=== PATIENT | female | born 1985 | race Caucasian/White ===

== ENCOUNTER 2019-10-01 15:28 | Outpatient (CLI) | payer OTHER, SELFPAY ==
--- NOTE | ~2019-10-01 | MM_ITS ---
EXAMINATION: MM scrn walker implant BI w darlene HISTORY: Screening mammogram TECHNIQUE: Craniocaudal and mediolateral oblique 3-D tomosynthesis images with implant displacement a nd synthetic 2-D images were generated. Craniocaudal and mediolateral oblique views of the breasts wi thout implant displacement were obtained using full field digital mammography. CAD analysis was submi tted and interpreted. COMPARISON: No prior mammogram is available for comparison at this institution. BREAST PARENCHYMAL COMPOSITION: The breasts are heterogeneously dense, which may obscure small masses . FINDINGS: There are bilateral subpectoral saline implants. There is no evidence of suspicious mass, c alcification, or architectural distortion to suggest malignancy in either breast. There has been no s uspicious interval change. IMPRESSION: 1. No mammographic evidence of malignancy. 2. Recommend routine screening mammography in one year. BI-RADS Category 1: Negative Reviewed, dictated and finalized at location A.
--- NOTE | ~2019-10-01 | XR_ITS ---
XR abdomen w oblique DATE: 10/01/2019 16:02 INDICATION: Right upper quadrant and epigastric abdominal pain since gallbladder surgery TECHNIQUE: AP and bilateral oblique views of the abdomen COMPARISON: 04/08/2019 right upper quadrant abdominal ultrasound 04/12/2018 CT abdomen pelvis noncontrast examination 12/28/2017 KUB FINDINGS: Surgical clips, right upper quadrant, consistent with history of cholecystectomy. There is an IUD overlying the pelvis. Bilateral calcified pelvic phleboliths. The psoas shadows are intact. No visceromegaly is evident. There is no evidence of bowel obstruction. IMPRESSION: Status post cholecystectomy IUD Reviewed, dictated and finalized at Location [facility]. Reviewed, dictated and finalized at location B.
[2019-10-01 17:20] LABS: Thyroid Stimulating Hormone < 0.015 uIU/mL (0.465-4.680); Total Triiodothyronine (T3) 0.82 NG/ML (0.97-1.69)
[2019-10-01 17:23] LABS: Free T4 Free Thyroxine 1.19 ng/mL (0.78-2.19)
== END 2019-10-01 15:29 | disposition home or self-care (01) ==
PROVIDERS: PCP Internal Medicine; Visit Provider Surgery Plastic and Reconstructive Surgery
DX: Z12.31 Encounter for screening mammogram for malignant neoplasm of breast (principal); R10.13 Epigastric pain; R10.11 Right upper quadrant pain; E03.8 Other specified hypothyroidism; Z90.49 Acquired absence of other specified parts of digestive tract; Z97.5 Presence of (intrauterine) contraceptive device
CPT/HCPCS: 36415; 74021; 77063; 77067; 84439; 84443; 84480

== ENCOUNTER 2019-10-03 14:15 | Outpatient (CLI) | payer OTHER, SELFPAY | END 2019-10-03 14:16 | disposition home or self-care (01) | PROVIDERS: PCP Internal Medicine; Visit Provider Internal Medicine | DX: R10.13 Epigastric pain (principal) | CPT/HCPCS: 36415; 86003 ==

== ENCOUNTER 2019-10-05 08:35 | Outpatient (CLI) | payer OTHER, SELFPAY ==
--- NOTE | ~2019-10-05 | US_ITS ---
US right upper quadrant INDICATION: Epigastric pain. Status post cholecystectomy in 2019. PROCEDURE: Realtime right upper abdominal ultrasound. COMPARISON: Ultrasound dated 04/08/2019 FINDINGS: The pancreas is normal without focal mass or pancreatic ductal dilation. Liver echotexture is normal without focal mass or intrahepatic biliary dilatation. There is normal directional flow i n the portal vein. Gallbladder is surgically absent. IVC is unremarkable. IMPRESSION: 1: Normal limited abdominal ultrasound. Reviewed, dictated and finalized at location A.
== END 2019-10-05 08:36 | disposition home or self-care (01) ==
PROVIDERS: PCP Internal Medicine; Visit Provider Internal Medicine
DX: R10.13 Epigastric pain (principal)
CPT/HCPCS: 76705

== ENCOUNTER 2019-11-27 05:58 | Outpatient (CLI) | payer OTHER, SELFPAY ==
[2019-11-27 16:38] LABS: SARS-CoV-2 RNA PCR Negative
== END 2019-11-27 05:59 | disposition home or self-care (01) ==
LOC: ANHCOVIDDT 05:59
PROVIDERS: PCP Internal Medicine; Visit Provider Surgery Plastic and Reconstructive Surgery
DX: Z01.818 Encounter for other preprocedural examination (principal); Z11.59 Encounter for screening for other viral diseases
CPT/HCPCS: 87635; U0003

== ENCOUNTER 2019-11-29 00:54 | Day surgery (SDC) | payer OTHER, SELFPAY ==
[2019-11-25 19:11] VITALS: BMI 53.1
[2019-11-29] VITALS (9 sets, daily range): BP systolic 103–118; BP diastolic 52–75; PULSE 64–90; RESP 10–20; TEMP 36–36.6; O2SAT 95–100
--- NOTE | 2019-11-29 06:49 | WPDANESEPPF ---
Anes - Initial Pre Proc Eval Procedure: Operation Date: 11/29/19 07:30 Proposed Procedures p Bilateral Breast Implant Exchange, - Neil Webb MD s Bilateral Mastopexy with Galaflex - Neil Webb MD Date/Time: 11/29/19 06:49 Surgeon: Neil Webb MD Pre Op Diagnosis: HX BREAST AUGMENTATION Patient Data Age: 34 Gender: F Height: 5 ft 2 in Weight: 56.69 kg Allergies Allergy/AdvReac Type Severity Reaction Status Date / Time No Known Allergies Allergy Verified 11/25/19 18:38 Home Medications Medication Instructions Recorded Confirmed Type topiramate 25 mg tablet 25 mg PO BID 05/17/19 11/25/19 History erenumab-aooe 70 mg/mL 70 mg SUB-Q MONTHLY 05/21/19 11/25/19 History subcutaneous auto-injector gabapentin 300 mg capsule 300 mg PO BID 05/21/19 11/25/19 History magnesium 250 mg tablet 500 mg PO DAILY tablet 10/03/19 11/25/19 History levothyroxine 112 mcg tablet 112 mcg PO DAILY #90 tablet 11/19/19 11/25/19 Rx cholecalciferol (vitamin D3) 50 mcg PO DAILY 11/25/19 11/25/19 History [Vitamin D3] linaclotide [Linzess] 290 mcg PO DAILY 11/25/19 11/25/19 History loynsuurwoiw-irr-iglc-FA-vit K tablet PO 11/25/19 History [Adults Multivitamin] polyethylene glycol 3350 [Miralax] 17 g PO DAILY 11/25/19 11/25/19 History Patient hx anesthesia problems: none Family hx anesthesia problems: none PMFSH Past Medical History Medical History (Updated 11/29/19 @ 06:50 by Luis Jiang MD) BMI 23.0-23.9, adult Central hypothyroidism Constipation Fatigue Fibromyalgia Follow up RLQ abdominal pain SVT (supraventricular tachycardia) Surgical History Surgical History H/O cardiac radiofrequency ablation History of cardiac radiofrequency ablation S/P cholecystectomy Status post cholecystectomy Family History Family History Father Family history of hypercholesterolemia Family history of malignant neoplasm of esophagus Mother Family history of hypercholesterolemia Hypertension Cerebrovascular accident Other Family history of malignant neoplasm Social History Social History Smoking status: Never smoker Alcohol intake: current Anes - Eval Final PreProcedure Day of Procedure 11/29/19 06:49 Patient weight: normal Heart: regular rate and rhythm Lungs: clear to auscultation Airway: Mallampati scale class 1 Neurological: alert and oriented Last oral intake: >/= 8 hours ASA classification: III Emergent: no Anesthetic plan: proceed Anesthesia type and monitoring: general LMA and standard monitoring Other findings: TIVA temporary oral bridge upper Informed Consent: The patient's anesthetic plan and its attendant risks and benefits were discussed with the patient/family/POA. Questions were solicited and answers provided to the satisfaction of the patient/family/POA.
[2019-11-29] MEDS: LACTATED RINGERS 1,000 ML 30 ML IV CONT ×3 (06:55→11:42)
--- NOTE | 2019-11-29 07:07 | WPDHPUPDATE1 ---
History and Physical Update Update Date/Time: 11/29/19 07:07 History and Physical has been reviewed, including an updated exam of the patient. There are NO changes in the patient's condition. Risks, benefits, and alternatives have been discussed and questions answered. Patient agrees to proceed with procedure.
[2019-11-29] MEDS: LIDO 1%/EPINEPHRINE 1:100,000 20 ML VIAL 30 ML INFILTRATE (07:26)
[2019-11-29] MEDS: ceFAZolin 2 GM/D5W 50 ML 2 GM/50 ML BAG IVPB (07:26)
[2019-11-29 07:31] LABS: Urine Cotinine NEGATIVE
--- NOTE | 2019-11-29 10:12 | SUR.OPER ---
EBL:30cc
--- NOTE | 2019-11-29 10:47 | PM.PROC ---
Procedure Note - Detailed Date of procedure: 11/29/19 Pre-op diagnosis: HX BREAST AUGMENTATION Post-op diagnosis: same Procedure performed: Bilateral breast implant exchange, revision mastopexy, galaflex Description of procedure: Patient was marked in the preoperative holding area with her verification. She did have a degree of asymmetry that was identified. She also has some volume asymmetry which was discussed in great detail. I did we over the risks, benefits, alternatives. Discussed realistic expectations of outcome. Explained to her gravity will always settle this. She will likely have some residual areola which was identified. All outlined in great detail prior to proceeding. Patient was taken to the operating room placed supine on the operating table. Anesthesia was provided by anesthesiology and prepped and draped in a standard sterile fashion. Tegaderm nipple Cherry were placed. I made a vertical incision. Dissection was continued down to the implant pocket was identified and I opened this. The implant was removed. This was a 290 cc saline implant with 1 of the sides I was slightly under filled. She had had lateral migration of the implants and as such I completed popcorn capsulorrhaphy bilateral on the lateral aspect and release the superior. I irrigated with a total volume of 3 L of saline solution on TUR tubing. That was 1500 cc per side. I verified strict hemostasis. I then irrigated with triple antibiotic and Betadine containing solution. Wash my gloves. Used a funnel in a no-touch technique and the implant was introduced into the pocket. I closed using 2-0 Vicryl in many layers. I then tailor tacked the breast into place and put her in a sitting position. Marked out the nipple-areolar complex at 38 mm. This was based on my preoperative planning and intraoperative measurements. She was placed supine. I removed the central portion of soft tissue based on a preoperative planning. I elevated bilateral flaps for the mastopexy. Gout flex was trimmed and sutured into place using 2-0 Vicryl. I then reapproximated the flaps using 2-0 Vicryl this is followed by 3-0 strata fix along the IMF and 3-0 Monocryl vertically. I also used 3-0 Monocryl around the areola. The areola was left in a superior pedicle which had been de-epithelialized. I then used running subcuticular 4-0 Monocryl and tissue glue for final closure. Prior to final closure again I did place her in a sitting position to verify symmetry and that I was happy with the appearance. Fluffs and a surgical bra were placed. Patient was woken taken to the PACU without difficulty. All instrument sponge counts were correct at the end of the case. Implants: Previous implants 290cc saline. Bilateral silicone implants placed. [employer] SoftTouch. Right: REF# [id number] Left: REF# [id number] Galaflex REF# [id number]# [id number] Exp 04/15/2020 Anesthesia: GLMA Surgeon: Neil Webb MD Estimated blood loss (mL): 30 Drains: No Packing: No Pathology: none sent Complications: No immediate complications Condition: stable Disposition: PACU
[2019-11-29] MEDS: ONDANSETRON INJ 4 MG/2 ML VIAL IV PUSH (12:58)
== END 2019-11-29 13:04 | disposition home or self-care (01) ==
PROVIDERS: PCP Internal Medicine; Visit Provider Surgery Plastic and Reconstructive Surgery
PROC: (CPT 19342; principal; 2019-11-29 07:30)
PROC: (CPT 19316; 2019-11-29 07:30)
DX: Z45.812 Encounter for adjustment or removal of left breast implant (principal); Z45.811 Encounter for adjustment or removal of right breast implant; I47.1 Supraventricular tachycardia; E03.9 Hypothyroidism, unspecified; M79.7 Fibromyalgia; K59.00 Constipation, unspecified; Z79.899 Other long term (current) drug therapy
CPT/HCPCS: 19340; 19328; 15777 ×2; 36415; 80307; A9270; J0690; J1100; J1580; J2250; J2405; J2704; J3010; J7120

== ENCOUNTER 2020-02-21 10:34 | Outpatient (CLI) | payer OTHER, SELFPAY ==
[2020-02-21 11:18] LABS: Anion Gap 12.5 mmol/L (7-16); Blood Urea Nitrogen 9 mg/dL (7-17); Calcium 9.9 mg/dL (8.4-10.2); Carbon Dioxide 26 mmol/L (22-30); Chloride 105 mmol/L (98-107); Cholesterol 209 mg/dL (0-200); Estimated Glomerular Filt Rate > 60; Glucose 80 mg/dL (65-105); HDL Direct 78 mg/dL; Potassium 4.5 mmol/L (3.4-5.0); Sodium 139 mmol/L (137-145); Triglycerides 72 mg/dL (<150)
[2020-02-21 11:29] LABS: LDL Cholesterol Direct 120 mg/dL
[2020-02-21 11:48] LABS: Thyroid Stimulating Hormone 0.193 uIU/mL (0.465-4.680)
[2020-02-21 12:02] LABS: Free T4 Free Thyroxine 1.01 ng/mL (0.78-2.19)
[2020-02-25 06:06] LABS: Triiodothyronine T3 Free 2.6 pg/mL (2.3-4.2)
== END 2020-02-21 10:35 | disposition home or self-care (01) ==
PROVIDERS: PCP Internal Medicine; Visit Provider Internal Medicine
DX: E03.9 Hypothyroidism, unspecified (principal); I47.1 Supraventricular tachycardia; Z79.899 Other long term (current) drug therapy
CPT/HCPCS: 36415; 80048; 80061; 84439; 84443; 84481

== ENCOUNTER 2020-04-24 09:28 | Outpatient (CLI) | payer OTHER, SELFPAY ==
--- NOTE | ~2020-04-24 | XR_ITS ---
XR UGIAC w barium swallow DATE: 04/24/2020 10:10 INDICATION: Food sticking in neck area. TECHNIQUE: 1.4 minutes fluoroscopy time DAP: 20.358 Air-contrast upper gastrointestinal series and barium swallow COMPARISON: None FINDINGS: Normal deglutition and esophageal peristalsis. No stricture, mucosal fold thickening, erosi on, ulceration or intraluminal mass lesion of the esophagus, stomach or duodenum. Surgical clips, right upper quadrant, consistent with cholecystectomy. IMPRESSION: Normal Reviewed, dictated and finalized at Location [facility]. Reviewed, dictated and finalized at location A. IMPRESSION: Normal
== END 2020-04-24 09:29 | disposition home or self-care (01) ==
LOC: ANHIMG 09:36
PROVIDERS: PCP Internal Medicine; Visit Provider Internal Medicine
DX: R13.10 Dysphagia, unspecified (principal); R19.8 Other specified symptoms and signs involving the digestive system and abdomen; R11.0 Nausea
CPT/HCPCS: 74246

== ENCOUNTER 2020-06-02 17:11 | Outpatient (CLI) | payer OTHER, SELFPAY ==
[2020-06-02 17:46] LABS: Rheumatoid Factor < 8.6 IU/ML (<12)
[2020-06-02 17:47] LABS: CRP < 0.5 mg/dL (<1.0)
[2020-06-02 17:50] LABS: Erythrocyte Sedimentation Rate 7 mm/hr (0-20)
[2020-06-05 21:59] LABS: Anti Cyclic Citrullinated Pept <16 Units (<20)
== END 2020-06-02 17:12 | disposition home or self-care (01) ==
LOC: ANHLAB 17:13
PROVIDERS: PCP Internal Medicine; Visit Provider Internal Medicine
DX: M25.50 Pain in unspecified joint (principal)
CPT/HCPCS: 36415; 85652; 86140; 86200; 86430

== ENCOUNTER 2020-08-25 11:52 | Outpatient (CLI) | payer OTHER, SELFPAY ==
[2020-08-25 12:31] LABS: Cholesterol 210 mg/dL (0-200); HDL Direct 92 mg/dL; Triglycerides 52 mg/dL (<150)
[2020-08-25 12:42] LABS: LDL Cholesterol Direct 123 mg/dL
[2020-08-25 13:02] LABS: Thyroid Stimulating Hormone 0.121 uIU/mL (0.465-4.680)
[2020-08-25 13:21] LABS: Free T4 Free Thyroxine 0.93 ng/mL (0.78-2.19)
[2020-08-29 07:08] LABS: Triiodothyronine T3 Free 2.3 pg/mL (2.3-4.2)
== END 2020-08-25 11:53 | disposition home or self-care (01) ==
LOC: ANHLAB 11:54
PROVIDERS: PCP Internal Medicine; Visit Provider Internal Medicine
DX: E03.9 Hypothyroidism, unspecified (principal); E78.41 Elevated Lipoprotein(a); Z51.81 Encounter for therapeutic drug level monitoring; Z79.899 Other long term (current) drug therapy; Z00.00 Encounter for general adult medical examination without abnormal findings
CPT/HCPCS: 36415; 80061; 84439; 84443; 84481

== ENCOUNTER 2020-08-31 01:09 | Day surgery (SDC) | payer OTHER, SELFPAY ==
[2020-08-19 13:09] VITALS: BMI 22.9
[2020-08-31 09:11] VITALS: BP 131/89; PULSE 100; RESP 18; TEMP 36.6; O2SAT 99
[2020-08-31] MEDS: LACTATED RINGERS 1,000 ML 150 ML IV CONT (09:21)
--- NOTE | 2020-08-31 09:41 | WPDANESEPPF ---
Anes - Initial Pre Proc Eval Procedure: Operation Date: 08/31/20 10:15 Proposed Procedures p Esophagogastroduodenoscopy & Colonoscopy - Riky Porter MD Date/Time: 08/31/20 09:41 Surgeon: Riky Porter MD Pre Op Diagnosis: diarrhea, rectal bleeding, nausea, abd pain Patient Data Age: 35 Gender: F Height: 5 ft 2 in Weight: 57.7 kg Last Vital Signs Temp 36.6 C 08/31/20 09:11 Pulse 100 08/31/20 09:11 Resp 18 08/31/20 09:11 BP 131/89 08/31/20 09:11 Pulse Ox 99 08/31/20 09:11 Allergies Allergy/AdvReac Type Severity Reaction Status Date / Time No Known Allergies Allergy Verified 08/31/20 09:09 Home Medications Medication Instructions Recorded Confirmed Type magnesium 250 mg tablet 500 mg PO DAILY tablet 10/03/19 08/28/20 History levothyroxine 112 mcg tablet 112 mcg PO DAILY #90 tablet 11/19/19 08/31/20 Rx Adults Multivitamin 1 tablet PO DAILY 11/25/19 08/28/20 History cholecalciferol (vitamin D3) 50 mcg PO DAILY 11/25/19 08/28/20 History [Vitamin D3] duloxetine 60 mg capsule,delayed 60 mg PO DAILY #90 cap 06/10/20 08/28/20 Rx release gabapentin 300 mg capsule See Rx Instructions .ROUTE 07/24/20 08/28/20 Rx .COMPLEX #60 capsule calcium polycarbophil [FiberCon] 1,250 mg PO DAILY 08/19/20 08/28/20 History duloxetine 30 mg capsule,delayed 30 mg PO DAILY #90 cap 08/28/20 08/28/20 Rx release Patient hx anesthesia problems: none Family hx anesthesia problems: none PMFSH Past Medical History Medical History Abdominal pain Anxiety with depression Blood in stool BMI 23.0-23.9, adult Central hypothyroidism Constipation CTS (carpal tunnel syndrome) Dysphagia Encounter for routine adult health examination without abnormal findings Fatigue Fibromyalgia Follow up History of gastric ulcer History of gastroesophageal reflux (GERD) Irritable bowel syndrome with constipation Irritable bowel syndrome with diarrhea Joint pain Nausea On [facility] [employer] drug therapy Personal history of COVID-19 RLQ abdominal pain SVT (supraventricular tachycardia) Surgical History Surgical History H/O cardiac radiofrequency ablation History of cardiac radiofrequency ablation Hx of breast augmentation S/P cholecystectomy Status post cholecystectomy Family History Family History Father Family history of hypercholesterolemia Family history of malignant neoplasm of esophagus Mother Family history of hypercholesterolemia Hypertension Cerebrovascular accident Other Family history of malignant neoplasm Social History Social History Smoking status: Never smoker Alcohol intake: current Drinks per week: 10 Substance use: never Substance use type: does not use Living arrangements: with family 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 Questions were solicited and answers provided to the satisfaction of the patient/family/POA.
--- NOTE | 2020-08-31 10:13 | PM.HPGS ---
History of Present Illness History of Present Illness Consent: Risks, benefits, and alternatives have been discussed and questions answered. Patient agrees to proceed with procedure. Chief complaint: diarrhea, rectal bleeding, nausea, abd pain Narrative: Nicho Deleon is a 35 year old female with intermittent abdominal pain in rlq and luq, cholecystectomy did not help actually pain worsened, normal bowel movements but more often than usual and feels like does not evacuate. Using fiber and miralax prn. Also on omeprazole, took carafate but did not help Review of Systems Constitutional: Constitutional: Denies headache(s) and Denies weakness Eyes: Eyes: Denies blurry vision ENT: Reports Normal hearing present, Denies headache(s) and Denies neck pain Cardiovascular: Cardiovascular: Denies chest pain and Denies dyspnea Respiratory: Respiratory: Denies dyspnea Gastrointestinal: Gastrointestinal: Reports no additional gastrointestinal complaints Genitourinary: Genitourinary: Denies dysuria Musculoskeletal: Musculoskeletal: Denies neck pain Integumentary/Breasts: Skin/Breast: Denies dry skin Neurologic: Reports Normal hearing present, Denies headache(s) and Denies weakness Psychiatric: Psychiatric: Denies anxiety Endocrine: Endocrine: Denies change in body appearance Hematologic/Lymphatic: Hematologic/Lymphatic: Denies easy bleeding Allergic/Immunologic: Allergic/Immunologic: Denies urticaria PMFSH Past Medical History Medical History Abdominal pain Anxiety with depression Blood in stool BMI 23.0-23.9, adult Central hypothyroidism Constipation CTS (carpal tunnel syndrome) Dysphagia Encounter for routine adult health examination without abnormal findings Fatigue Fibromyalgia Follow up History of gastric ulcer History of gastroesophageal reflux (GERD) Irritable bowel syndrome with constipation Irritable bowel syndrome with diarrhea Joint pain Nausea On [facility] drug therapy Personal history of COVID-19 RLQ abdominal pain SVT (supraventricular tachycardia) Surgical History Surgical History H/O cardiac radiofrequency ablation History of cardiac radiofrequency ablation Hx of breast augmentation S/P cholecystectomy Status post cholecystectomy Family History Family History Father Family history of hypercholesterolemia Family history of malignant neoplasm of esophagus Mother Family history of hypercholesterolemia Hypertension Cerebrovascular accident Other Family history of malignant neoplasm Social History Social History Smoking status: Never smoker Alcohol intake: current Drinks per week: 10 Substance use: never Substance use type: does not use Living arrangements: with family 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 Spiritual care concerns: No Meds Home Medications and Allergies Home Medications Medication Instructions Recorded Confirmed Type magnesium 250 mg tablet 500 mg PO DAILY tablet 10/03/19 08/28/20 History levothyroxine 112 mcg tablet 112 mcg PO DAILY #90 tablet 11/19/19 08/31/20 Rx Adults Multivitamin 1 tablet PO DAILY 11/25/19 08/28/20 History cholecalciferol (vitamin D3) 50 mcg PO DAILY 11/25/19 08/28/20 History [Vitamin D3] duloxetine 60 mg capsule,delayed 60 mg PO DAILY #90 cap 06/10/20 08/28/20 Rx release gabapentin 300 mg capsule See Rx Instructions .ROUTE 07/24/20 08/28/20 Rx .COMPLEX #60 capsule calcium polycarbophil [FiberCon] 1,250 mg PO DAILY 08/19/20 08/28/20 History duloxetine 30 mg capsule,delayed 30 mg PO DAILY #90 cap 08/28/20 08/28/20 Rx release Allergies Allergy/AdvReac Type Severity Reaction Status Date / Time No Known Allergies Allergy Verified 08/31/20 09:09 Vital Signs Vital Si
[2020-08-31] MEDS: BENZOCAINE (*SP) 60 ML SPRAY CAN (HURRICAINE) 1 SPRAY MUCOUS MEM (10:19)
--- NOTE | 2020-08-31 10:31 | SUR.OPER ---
EGD ENDED 1024,COLONOSCOPY STARTED 1029
[2020-08-31 10:49] VITALS: BP 96/62; PULSE 79; RESP 16; O2SAT 100
[2020-08-31 10:59] VITALS: BP 99/58; PULSE 74; RESP 16; O2SAT 100
[2020-08-31 11:09] VITALS: BP 107/72; PULSE 76; RESP 20; O2SAT 94
== END 2020-08-31 11:43 | disposition home or self-care (01) ==
PROVIDERS: PCP Internal Medicine; Visit Provider Internal Medicine Gastroenterology
PROC: 0DJ08ZZ Inspection of Upper Intestinal Tract, Via Natural or Artificial Opening Endoscopic (ICD-10-PCS; CPT 43235; principal; 2020-08-31 10:15)
DX: K58.9 Irritable bowel syndrome, unspecified (principal); R19.4 Change in bowel habit; K62.5 Hemorrhage of anus and rectum; K21.9 Gastro-esophageal reflux disease without esophagitis; R10.31 Right lower quadrant pain; R10.12 Left upper quadrant pain; K58.2 Mixed irritable bowel syndrome; K64.8 Other hemorrhoids; I47.1 Supraventricular tachycardia; M79.7 Fibromyalgia; E03.8 Other specified hypothyroidism; G56.00 Carpal tunnel syndrome, unspecified upper limb; F41.9 Anxiety disorder, unspecified; F32.9 Major depressive disorder, single episode, unspecified; Z79.899 Other long term (current) drug therapy; Z86.16 Personal history of COVID-19; Z90.49 Acquired absence of other specified parts of digestive tract; Z80.0 Family history of malignant neoplasm of digestive organs
CPT/HCPCS: 45380; 43239; 88305; J2704; J7120

== ENCOUNTER 2020-10-23 08:18 | Outpatient (CLI) | payer OTHER, SELFPAY ==
--- NOTE | ~2020-10-23 | CT_ITS ---
EXAMINATION: CT abdomen pelvis w con DATE: 10/23/2020 08:45 INDICATION: Diffuse abdominal pain. TECHNIQUE: Computed tomography (CT) of the abdomen and pelvis was performed with 100 mL Omnipaque-350 intravenous contrast. Automated exposure control and iterative reconstruction technique were employe d. The dose-length product was 293.68 mGy-cm. COMPARISON: 04/12/2018 FINDINGS: Lung bases are clear. Heart size is normal. No pericardial or pleural effusion. Bilateral breast impl ants. Cholecystectomy clips the gallbladder fossa. Liver, spleen, pancreas, bilateral adrenal glands and kidneys are normal. Moderate to large amount of stool scattered throughout the colon. Bowels are otherwise normal with no abnormal wall thickening or obstruction. Partially decompressed bladder is n ormal. T-shaped IUD in expected position within the anteverted uterus. Coarse calcification at the an terior uterine fundus likely related to a degenerated uterine fibroid. A few small follicles at the b ilateral ovaries. No free intraperitoneal gas or fluid. No pathologically enlarged abdominal or pelvi c lymphadenopathy. IMPRESSION: 1. Moderate to large amount of stool throughout the colon. Correlate for constipation. Otherwise no a cute intra-abdominal/pelvic process. 2. IUD in expected position in the anteverted uterus. Reviewed, dictated and finalized at location B. IMPRESSION: 1. Moderate to large amount of stool throughout the colon. Correlate for consti pation. Otherwise no acute intra-abdominal/pelvic process. 2. IUD in expected position in the anteverted uterus.
== END 2020-10-23 08:19 | disposition home or self-care (01) ==
PROVIDERS: PCP Internal Medicine; Visit Provider Internal Medicine
DX: R10.84 Generalized abdominal pain (principal); Z97.5 Presence of (intrauterine) contraceptive device
CPT/HCPCS: 74177; Q9967

== ENCOUNTER 2020-11-12 12:25 | Outpatient (CLI) | payer OTHER, SELFPAY ==
--- NOTE | ~2020-11-12 | XR_ITS ---
EXAMINATION: XR lumbar spine 2-3V EXAM DATE: 11/12/2020 13:13 INDICATION: No known recent injury provided at this time. Pain of the low back. TECHNIQUE: Lumber spine frontal, lateral, lateral L5-S1 projections for interpretation. There is no prior study for comparison. FINDINGS: Mild lumbar levoscoliosis. The vertebral bodies are aligned in the AP dimension. Vertebra l body and disc heights are well-maintained. Mild lower lumbar facet arthropathy. There are no acute fractures identified. Sacrum, sacroiliac joints, sacral arcuate lines are intact. There are cholecyst ectomy clips. There is IUD projecting over the central aspect of the pelvis. IMPRESSION: 1. Mild lumbar levoscoliosis. 2. Mild facet arthropathy. Reviewed, dictated and finalized at location A.
[2020-11-12 13:12] LABS: CRP < 0.5 mg/dL (<1.0); Creatine Kinase 257 U/L (30-135); Magnesium 2.1 mg/dL (1.6-2.3)
[2020-11-12 13:45] LABS: Erythrocyte Sedimentation Rate 8 mm/hr (0-20)
[2020-11-17 13:11] LABS: Vitamin D 1,25 (OH)2 Total 35 pg/mL (18-72); Vitamin D2 1,25 (OH)2 <8 pg/mL; Vitamin D3 1,25 (OH)2 35 pg/mL
[2020-11-17 20:50] LABS: Aldolase 6.9 U/L (<=8.1)
[2020-11-19 00:33] LABS: Testosterone Total 9 ng/dL (2-45)
== END 2020-11-12 12:26 | disposition home or self-care (01) ==
PROVIDERS: PCP Internal Medicine; Visit Provider Internal Medicine
DX: M79.609 Pain in unspecified limb (principal); M54.5 Low back pain; R20.2 Paresthesia of skin; R53.1 Weakness; Z79.899 Other long term (current) drug therapy; E55.9 Vitamin D deficiency, unspecified; M41.86 Other forms of scoliosis, lumbar region; M47.896 Other spondylosis, lumbar region
CPT/HCPCS: 36415; 72100; 82085; 82550; 82652; 83036; 83735; 84403; 85652; 86038; 86140

== ENCOUNTER 2020-11-27 08:27 | Outpatient (CLI) | payer OTHER, SELFPAY ==
--- NOTE | ~2020-11-27 | MR_ITS ---
EXAMINATION: MR brain/brain stem wo/w con DATE: 11/27/2020 09:44 INDICATION: Paresthesias of skin. Multiple sclerosis. TECHNIQUE: Magnetic resonance imaging (MRI) of the brain and brainstem was performed without and with 10 mL MultiHance intravenous contrast. Sequences included sagittal and axial T1-weighted FLAIR, axia l T1-weighted FSE, axial diffusion-weighted FS EPI, sagittal T2-weighted FLAIR, axial T2*-weighted GR E, axial T2-weighted FLAIR Propeller, and axial T2-weighted Propeller. Postcontrast sequences include d axial, coronal, and sagittal T1-weighted FSE. Apparent diffusion coefficient (ADC) maps were create d. COMPARISON: Brain MRI 03/01/2019 FINDINGS: There is no intracranial hemorrhage, acute infarction, or abnormal intracranial mass lesion . The ventricles are normal in size. The orbits are normal. There are trace bilateral mastoid effusio ns. The paranasal sinuses are clear. IMPRESSION: 1. Normal brain. Reviewed, dictated and finalized at location B. IMPRESSION: 1. Normal brain.
[2020-11-27 09:16] LABS: Estimated Glomerular Filt Rate > 60
== END 2020-11-27 08:28 | disposition home or self-care (01) ==
PROVIDERS: PCP Internal Medicine; Visit Provider Internal Medicine
DX: R20.2 Paresthesia of skin (principal); R20.0 Anesthesia of skin; M79.609 Pain in unspecified limb
CPT/HCPCS: 70553; A9577

== ENCOUNTER 2020-12-04 14:12 | Outpatient (CLI) | payer OTHER, SELFPAY ==
--- NOTE | ~2020-12-04 | XR_ITS ---
XR scoliosis survey DATE: 12/04/2020 14:37 INDICATION: Low back pain. Bilateral leg numbness. TECHNIQUE: Standing AP and lateral views of the spine; breast ellison. COMPARISON: 11/12/2020 lumbar spine FINDINGS: There is straightening of the cervical spine. No fracture or dislocation or bone destructio n of the cervical, thoracic or lumbar spine. The pedicles are intact. There is 5 degrees levoscoliosis measured from T3 to T10. There is 10 degrees dextroscoliosis measured from T10 to L1. There is 13 degrees levoscoliosis measured from L1 to L4. The right femoral head is 5.6 mm higher than the left femoral head. Status post cholecystectomy IUD IMPRESSION: 5 degrees levoscoliosis measured from T3 to T10. 10 degrees dextroscoliosis measured from T10 to L1. 13 degrees levoscoliosis measured from L1 to L4. Right femoral head is 5.6 mm higher than the left femoral head. Reviewed, dictated and finalized at Location [facility]. Reviewed, dictated and finalized at location B.
== END 2020-12-04 14:13 | disposition home or self-care (01) ==
LOC: ANHIMG 14:19
PROVIDERS: PCP Internal Medicine; Visit Provider Internal Medicine
DX: M54.5 Low back pain (principal); M95.5 Acquired deformity of pelvis; M41.80 Other forms of scoliosis, site unspecified; M41.84 Other forms of scoliosis, thoracic region; M41.86 Other forms of scoliosis, lumbar region; M21.751 Unequal limb length (acquired), right femur
CPT/HCPCS: 72082

== ENCOUNTER → 2020-12-26 01:02 | Outpatient (CLI) | payer OTHER, SELFPAY ==
[2020-12-26 17:56] LABS: SARS-CoV-2 RNA PCR Negative
== END ==
PROVIDERS: PCP Internal Medicine; Visit Provider Obstetrics & Gynecology
DX: Z01.812 Encounter for preprocedural laboratory examination (principal); Z20.822 Contact with and (suspected) exposure to COVID-19
CPT/HCPCS: C9803; U0003; U0005

== ENCOUNTER 2020-12-30 01:27 | Day surgery (SDC) | payer OTHER, SELFPAY ==
[2020-12-21 11:06] VITALS: BMI 22.8
--- NOTE | 2020-12-29 13:09 | WPDANESEPPF ---
Anes - Initial Pre Proc Eval Procedure: Operation Date: 12/30/20 11:00 Proposed Procedures p Hysteroscopy with Breana Endometrial Ablation - Leonila Rutledge MD Date/Time: 12/29/20 13:09 Surgeon: Leonila Rutledge MD Pre Op Diagnosis: menorrhaghia Patient Data Age: 35 Gender: F Height: 1.57 m Weight: 56.7 kg Allergies Allergy/AdvReac Type Severity Reaction Status Date / Time No Known Allergies Allergy Verified 12/21/20 11:04 Home Medications Medication Instructions Recorded Confirmed Type magnesium 250 mg tablet 500 mg PO DAILY tablet 10/03/19 12/21/20 History Adults Multivitamin 1 tablet PO DAILY 11/25/19 12/21/20 History cholecalciferol (vitamin D3) 50 mcg PO DAILY 11/25/19 12/21/20 History [Vitamin D3] calcium polycarbophil [FiberCon] 1,250 mg PO DAILY 08/19/20 12/21/20 History apple cider vinegar 300 mg tablet 300 mg PO DAILY 10/16/20 12/21/20 History testosterone 0.5mg cream See Rx Instructions .ROUTE 11/27/20 12/21/20 Rx .COMPLEX #15 ml gabapentin 300 mg PO BID 12/21/20 12/21/20 History levothyroxine 112 mcg PO DAILY 12/21/20 12/21/20 History duloxetine 60 mg capsule,delayed 60 mg PO DAILY #30 cap 12/25/20 Rx release methylphenidate HCl 10 mg tablet 10 mg PO BID #60 tablet 12/25/20 Rx triamcinolone acetonide 0.1 % 1 applic TOPICAL BID #15 g 12/25/20 Rx topical cream Patient hx anesthesia problems: none Family hx anesthesia problems: none PMFSH Past Medical History Medical History (System 12/10/20 @ 12:25 by Sugey Iniguez) Abdominal pain ADD (attention deficit disorder) Anxiety with depression Blood in stool BMI 23.0-23.9, adult Central hypothyroidism Constipation CTS (carpal tunnel syndrome) Dysphagia Encounter for routine adult health examination without abnormal findings Fatigue Fibromyalgia Follow up History of gastric ulcer History of gastroesophageal reflux (GERD) Insomnia Irritable bowel syndrome Irritable bowel syndrome with constipation Irritable bowel syndrome with diarrhea Joint pain Lack of concentration Low back pain radiating down leg Low testosterone level in female Nausea On penitentiary drug therapy Paresthesia of both lower extremities Personal history of COVID-19 RLQ abdominal pain SVT (supraventricular tachycardia) Surgical History Surgical History (System 12/10/20 @ 12:25 by Sugey Iniguez) H/O cardiac radiofrequency ablation History of cardiac radiofrequency ablation Hx of breast augmentation S/P cholecystectomy Status post cholecystectomy Family History Family History (System 12/10/20 @ 12:25 by Sugey Iniguez) Father Family history of hypercholesterolemia Family history of malignant neoplasm of esophagus Mother Family history of hypercholesterolemia Hypertension Cerebrovascular accident Other Family history of malignant neoplasm Social History Social History (System 12/10/20 @ 12:25 by Sugey Iniguez) Smoking status: Never smoker Alcohol intake: current Drinks per week: 14 Substance use: current Substance use type: marijuana Other substance usage details: CBD GUMMIES AT NIGHT Last use: 12/18/20 Living arrangements: with family Additional occupation/education comments: Returned [employer] Spiritual care concerns: No Anes - Eval Final PreProcedure Day of Procedure 12/29/20 13:09 Patient weight: normal Heart: regular rate and rhythm Lungs: clear to auscultation and normal air movement Airway: Mallampati scale class II Neurological: alert and oriented Last oral intake: >/= 8 hours ASA classification: II Emergent: no Anesthetic plan: proceed Anesthesia type and monitoring: general GIVS and LMA Informed Consent: The patient's anesthetic plan and its attendant risks and benefits were discussed with the patient/family/POA. Questions were solicited and answers provided to the satisfaction of the patient/family/POA.
[2020-12-30 09:16] VITALS: BP 121/89; PULSE 86; RESP 18; TEMP 36.5; O2SAT 100
[2020-12-30] MEDS: LACTATED RINGERS 1,000 ML 30 ML IV CONT (09:30)
[2020-12-30] MEDS: ACETAMINOPHEN 500 MG TABLET 1000 MG PO (09:33)
--- NOTE | 2020-12-30 10:15 | WPDHPUPDATE1 ---
History and Physical Update Update Date/Time: 12/30/20 10:15 History and Physical has been reviewed, including an updated exam of the patient. There are NO changes in the patient's condition. Risks, benefits, and alternatives have been discussed and questions answered. Patient agrees to proceed with procedure.
[2020-12-30 11:07] VITALS: BP 108/63; PULSE 62; RESP 14; O2SAT 95
--- NOTE | 2020-12-30 11:11 | W.PM.PROC2 ---
Procedure Note - Detailed Date of Procedure 12/30/20 Pre-op Diagnosis menorrhaghia Post-op Diagnosis same Procedure Performed Hysteroscopy Surgeon Leonila Rutledge MD Anesthesia MAC Indications Heavy vaginal bleeding Findings Scar across the fundal endometrium, narrow intrauterine cavity Description of Procedure The patient was taken the operating room. She was prepped and draped in the dorsal lithotomy position after induction of mac anesthesia. A speculum placed in vagina. The cervix was grasped with a tenaculum. The IUD was removed. This was done using a ring forceps and slowly withdrawing the IUD using the IUD string. The hysteroscope was placed in the intrauterine cavity and the above findings were noted. Hysteroscope was used to bluntly dissect scar tissue across the fundal endometrium. During this dissection of perforation was made through the uterus and the right cornu. The procedure was terminated immediately. The endometrial ablation was not performed. Estimated Blood Loss 5 Drains No Packing No Pathology none sent Complications Other complications (Uterine perforation) Condition stable Disposition PACU
[2020-12-30 11:37] VITALS: BP 110/65; PULSE 67; RESP 14; O2SAT 98
[2020-12-30] MEDS: oxyCODONE HCL (*CRX) 5 MG TAB IR PO (12:01)
[2020-12-30 12:07] VITALS: BP 108/63; PULSE 61; RESP 14
== END 2020-12-30 12:30 | disposition home or self-care (01) ==
PROVIDERS: PCP Internal Medicine; Visit Provider Obstetrics & Gynecology
PROC: 0U5B8ZZ Destruction of Endometrium, Via Natural or Artificial Opening Endoscopic (ICD-10-PCS; CPT 58563; principal; 2020-12-30 11:00)
DX: N92.0 Excessive and frequent menstruation with regular cycle (principal); N99.71 Accidental puncture and laceration of a genitourinary system organ or structure during a genitourinary system procedure; Y65.8 Other specified misadventures during surgical and medical care; Z30.432 Encounter for removal of intrauterine contraceptive device; F41.8 Other specified anxiety disorders; F98.8 Other specified behavioral and emotional disorders with onset usually occurring in childhood and adolescence; E03.9 Hypothyroidism, unspecified; M79.7 Fibromyalgia; K58.2 Mixed irritable bowel syndrome; Z86.16 Personal history of COVID-19; F12.90 Cannabis use, unspecified, uncomplicated
CPT/HCPCS: 58563; 58301; A9270; J2250; J2704; J3010; J7030; J7120

== ENCOUNTER 2021-01-12 08:00 | Outpatient (RCR) | payer OTHER, SELFPAY ==
--- NOTE | 2020-12-22 18:02 | PTOPEVAL ---
INITIAL PHYSICAL THERAPY EVALUATION and PLAN OF CARE Thank you for referring Nicho Deleon to [facility].? Nicho is scheduled to be seen for physical therapy? 2x/week for 4 weeks. Please review, sign, date and return this plan of care KATHLEEN. I agree with and certify that the following plan of care is medically necessary. Referring Physician Date Admitting Provider: Attending Provider: Angel Arora MD Referring Provider: *PT Outpatient Evaluation Start: 12/22/20 08:11 Freq: Status: Active Protocol: Document 12/22/20 08:09 NENITA (Rec: 12/22/20 09:04 NENITA [id number]) Therapy Assessment Status Assessment Status Assessment Status Evaluation Outpatient Past Medical History Past Medical History Source of Past Medical History Recalled from Previous Visit, Confirmed with Patient/Family Neurological History Hx Migraine Yes Cardiovascular History Hx Other Cardiac Disorders Yes: tachy with ablation 2019- has been released Respiratory History Hx Respiratory Disorders No Significant History Gastrointestinal History Hx Cholecystectomy Yes: 2019 Hx Gastroesophageal Reflux Disease Yes Hx Irritable Bowel Yes Genitourinary History Hx Genitourinary Disorders No Significant History Musculoskeletal History Hx Fibromyalgia Yes Hx Fractures Yes: ARM - left - as a child Hematological History Hx Anemia Yes: IN PAST, NO MEDS CURRENTLY Endocrine History Hx Hypothyroidism Yes HEENT History Hx HEENT Disorders No Significant History Integumentary History Hx Skin Disorders No Significant History Reproductive History Hx Other Reproductive Disorders Yes: LAPAROSCOPY Psychosocial History Hx Anxiety Yes Pain History History of Any Previous or Ongoing No Significant History Instance of Pain Anesthesia History Hx Anesthesia Reactions No Significant History Other History Hx Other Surgeries Yes: BREAST FEB 2020 Evaluation Information Problem Diagnosis low back pain Onset several years - worsening past few months Subjective Information Nicho reports receiving Query Text:As Reported By Patient/ diagnosis of fibromyalgia many Family years ago, but has had back and neck pain x several years. Sees chiropractor. Back pain has worsened, then few months ago began to feel numbness into both legs. Also having numbness into L arm.
--- NOTE | 2021-01-01 13:46 | PCPTNOTE ---
Patient called & cancelled scheduled appointment this date due to work.
--- NOTE | 2021-01-07 08:09 | PCPTNOTE ---
Patient called & cancelled scheduled appointment this date due to not being able to make it in.
--- NOTE | 2021-01-14 08:09 | PCPTNOTE ---
Patient called & cancelled scheduled appointment this date due to getting called into work.
--- NOTE | 2021-01-19 08:11 | PCPTNOTE ---
Patient called & cancelled scheduled appointment this date due to being called into work. Pt is to call back to reschedule re-evaluation.
--- NOTE | 2021-02-03 08:41 | PTOPEVAL ---
Thank you for referring Nicho Taylor Rodmarguerite to [facility].? The patient is scheduled to be seen for therapy? ____x/week for ___ weeks. Please review, sign, date and return this plan of care KATHLEEN. I agree with and certify that the following plan of care is medically necessary. Referring Physician Date Admitting Provider: Attending Provider: Angel Arora MD Referring Provider: *PT Outpatient Evaluation Start: 12/22/20 08:11 Freq: Status: Active Protocol: Document 12/22/20 08:09 NENITA (Rec: 12/22/20 09:04 NENITA [id number]) Therapy Assessment Status Assessment Status Assessment Status Evaluation Outpatient Past Medical History Past Medical History Source of Past Medical History Recalled from Previous Visit, Confirmed with Patient/Family Neurological History Hx Migraine Yes Cardiovascular History Hx Other Cardiac Disorders Yes: tachy with ablation 2019- has been released Respiratory History Hx Respiratory Disorders No Significant History Gastrointestinal History Hx Cholecystectomy Yes: 2019 Hx Gastroesophageal Reflux Disease Yes Hx Irritable Bowel Yes Genitourinary History Hx Genitourinary Disorders No Significant History Musculoskeletal History Hx Fibromyalgia Yes Hx Fractures Yes: ARM - left - as a child Hematological History Hx Anemia Yes: IN PAST, NO MEDS CURRENTLY Endocrine History Hx Hypothyroidism Yes HEENT History Hx HEENT Disorders No Significant History Integumentary History Hx Skin Disorders No Significant History Reproductive History Hx Other Reproductive Disorders Yes: LAPAROSCOPY Psychosocial History Hx Anxiety Yes Pain History History of Any Previous or Ongoing No Significant History Instance of Pain Anesthesia History Hx Anesthesia Reactions No Significant History Other History Hx Other Surgeries Yes: BREAST FEB 2020 Evaluation Information Problem Diagnosis low back pain Onset several years - worsening past few months Subjective Information Nicho reports receiving Query Text:As Reported By Patient/ diagnosis of fibromyalgia many Family years ago, but has had back and neck pain x several years. Sees chiropractor. Back pain has worsened, then few months ago began to feel numbness into both legs. Also having numbness into L arm. Scheduled for nerve con
--- NOTE | 2021-02-03 08:42 | PCPTNOTE ---
PHYSICAL THERAPY DISCHARGE SUMMARY Admitting Provider: Attending Provider: Angel Arora MD Patient:Nicho Deleon Date of :1985 Nicho has not returned for any further treatments since 01/12/2021, therefore she will be discharged at this time. Nicho?s initial visit was on 12/22/2020 08:00 and she had a total of 5 visits. She had 4 cancellations including her re-evaluation. She did not call to reschedule this appointment. The goals have been partially met. Thank you for referring Nicho to [facility]. Please review, sign, date and return this discharge summary KATHLEEN. I have been updated about Nicho's current status and I agree with discharge from the above service at this time. Referring Physician Date
== END 2021-02-05 14:41 | disposition home or self-care (01) ==
LOC: ANHPT 08:00
PROVIDERS: PCP Internal Medicine; Visit Provider Internal Medicine
DX: M54.5 Low back pain (principal)
CPT/HCPCS: 97110; 97162

== ENCOUNTER 2021-01-29 16:11 | Outpatient (CLI) | payer OTHER, SELFPAY ==
--- NOTE | ~2021-01-29 | MR_ITS ---
EXAMINATION: MR lumbar spine wo con DATE: 01/29/2021 16:44 INDICATION: Low back pain. TECHNIQUE: Magnetic resonance imaging (MRI) of the lumbar spine was performed without intravenous con trast. Sequences included sagittal T2-weighted FSE, sagittal T2-weighted FS FSE, sagittal T1-weighted FSE, and axial T2-weighted FSE. COMPARISON: None FINDINGS: 10 degrees lumbar levoscoliosis. Vertebral body heights are normal. Normal marrow signal. Mild right -sided disc height loss at L1-L2 at L2-L3. The conus medullaris terminates at L1. There is normal sig nal in the caudal spinal cord. Paravertebral soft tissues are unremarkable. The following disc levels are specifically discussed: T12-L1: The disc does not extend beyond the endplate margin. There is minimal bilateral facet joint o steoarthritis. There is no neural foraminal stenosis. There is no central canal stenosis. L1-L2: The disc does not extend beyond the endplate margin. There is mild right and minimal left face t joint osteoarthritis. There is no neural foraminal stenosis. There is no central canal stenosis. L2-L3: Disc is mildly bulging. There is mild right facet joint osteoarthritis. There is mild bilatera l neural foraminal stenosis. There is no central canal stenosis. L3-L4: Disc is mildly bulging. There is minimal bilateral facet joint osteoarthritis. There is mild l eft and minimal right neural foraminal stenosis. There is no central canal stenosis. L4-L5: Disc is mildly bulging. There is mild bilateral facet joint osteoarthritis. There is mild bila teral neural foraminal stenosis. There is no central canal stenosis. L5-S1: Annular fissure with negligible central disc protrusion. There is mild left and mild to modera te right facet joint osteoarthritis. There is mild bilateral neural foraminal stenosis. There is no c entral canal stenosis. IMPRESSION: 1. 10 degrees lumbar levoscoliosis with mild spondylosis. Reviewed, dictated and finalized at location A.
== END 2021-01-29 16:12 | disposition home or self-care (01) ==
LOC: ANHIMG 16:13
PROVIDERS: PCP Internal Medicine; Visit Provider Internal Medicine
DX: M54.5 Low back pain (principal); R20.2 Paresthesia of skin; M41.86 Other forms of scoliosis, lumbar region
CPT/HCPCS: 72148

== ENCOUNTER 2021-02-09 09:52 | Outpatient (CLI) | payer OTHER, SELFPAY ==
[2021-02-09 10:25] LABS: Basophils Absolute Auto 0.1 K/mm3 (0.0-0.1); Basophils Percent Auto 1.1 % (0.2-1.2); Eosinophils Absolute Auto 0.2 K/mm3 (0-0.3); Eosinophils Percent Auto 2.3 % (0-4.4); Hematocrit 39.2 % (37.0-47.0); Hemoglobin 13.2 g/dL (12.0-15.0); Immature Granulocyte Absolute 0.02 K/mm3 (0.00-0.031); Immature Granulocyte Percent A 0.3 % (0-0.5); Lymphocytes Absolute Auto 2.42 K/mm3 (0.9-3.2); Lymphocytes Percent Auto 32.5 % (18.3-44.2); Mean Corpuscular HGB Conc 33.7 g/dl (32-36); Mean Corpuscular Hemoglobin 31.8 pg (26-34); Mean Corpuscular Volume 94.5 fl (80-100); Mean Platelet Volume 9.6 fl (7.4-10.4); Monocytes Absolute Auto 0.5 K/mm3 (0.1-0.6); Neutrophils Absolute Auto 4.2 K/mm3 (1.3-6.7); Neutrophils Percent Auto 56.8 % (45.5-73.1); Platelet Count Result 290 k/mm3 (150-375); Red Blood Count 4.15 M/mm3 (4.2-5.4); Red Cell Distribution Width 12.7 % (11.5-14.5); White Blood Count 7.4 K/mm3 (4.5-10.0)
[2021-02-09 10:33] LABS: Alanine Aminotransferase 30 U/L (4-35); Albumin Level 4.5 g/dL (3.5-5.1); Alkaline Phosphatase 55 U/L (38-126); Anion Gap 10 mmol/L (8-16); Aspartate Amino Transferase 34 U/L (14-36); Bilirubin,Total 0.3 mg/dL (0.2-1.3); Blood Urea Nitrogen 13 mg/dL (7-17); Calcium 9.5 mg/dL (8.4-10.2); Carbon Dioxide 26 mmol/L (22-30); Chloride 106 mmol/L (98-107); Cholesterol 220 mg/dL (0-200); Estimated Glomerular Filt Rate > 60; Glucose 83 mg/dL (65-110); HDL Direct 83 mg/dL; Potassium 4.2 mmol/L (3.4-5.0); Sodium 142 mmol/L (137-145); Triglycerides 95 mg/dL (<150)
[2021-02-09 10:44] LABS: LDL Cholesterol Direct 111 mg/dL
[2021-02-09 11:04] LABS: Thyroid Stimulating Hormone 0.068 uIU/mL (0.465-4.680)
--- NOTE | 2021-02-09 11:15 | NEURO_ITS ---
Impression: # Complains of numbness of hands and feet. # Normal nerve conduction study of upper and lower extremity except evolving early right ulnar neuropathy across the elbow. # No Carpal Tunnel Syndrome. # Normal needle/EMG exam. Nerve Conduction Studies Anti Sensory Summary Table Stim Site NR Peak (ms) P-T Amp (?V) Site1 Site2 Delta-P (ms) Dist (cm) Jono (m/s) Left Median Anti Sensory (2-3nd Digit) Wrist 2.6 71.5 Wrist 2-3nd Digit 2.6 14.0 54 Wrist 2.5 67.5 Wrist 2-3nd Digit 2.6 14.0 54 Right Median Anti Sensory (2-3nd Digit) Wrist 2.4 54.5 Wrist 2-3nd Digit 2.4 14.0 58 Wrist 2.4 69.2 Wrist 2-3nd Digit 2.4 14.0 58 Left Radial Anti Sensory (Base 1st Digit) Wrist 2.5 26.9 Wrist Base 1st Digit 2.5 0.0 Right Radial Anti Sensory (Base 1st Digit) Wrist 1.8 26.3 Wrist Base 1st Digit 1.8 0.0 Left Sup Fibular Anti Sensory (Ant Lat Mall) 14 cm 2.8 10.3 14 cm Ant Lat Mall 2.8 16.0 57 Right Sup Fibular Anti Sensory (Ant Lat Mall) 14 cm 2.5 22.1 14 cm Ant Lat Mall 2.5 16.0 64 Left Sural Anti Sensory (Lat Mall) Calf 2.8 24.6 Calf Lat Mall 2.8 16.0 57 Right Sural Anti Sensory (Lat Mall) Calf 3.7 12.3 Calf Lat Mall 3.7 16.0 43 Left Ulnar Anti Sensory (5th Digit) Wrist 2.1 89.3 Wrist 5th Digit 2.1 14.0 67 Right Ulnar Anti Sensory (5th Digit) Wrist 2.2 94.2 Wrist 5th Digit 2.2 14.0 64 Motor Summary Table Stim Site NR Onset (ms) O-P Amp (mV) Site1 Site2 Delta-0 (ms) Dist (cm) Jono (m/s) Left Median Motor (Abd Poll Brev) Wrist 3.0 5.8 Elbow Wrist 4.7 26.0 55 Elbow 7.7 5.1 Right Median Motor (Abd Poll Brev) Wrist 3.2 1.3 Elbow Wrist 4.5 26.0 58 Elbow 7.7 1.9 Left Peroneal Motor (Vastus Med) Ankle 3.9 0.7 Popit Ankle 7.1 36.0 51 Popit 11.0 1.0 Right Peroneal Motor (Vastus Med) Ankle 4.1 0.7 Popit Ankle 6.1 34.0 56 Popit 10.2 0.5 Left Tibial Motor (Abd Martinez Brev) Ankle 4.3 4.1 Knee Ankle 7.5 37.0 49 Knee 11.8 4.1 Right Tibial Motor (Abd Martinez Brev) Ankle 4.1 4.7 Knee Ankle 7.1 38.0 54 Knee 11.2 4.9 Left Ulnar Motor (Abd Dig Minimi) Wrist 2.2 7.8 A Elbow Wrist 4.8 28.0 58 A Elbow 7.0 6.7 Right Ulnar Motor (Abd Dig Minimi) Wrist 2.8 6.0 A Elbow Wrist 4.8 26.0 54 A Elbow 7.6 4.6 B Elbow Wrist 3.7 20.0 54 B Elbow 6.5 4.6 F Wave Studies NR F-Lat (ms) L-R F-Lat (ms) Left Median (Mrkrs) (Abd Poll Brev) 27.15 0.58 Right Median (Mrkrs) (Abd Poll Brev) 27.73 0.58 Left Peroneal (Mrkrs) (EDB) 48.07 0.70 Right Peroneal (Mrkrs) (EDB) 48.77 0.70 Left Tibial (Mrkrs) (Abd Hallucis) 47.35 0.16 Right Tibial (Mrkrs) (Abd Hallucis) 47.18 0.16 Left Ulnar (Mrkrs) (Abd Dig Min) 25.66 0.08 Right Ulnar (Mrkrs) (Abd Dig Min) 25.59 0.08 EMG Side Muscle Nerve Root Ins Act Fibs Amp Dur Recrt Comment Right 1stDorInt Ulnar C8-T1 Nml Nml Nml Nml Nml Right Ext Indicis Radial (Post Int) C7-8 Nml Nml Nml Nml Nml Right Ext Digitorum Radial (Post Int) C7-8 Nml Nml Nml Nml Nml Right BrachioRad Radial C5-6 Nml Nml Nml Nml Nml Right PronatorTeres Median C6-7 Nml Nml Nml Nml Nml Right Abd Poll Brev Median C8-T1 Nml Nml Nml Nml Nml R
[2021-02-09 12:13] LABS: Free T4 Free Thyroxine 1.43 ng/mL (0.78-2.19)
[2021-02-12 05:49] LABS: Triiodothyronine T3 Free 2.9 pg/mL (2.3-4.2)
[2021-02-13 10:36] LABS: Testosterone Total 37 ng/dL (2-45)
[2021-02-13 16:55] LABS: Vitamin D 1,25 (OH)2 Total 31 pg/mL (18-72); Vitamin D2 1,25 (OH)2 <8 pg/mL; Vitamin D3 1,25 (OH)2 31 pg/mL
== END 2021-02-09 09:53 | disposition home or self-care (01) ==
PROVIDERS: PCP Internal Medicine; Visit Provider Internal Medicine
DX: R20.0 Anesthesia of skin (principal); R79.89 Other specified abnormal findings of blood chemistry; Z51.81 Encounter for therapeutic drug level monitoring; Z79.899 Other long term (current) drug therapy; E55.9 Vitamin D deficiency, unspecified; E03.8 Other specified hypothyroidism
CPT/HCPCS: 36415; 80053; 80061; 82652; 84403; 84439; 84443; 84481; 85025; 95886; 95911; 95913

== ENCOUNTER 2021-06-04 16:54 | Emergency (ER) | payer OTHER, SELFPAY ==
[2021-06-04 17:04] VITALS: BP 143/88; PULSE 78; RESP 18; TEMP 37.5; O2SAT 100
[2021-06-04 17:05] VITALS: BP 143/88; PULSE 78; RESP 18; TEMP 37.5; O2SAT 100
--- NOTE | 2021-06-04 17:26 | ED.FEMALEGU ---
HPI - Female Genitourinary General Chief complaint: Urogenital-Female Stated complaint: UTI Time Seen by Provider: 06/04/21 17:12 Source: patient and RN notes reviewed Mode of arrival: ambulatory Limitations: no limitations History of Present Illness HPI Narrative: Patient presents today complaining of a 2-week history of dark and cloudy urine, decreased urine output, and malodorous strong urine. She also reports low back pain. She believes that she has a bladder/kidney infection and she came in today for evaluation. She has tried no [id number] treatment prior to arrival, aside from increasing her water intake. MD elicited complaint: UTI Related Data Home Medications Medication Instructions Recorded Confirmed magnesium 250 mg tablet 500 mg PO DAILY tablet 10/03/19 06/04/21 Adults Multivitamin 1 tablet PO DAILY 11/25/19 06/04/21 cholecalciferol (vitamin D3) 50 mcg PO DAILY 11/25/19 06/04/21 [Vitamin D3] calcium polycarbophil [FiberCon] 1,250 mg PO DAILY 08/19/20 06/04/21 apple cider vinegar 300 mg tablet 300 mg PO DAILY 10/16/20 06/04/21 levothyroxine 112 mcg PO DAILY 12/21/20 06/04/21 gabapentin 300 mg PO BID 06/04/21 06/04/21 meloxicam 15 mg PO DAILY 06/04/21 06/04/21 Allergies Allergy/AdvReac Type Severity Reaction Status Date / Time No Known Allergies Allergy Verified 06/04/21 17:22 Review of Systems Review of Systems: CONSTITUTIONAL: Denies body aches, fever, chills, or sweats. EYES: Denies visual changes, redness, or discharge. ENT: Denies rhinorrhea, congestion, sore throat, or otalgia. CARDIOVASCULAR: Denies chest pain, palpitations, or edema. RESPIRATORY: Denies cough or dyspnea. GASTROINTESTINAL: Denies abdominal pain, nausea, vomiting, or diarrhea. GENITOURINARY: Denies dysuria or hematuria.+, Malodorous urine, decreased urine output SKIN: Denies rash, itching, or wounds. MUSCULOSKELETAL: Denies joint pain, or myalgia. + Low back pain NEUROLOGIC: Denies headache, numbness, tingling, or weakness. PSYCH: Denies depression or anxiety. [facility] Past Medical History Medical History Abdominal pain ADD (attention deficit disorder) Anxiety with depression Blood in stool BMI 22.0-22.9, adult BMI 23.0-23.9, adult Central hypothyroidism Cervicalgia Constipation CTS (carpal tunnel syndrome) Dysphagia Encounter for preventive health examination Encounter for routine adult health examination without abnormal findings Family history of [place]'s disease Fatigue Fibromyalgia Follow up History of gastric ulcer History of gastroesophageal reflux (GERD) Insomnia Irritable bowel syndrome Irritable bowel syndrome with constipation Irritable bowel syndrome with diarrhea Joint pain Lack of concentration Low back pain radiating down leg Low testosterone level in female Nausea On alf drug therapy Paresthesia of both lower extremities Personal history of COVID-19 Rectal prolapse RLQ abdominal pain SVT (supraventricular tachycardia) Ulnar neuropathy at elbow Surgical History Surgical History H/O cardiac radiofrequency ablation History of cardiac radiofrequency ablation Hx of breast augmentation S/P cholecystectomy Status post cholecystectomy Family History Family History Father Family history of hypercholesterolemia Family history of malignant neoplasm of esophagus Mother Family history of hypercholesterolemia Hypertension Cerebrovascular accident Other Family history of malignant neoplasm Social History Social History Smoking status: Never smoker Alcohol intake: current Drinks per week: 14 Alcohol use details: social Substance use: current Substance use type: marijuana Other substance usage details: CBD GUMMIES AT NIGHT
== END 2021-06-04 17:35 | disposition home or self-care (01) ==
PROVIDERS: Emergency Provider Nurse Practitioner
DX: R82.90 Unspecified abnormal findings in urine (principal); M54.50 Low back pain, unspecified; M79.7 Fibromyalgia; K21.9 Gastro-esophageal reflux disease without esophagitis
CPT/HCPCS: 81003; 87086; 87088; 99213; G0463

== ENCOUNTER 2021-07-15 09:43 | Outpatient (CLI) | payer OTHER, SELFPAY ==
[2021-07-15 10:24] LABS: Alanine Aminotransferase 74 U/L (4-35); Albumin Level 4.6 g/dL (3.5-5.1); Alkaline Phosphatase 56 U/L (38-126); Anion Gap 8 mmol/L (8-16); Aspartate Amino Transferase 50 U/L (14-36); Bilirubin,Total 0.3 mg/dL (0.2-1.3); Blood Urea Nitrogen 14 mg/dL (7-17); Calcium 9.6 mg/dL (8.4-10.2); Carbon Dioxide 28 mmol/L (22-30); Chloride 105 mmol/L (98-107); Cholesterol 165 mg/dL (0-200); Estimated Glomerular Filt Rate > 60; Glucose 89 mg/dL (65-110); HDL Direct 84 mg/dL; Potassium 4.3 mmol/L (3.4-5.0); Sodium 141 mmol/L (137-145); Triglycerides 81 mg/dL (<150)
[2021-07-15 10:35] LABS: LDL Cholesterol Direct 68 mg/dL
[2021-07-15 10:53] LABS: Thyroid Stimulating Hormone < 0.015 uIU/mL (0.465-4.680)
[2021-07-15 11:02] LABS: Free T4 Free Thyroxine 1.43 ng/mL (0.78-2.19)
[2021-07-20 21:28] LABS: Apolipoprotein B 65 mg/dL (<90)
[2021-07-21 07:19] LABS: Triiodothyronine T3 Free 3.2 pg/mL (2.3-4.2)
== END 2021-07-15 09:44 | disposition home or self-care (01) ==
PROVIDERS: PCP Internal Medicine; Visit Provider Internal Medicine
DX: E55.9 Vitamin D deficiency, unspecified (principal); E03.8 Other specified hypothyroidism; E78.5 Hyperlipidemia, unspecified; Z51.81 Encounter for therapeutic drug level monitoring; Z79.899 Other long term (current) drug therapy
CPT/HCPCS: 36415; 80053; 80061; 82172; 82306; 84439; 84443; 84481; 97110; 97140; 97163

== ENCOUNTER 2021-08-13 07:51 | Outpatient (CLI) | payer OTHER, SELFPAY ==
--- NOTE | ~2021-08-13 | MR_ITS ---
EXAMINATION: MR cervical spine wo con EXAM DATE: 08/13/2021 09:00 INDICATION: neck pain, radiculopathy . TECHNIQUE: Multi-sequential, multiplanar MR images of the cervical spine were obtained without contra st. Axial T2, axial T2 MERGE sequence. Sagittal T1, T2, T2 fat saturation images also obtained. Th ere is no prior study for comparison. FINDINGS: The vertebral bodies are aligned in the AP dimension. Vertebral body and disc heights are well-maintained. There are no suspicious marrow signal abnormalities. The spinal cord signal intensit y and intrinsic morphology is normal. Cervicomedullary junction is normal in appearance. Paraspinal s oft tissue is unremarkable. Level by level evaluation: C2-C3: Disc does not extend beyond the endplate margin. Uncovertebral joint arthropathy: None. Facet joint arthropathy: Mild bilateral. Neural foraminal stenosis: No stenosis. Central canal stenosis: No stenosis. C3-C4: Disc does not extend beyond the endplate margin. Uncovertebral joint arthropathy: Mild left. Facet joint arthropathy: Mild bilateral. Neural foraminal stenosis: No stenosis. Central canal stenosis: No stenosis. C4-C5: Disc does not extend beyond the endplate margin. Uncovertebral joint arthropathy: Mild bilateral. Facet joint arthropathy: Moderate bilateral. Neural foraminal stenosis: No stenosis. Central canal stenosis: No stenosis. C5-C6: Disc does not extend beyond the endplate margin. Uncovertebral joint arthropathy: Mild bilateral. Facet joint arthropathy: Moderate bilateral. Neural foraminal stenosis: No stenosis. Central canal stenosis: No stenosis. C6-C7: Disc does not extend beyond the endplate margin. Uncovertebral joint arthropathy: Mild bilateral. Facet joint arthropathy: Mild to moderate bilateral. Neural foraminal stenosis: No stenosis. Central canal stenosis: No stenosis. C7-T1: Disc does not extend beyond the endplate margin. Uncovertebral joint arthropathy: Mild bilateral. Facet joint arthropathy: Mild to moderate bilateral. Neural foraminal stenosis: Mild bilateral. Central canal stenosis: No stenosis. IMPRESSION: Mild cervical arthropathy. Reviewed, dictated and finalized at location A. CTOR OF SUSTAINABILITY PROGRAMS IMPRESSION: Mild cervical arthropathy.
== END 2021-08-13 07:52 | disposition home or self-care (01) ==
LOC: ANHIMG 07:53
PROVIDERS: PCP Internal Medicine; Visit Provider Nurse Practitioner Family
DX: M54.12 Radiculopathy, cervical region (principal); M12.88 Other specific arthropathies, not elsewhere classified, other specified site
CPT/HCPCS: 72141

== ENCOUNTER 2021-08-24 12:36 | Outpatient (CLI) | payer OTHER, SELFPAY ==
[2021-08-24 14:20] LABS: Alanine Aminotransferase 49 U/L (4-35); Albumin Level 4.8 g/dL (3.5-5.1); Alkaline Phosphatase 50 U/L (38-126); Aspartate Amino Transferase 44 U/L (14-36); Bilirubin,Total 0.5 mg/dL (0.2-1.3)
== END 2021-08-24 12:37 | disposition home or self-care (01) ==
PROVIDERS: PCP Internal Medicine; Visit Provider Internal Medicine
DX: E67.3 Hypervitaminosis D (principal); Z79.899 Other long term (current) drug therapy
CPT/HCPCS: 36415; 80076; 82306

== ENCOUNTER 2021-09-07 07:30 | Outpatient (RCR) | payer OTHER, SELFPAY ==
--- NOTE | 2021-06-22 12:37 | PTOPEVAL ---
PHYSICAL THERAPY EVALUATION AND PLAN OF CARE Thank you for referring Nicho Deleon to [facility].? The patient is scheduled to be seen for therapy? 1-2x/week for 4-5 weeks. Please review, sign, date and return this plan of care KATHLEEN. I agree with and certify that the following plan of care is medically necessary. Referring Physician Date Attending Provider: Jacqueline Webber, ETHYLBENZENE OXIDIZER-BC Evaluation Outpatient Past Medical History Neurological History Hx Migraine Yes Cardiovascular History Hx Other Cardiac Disorders Yes: tachy with ablation 2018- has been released Gastrointestinal History Hx Cholecystectomy Yes: 2019 Hx Gastroesophageal Reflux Disease Yes Hx Irritable Bowel Yes Musculoskeletal History Hx Fibromyalgia Yes Hx Fractures Yes: ARM - left - as a child Hematological History Hx Anemia Yes: IN PAST, NO MEDS CURRENTLY Endocrine History Hx Hypothyroidism Yes Reproductive History Hx Other Reproductive Disorders Yes: LAPAROSCOPY Psychosocial History Hx Anxiety Yes Other History Hx Other Surgeries Yes: BREAST FEB 2020 Diagnosis back pain, neck pain Onset chronic Subjective Information back pain: constant pain, Query Text:As Reported By Patient/ feels almost like she has a Family kidney infection but she does not, just like that constant pain; states she feels like it needs to pop but it can't. Her 11 yo walks on her back to try to relieve pressure. neck pain: states that there is this constant pain. There is a pulling and aching. In both of her jobs she looks down constantly. She tries to have good posture but looses it while working. Has numbness/tingling in her hands . It comes and goes sometimes immediately upon waking. Self Report Pain Assessment Spine, Lumbar Reported Pain Level 3 Pain Frequency Chronic,Continuous Lowest Pain Intensity 3 Greatest Pain Intensity 8 Spine, Cervical Reported Pain Level 3 Pain Description Pressure,Pulling Pain Frequency Chronic,Continuous Lowest Pain Intensity 3 Greatest Pain Intensity 7 Pain Score Pain Score 3,3: Self Report Intervention
--- NOTE | 2021-07-13 07:54 | PCPTNOTE ---
Patient called & cancelled scheduled appointment this date due to over sleeping.
--- NOTE | 2021-07-27 08:29 | PTOPEVAL ---
PHYSICAL THERAPY PROGRESS REPORT Thank you for referring Nicho Deleon to [facility].? The patient is scheduled to be seen for therapy? 1x/week for 4weeks. Please review, sign, date and return this plan of care KATHLEEN. I agree with and certify that the following plan of care is medically necessary. Referring Physician Date Attending Provider: Jacqueline Webber, OTR REFRIGERATED CDL TRUCK DRIVER-BC Progress Outpatient Past Medical History Neurological History Hx Migraine Yes Hx Other Neurological Disorders Yes: family history of [place]'s disease Cardiovascular History Hx Other Cardiac Disorders Yes: tachy with ablation 2018- has been released Gastrointestinal History Hx Cholecystectomy Yes: 2019 Hx Gastroesophageal Reflux Disease Yes Hx Irritable Bowel Yes Musculoskeletal History Hx Fibromyalgia Yes Hx Fractures Yes: ARM - left - as a child Hematological History Hx Anemia Yes: IN PAST, NO MEDS CURRENTLY Endocrine History Hx Hypothyroidism Yes Reproductive History Hx Other Reproductive Disorders Yes: LAPAROSCOPY Psychosocial History Hx Anxiety Yes Other History Hx Other Surgeries Yes: BREAST FEB 2020 Diagnosis back pain, neck pain Onset chronic Subjective Information States that when she is doing Query Text:As Reported By Patient/ her stretches the pain is not Family so severe. She feels like there is a little bit more movement than before. She feels like the neck is starting to move again. Continues to have constant numbness and tingling in hands and feet . Self Report Pain Assessment Spine, Lumbar Reported Pain Level 4 Pain Frequency Chronic,Continuous Greatest Pain Intensity 8 Spine, Cervical Reported Pain Level 4 Pain Description Pressure,Pulling Pain Frequency Chronic,Continuous Greatest Pain Intensity 8 Pain Score Pain Score 4,4: Self Report Interventions Used Interventions Used By Clinicians Exercise,Manual Therapy Techniques Pain Relief Interventions Used By Chiropractic,Heat,Massage Patient Modalities,TENS Other Alleviating Interventions CBD creams, biofreeze, Cervical and Lumbar ROM Cervical ROM Reason Not Measured WFL/Left,WFL/Right Cervical ROM Comments flexion: pain stretched all the way down to T10 Lumbar ROM
--- NOTE | 2021-08-24 08:22 | PTOPEVAL ---
PHYSICAL THERAPY PROGRESS REPORT Thank you for referring Nicho Deleon to [facility].? The patient is scheduled for one more appointment for one more dry needling session. Please review, sign, date and return this plan of care KATHLEEN. I agree with and certify that the following plan of care is medically necessary. Referring Physician Date Attending Provider: Jacqueline Webber, EXPLOSIVE ORDNANCE MANAGER-BC Diagnosis back pain, neck pain Onset chronic Subjective Information Reports that she has Query Text:As Reported By Patient/ experienced less than 50% of Family change or improvement since start of therapy. She states that her exercises and stretches are helpful in teaching her how to move and stretch but the pain is still the same and the constant numbness remains in her hands. Self Report Pain Assessment Spine, Lumbar Reported Pain Level 4 Pain Frequency Chronic,Continuous Spine, Cervical Reported Pain Level 3 Pain Description Pressure,Pulling Pain Frequency Chronic,Continuous Pain Score Pain Score 4,3: Self Report Interventions Used Interventions Used By Clinicians Exercise,Manual Therapy Techniques Pain Relief Interventions Used By Chiropractic,Heat,Massage Patient Modalities,TENS Other Alleviating Interventions CBD creams, biofreeze, Cervical and Lumbar ROM Cervical ROM Reason Not Measured WFL/Left,WFL/Right Cervical ROM Comments flexion: pain stretched all the way down to T10 - 08/24/21: no changes Lumbar ROM Lumbar Flexion (0-90) 30 Query Text:Active in Degrees Lumbar Flexion Active Floor Query Text:Hands to: Lumbar Extension (0-40) 10 Query Text:Active in Degrees Lateral Rotation Right (0-45) 25 Query Text:Active in Degrees Lateral Rotation Left (0-45) 25 Query Text:Active in Degrees Lumbar Comments no segmental motion of lumbar spine in extension; Lower Extremity Muscle Strength Testing Hip Strength Bilateral Hip Flexion Strength 5 Normal Hip Extension Strength 4+ Good + Hip Abduction Strength 5 Normal Knee Strength Bilateral Knee Flexion Strength 5 Normal Knee Extension Strength 5 Normal Upper Extremity Muscle Strength Testing Scapular/Shoulder Bilateral Scapular Retraction - Lower Trapezius 4+ Good + Scapular Protraction - Serratus 4+ Good + Shoulder Flexion Strength
--- NOTE | 2021-09-28 17:20 | PCPTNOTE ---
PHYSICAL THERAPY DISCHARGE NOTE Attending Provider: Jacqueline Webber, SR. MERCHANDISE PLANNER-BC Patient:Nicho Deleon Date of :1985 Nicho was participating in physical therapy for neck pain and low back pain. She was experiencing some temporary relief with physical therapy intervention and her cervical ROM did improve; however, in the half-way, her symptoms did not significantly change. I encouraged her to continue HEP but otherwise will d/c from PT. Her initial visit was 06/22 and her last attended visit was 09/07/21 with a total of 10 attended visits. Thank you for referring this patient to [facility]. Please review, sign, date and return this discharge summary KATHLEEN. I have been updated about the patient's current status and I agree with discharge from the above service at this time. Referring Physician Date
== END 2021-09-13 12:40 | disposition home or self-care (01) ==
LOC: ANHPT 07:30
PROVIDERS: PCP Internal Medicine; Visit Provider Nurse Practitioner Family
DX: M54.2 Cervicalgia (principal); M54.50 Low back pain, unspecified
CPT/HCPCS: 20560; 36415; 80076; 82306; 97110; 97140; 97163

== ENCOUNTER 2021-11-23 09:08 | Outpatient (CLI) | payer OTHER, SELFPAY ==
[2021-11-23 09:24] LABS: Basophils Absolute Auto 0.1 K/mm3 (0.0-0.1); Eosinophils Absolute Auto 0.2 K/mm3 (0-0.3); Eosinophils Percent Auto 2.2 % (0-4.4); Hematocrit 41.8 % (37.0-47.0); Hemoglobin 14.5 g/dL (12.0-15.0); Immature Granulocyte Absolute 0.02 K/mm3 (0.00-0.031); Immature Granulocyte Percent A 0.3 % (0-0.5); Lymphocytes Absolute Auto 2.83 K/mm3 (0.9-3.2); Lymphocytes Percent Auto 39.3 % (18.3-44.2); Mean Corpuscular HGB Conc 34.7 g/dl (32-36); Mean Corpuscular Hemoglobin 32.1 pg (26-34); Mean Corpuscular Volume 92.5 fl (80-100); Mean Platelet Volume 9.1 fl (7.4-10.4); Monocytes Absolute Auto 0.5 K/mm3 (0.1-0.6); Monocytes Percent Auto 7.1 % (2.6-8.5); Neutrophils Absolute Auto 3.6 K/mm3 (1.3-6.7); Neutrophils Percent Auto 50.1 % (45.5-73.1); Platelet Count Result 334 k/mm3 (150-375); Red Blood Count 4.52 M/mm3 (4.2-5.4); Red Cell Distribution Width 12.2 % (11.5-14.5); White Blood Count 7.2 K/mm3 (4.5-10.0)
[2021-11-23 09:39] LABS: Alanine Aminotransferase 57 U/L (6-35); Albumin Level 4.9 g/dL (3.5-5.1); Alkaline Phosphatase 58 U/L (38-126); Anion Gap 7 mmol/L (8-16); Aspartate Amino Transferase 49 U/L (14-36); Bilirubin,Total 0.2 mg/dL (0.2-1.3); Blood Urea Nitrogen 15 mg/dL (7-17); Calcium 9.4 mg/dL (8.4-10.2); Carbon Dioxide 29 mmol/L (22-30); Chloride 98 mmol/L (98-107); Cholesterol 196 mg/dL (0-200); Estimated Glomerular Filt Rate > 60; Glucose 103 mg/dL (65-110); HDL Direct 73 mg/dL; Potassium 3.8 mmol/L (3.4-5.0); Sodium 134 mmol/L (137-145); Triglycerides 128 mg/dL (<150)
[2021-11-23 09:50] LABS: LDL Cholesterol Direct 94 mg/dL
[2021-11-23 10:08] LABS: Thyroid Stimulating Hormone < 0.015 uIU/mL (0.465-4.680)
[2021-11-23 10:24] LABS: Vitamin D 25 Hydroxy 96.6 ng/mL
[2021-11-26 14:04] LABS: Triiodothyronine T3 Free 1.6 pg/mL (2.3-4.2)
== END 2021-11-23 09:09 | disposition home or self-care (01) ==
LOC: ANHLAB 09:11
PROVIDERS: PCP Internal Medicine; Visit Provider Internal Medicine
DX: E78.5 Hyperlipidemia, unspecified (principal); E67.3 Hypervitaminosis D; Z51.81 Encounter for therapeutic drug level monitoring; Z79.899 Other long term (current) drug therapy; E03.8 Other specified hypothyroidism
CPT/HCPCS: 36415; 80053; 80061; 82306; 83036; 84439; 84443; 84481; 85025

== ENCOUNTER 2022-01-27 08:46 | Outpatient (CLI) | payer OTHER, SELFPAY ==
--- NOTE | 2022-01-27 11:00 | NEURO_ITS ---
Impression: # Complains of pain and numbness of hands. # Normal nerve conduction study. # No Carpal Tunnel Syndrome or ulnar neuropathy. # Normal needle/EMG exam. Nerve Conduction Studies Anti Sensory Summary Table Stim Site NR Peak (ms) P-T Amp (?V) Site1 Site2 Delta-P (ms) Dist (cm) Jono (m/s) Left Median Anti Sensory (2-3nd Digit) Wrist 2.9 72.8 Wrist 2-3nd Digit 2.9 14.0 48 Wrist 2.9 84.6 Wrist 2-3nd Digit 2.9 14.0 48 Right Median Anti Sensory (2-3nd Digit) Wrist 3.0 61.3 Wrist 2-3nd Digit 3.0 14.0 47 Wrist 2.8 95.1 Wrist 2-3nd Digit 3.0 14.0 47 Left Radial Anti Sensory (Base 1st Digit) Wrist 2.2 78.0 Wrist Base 1st Digit 2.2 0.0 Right Radial Anti Sensory (Base 1st Digit) Wrist 2.1 33.8 Wrist Base 1st Digit 2.1 0.0 Left Ulnar Anti Sensory (5th Digit) Wrist 2.5 99.5 Wrist 5th Digit 2.5 14.0 56 Right Ulnar Anti Sensory (5th Digit) Wrist 2.5 68.5 Wrist 5th Digit 2.5 14.0 56 Motor Summary Table Stim Site NR Onset (ms) O-P Amp (mV) Site1 Site2 Delta-0 (ms) Dist (cm) Jono (m/s) Left Median Motor (Abd Poll Brev) Wrist 3.2 2.0 Elbow Wrist 4.6 26.0 57 Elbow 7.8 5.4 Right Median Motor (Abd Poll Brev) Wrist 3.4 3.0 Elbow Wrist 4.4 25.0 57 Elbow 7.8 2.3 Left Ulnar Motor (Abd Dig Minimi) Wrist 2.3 8.9 A Elbow Wrist 4.7 27.0 57 A Elbow 7.0 7.0 Right Ulnar Motor (Abd Dig Minimi) Wrist 2.8 7.1 A Elbow Wrist 4.7 28.0 60 A Elbow 7.5 5.2 F Wave Studies NR F-Lat (ms) L-R F-Lat (ms) Left Median (Mrkrs) (Abd Poll Brev) 25.79 0.00 Right Median (Mrkrs) (Abd Poll Brev) 25.79 0.00 Left Ulnar (Mrkrs) (Abd Dig Min) 25.50 0.00 Right Ulnar (Mrkrs) (Abd Dig Min) 25.50 0.00 EMG Side Muscle Nerve Root Ins Act Fibs Amp Dur Recrt Comment Right 1stDorInt Ulnar C8-T1 Nml Nml Nml Nml Nml Right Ext Indicis Radial (Post Int) C7-8 Nml Nml Nml Nml Nml Right Ext Digitorum Radial (Post Int) C7-8 Nml Nml Nml Nml Nml Right BrachioRad Radial C5-6 Nml Nml Nml Nml Nml Right PronatorTeres Median C6-7 Nml Nml Nml Nml Nml Right Abd Poll Brev Median C8-T1 Nml Nml Nml Nml Nml Left 1stDorInt Ulnar C8-T1 Nml Nml Nml Nml Nml Left Ext Indicis Radial (Post Int) C7-8 Nml Nml Nml Nml Nml Left Ext Digitorum Radial (Post Int) C7-8 Nml Nml Nml Nml Nml Left BrachioRad Radial C5-6 Nml Nml Nml Nml Nml Left PronatorTeres Median C6-7 Nml Nml Nml Nml Nml Left Abd Poll Brev Median C8-T1 Nml Nml Nml Nml Nml MTDD
== END 2022-01-27 08:47 | disposition home or self-care (01) ==
LOC: ANHNEURO 08:46
PROVIDERS: Visit Provider Internal Medicine
DX: S63.91XA Sprain of unspecified part of right wrist and hand, initial encounter (principal); S63.8X2A Sprain of other part of left wrist and hand, initial encounter
CPT/HCPCS: 95886; 95911

== ENCOUNTER 2022-05-19 08:01 | Outpatient (CLI) | payer OTHER, SELFPAY ==
--- NOTE | ~2022-05-19 | NM_ITS ---
EXAM: NM gastric emptying study DATE: 05/19/2022 13:25 INDICATION: Postprandial nausea and vomiting TECHNIQUE: A gastric emptying study was performed using the methodology of Ramiro DO, et al. J Nucl Med 2007; 48:568-572. The patient was given a meal consisting of 2 scrambled eggs labeled with 0.972 mCi Tc-99m sulfur colloid, 2 slices of toast, two packages of jam, and approximately 120 mL of water . Simultaneous anterior and posterior 1-min images of the abdomen were obtained with the patient supi ne at multiple time points over a total period of 4 hours. The geometric mean of anterior and posteri or views was determined, and the percentage retention was calculated for each time point. COMPARISON: None. FINDINGS: Gastric retention of the radiotracer-labeled meal was 81%, 45%, and 9% at the 1-hour, 2-hour, and 4-h our time points, respectively. With this technique, apparent rapid gastric emptying is suggested by < 30% gastric retention at 1 hour. Delayed gastric emptying is defined by gastric retention of >90% at 1 hour, >60% retention at 2 hours, or >10% retention at 4 hours. IMPRESSION: 1. Normal gastric emptying. Reviewed, dictated and finalized at location B. IMPRESSION: 1. Normal gastric emptying.
== END 2022-05-19 08:02 | disposition home or self-care (01) ==
LOC: ANHIMG 08:03
PROVIDERS: PCP Internal Medicine; Visit Provider Nurse Practitioner Family
DX: R11.2 Nausea with vomiting, unspecified (principal)
CPT/HCPCS: 78264; A9541

== ENCOUNTER 2022-06-14 08:03 | Outpatient (CLI) | payer OTHER, SELFPAY ==
--- NOTE | ~2022-06-14 | XR_ITS ---
EXAMINATION: XR UGIAC w barium swallow DATE: 06/14/2022 09:05 INDICATION: Nausea with vomiting TECHNIQUE: Thick barium contrast with gas effervescent crystals were administered orally. Fluoroscop ic images of the esophagus, stomach, and proximal duodenum were obtained in various projections. The reafter, overhead images of the abdomen were performed. 0.8 minutes minutes of fluroscopy. 36 images. FINDINGS: No prior studies for comparison. The esophagus is normal in caliber, without mucosal lesions or strictures. There is normal esophagea l peristalsis. There is no hiatal hernia. No gastroesophageal reflux witnessed during the course of the study. The gastric folds are normal. The proximal duodenum is also normal in appearance. IMPRESSION: 1. Normal upper GI study. Reviewed, dictated and finalized at location A. RT KEEPER IMPRESSION: 1. Normal upper GI study.
--- NOTE | ~2022-06-14 | US_ITS ---
US abdomen complete DATE: 06/14/2022 08:52 INDICATION: Generalized abdominal pain TECHNIQUE: Real-time imaging and Doppler analysis of the abdomen COMPARISON: 10/23/2020 CT abdomen pelvis FINDINGS: No hepatic or pancreatic space-occupying mass lesion. Normal hepatopedal portal venous flow direction. No gallstones or gallbladder wall thickening. The common bile duct measures 4.4 mm, xiomara l. Normal caliber of the abdominal aorta. The inferior vena cava is unremarkable. No renal mass lesion or hydronephrosis. Normal splenic size. IMPRESSION: Normal examination Reviewed, dictated and finalized at Location A. Reviewed, dictated and finalized at location B. CTOR COLLEGE IMPRESSION: Normal examination
== END 2022-06-14 08:04 | disposition home or self-care (01) ==
LOC: ANHIMG 08:04
PROVIDERS: PCP Internal Medicine; Visit Provider Internal Medicine
DX: R13.10 Dysphagia, unspecified (principal); R10.13 Epigastric pain; R11.2 Nausea with vomiting, unspecified
CPT/HCPCS: 74246; 76700

== ENCOUNTER 2022-07-14 14:48 | Outpatient (CLI) | payer OTHER, SELFPAY ==
[2022-07-14 15:28] LABS: Basophils Absolute Auto 0.1 K/mm3 (0.0-0.1); Basophils Percent Auto 0.7 % (0.2-1.2); Eosinophils Absolute Auto 0.2 K/mm3 (0-0.3); Eosinophils Percent Auto 1.7 % (0-4.4); Hematocrit 41.7 % (37.0-47.0); Hemoglobin 13.7 g/dL (12.0-15.0); Immature Granulocyte Absolute 0.03 K/mm3 (0.00-0.031); Immature Granulocyte Percent A 0.3 % (0-0.5); Lymphocytes Absolute Auto 1.97 K/mm3 (0.9-3.2); Lymphocytes Percent Auto 18.8 % (18.3-44.2); Mean Corpuscular HGB Conc 32.9 g/dl (32-36); Mean Corpuscular Hemoglobin 31.6 pg (26-34); Mean Corpuscular Volume 96.1 fl (80-100); Mean Platelet Volume 9.3 fl (7.4-10.4); Monocytes Absolute Auto 0.6 K/mm3 (0.1-0.6); Monocytes Percent Auto 5.4 % (2.6-8.5); Neutrophils Absolute Auto 7.6 K/mm3 (1.3-6.7); Neutrophils Percent Auto 73.1 % (45.5-73.1); Platelet Count Result 326 k/mm3 (150-375); Red Blood Count 4.34 M/mm3 (4.2-5.4); Red Cell Distribution Width 12.8 % (11.5-14.5); White Blood Count 10.5 K/mm3 (4.5-10.0)
[2022-07-14 15:42] LABS: Alanine Aminotransferase 61 U/L (6-35); Albumin Level 4.8 g/dL (3.5-5.1); Alkaline Phosphatase 64 U/L (38-126); Anion Gap 5 mmol/L (8-16); Aspartate Amino Transferase 54 U/L (14-36); Bilirubin,Total 0.6 mg/dL (0.2-1.3); Blood Urea Nitrogen 16 mg/dL (7-17); Calcium 9.3 mg/dL (8.4-10.2); Carbon Dioxide 32 mmol/L (22-30); Chloride 102 mmol/L (98-107); Cholesterol 197 mg/dL (0-200); Estimated Glomerular Filt Rate > 60; Glucose 104 mg/dL (65-110); HDL Direct 85 mg/dL; Potassium 4.2 mmol/L (3.4-5.0); Sodium 139 mmol/L (137-145); Triglycerides 63 mg/dL (<150)
[2022-07-14 15:53] LABS: LDL Cholesterol Direct 92 mg/dL
[2022-07-14 16:01] LABS: Hemoglobin A1C 5.2 % (<5.7)
[2022-07-14 16:11] LABS: Thyroid Stimulating Hormone < 0.015 uIU/mL (0.465-4.680)
[2022-07-14 16:22] LABS: Add Urine Microscopic? NO; Appearance Urine Clear (Clear); Bilirubin Urine Negative (Negative); Blood Urine Negative (Negative); Color Urine Yellow (Yellow); Glucose Urine UA Negative (Negative); Ketones Urine Negative (Negative); Leukocyte Esterase Ur Negative LEU/UL (Negative); Nitrate Urine Negative (Negative); Protein Urine Negative (Negative)
[2022-07-14 16:23] LABS: Free T4 Free Thyroxine 1.71 ng/mL (0.78-2.19); Vitamin D 25 Hydroxy 73.2 ng/mL
== END 2022-07-14 14:49 | disposition home or self-care (01) ==
LOC: ANHLAB 14:50
PROVIDERS: PCP Internal Medicine; Visit Provider Internal Medicine
DX: E03.8 Other specified hypothyroidism (principal); E55.9 Vitamin D deficiency, unspecified; Z79.899 Other long term (current) drug therapy; E78.5 Hyperlipidemia, unspecified; Z13.1 Encounter for screening for diabetes mellitus
CPT/HCPCS: 36415; 80053; 80061; 81003; 82306; 83036; 84439; 84443; 85025

== ENCOUNTER 2022-12-02 15:45 | Outpatient (CLI) | payer OTHER, SELFPAY ==
[2022-12-02 16:40] LABS: Alanine Aminotransferase 59 U/L (6-35); Alkaline Phosphatase 43 U/L (38-126); Anion Gap 9 mmol/L (8-16); Aspartate Amino Transferase 41 U/L (14-36); Bilirubin,Total 0.5 mg/dL (0.2-1.3); Blood Urea Nitrogen 17 mg/dL (7-17); Calcium 9.4 mg/dL (8.4-10.2); Carbon Dioxide 28 mmol/L (22-30); Chloride 96 mmol/L (98-107); Cholesterol 174 mg/dL (0-200); Estimated Glomerular Filt Rate > 60; Glucose 108 mg/dL (65-110); HDL Direct 88 mg/dL; Potassium 3.6 mmol/L (3.4-5.0); Sodium 133 mmol/L (137-145); Triglycerides 84 mg/dL (<150)
[2022-12-02 16:58] LABS: Free T4 Free Thyroxine 1.34 ng/mL (0.78-2.19)
[2022-12-02 17:11] LABS: Thyroid Stimulating Hormone < 0.015 uIU/mL (0.465-4.680)
[2022-12-02 17:33] LABS: LDL Cholesterol Direct 89 mg/dL
[2022-12-05 08:32] LABS: Total Triiodothyronine (T3) 0.91 NG/ML (0.97-1.69)
[2022-12-07 15:23] LABS: GGT 18 U/L (3-50)
[2022-12-09 05:32] LABS: Triiodothyronine T3 Free 2.8 pg/mL (2.3-4.2)
== END 2022-12-02 15:46 | disposition home or self-care (01) ==
LOC: ANHLAB 15:47
PROVIDERS: PCP Internal Medicine; Visit Provider Internal Medicine
DX: E03.8 Other specified hypothyroidism (principal); Z79.899 Other long term (current) drug therapy; R79.89 Other specified abnormal findings of blood chemistry
CPT/HCPCS: 36415; 80053; 80061; 82977; 84439; 84443; 84480; 84481

== ENCOUNTER 2022-12-03 12:09 | Outpatient (CLI) | payer OTHER, SELFPAY ==
[2022-12-08 14:35] LABS: GGT 18 U/L (3-50)
== END 2022-12-03 12:10 | disposition home or self-care (01) ==
LOC: ANHLAB 12:12
PROVIDERS: PCP Internal Medicine; Visit Provider Internal Medicine
DX: E03.8 Other specified hypothyroidism (principal); Z79.899 Other long term (current) drug therapy
CPT/HCPCS: 36415; 82977

== ENCOUNTER 2023-03-17 15:48 | Emergency (ER) | payer OTHER, SELFPAY ==
[2023-03-17 15:54] VITALS: BP 138/80; PULSE 90; RESP 18; TEMP 36.7; O2SAT 100
--- NOTE | 2023-03-17 15:57 | ED.EAR ---
HPI - Ear Problem General Chief complaint: Ear Stated complaint: Ears Time Seen by Provider: 03/17/23 15:58 Source: patient and RN notes reviewed Mode of arrival: ambulatory Limitations: no limitations History of Present Illness HPI Narrative: 38-year-old female presents concern for bilateral ear pain, worse on the left. Reports symptoms started a month ago. Reports today she started feeling 7 shocks left ear. She denies drainage from the ear. Denies fever, rhinorrhea, nasal congestion, fever. MD Complaint: ear pain Related Data Home Medications Medication Instructions Recorded Confirmed magnesium 250 mg tablet 500 mg PO DAILY 10/03/19 03/17/23 multivit with minerals-iron 18 1 tablet PO DAILY 11/25/19 03/17/23 mg-folic ac 400 mcg-vit K 25 mcg tablet (Adults Multivitamin) calcium polycarbophil 625 mg 1,250 mg PO DAILY 08/19/20 03/17/23 tablet (FiberCon) apple cider vinegar 300 mg tablet 300 mg PO DAILY 10/16/20 03/17/23 cholecalciferol (vitamin D3) 25 25 mcg PO .every other day 08/24/21 03/17/23 mcg (1,000 unit) tablet omeprazole 40 mg capsule,delayed 40 mg PO BID 04/12/22 03/17/23 release Allergies Allergy/AdvReac Type Severity Reaction Status Date / Time doxycycline Allergy Intermediate Rash Verified 03/17/23 15:51 Review of Systems Review of Systems: CONSTITUTIONAL: Denies malaise, chills, sweats, or fever. EYES: Denies visual changes, redness, or discharge. ENT: Denies rhinorrhea, congestion, sinus pain, and sore throat. Reports bilateral ear pain CARDIOVASCULAR: Denies chest pain, palpitations, or edema. RESPIRATORY: Denies cough. Denies dyspnea. GASTROINTESTINAL: Denies abdominal pain, nausea, vomiting, diarrhea SKIN: Denies rash or itching. MUSCULOSKELETAL: Denies myalgia. NEUROLOGIC: Denies headache. All systems reviewed & are unremarkable except as noted in HPI and below PMFSH Past Medical History Medical History (Updated 03/17/23 @ 16:04 by Jaimee Staton NP) Abdominal pain ADD (attention deficit disorder) Anxiety with depression Blood in stool BMI 21.0-21.9, adult BMI 22.0-22.9, adult BMI 23.0-23.9, adult Central hypothyroidism Cervicalgia Constipation CTS (carpal tunnel syndrome) Drug reaction Dysphagia Encounter for preventive health examination Encounter for routine adult health examination with abnormal findings Encounter for routine adult health examination without abnormal findings Family history of Broadwater's disease Fatigue Fibromyalgia Follow up High vitamin D level History of gastric ulcer History of gastroesophageal reflux (GERD) Broadwater's disease Hyperlipidemia Hypersomnolence Insomnia Irritable bowel syndrome Irritable bowel syndrome with constipation Irritable bowel syndrome with diarrhea Joint pain Lack of concentration Low back pain radiating down leg Low testosterone level in female Nausea Numbness and tingling of both upper extremities On prison drug therapy Pain, upper extremity Paresthesia of both lower extremities Paronychia Pedal edema Personal history of COVID-19 Plantar fasciitis Rectal prolapse Repetitive intrusions of sleep RLQ abdominal pain SVT (supraventricular tachycardia) Tenosynovitis Tingling of upper extremity Ulnar neuropathy at elbow Vitamin D deficiency Surgical History Surgical History H/O cardiac radiofrequency ablation History of cardiac radiofrequency ablation Hx of breast augmentation S/P cholecystectomy Status post cholecystectomy Family History Family History Father Family history of hypercholesterolemia Family history of malignant neoplasm of esophagus Mother Family history of hypercholesterolemia Hypertension Cerebrovascular accident Other Family history of malignant neoplasm Social History Social History Smoking status: Ramya
== END 2023-03-17 16:10 | disposition home or self-care (01) ==
PROVIDERS: Emergency Provider Nurse Practitioner; PCP Internal Medicine
DX: H92.03 Otalgia, bilateral (principal); E78.5 Hyperlipidemia, unspecified
CPT/HCPCS: 99213; G0463

== ENCOUNTER 2023-04-21 17:50 | Outpatient (CLI) | payer OTHER, SELFPAY ==
[2023-04-21 18:38] LABS: Alanine Aminotransferase 51 U/L (6-35); Albumin Level 4.9 g/dL (3.5-5.1); Alkaline Phosphatase 44 U/L (38-126); Anion Gap 6 mmol/L (8-16); Aspartate Amino Transferase 39 U/L (14-36); Bilirubin,Total 0.4 mg/dL (0.2-1.3); Blood Urea Nitrogen 15 mg/dL (7-17); Calcium 9.4 mg/dL (8.4-10.2); Carbon Dioxide 31 mmol/L (22-30); Chloride 98 mmol/L (98-107); Estimated Glomerular Filt Rate > 60; Glucose 101 mg/dL (65-110); Magnesium 2.2 mg/dL (1.6-2.3); Potassium 3.2 mmol/L (3.4-5.0); Sodium 135 mmol/L (137-145)
[2023-04-21 18:54] LABS: Free T4 Free Thyroxine 1.26 ng/mL (0.78-2.19); Vitamin D 25 Hydroxy 86.4 ng/mL
[2023-04-21 19:07] LABS: Thyroid Stimulating Hormone < 0.015 uIU/mL (0.465-4.680)
== END 2023-04-21 17:51 | disposition home or self-care (01) ==
LOC: ANHLAB 17:51
PROVIDERS: PCP Internal Medicine; Visit Provider Internal Medicine
DX: E67.3 Hypervitaminosis D (principal); E03.8 Other specified hypothyroidism; Z79.899 Other long term (current) drug therapy
CPT/HCPCS: 36415; 80053; 82306; 83735; 84439; 84443; 84481

== ENCOUNTER 2023-06-02 14:33 | Outpatient (CLI) | payer OTHER, SELFPAY ==
[2023-06-02 16:08] LABS: Magnesium 2.1 mg/dL (1.6-2.3); Potassium 3.7 mmol/L (3.4-5.0)
== END 2023-06-02 14:34 | disposition home or self-care (01) ==
LOC: ANHLAB 14:35
PROVIDERS: PCP Internal Medicine; Visit Provider Internal Medicine
DX: R00.0 Tachycardia, unspecified (principal); R00.2 Palpitations; E87.6 Hypokalemia
CPT/HCPCS: 36415; 83735; 84132

== ENCOUNTER 2023-06-17 14:25 | Outpatient (CLI) | payer OTHER, SELFPAY ==
--- NOTE | ~2023-06-17 | XR_ITS ---
XR wrist LT min 3V 06/17/2023 14:40 Indication: Osteoarthritis. Procedure: 4 views left wrist Comparison: No prior studies for comparison. Findings: There is mild osteoarthritis of the triscaphe joint. No fracture or traumatic malalignment. No significant soft tissue abnormality. No foreign body. Impression: 1: Mild osteoarthritis of the triscaphe joint. Reviewed, dictated and finalized at location A. F OPERATOR LOCK TENDER Impression: 1: Mild osteoarthritis of the triscaphe joint.
--- NOTE | ~2023-06-17 | XR_ITS ---
XR wrist RT min 3V 06/17/2023 14:40 Indication: Chronic wrist pain Procedure: 4 views right wrist Comparison: No prior studies for comparison. Findings: There is anatomic alignment. Normal mineralization. No fracture, subluxation or dislocation . No significant degenerative change. No erosions. Impression: 1: No significant bone or joint abnormality. Reviewed, dictated and finalized at location A. ING MACHINE TENDER Impression: 1: No significant bone or joint abnormality.
== END 2023-06-17 14:26 | disposition home or self-care (01) ==
PROVIDERS: PCP Internal Medicine; Visit Provider Plastic Surgery
DX: M19.031 Primary osteoarthritis, right wrist (principal); M19.032 Primary osteoarthritis, left wrist
CPT/HCPCS: 73110

== ENCOUNTER 2023-08-04 08:16 | Outpatient (RCR) | payer OTHER, SELFPAY ==
--- NOTE | 2023-08-04 09:55 | OTOPEVAL1 ---
Assessment and note entered by Madhav Mckeon, CELESTE/Mandi, CHT Evaluation Information 08/04/23 Diagnosis Diffuse bilateral hand and wrist pain, numbness Subjective Information Patient reports symptoms have persisted for years. She reports hand pain, numbness, and tingling. Reports pain up to the elbows bilaterally. 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 She also likes to lift weights. She is right handed. Reports she also has chronic neck and back pain, has PT on these in the past. Reports her feet are also numb. She has tried to wear wrist splints at night and these did not resolve her symptoms. Reported Pain Level Pain Score 2/10 at rest, bilateral hands Never gets to 0/10 8/10 at worst Assessment OT Clinical Summary Patient referred to OT with bilateral hand and wrist pain, numbness, and tingling. Evaluation today demonstrates intact sensation, strength, and ROM. She has positive tests for de Quervain's bilaterally and ulnar neuropathy at the elbow and wrist level. It appears that the nature of her 2 jobs is causing a repetitive strain. Provided education on UE positioning and HEP for nerve glides. Continued skilled OT indicated for use of modalities, manual therapy, HEP instruction/ progression, and possibly orthotic intervention to facilitate reduced pain and improved functional use of bilateral hands. Plan of Care Interventions Therapeutic Exercise,Manual Therapy,Therapeutic Activities,Hot Pack/Cold Pack,Ultrasound,Paraffin OT Services Indicated Yes Treatment Frequency and Recommending 2x/week, however patient reports she Duration is unable to attend 2x/week due to work. Will be scheduling patient 1x/week for 6 visits. These treatments will address the objective and functional deficits as defined above. The patient will be advanced safely and appropriately in order for the patient to progress towards his/her prior level of function. Additional exercises will be introduced and as well as a comprehensive home exercise program upon discharge, if needed, ?to ensure carryover of functional gains achieved in the clinic. This treatment plan has been reviewed and agreement upon by the patient.
--- NOTE | 2023-08-04 09:56 | OPREHPOC ---
Outpatient Therapy Plan of Care This is a Multidisciplinary Plan of Care that may contain components documented by all disciplines (PT, OT, and ST.) OT Problem 1 OT Problem #1 Knowledge Deficit OT Goal 1 Goal 1. Patient to be independent with instructed materials. Target Visit 6 OT Problem 2 OT Problem #2 Pain OT Goal 1 Goal 1. Patient to report reduced pain in bilateral hands, reporting times of no pain. Target Visit 6 OT Problem 3 OT Problem #3 Impaired Flexibility OT Goal 1 Goal 1. Patient to be able to complete ulnar nerve glides without onset of paresthesias. Target Visit 6
--- NOTE | 2023-09-06 13:31 | OTOPDC ---
Assessment and note entered by Madhav Mckeon, CELESTE/Mandi, CHT Discharge Notification 09/06/23 OT Clinical Summary Patient was initially evaluated by OT on 08/04/23. She never called to schedule treatments. We have been unable to reach her. Discharging patient due to lack of therapy attendance.
== END 2023-09-06 14:52 | disposition home or self-care (01) ==
LOC: ANHOT 08:16
PROVIDERS: PCP Internal Medicine; Visit Provider Plastic Surgery
DX: M25.531 Pain in right wrist (principal); M25.532 Pain in left wrist; M79.641 Pain in right hand; M79.642 Pain in left hand; R20.0 Anesthesia of skin
CPT/HCPCS: 97110; 97166

== ENCOUNTER 2023-11-23 07:29 | Outpatient (CLI) | payer OTHER, SELFPAY ==
[2023-11-23 08:41] LABS: Alanine Aminotransferase 39 U/L (6-35); Alkaline Phosphatase 41 U/L (38-126); Anion Gap 9 mmol/L (4-12); Aspartate Amino Transferase 33 U/L (14-36); Bilirubin,Total 0.5 mg/dL (0.2-1.3); Blood Urea Nitrogen 10 mg/dL (7-17); Calcium 9.7 mg/dL (8.4-10.2); Carbon Dioxide 26 mmol/L (22-30); Chloride 101 mmol/L (98-107); Cholesterol 143 mg/dL (0-200); Estimated Glomerular Filt Rate > 60; Glucose 77 mg/dL (65-110); HDL Direct 75 mg/dL; Potassium 3.8 mmol/L (3.4-5.0); Sodium 136 mmol/L (137-145); Triglycerides 92 mg/dL (<150)
[2023-11-23 08:54] LABS: LDL Cholesterol Direct 63 mg/dL
[2023-11-23 09:11] LABS: Thyroid Stimulating Hormone < 0.015 uIU/mL (0.465-4.680)
[2023-11-23 09:25] LABS: Free T4 Free Thyroxine 1.85 ng/mL (0.78-2.19)
[2023-11-24 16:38] LABS: Triiodothyronine T3 Free 3.6 pg/mL (2.3-4.2)
== END 2023-11-23 07:30 | disposition home or self-care (01) ==
LOC: ANHLAB 07:30
PROVIDERS: PCP Internal Medicine; Visit Provider Internal Medicine
DX: E78.5 Hyperlipidemia, unspecified (principal); E03.8 Other specified hypothyroidism; Z79.899 Other long term (current) drug therapy
CPT/HCPCS: 36415; 80053; 80061; 84439; 84443; 84481

== ENCOUNTER 2023-12-15 17:16 | Outpatient (CLI) | payer OTHER, SELFPAY ==
--- NOTE | ~2023-12-15 | XR_ITS ---
EXAM: XR shoulder RT min 2V DATE: 12/15/2023 17:26 HISTORY: M25.511 - Pain in right shoulder . COMPARISON: None available. FINDINGS: Normal mineralization. No fracture or dislocation. No lytic or blastic lesion. Joint space s are maintained. No erosion or periosteal change. Soft tissues within normal limits. IMPRESSION: Unremarkable right shoulder radiograph findings. Reviewed, dictated and finalized at location K.
== END 2023-12-15 17:17 | disposition home or self-care (01) ==
LOC: ANHIMG 17:18
PROVIDERS: PCP Internal Medicine; Visit Provider Internal Medicine
DX: M25.511 Pain in right shoulder (principal); M25.611 Stiffness of right shoulder, not elsewhere classified
CPT/HCPCS: 73030

== ENCOUNTER 2024-04-07 13:02 | Outpatient (CLI) | payer OTHER, SELFPAY ==
--- NOTE | ~2024-04-07 | MR_ITS ---
EXAMINATION: MR brain/brain stem wo con DATE: 04/07/2024 13:39 INDICATION: Headache. [place] disease. TECHNIQUE: Magnetic resonance imaging (MRI) of the brain and brainstem was performed without intraven ous contrast. COMPARISON: Brain MRI 11/27/2020 FINDINGS: There is no intracranial hemorrhage, acute infarction, or abnormal intracranial mass lesion . The ventricles are normal in size. The paranasal sinuses are clear. The orbits are normal. The mast oid air cells are normal. IMPRESSION: 1. Normal brain. Reviewed, dictated and finalized at location A. IMPRESSION: 1. Normal brain.
== END 2024-04-07 13:03 | disposition home or self-care (01) ==
PROVIDERS: PCP Internal Medicine
DX: R51.9 Headache, unspecified (principal); G10 Huntington's disease
CPT/HCPCS: 70551

== ENCOUNTER 2024-04-19 15:17 | Outpatient (CLI) | payer OTHER, SELFPAY ==
--- NOTE | ~2024-04-19 | XR_ITS ---
EXAMINATION: XR cervical spine 4-5V DATE: 04/19/2024 15:40 INDICATION: Spondylosis without myelopathy. TECHNIQUE: 5 views of cervical spine including flexion and extension views were obtained. COMPARISON: None. FINDINGS: Alignment is normal. There is no abnormal motion on flexion or extension. Vertebral body he ights and intervertebral disc heights are normal. There is multilevel mild facet joint osteoarthritis . No central canal stenosis or prevertebral soft tissue swelling. IMPRESSION: 1. Mild cervical facet joint osteoarthritis. Reviewed, dictated and finalized at location A.
== END 2024-04-19 15:18 | disposition home or self-care (01) ==
PROVIDERS: PCP Internal Medicine; Visit Provider Nurse Practitioner Adult Health
DX: M47.892 Other spondylosis, cervical region (principal)
CPT/HCPCS: 72050

== ENCOUNTER 2024-05-03 14:35 | Outpatient (CLI) | payer OTHER, SELFPAY ==
--- NOTE | ~2024-05-03 | XR_ITS ---
EXAMINATION: XR chest 2V 05/03/2024 14:56 INDICATION: Left rib pain PROCEDURE: 2 view chest COMPARISON: No prior studies for comparison. FINDINGS: The lungs are clear. The cardiomediastinal silhouette is within normal limits. There are no pleural effusions. There is no pneumothorax suspected. There are cholecystectomy clips. IMPRESSION: 1: NO ACUTE CARDIOPULMONARY DISEASE. Reviewed, dictated and finalized at location B.
== END 2024-05-03 14:36 | disposition home or self-care (01) ==
LOC: ANHIMG 14:38
PROVIDERS: PCP Internal Medicine; Visit Provider Internal Medicine
DX: R07.81 Pleurodynia (principal); R07.9 Chest pain, unspecified
CPT/HCPCS: 71046

== ENCOUNTER 2024-05-09 15:30 | Outpatient (RCR) | payer OTHER, SELFPAY ==
--- NOTE | 2024-03-07 15:56 | OPREHPOC ---
Outpatient Therapy Plan of Care This is a Multidisciplinary Plan of Care that may contain components documented by all disciplines (PT, OT, and ST.) PT Problem 1 PT Problem #1 Knowledge Deficit PT Goal 1 Goal / Goal Update *indep with HEP Target Visit 8 PT Problem 2 PT Problem #2 Pain PT Goal 1 Goal / Goal Update 1* pt report pain rating at 3/10 at worst 2* self assessment Quick DASH rating of 28% limitation in activity level 3* with sleeping, awaken 1x/night due to shoulder pain Target Visit 8 PT Problem 3 PT Problem #3 Impaired Flexibility PT Goal 1 Goal / Goal Update increase R shoulder flexibility to increase self care- fixing hair and doing work & home tasks 1* horizontal adduction without an increase in pain 2* supine IR 60' Target Visit 8 PT Problem 4 PT Problem #4 Impaired Strength PT Goal 1 Goal / Goal Update increase strength of R shoulder, to perform self care, home and work activities: 1* pt report able to fix her hair without any issues 2* pt able to perform home activities without any issues Target Visit 8
--- NOTE | 2024-03-07 15:56 | PTOPEVAL1 ---
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 Onset after holding and stabilizing a pt with dental procedure. X ray was negative. Her medical history includes: neck pain, back pain arthritis in all spine , wrist and finger pain, fibromyalgia, chronic pain. She is active, and does fitness exercises at the gym with weights 2-3x/wk. Self assessment Quick DASH rating of 50% limitation in pain. Pain disrupts her sleeping and activity with doing her hair, reaching up and using her dominant arm. With the evaluation: cervical ROM is WNL, with reports of tightness and pain with rotation L and flexion motions; R shoulder ROM is decreased with flexion and supine IR motion, with painful horizontal adduction, flexion motions; tenderness over anterior shoulder with spasms. Skilled PT services are indicated for treatment of shoulder impingement syndrome; modalities for pain control, therapeutic exercises to increase ROM of shoulder with education for HEP and pain control. Plan of Care Interventions Electrical Stimulation,Hot Pack/Cold Pack,Manual Therapy,Neuro Re-education,Patient Education,Therapeutic Activities,Therapeutic Exercise,Ultrasound,Other Other Interventions esthering, IASTM PT Services Indicated Yes Treatment Frequency and 1-2 x/wk for 8 visits Duration These treatments will address the objective and functional deficits as defined above. The patient will be advanced safely and appropriately in order for the patient to progress towards his/her prior level of function. Additional exercises will be introduced and as well as a comprehensive home exercise program upon discharge, if needed, ?to ensure carryover of functional gains achieved in the clinic. This treatment plan has been reviewed and agreement upon by the patient.
--- NOTE | 2024-03-15 13:36 | PCPTNOTE ---
Pt. called this date to cancel her PT appointment.
--- NOTE | 2024-05-09 16:16 | OPREHPOC ---
Outpatient Therapy Plan of Care This is a Multidisciplinary Plan of Care that may contain components documented by all disciplines (PT, OT, and ST.) PT Problem 1 PT Problem #1 Knowledge Deficit PT Goal 1 Goal / Goal Update *indep with HEP Target Visit 8 Progress Met PT Goal 2 Goal / Goal Update 05-09-24 d/c R shoulder treatment/ eval for cervical diagnosis goals met NEW GOALS: for cervical continue towards goals for education for cervical spine Target Visit 11 PT Problem 2 PT Problem #2 Pain PT Goal 1 Goal / Goal Update 1* pt report pain rating at 3/10 at worst 2* self assessment Quick DASH rating of 28% limitation in activity level 3* with sleeping, awaken 1x/night due to shoulder pain Target Visit 8 Progress Met PT Goal 2 Goal / Goal Update 05-09-24 d/c R shoulder treatment/ eval for cervical diagnosis goals met NEW GOALS: for cervical 1* pain rating at worst of 5/10 2* Neck Index self assessment rating of 28% limitation in activity level Target Visit 11 PT Problem 3 PT Problem #3 Impaired Flexibility PT Goal 1 Goal / Goal Update increase R shoulder flexibility to increase self care- fixing hair and doing work & home tasks 1* horizontal adduction without an increase in pain 2* supine IR 60' Target Visit 8 Progress Met PT Goal 2 Goal / Goal Update 05-09-24 d/c R shoulder treatment/ eval for cervical diagnosis goals met NEW GOALS: for cervical no pain increase with cervical motions--to improve work, driving and home tasks 1* cervical flexion 2* cervical rotation R 3* cervical rotaiton L Target Visit 11 PT Problem 4 PT Problem #4 Impaired Strength PT Goal 1 Goal / Goal Update increase strength of R shoulder, to perform self care, home and work activities: 1* pt report able to fix her hair without any issues 2* pt able to perform home activities without any issues Target Visit 8 Progress Met PT Goal 2 Goal / Goal Update 05-09-24 d/c R shoulder treatment/ eval for cervical diagnosis goals met NEW GOALS: for cervical increase cervical - scapular strength to improve support to spine and improve position of neck 1* pt perform 20 reps of strengthening exercises on mat and standing Target Visit 11
--- NOTE | 2024-05-09 16:16 | PTOPEVAL1 ---
Assessment and note entered by Alison Allred, PT Evaluation Information Assessment Status evaluation neck/ discharge R shoulder ICD-10 Condition Codes (PT) Cervicalgia M54.2,M25.511 Onset Apr 2023 Subjective Information received neck injection about 1 month ago- helped the pain; was able to stretch and move neck more since the pain was less; shoulder is moving better; just to wash and quick fix of her hair is doing OK; if really have to blow dry and do more, shoulder is sore; able to do home tasks with out shoulder problems PAIN: R shoulder: tightness in shoulder, not pain; with sleeping, have to reposition shoulder when change position in bed, pain does not wake her up from sleeping; Neck pain: range in the past week 0-8/10; neck tight bilateral cervical and upper traps; headache almost all time; increase pain: 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; decrease pain: heat, home stim, scraper, stretch with sleeping- pain does not wake her up but have to position her neck just right injection has decreased the pain Reported Pain Level Pain Score 0,0: Self Report Additional Pain Score Comments R shoulder: tightness in shoulder, not pain; with sleeping, have to reposition shoulder when change position in bed, pain does not wake her up from sleeping; Neck pain: range in the past week 0-8/10; neck tight bilateral cervical and upper traps increase pain: 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 She called and canceled 1 appointment. There were issues with her attending therapy due to work. R shoulder: improved with pain rating from 1-7/10 to 0/10 pain, just tight now; self assessment Quick DASH from 50 to 11% limitation in activity level; no longer has pain with R shoulder motions and using R arm for home and self care without any issues. sleeping is no longer disrupted due to pain; The goals were achieved for R shoulder treatment. Eval for cervical pain: pain rating of 0-8/10 with headaches; self assessment Neck Index rating of 42% limitation in activity level; active cervical ROM is WNL, with most pain increase with flexion; tenderness and spasms over cervical paraspinals and upper traps; Skilled PT services are indicated for modalities to decrease cervical pain and muscle tightness, posture correction and cervical-scapular strengthening exercises, with education for HEP and posture correction. Plan of Care Interventions Hot Pack/Cold Pack,Manual Therapy,Mechanical Traction,Neuro Re-education,Patient Education,Therapeutic Activities,Therapeutic Exercise,Ultrasound Other Interventions taping, dry needling PT Services Indicated Yes Treatment Frequency and 1x/wk for 6 visits Duration These treatments will address the objective and functional deficits as defined above. The patient will be advanced safely and appropriately in order for the patient to progress towards his/her prior level of function. Additional exercises will be introduced and as well as a comprehensive home exercise program upon discharge, if needed, ?to ensure carryover of functional gains achieved in the clinic. This treatment plan has been reviewed and agreement upon by the patient.
== END 2024-06-05 23:59 | disposition home or self-care (01) ==
LOC: ANHPT 15:30
PROVIDERS: PCP Internal Medicine; Visit Provider Internal Medicine
DX: M25.511 Pain in right shoulder (principal); R53.1 Weakness
CPT/HCPCS: 97014; 97110; 97140; 97161; 97530; G0283

== ENCOUNTER 2024-05-09 16:19 | Outpatient (CLI) | payer OTHER, SELFPAY ==
--- NOTE | ~2024-05-09 | US_ITS ---
EXAM: ABDOMEN ULTRASOUND HISTORY: R07.81 - Pleurodynia COMPARISON: 06/14/2022 FINDINGS: LIVER: The liver is unremarkable in echogenicity and size measuring 16cm in longitudinal dimension. The portal vein is patent demonstrating hepatopedal flow. GALLBLADDER: The gallbladder is surgically absent. BILE DUCTS: Common bile duct measures 4.7mm. PANCREAS: Limited evaluation of the pancreas secondary to overlying bowel gas SPLEEN: The spleen is unremarkable in echogenicity and size measuring 9.5cm in longitudinal dimension . RIGHT KIDNEY: 9.9 cm. In length. No hydronephrosis or bulky renal calculi. LEFT KIDNEY: 9.9cm in length. No hydronephrosis or renal calculi. VASCULATURE : The abdominal aorta is nonaneurysmal. The IVC is patent. IMPRESSION: Unremarkable sonographic evaluation of the abdomen, as detailed above. Evaluation of the pancreas is limited by overlying bowel gas. Reviewed, dictated and finalized at location A.
[2024-05-09 17:18] LABS: Alanine Aminotransferase 23 U/L (6-35); Alkaline Phosphatase 86 U/L (38-126); Anion Gap 8 mmol/L (4-12); Aspartate Amino Transferase 34 U/L (14-36); Bilirubin,Total 0.5 mg/dL (0.2-1.3); Blood Urea Nitrogen 13 mg/dL (7-17); Calcium 9.9 mg/dL (8.4-10.2); Carbon Dioxide 31 mmol/L (22-30); Chloride 96 mmol/L (98-107); Cholesterol 206 mg/dL (0-200); Estimated Glomerular Filt Rate > 60; Glucose 95 mg/dL (65-110); HDL Direct 94 mg/dL; Potassium 3.7 mmol/L (3.4-5.0); Sodium 135 mmol/L (137-145); Triglycerides 62 mg/dL (<150)
[2024-05-09 17:29] LABS: LDL Cholesterol Direct 94 mg/dL
[2024-05-09 17:48] LABS: Thyroid Stimulating Hormone < 0.015 uIU/mL (0.465-4.680)
[2024-05-09 18:21] LABS: Free T4 Free Thyroxine 1.45 ng/mL (0.78-2.19)
== END 2024-05-09 16:20 | disposition home or self-care (01) ==
PROVIDERS: PCP Internal Medicine; Visit Provider Internal Medicine
DX: E67.3 Hypervitaminosis D (principal); E03.8 Other specified hypothyroidism; E78.5 Hyperlipidemia, unspecified; R07.81 Pleurodynia; Z79.899 Other long term (current) drug therapy
CPT/HCPCS: 36415; 76700; 80053; 80061; 82306; 84439; 84443; 84481

== ENCOUNTER 2024-06-07 16:33 | Outpatient (CLI) | payer OTHER, SELFPAY ==
[2024-06-07 17:20] LABS: Rheumatoid Factor < 12.0 IU/ML (<12)
[2024-06-07 17:21] LABS: CRP < 0.5 mg/dL (<1.0)
[2024-06-07 17:27] LABS: Erythrocyte Sedimentation Rate 7 mm/hr (0-20)
== END 2024-06-07 16:34 | disposition home or self-care (01) ==
LOC: ANHLAB 16:35
PROVIDERS: PCP Internal Medicine; Visit Provider Internal Medicine
DX: M25.50 Pain in unspecified joint (principal); M79.7 Fibromyalgia; Z79.899 Other long term (current) drug therapy
CPT/HCPCS: 36415; 85652; 86038; 86140; 86430

== ENCOUNTER 2024-07-02 17:31 | Outpatient (CLI) | payer OTHER, SELFPAY ==
[2024-07-02 17:52] LABS: Basophils Absolute Auto 0.1 K/mm3 (0.0-0.1); Basophils Percent Auto 1.1 % (0.2-1.2); Eosinophils Absolute Auto 0.1 K/mm3 (0-0.3); Eosinophils Percent Auto 0.8 % (0-4.4); Hematocrit 37.1 % (37.0-47.0); Hemoglobin 12.6 g/dL (12.0-15.0); Immature Granulocyte Absolute 0.03 K/mm3 (0.00-0.031); Immature Granulocyte Percent A 0.3 % (0-0.5); Lymphocytes Absolute Auto 2.87 K/mm3 (0.9-3.2); Lymphocytes Percent Auto 32.8 % (18.3-44.2); Mean Corpuscular Hemoglobin 32.1 pg (26-34); Mean Corpuscular Volume 94.6 fl (80-100); Mean Platelet Volume 8.8 fl (7.4-10.4); Monocytes Absolute Auto 0.8 K/mm3 (0.1-0.6); Monocytes Percent Auto 8.9 % (2.6-8.5); Neutrophils Absolute Auto 4.9 K/mm3 (1.3-6.7); Neutrophils Percent Auto 56.1 % (45.5-73.1); Platelet Count Result 289 k/mm3 (150-375); Red Blood Count 3.92 M/mm3 (4.2-5.4); Red Cell Distribution Width 12.1 % (11.5-14.5); White Blood Count 8.7 K/mm3 (4.5-10.0)
== END 2024-07-02 17:32 | disposition home or self-care (01) ==
LOC: ANHLAB 17:33
PROVIDERS: PCP Internal Medicine; Visit Provider Obstetrics & Gynecology
DX: Z01.812 Encounter for preprocedural laboratory examination (principal); N85.2 Hypertrophy of uterus
CPT/HCPCS: 36415; 85025; 86850; 86900; 86901

== ENCOUNTER 2024-07-03 00:35 | Day surgery (SDC) | payer OTHER, SELFPAY ==
--- NOTE | 2024-07-01 06:59 | P.HP_ITS ---
H&P: HPI History of Present Illness Date/Time: 07/01/24 06:59 Chief Complaint: Pelvic pain Narrative: 39-year-old multiparous patient with pelvic congestion syndrome. She has pain discomfort and dyspareunia she will undergo robotic total vaginal hysterectomy salpingectomy. Risks benefits reviewed including exclusive of , aspiration bleeding, transfusion perforation injury to bowel bladder ureters or internal with need. Received the ACOG handout hysterectomy as well as the de [place] she had all questions answered. To proceed Review of Systems Review of Systems: CONSTITUTIONAL: Denies malaise, chills, sweats, or fever. EYES: Denies visual changes, redness, or discharge. ENT: Denies rhinorrhea, congestion, sinus pain, and sore throat. Reports bilateral ear pain CARDIOVASCULAR: Denies chest pain, palpitations, or edema. RESPIRATORY: Denies cough. Denies dyspnea. GASTROINTESTINAL: Denies abdominal pain, nausea, vomiting, diarrhea SKIN: Denies rash or itching. MUSCULOSKELETAL: Denies myalgia. NEUROLOGIC: Denies headache. All systems reviewed & are unremarkable except as noted in HPI and below PMFSH Past Medical History Medical History Rib pain on left side Raynaud's disease Right shoulder pain Panic attacks Hypokalemia Yazoo's disease Pedal edema Tachycardia Repetitive intrusions of sleep Pain, upper extremity Tingling of upper extremity Vitamin D deficiency Hypersomnolence Encounter for routine adult health examination with abnormal findings Plantar fasciitis Numbness and tingling of both upper extremities Tenosynovitis BMI 21.0-21.9, adult Drug reaction Hyperlipidemia Paronychia High vitamin D level Family history of Kristi's disease Rectal prolapse Cervicalgia BMI 22.0-22.9, adult Encounter for preventive health examination Ulnar neuropathy at elbow Paresthesia of both lower extremities Low back pain radiating down leg Low testosterone level in female ADD (attention deficit disorder) Lack of concentration Insomnia Irritable bowel syndrome CTS (carpal tunnel syndrome) Anxiety with depression Personal history of COVID-19 Encounter for routine adult health examination without abnormal findings 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 Blood in stool Irritable bowel syndrome with diarrhea Joint pain RUQ abdominal pain History of gastroesophageal reflux (GERD) History of gastric ulcer Dysphagia Abdominal pain Nausea Irritable bowel syndrome with constipation Fibromyalgia BMI 23.0-23.9, adult Follow up Fatigue Constipation Central hypothyroidism SVT (supraventricular tachycardia) RLQ abdominal pain Surgical History Surgical History Hx of breast augmentation History of cardiac radiofrequency ablation S/P cholecystectomy H/O cardiac radiofrequency ablation Status post cholecystectomy Family History Family History Father Family history of hypercholesterolemia Family history of malignant neoplasm of esophagus Mother Family history of hypercholesterolemia Hypertension Cerebrovascular accident Other Family history of malignant neoplasm Social History Social History Smoking status: Never smoker Alcohol intake: current Drinks per week: 14 Alcohol use details: social Substance use: current Substance use type: marijuana Other substance usage details: CBD GUMMIES AT NIGHT Last use: 12/18/20 Living arrangements: with family Occupation/Education: occupation 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 [employer] Spiritual care concerns: No Meds Home Medications and Allergies Home Medications ?Medication ?Instructions ?Recorded ?Confirmed ?Type magnesium 250 mg tablet 500 mg PO DAILY 10/03/19 06/07/24 History multivit with minerals-iron 18 1 tablet PO DAILY 11/25/19 06/07/24 History mg-folic ac 400 mcg-vit K 25 mcg tablet (Adults Multivitamin) calcium polycarbophil 625 mg 1,250 mg PO DAILY 08/19/20 06/07/24 History tablet (FiberCon) cholecalciferol (vitamin D3) 25 25 mcg PO .every other day 08/24/21 06/07/24 History mcg (1,000 unit) tablet omeprazole 40 mg capsule,delayed 40 mg PO BID 04/12/22 06/07/24 History release fluticasone propionate 50 2 spray intranasal DAILY 14 days 03/17/23 06/07/24 Rx mcg/actuation nasal #15.8 mL spray,suspension (Flonase Allergy Relief) pseudoephedrine HCl 120 mg 120 mg PO Q12H PRN nasal 03/17/23 06/07/24 Rx tablet,extended release (12 Hour congestion #12 tabs Decongestant ER) lorazepam 0.5 mg tablet (Ativan) 0.5 mg PO TID PRN anxiety #30 tabs 05/19/23 06/07/24 Rx gabapentin 300 mg capsule 600 mg (2 x 300 mg) PO TID PRN 09/11/23 06/07/24 Rx pain 90 days #540 caps TESTOSTERONE 0.05% CREAM See Rx Instructions .Route 04/11/24 06/07/24 Rx (P#[id number]) (GLYCERIN LIQUID, .COMPLEX #15 grams VERSABASE CREAM) meloxicam 15 mg tablet See Rx Instructions .Route 04/15/24 06/07/24 Rx .COMPLEX #90 tabs levothyroxine 100 mcg tablet 100 mcg PO DAILY #90 tabs 05/29/24 06/07/24 Rx triamterene 37.5 See Rx Instructions .Route 06/04/24 06/07/24 Rx mg-hydrochlorothiazide 25 mg tablet .COMPLEX #30 tabs potassium chloride 10 mEq See Rx Instructions .Route 06/11/24 Rx tablet,extended release .COMPLEX #90 tabs rosuvastatin 10 mg tablet See Rx Instructions .Route 06/17/24 Rx .COMPLEX #90 tabs methylphenidate HCl 10 mg tablet 10 mg PO TID #90 tabs 06/24/24 Rx methylphenidate HCl 5 mg tablet 5 mg PO TID #90 tabs 06/24/24 Rx Allergies Allergy/AdvReac Type Severity Reaction Status Date / Time doxycycline Allergy Intermediate Rash Verified 06/07/24 08:08 Exam Const: General: cooperative, healthy appearing and comfortable Nutritional Appearance: average body habitus Orientation/consciousness: oriented to person, oriented to place and oriented to time HENMT: Head: normal to inspection Resp: Effort & Inspection: normal respiratory effort Cardio: Rate: regular rate Rhythm: regular rhythm Heart sounds: S1 normal heart sound present and S2 normal heart sound present GI: Inspection: normal to inspection : External Female Exam: normal external appearance Speculum Exam - Vagina: normal appearance of the vagina Speculum Exam - Cervix: normal appearance of the cervix Bimanual exam- vagina & uterus: enlarged and Uterine tenderness Bimanual Exam- Adnexa, other: normal adnexae Assessment and Plan Assessment and plan (1) Pelvic congestion: Code(s): N94.89 - Other specified conditions associated with female genital organs and menstrual cycle Status: Acute (2) Pelvic pain: Code(s): R10.2 - Pelvic and perineal pain Status: Acute (3) Enlarged uterus: Code(s): N85.2 - Hypertrophy of uterus Status: Acute Plan Proceed with robotic total hysterectomy and salpingectomy
[2024-07-01 08:22] VITALS: BMI 21.9
--- NOTE | 2024-07-01 08:30 | PC.NURSE ---
Report to the Outpatient Waiting Room, entrance under the green pavilion located off [facility], at time _0830_ on date _[id number]_. Planned Procedure Time: _1030_.? Time changes happen often and if your time is changed the preop area will call you the afternoon before. - You and your visitor will be asked to self-screen and do not enter if you have any COVID symptoms. Please call surgeon if you need to reschedule. - A mask is optional within the hospital at this time. Patients may have clear liquids (water, carbonated beverages, clear teas, apple juice) until 3 hours prior to surgery with a maximum of 20 ounces. - No food from midnight until time of surgery and no smoking. This includes no chewing gum, candy or mints. Take only the following medications with a SIP of water on the morning of surgery: ____Gabapentin and Levothyroxine. DO NOT STOP ANY OF YOUR OTHER PRESCRIPTION MEDICATIONS PRIOR TO SURGERY EXCEPT THE FOLLOWING Medications to discontinue per physician ____All vitamins Date to take last dose____Stop now. Please no make-up, nail mohawk, hairspray, perfume, deodorant, or body powder the day of surgery.? No jewelry (including any body piercings) or valuables the day of surgery, leave them at home.? Please take a shower or bath the night before, or the morning of, surgery with an antibacterial soap.? Wear comfortable, loose fitting clothing.? - Jewelry must be removed prior to entering the operating room.? Rings and piercings that are not removed may be cut off. - The hospital will not accept responsibility for valuables.? - Please leave all valuables, including medications, at home the day of surgery. If you are going home after surgery, a licensed lumber driver must drive you home.? - NO public transportation without another adult if you receive anesthesia. - We recommend that an adult stay with you for 24 hours following discharge. - We also recommend that you do not drive, make important decision, drink alcoholic beverages, or take any drugs that were not prescribed by your health care provider for at least 24 hours after your discharge time. Follow any additional instructions given to you from your surgeon. Telephone instructions given to __Robin__and asked if any additional questions and then verbalized understanding. Patient advised to call surgeon office or pre surgery nurse liaison [phone] if any additional questions.
[2024-07-03] VITALS (14 sets, daily range): BP systolic 92–116; BP diastolic 54–84; PULSE 54–90; RESP 12–18; TEMP 36.2–36.9; O2SAT 95–100
--- NOTE | 2024-07-03 06:32 | WPDHPUPDATE1 ---
History and Physical Update Update Date/Time: 07/03/24 06:32 History and Physical has been reviewed, including an updated exam of the patient. There are NO changes in the patient's condition. Risks, benefits, and alternatives have been discussed and questions answered. Patient agrees to proceed with procedure.
--- NOTE | 2024-07-03 06:47 | WPDANESEPPF ---
Anes - Initial Pre Proc Eval Procedure: Operation Date: 07/03/24 10:30 Proposed Procedures p Robotic Assisted Total Vaginal Hysterectomy with Bilateral Salpingectomy - Guilherme Marrero MD Date/Time: 07/03/24 06:47 Surgeon: Guilherme Marrero MD Pre Op Diagnosis: pelvic congestion syndrome, enlarged uterus, Patient Data Age: 39 Gender: F Height: 1.57 m Weight: 54.5 kg Allergies Allergy/AdvReac Type Severity Reaction Status Date / Time doxycycline Allergy Intermediate Rash Verified 07/01/24 08:18 Home Medications ?Medication ?Instructions ?Recorded ?Confirmed ?Type multivit with minerals-iron 18 1 tablet PO DAILY 11/25/19 07/01/24 History mg-folic ac 400 mcg-vit K 25 mcg tablet (Adults Multivitamin) calcium polycarbophil 625 mg 1,250 mg PO DAILY 08/19/20 07/01/24 History tablet (FiberCon) cholecalciferol (vitamin D3) 25 25 mcg PO .every other day 08/24/21 07/01/24 History mcg (1,000 unit) tablet omeprazole 40 mg capsule,delayed 40 mg PO BID 04/12/22 07/01/24 History release fluticasone propionate 50 2 spray intranasal DAILY 14 days 03/17/23 07/01/24 Rx mcg/actuation nasal #15.8 mL spray,suspension (Flonase Allergy Relief) pseudoephedrine HCl 120 mg 120 mg PO Q12H PRN nasal 03/17/23 07/01/24 Rx tablet,extended release (12 Hour congestion #12 tabs Decongestant ER) lorazepam 0.5 mg tablet (Ativan) 0.5 mg PO TID PRN anxiety #30 tabs 05/19/23 07/01/24 Rx gabapentin 300 mg capsule 600 mg (2 x 300 mg) PO TID PRN 09/11/23 07/01/24 Rx pain 90 days #540 caps TESTOSTERONE 0.05% CREAM See Rx Instructions .Route 04/11/24 07/01/24 Rx (P#[id number]) (GLYCERIN LIQUID, .COMPLEX #15 grams VERSABASE CREAM) meloxicam 15 mg tablet See Rx Instructions .Route 04/15/24 07/01/24 Rx .COMPLEX #90 tabs levothyroxine 100 mcg tablet 100 mcg PO DAILY #90 tabs 05/29/24 07/01/24 Rx triamterene 37.5 See Rx Instructions .Route 06/04/24 07/01/24 Rx mg-hydrochlorothiazide 25 mg tablet .COMPLEX #30 tabs potassium chloride 10 mEq See Rx Instructions .Route 06/11/24 07/01/24 Rx tablet,extended release .COMPLEX #90 tabs rosuvastatin 10 mg tablet See Rx Instructions .Route 06/17/24 07/01/24 Rx .COMPLEX #90 tabs methylphenidate HCl 10 mg tablet 10 mg PO TID #90 tabs 06/24/24 07/01/24 Rx methylphenidate HCl 5 mg tablet 5 mg PO TID #90 tabs 06/24/24 07/01/24 Rx calcium 333 mg 1 tablet PO DAILY 07/01/24 07/01/24 History (carbonate)-magnesium 133 mg-zinc 5 mg (sulfate) tablet hydrocodone 5 mg-acetaminophen 325 1 tablet PO Q4H PRN pain #20 tabs 07/03/24 Rx mg tablet Patient hx anesthesia problems: none Family hx anesthesia problems: none Results Review: All pre-operative results and documents have been reviewed as part of the pre-operative evaluation. FOR[facility] Past Medical History Medical History Rib pain on left side Raynaud's disease Right shoulder pain Panic attacks Hypokalemia Kristi's disease Pedal edema Tachycardia Repetitive intrusions of sleep Pain, upper extremity Tingling of upper extremity Vitamin D deficiency Hypersomnolence Encounter for routine adult health examination with abnormal findings Plantar fasciitis Numbness and tingling of both upper extremities Tenosynovitis BMI 21.0-21.9, adult Drug reaction Hyperlipidemia Paronychia High vitamin D level Family history of [place]'s disease Rectal prolapse Cervicalgia BMI 22.0-22.9, adult Encounter for preventive health examination Ulnar neuropathy at elbow Paresthesia of both lower extremities Low back pain radiating down leg Low testosterone level in female ADD (attention deficit disorder) Lack of concentration Insomnia Irritable bowel syndrome CTS (carpal tunnel syndrome) Anxiety with depression Personal history of COVID-19 Encounter for routine adult health examination without abnormal findings 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 Blood in stool Irritable bowel syndrome with diarrhea Joint pain RUQ abdominal pain History of gastroesophageal reflux (GERD) History of gastric ulcer Dysphagia Abdominal pain Nausea Irritable bowel syndrome with constipation Fibromyalgia BMI 23.0-23.9, adult Follow up Fatigue Constipation Central hypothyroidism SVT (supraventricular tachycardia) RLQ abdominal pain Surgical History Surgical History Hx of breast augmentation History of cardiac radiofrequency ablation S/P cholecystectomy H/O cardiac radiofrequency ablation Status post cholecystectomy Family History Family History Father Family history of hypercholesterolemia Family history of malignant neoplasm of esophagus Mother Family history of hypercholesterolemia Hypertension Cerebrovascular accident Other Family history of malignant neoplasm Social History Social History Smoking status: Never smoker Alcohol intake: current Drinks per week: 14 Alcohol use details: social Substance use: current Substance use type: marijuana Other substance usage details: Gummies twice a week. 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 Informed Consent: The patient's anesthetic plan and its attendant risks and benefits were discussed with the patient/family/POA. Questions were solicited and answers provided to the satisfaction of the patient/family/POA.
[2024-07-03] MEDS: ACETAMINOPHEN 500 MG TABLET 1000 MG PO ×3 (09:24→23:22)
[2024-07-03] MEDS: SCOPOLAMINE 1 MG PATCH 1 PATCH TRANSDERM (09:25)
[2024-07-03] MEDS: LACTATED RINGERS 1,000 ML 30 ML IV CONT ×2 (09:35→11:08)
[2024-07-03] MEDS: KETOROLAC 15 MG/ML VIAL (*BKC) IV PUSH (09:38)
[2024-07-03] MEDS: ceFAZolin 2 GM/D5W 50 ML 2 GM/50 ML BAG IVPB (09:48)
[2024-07-03 10:03] LABS: BEDSIDEPREGUCG Negative (Negative)
--- NOTE | 2024-07-03 10:58 | P.OP_ITS ---
Procedure Note - Detailed Date of Procedure 07/03/24 Pre-op Diagnosis pelvic congestion syndrome, enlarged uterus, Post-op Diagnosis Same Procedure Performed Robotic total vaginal hysterectomy and bilateral salpingectomy Surgeon Guilherme Marrero MD Anesthesia General Indications 39-year-old female with an enlarged uterus and pelvic congestion syndrome Findings Enlarged uterus with large tortuous vessels. Normal-appearing ovaries and tubes. Description of Procedure Patient was prepped draped in the normal sterile fashion placed in dorsal lithotomy position. Excellent general anesthesia weighted speculum placed posterior fornix. Anterior lip the cervix grasped with single-tooth tenaculum uterus sounded to 10cm. Serial dilatation with fragmented dilators performed followed by passage of the 10. SURI and the 3. Cold cup. Next the 16 Serbian catheter was placed in the bladder and drained of clear urine. The weighted speculum and single-tooth removed. The gloves were changed. Supraumbilical incision made the Veress needle passed in the abdomen. Abdomen filled with CO2 gas [id number]. The 8mm trocar advanced in the abdomen. Downside visualized no injury seen. Patient placed in Trendelenburg and right left lateral quadrant incision made. The 8mm trocar advanced under direct visualization assuring no injury. A right upper quadrant incision made the 8mm trocars advanced under direct visualization assuring no injury. The robot was docked. Attention was turned to the primary counselor. The left round ligament grasped, burned, cut. Anterior bladder flap was formed by sharply dissecting the peritoneum and reflecting the bladder sharply away from the cervix uterus to the opposite round ligament was clamped, burned, cut. Next the left fallopian tube was sharply dissected away from the ovarian complex and left attached to its uterine origin. In similar fashion on the right. The fallopian tube was sharply dissected away from the ovary and left attached to its uterine origin. Next the utero-ovarian ligament on the left was skeletonized to conserve the left ovary. This was clamped, burned, cut brought to level of previously cut round ligament. In similar fashion conserving the right ovary, the utero-ovarian ligament was clamped, burned, cut and brought to level of previously cut round ligament. The cardinal broad ligaments on the left were then serially skeletonized clamping burning cutting and hugging the cervix uterus until the large tortuous blood vessels could be seen on the left these were individually clamped, burned, cut. In similar fashion on the right the cardinal broad ligaments were serially skeletonized clamping burning cutting until the large tortuous vessels could be seen on the right these were individually clamped, burned, cut. At that point blanching of the uterus was noted and the colpotomy incision was made cervix uterus and tubes removed through the vagina. The vagina was then closed with continuous running 0V lock from lateral edge to lateral edge back to the midline. Irrigation undertaken [place] term placed over the raw surface area. Robot was undocked. The gas removed from the abdomen. In the incisions closed with 4 Monocryl and glue. Patient was awakened went recovery in satisfactory condition. All sponge, needle, instrument counts were correct. There were no immediate complications patient went recovery in satisfactory condition Estimated Blood Loss 25 Drains No Packing No Pathology Yes Complications No immediate complications Condition Stable Disposition PACU
--- NOTE | 2024-07-03 11:02 | PM.DS ---
DS: Admitting Diagnosis Discharge Date Admitting Diagnosis Pelvic congestion/enlarged uterus DS: Discharge Diagnosis Discharge Diagnosis (1) Enlarged uterus: Code(s): N85.2 - Hypertrophy of uterus Status: Acute (2) Pelvic pain: Code(s): R10.2 - Pelvic and perineal pain Status: Acute (3) Pelvic congestion: Code(s): N94.89 - Other specified conditions associated with female genital organs and menstrual cycle Status: Acute DS: Summary Hospital Course Reason for hospitalization: Patient was admitted for robotic total vaginal hysterectomy bilateral salpingectomy on 07/03/2024. Hospital Course: Patient's hospital course unremarkable. She remained afebrile. She was up, voiding without difficulty, eating regular diet, ambulating, and generally without complaints. Time Spent with Patient Time attestation: Total time spent providing and/or coordinating discharge services: Exam Const: General: cooperative, healthy appearing and comfortable Nutritional Appearance: average body habitus Orientation/consciousness: oriented to person, oriented to place and oriented to time HENMT: Head: normal to inspection Resp: Effort & Inspection: normal respiratory effort Cardio: Rate: regular rate Rhythm: regular rhythm Heart sounds: S1 normal heart sound present and S2 normal heart sound present GI: Inspection: normal to inspection and incision (Wounds are clean dry and intact) DS: Data Data Completed and Pending Pending studies at discharge: Pending at discharge 07/03/24 10:45 Surgical [PTH] Routine Labs on day of discharge: Labs from last 24 hours 07/03/24 09:00 POC Urine HCG, Qual Negative Discharge Plan Discharge Patient Disposition: Home, Self-Care Discharge Instructions: Remove the Scopolamine patch that was placed behind your ear in 72 hours or less. Wash your hands after touching. Patient Language: Icelandic Follow-up/Referrals: Guilherme Griffiths MD [Physician] - Discharge Medications: New hydrocodone-acetaminophen 5-325 mg tablet 1 tablet PO Q4H PRN (Reason: pain) Qty: 20 0RF No Action pseudoephedrine HCl [12 Hour Decongestant] 120 mg tablet extended release 120 mg PO Q12H PRN (Reason: nasal congestion) Qty: 12 0RF fluticasone propionate [Flonase Allergy Relief] 50 mcg/actuation spray,suspension 2 spray NASAL DAILY 14 Days Qty: 15.8 0RF Rx Instructions: administer into each nostril omeprazole 40 mg capsule,delayed release(DR/EC) 40 mg PO BID lorazepam [Ativan] 0.5 mg tablet 0.5 mg PO TID PRN (Reason: anxiety) Qty: 30 0RF calcium carb-mag ox-zinc sulf 333-133-5 mg tablet 1 tablet PO DAILY Rx Instructions: administer with a meal Adults Multivitamin 18 mg iron-400 mcg-25 mcg Tablet 1 tablet PO DAILY calcium polycarbophil [FiberCon] 625 mg Tablet 1,250 mg PO DAILY cholecalciferol (vitamin D3) 25 mcg (1,000 unit) tablet 25 mcg PO .every other day gabapentin 300 mg capsule 600 mg PO TID PRN (Reason: pain) 90 Days Qty: 540 1RF TESTOSTERONE 0.05% CREAM (P#[id number]) (GLYCERIN LIQUID, VERSABASE CREAM) See Rx Instructions .ROUTE .COMPLEX Qty: 15 3RF Rx Instructions: Apply 1/2 ml to inner wrists or thighs daily; meloxicam 15 mg tablet See Rx Instructions .ROUTE .COMPLEX Qty: 90 0RF Dose Instruction: Take 1 tablet by mouth once daily Rx Instructions: Take 1 tablet by mouth once daily levothyroxine 100 mcg tablet 100 mcg PO DAILY Qty: 90 1RF triamterene-hydrochlorothiazid 37.5-25 mg tablet See Rx Instructions .ROUTE .COMPLEX Qty: 30 2RF Dose Instruction: TAKE 1/2 (ONE-HALF) TABLET BY MOUTH IN THE MORNING NEEDED FOR EDEMA Patient Comments: Says does 1/2 tab every day. Rx Instructions: TAKE 1/2 (ONE-HALF) TABLET BY MOUTH IN THE MORNING NEEDED FOR EDEMA potassium chloride 10 mEq tablet extended release See Rx Instructions .ROUTE .COMPLEX Qty: 90 0RF Dose Instruction: TAKE 1 TABLET BY MOUTH DAILY Rx Instructions: TAKE 1 TABLET BY MOUTH DAILY rosuvastatin 10 mg tablet See Rx Instructions .ROUTE .COMPLEX Qty: 90 0RF Dose Instruction: Take 1 tablet by mouth once daily Rx Instructions: Take 1 tablet by mouth once daily methylphenidate HCl 5 mg tablet 5 mg PO TID Qty: 90 0RF methylphenidate HCl 10 mg tablet 10 mg PO TID Qty: 90 0RF
[2024-07-03] MEDS: fentaNYL CITRATE INJ (*CRX) 100 MCG/2 ML VIAL 25 MCG IV PUSH ×8 (11:25→12:08)
[2024-07-03] MEDS: HYDROmorphone HCL INJ (*CRX) 1 MG/ML SYR 0.5 MG IV PUSH ×2 (12:14→13:02)
--- NOTE | 2024-07-03 13:15 | PC.NURSE ---
This patient, Nicho Deleon, was received from PACU via stretcher on 07/03/24 at 1315.. Patient/family oriented to unit policies and routines.
[2024-07-03] MEDS: DEXTROSE 5%/LACTATED RINGERS 1,000 ML 125 ML IV CONT (14:13)
[2024-07-03] MEDS: oxyCODONE HCL (*CRX) 5 MG TAB IR PO ×2 (14:19→19:10)
[2024-07-03] MEDS: SIMETHICONE 80 MG TAB.CHEW PO (15:41)
[2024-07-03] MEDS: DOCUSATE SODIUM 100 MG CAPSULE PO (15:41)
[2024-07-03] MEDS: KETOROLAC 30 MG/ML VIAL (*BKC) IV PUSH ×2 (15:41→23:22)
[2024-07-04 05:16] LABS: Basophils Absolute Auto 0.1 K/mm3 (0.0-0.1); Basophils Percent Auto 0.3 % (0.2-1.2); Eosinophils Percent Auto 0.1 % (0-4.4); Immature Granulocyte Percent A 0.6 % (0-0.5); Lymphocytes Absolute Auto 2.65 K/mm3 (0.9-3.2); Lymphocytes Percent Auto 15.4 % (18.3-44.2); Mean Corpuscular HGB Conc 35.5 g/dl (32-36); Mean Corpuscular Hemoglobin 33.7 pg (26-34); Mean Corpuscular Volume 95.1 fl (80-100); Mean Platelet Volume 9.6 fl (7.4-10.4); Monocytes Absolute Auto 1.2 K/mm3 (0.1-0.6); Monocytes Percent Auto 6.9 % (2.6-8.5); Neutrophils Absolute Auto 13.2 K/mm3 (1.3-6.7); Neutrophils Percent Auto 76.7 % (45.5-73.1); Platelet Count Result 245 k/mm3 (150-375); Red Blood Count 3.26 M/mm3 (4.2-5.4); Red Cell Distribution Width 12.3 % (11.5-14.5); White Blood Count 17.2 K/mm3 (4.5-10.0)
[2024-07-04] MEDS: ACETAMINOPHEN 500 MG TABLET 1000 MG PO (05:33)
[2024-07-04 05:36] VITALS: BP 109/52; PULSE 66; RESP 16; TEMP 36.9; O2SAT 99
[2024-07-04] MEDS: KETOROLAC 30 MG/ML VIAL (*BKC) IV PUSH (05:41)
--- NOTE | 2024-07-04 07:26 | P.PNOB_ITS ---
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 Assessment and plan (1) Enlarged uterus: Code(s): N85.2 - Hypertrophy of uterus Status: Acute (2) Pelvic pain: Code(s): R10.2 - Pelvic and perineal pain Status: Acute (3) Pelvic congestion: Code(s): N94.89 - Other specified conditions associated with female genital organs and menstrual cycle Status: Acute Plan home Postoperative Procedures: Procedures Operation Date: 07/03/24 10:30 Actual Procedure Side Surgeon p Robotic Assisted Total Vaginal Hysterectomy with Bilateral Salpingectomy Bilateral Guilherme Marrero MD Time Spent With Patient Time: Total time spent is greater than 50% in coordination of care (as documented) at patient's floor/unit and/or counseling patient: Time with patient: less than 15 minutes 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- PN:Subj Post-Op Subjective Date/time seen: 07/04/24 07:26 Subjective: patient reports feeling better, patient has no complaints, patient desires discharge, pain is well controlled and patient is tolerating oral intake Review of Systems 2 Review of Systems: CONSTITUTIONAL: Denies malaise, chills, sweats, or fever. EYES: Denies visual changes, redness, or discharge. ENT: Denies rhinorrhea, congestion, sinus pain, and sore throat. Reports bilateral ear pain CARDIOVASCULAR: Denies chest pain, palpitations, or edema. RESPIRATORY: Denies cough. Denies dyspnea. GASTROINTESTINAL: Denies abdominal pain, nausea, vomiting, diarrhea SKIN: Denies rash or itching. MUSCULOSKELETAL: Denies myalgia. NEUROLOGIC: Denies headache. All systems reviewed & are unremarkable except as noted in HPI and below Exam 2 Const: General: cooperative, healthy appearing, comfortable and well groomed Nutritional Appearance: average body habitus Orientation/consciousness: o riented to person, oriented to place and oriented to time HENMT: Head: normal to inspection Resp: Effort & Inspection: normal respiratory effort Cardio: Rate: regular rate Rhythm: regular rhythm Heart sounds: S1 normal heart sound present and S2 normal heart sound present GI: Inspection: normal to inspection and incision (cdi) 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 - PN: Obj Data Vital Signs Vital Signs: Vital Signs - 24 hr 07/03/24 08:53 07/03/24 11:08 07/03/24 11:15 Temperature 97.4 F L 97.2 F L Pulse Rate 76 63 54 L Respiratory Rate 16 12 12 Blood Pressure 107/62 97/64 L 107/69 Pulse Oximetry 100 100 100 Oxygen Delivery Room Air Simple Face Mask Simple Face Mask Oxygen Flow Rate 8 8 07/03/24 11:30 07/03/24 11:45 07/03/24 12:00 Temperature Pulse Rate 56 L 70 71 Respiratory Rate 12 13 13 Blood Pressure 98/61 L 116/79 102/58 L Pulse Oximetry 95 100 100 Oxygen Delivery Simple Face Mask Room Air Room Air Oxygen Flow Rate 8 07/03/24 12:15 07/03/24 12:30 07/03/24 12:45 Temperature Pulse Rate 59 L 56 L 57 L Respiratory Rate 14 14 14 Blood Pressure 94/63 L 92/54 L 97/66 L Pulse Oximetry 97 97 97 Oxygen Delivery Room Air Room Air Room Air Oxygen Flow Rate 07/03/24 13:00 07/03/24 13:43 07/03/24 16:40 Temperature 97.9 F 98.4 F Pulse Rate 69 62 90 Respiratory Rate 16 16 18 Blood Pressure 113/84 105/63 105/65 Pulse Oximetry 98 97 Oxygen Delivery Room Air Oxygen Flow Rate Intake/Output Intake/Output: Intake & Output 07/01/24 07/02/24 07/03/24 07/04/24 23:59 23:59 23:59 23:59 Intake Total 1966.7 Output Total 2530 Balance -563.3 Meds/Results Medications: Active Medications Generic Name Dose Route Start Last Admin Trade Name Freq PRN Reason Stop Dose Admin Acetaminophen 1,000 mg 07/03/24 13:09 07/04/24 05:33 Acetaminophen 500 Mg Tablet PO 1,000 mg Q6HR MICHELLE Administration Docusate Sodium 100 mg 07/03/24 17:00 07/03/24 15:41 Docusate Sodium 100 Mg Capsule PO 100 mg BID MICHELLE Administration Enoxaparin Sodium 40 mg 07/04/24 09:00 Enoxaparin 40 Mg/0.4 Ml Syringe SUB-Q DAILY [facility] Fentanyl Citrate 25 mcg 07/03/24 06:45 07/03/24 12:08 Fentanyl Citrate Inj (*Crx) 100 Mcg/2 Ml Vial IV PUSH 25 mcg Q2M PRN Administration Pain Hydromorphone HCl 0.5 mg 07/03/24 13:09 Hydromorphone Hcl Inj (*Crx) 1 Mg/Ml Syr IV PUSH Q5M PRN Pain Ibuprofen 600 mg 07/04/24 06:00 Ibuprofen 600 Mg Tablet PO Q6HR [facility] Naloxone HCl 0.1 mg 07/03/24 13:09 Naloxone Hcl 0.4 Mg/Ml Vial IV PUSH Q2M PRN Respiratory rate less than 10 Ondansetron HCl 4 mg 07/03/24 06:45 Ondansetron Inj 4 Mg/2 Ml Vial IV PUSH ONCE PRN Nausea Ondansetron HCl 4 mg 07/03/24 13:09 Ondansetron Inj 4 Mg/2 Ml Vial IV PUSH Q6H PRN Nausea And Vomiting Oxycodone HCl 5 mg 07/03/24 06:45 07/03/24 14:19 Oxycodone Hcl (*Crx) 5 Mg Tab Ir PO 5 mg ONCE PRN Administration Pain Oxycodone HCl 5 mg 07/03/24 13:09 07/03/24 19:10 Oxycodone Hcl (*Crx) 5 Mg Tab Ir PO 5 mg Q4H PRN Administration Pain Rated 4-6 Oxycodone HCl 10 mg 07/03/24 13:09 Oxycodone Hcl (*Crx) 5 Mg Tab Ir PO Q6H PRN Pain Rated 7-10 Simethicone 80 mg 07/03/24 13:09 07/03/24 17:06 Simethicone 80 Mg Tab.Chew PO Not Given TIDWM [facility] Labs 07/04/24 03:56 Labs: Laboratory Results - last 24 hr 07/03/24 07/04/24 09:00 03:56 WBC 17.2 H RBC 3.26 L Hgb 11.0 L Hct 31.0 L MCV 95.1 MCH 33.7 MCHC 35.5 RDW 12.3 Plt Count 245 MPV 9.6 Immature Gran % (Auto) 0.6 H Neut % (Auto) 76.7 H Lymph % (Auto) 15.4 L [place] % (Auto) 6.9 Eos % (Auto) 0.1 Baso % (Auto) 0.3 Lymph # (Auto) 2.65 [place] # (Auto) 1.2 H Eos # (Auto) 0.0 Baso # (Auto) 0.1 Abs Immat Gran (auto) 0.10 H Absolute Neuts (auto) 13.2 H Absolute Nucleated RBC 0.000 Nucleated RBC % 0.0 POC Urine HCG, Qual Negative
[2024-07-04 08:35] VITALS: BP 118/58; PULSE 74; RESP 16; TEMP 37; O2SAT 100
[2024-07-04] MEDS: SIMETHICONE 80 MG TAB.CHEW PO (09:21)
[2024-07-04] MEDS: DOCUSATE SODIUM 100 MG CAPSULE PO (09:21)
[2024-07-04] MEDS: ENOXAPARIN 40 MG/0.4 ML SYRINGE SUB-Q (09:21)
== END 2024-07-04 10:20 | disposition home or self-care (01) ==
LOC: ANHSURGERY 08:41 → ANHOB2 13:12
PROVIDERS: PCP Internal Medicine; Visit Provider Obstetrics & Gynecology
PROC: (CPT 58552; principal; 2024-07-03 10:30)
DX: N94.89 Other specified conditions associated with female genital organs and menstrual cycle (principal); D25.1 Intramural leiomyoma of uterus; N88.8 Other specified noninflammatory disorders of cervix uteri; N80.03 Adenomyosis of the uterus; E78.5 Hyperlipidemia, unspecified; E55.9 Vitamin D deficiency, unspecified; G47.00 Insomnia, unspecified; K21.9 Gastro-esophageal reflux disease without esophagitis; K58.2 Mixed irritable bowel syndrome; E87.6 Hypokalemia; G10 Huntington's disease; I73.00 Raynaud's syndrome without gangrene; F41.0 Panic disorder [episodic paroxysmal anxiety]; F98.8 Other specified behavioral and emotional disorders with onset usually occurring in childhood and adolescence; G56.00 Carpal tunnel syndrome, unspecified upper limb; F41.8 Other specified anxiety disorders; I47.10 Supraventricular tachycardia, unspecified; F12.90 Cannabis use, unspecified, uncomplicated; Z79.891 Long term (current) use of opiate analgesic; Z79.899 Other long term (current) drug therapy; Z98.890 Other specified postprocedural states; Z90.49 Acquired absence of other specified parts of digestive tract; Z87.19 Personal history of other diseases of the digestive system; Z86.79 Personal history of other diseases of the circulatory system; Z80.0 Family history of malignant neoplasm of digestive organs; Z82.49 Family history of ischemic heart disease and other diseases of the circulatory system
CPT/HCPCS: 58552; S2900; 36415; 85025; 88307; 99199; A9270; J0690; J1100; J1171; J1650; J1885; J2003; J2250; J2371; J2405; J2704; J3010; J7120; J7121

== ENCOUNTER 2024-09-11 09:13 | Outpatient (CLI) | payer OTHER, SELFPAY ==
--- NOTE | ~2024-09-11 | CT_ITS ---
CT of the Abdomen and Pelvis: Indication: Abdominal pain Technique: 2.5 mm axial scans were obtained through the abdomen and pelvis following intravenous adm inistration of 100 cc of Omnipaque 350. Dose reduction technique was used on this scan by utilizing a utomated exposure control and iterative reconstruction technique. The dose-length product (DLP) was 2 06.49 mGy-cm. COMPARISON: 10/23/2020 Findings: Scans through the lung bases are unremarkable. The liver, spleen, pancreas, adrenals and kidneys are within normal limits. Cholecystectomy clips are present. No evidence of aortic aneurysm. No lymphadenopathy. No bowel obstruction or bowel wall thickening. There is no evidence to suggest acute appendicitis. Images through the pelvis were performed. Urinary bladder unremarkable. No pelvic mass evident. No as cites. Impression: No significant abnormalities seen. Reviewed, dictated and finalized at [facility]. RMAN Impression: No significant abnormalities seen.
--- OUTSIDE RECORDS SUMMARY | 2024-09-11 10:00 | XMS_ITS | Data Portability ---
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 Plan of Treatment Reminders Order Date Submit Date Provider Last Modified By Organization Details Last Modified Time Details Appointments None recorded. Lab None recorded. Referral None recorded. Procedures None recorded. Surgeries hysteroscop y, with endometrial ablation (SURG) 2020 021 [facility], [address], [place], [address], 10:39:49 Imaging US, transvagina l 2020 021 [email or web address] [place], [address], [address], [place], [address], 19:45:50 US, pelvis, complete 2020 021 [email or web address] Ovidio Rutledge MD, [address], [place], [address], 11:15:21 Medication Orders None recorded. Patient TargetsNo targets recorded. Patient InstructionsNo instructions recorded. Reason for Referral None Reported. Results Created Date Observation Date Name Description Value Unit Range Abnormal Flag Note LastModifiedBy Organization Detail LastModifiedTime 11/27/19 21 11/26/2020 hormo ne panel , serum or plasm a estradiol 221.0 pg/mL This assay was perfo rmed using [employer] reage nts and test kits. Value s obtai nya with other assay metho ds or kits canno t be used inter [facility] . Femal e Estra diol Range s: Folli cular phase 12.4- 233 pg/mL Ovula tion phase 41.0- 398 pg/mL Lutea l phase 22.3- 341 pg/mL Postm enopa usal< 5-138 pg/mL Healt hy Pregn ant Women 1st Trime ster1 54-32 43 pg/mL 2nd Trime ster1 561-2 1280 pg/mL 3rd Trime ster8 525-> 21020 pg/mL Not Available [facility] (Lab) [address] [place], [address], 11/27/2020 03:46:53 11/27/19 21 11/26/2020 hormo ne panel , serum or plasm a FSH 3.7 mIU/m L This assay was perfo rmed using [employer] reage nts and test kits. Value s obtai nya with other assay metho ds or kits canno t be used inter [facility] . Femal es Folli cular : 3.5-1 2.5 mIU/m L Ovula tion: 4.7-2 1.5 mIU/m L Lutea l: 1.7-7 .7 mIU/m L Postm enopa use: 25.8- 134.8 mIU/m L Not Available [facility] (Lab) [address] [place], [address], 11/27/2020 03:46:53 11/27/19 21 11/26/2020 hormo ne panel , serum or plasm a luteinizing hormone 8.9 mIU/m L This assay was perfo rmed using [employer] reage nts and test kits. Value s obtai nya with other assay metho ds or kits canno t be used inter [facility] . Femal es Mid-F ollic ular: 2.4-1 2.6 mIU/m L Mid-C ycle: 14.0- 95.6 mIU/m L Mid-L uteal : 1.0-1 1.4 mIU/m L Postm enopa use: 7.7-5 8.5 mIU/m L Not Available [facility] (Lab) [address] [facility], [place], [address], 11/27/2020 03:46:53 11/27/19 21 11/26/2020 TSH, serum or plasm a TSH 0.10 uIU/m L 0.30-5 .00 low Not Available [facility] (Lab) [address] [place], [address], 11/27/2020 03:46:54 11/27/19 21 11/26/2020 T4, free, serum T4, free 1.07 NG/dL 0.80-1 .80 Not Available [facility] (Lab) [address] [place], [address], 11/27/2020 14:48:44 12/05/19 21 12/04/2020 free T3, quant itati ve, dialy sis serum or plasm a T3, free 3.1 pg/mL 2.5-3. 9 Not Available [facility] (Lab) [address] [place], [address], 12/05/2020 02:36:59 12/05/19 21 12/04/2020 TSH, serum or plasm a TSH 0.17 uIU/m L 0.30-5 .33 low Not Available [facility] (Lab) [address] [place], [address], 12/05/2020 02:37:00 12/05/19 21 12/04/2020 T4, free, serum T4, free 0.84 NG/dL 0.60-1 .40 Not Available [facility] (Lab) [address] [place], [address], 12/05/2020 02:37:01 12/05/19 21 12/04/2020 thyro globu timothy Ab, serum thyroglobuli n antibody <1.0 IU/mL 0.0-4. 0 Not Available [facility] (Lab) [address] [facility], [place], [address], 12/05/2020 02:37:01 12/05/19 21 12/04/2020 thyro globu timothy Ab, serum thyroperoxid ase antibodies <0.3 IU/mL 0.0-9. 0 Not Available [facility] (Lab) [address] [facility], [place], [address], 12/05/2020 02:37:01 11/21/19 21 12/02/2020 US, trans vagin al No observ ation record ed. [facility] [address], [place], [address], 12/02/2020 11:31:21 11/21/19 21 11/20/2020 US, trans vagin al No observ ation record ed. danyelle Ge [address], [place], [address], 11/23/2020 11:35:20 Result Notes None recorded. Problems Name Problem SNOMED Code Status Onset Date Resolution Date Notes Provider Name and Address Organization Details Recorded Time Hypertro phy of vulva 19374017 Active 2011 Hypertro phy of labia;Pr actice ID: 0001 Not Available [facility] 0 18:41:47 Dyspareu quirino 82147951 Completed 201112/25/2020 Dyspareu quirino;Prac arabella ID: 0001 Nataliya liao [facility] 16:29:10 Female genital organ symptoms 304955862 Completed 201112/25/2020 Unspecif ied symptom associat ed with female genital organs;P ractice ID: 0001 Nataliya Jayla liao [facility] 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 ;Practic e ID: 0001 Not Available [facility] 0 18:41:47 Pre-surg yuriy evaluati on Active 2011 Pre-oper ative examinat ion, unspecif ied;Prac arabella ID: 0001 Not Available [facility] 0 18:41:47 Screenin g for malignan t neoplasm of cervix Active 2012 Pap Smear;Pr actice ID: 0001 Not Available [facility] 0 18:41:48 Postcoit al bleeding 88696879 Active 2012 Postcoit al bleeding ;Practic e ID: 0001 Not Available [facility] 0 18:41:48 Speciali zed medical examinat ion Active 2012 Routine gynecolo gical examinat ion;Prac arabella ID: 0001 Not Available [facility] 0 18:41:48 Urinary tract infectio us disease 23332615 Active 2014 Urinary tract infectio n, site not specifie d;Practi ce ID: 0001 Not Available [facility] 0 18:41:48 Adult health examinat ion Completed 201412/25/2020 Routine general medical examinat ion at a health care facility ;Practic e ID: 0001 Nataliya liao, [facility] 1 16:29:02 Pregnanc y test negative 398414662 Active 2014 Negative Pregnanc y Test;Pra ctice ID: 0001 Not Available [facility] 0 18:41:48 Clinical finding Completed 201511/20/2020 Presence of (intraut erine) contrace ptive device;P ractice ID: 0001 Ovidio Rutledge MD [address], [place], [address], [facility] 1 15:50:21 Human papillom avirus deoxyrib onucleic acid detected , high risk on cervical specimen 931896416 Active 2014 Cervical high risk HPV DNA test positive ;Practic e ID: 0001 Not Available [facility] 0 18:41:48 Removal of intraute rine device Active 2014 Encounte r for removal of intraute rine contrace ptive device;P ractice ID: 0001 Not Available [facility] 0 18:41:48 Foreign body in genitour inary tract Active 2014 Foreign body in uterus, sequela; Practice ID: 0001 Not Available [facility] 0 18:41:48 Vp Transportation al complica tion of intraute rine contrace ptive device Active 2014 Displace ment of intraute rine contrace ptive device, init;Pra ctice ID: 0001 Not Available [facility] 0 18:41:49 Finding of pattern of menstrua l cycle 381618260 Active 2014 Excessiv e and frequent menstrua tion with irregula r cycle;Pr actice ID: 0001 Not Available [facility] 0 18:41:49 Insertio n of intraute rine contrace ptive device Active 2014 Encounte r for insertio n of intraute rine contrace ptive device;P ractice ID: 0001 Not Available [facility] 0 18:41:49 Contrace ptive sheath status 905508888 Completed 201511/20/2020 Encounte r for routine checking of intraute rine contrace p dev;Prac arabella ID: 0001 Ovidio Rutledge MD [address], [place], [address], [facility] 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 ) (routine ) w/o abn findings ;Practic e ID: 0001 Not Available [facility] 0 18:41:49 Pelvic and perineal pain 984396482 Active 2016 Pelvic and perineal pain;Pra ctice ID: 0001 Not Available [facility] 0 18:41:49 Atypical squamous cells of undeterm ined signific ance on cervical Papanico laou smear 136462170 Active 2016 Atyp squam cell of undet signfc cyto smr crvx (ASC-US) ;Practic e ID: 0001 Not Available [facility] 0 18:41:49 Blood leukocyt e number above referenc e range 292576947 Active 2017 Elevated white blood cell count, unspecif ied;Prac arabella ID: 0001 Not Available [facility] 0 18:41:50 Finding of general energy 553510332 Active 2017 Other fatigue; Practice ID: 0001 Not Available [facility] 0 18:41:50 Postcoit al finding 046628604 Active 2017 Postcoit al and contact bleeding ;Practic e ID: 0001 Not Available [facility] 0 18:41:50 Sexual function painful Active 2017 Unspecif ied dyspareu quirino;Prac arabella ID: 0001 Not Available [facility] 0 18:41:50 Lesion of ovary Completed 201712/25/2020 Other ovarian cyst, right side;Pra ctice ID: 0001 [facility] 16:29:07 Finding of desire for urinatio n 550334090 Completed 201712/25/2020 Urgency of urinatio n;Practi ce ID: 0001 Nataliya [facility] 16:29:16 Bleeding 628583270 Completed 201712/25/2020 Abnormal uterine and vaginal bleeding , unspecif ied;Prac arabella ID: 0001 [facility] 16:29:14 Right lower quadrant pain 551893358 Active 2017 Right lower quadrant pain;Pra ctice ID: 0001 Not Available [facility] 0 18:41:51 Abdomina l pain 71846859 Completed 201712/25/2020 Abdomina l pain;Rec orded Elsewher e: No Locat ion: Zoila tabor [facility] S ource: EHR Foster Care Case Manager matheus: N Practi ce ID: 0001 Alvino lable Time: 10:30:00 AM Nataliya liao [facility] 1 16:29:00 Vaginiti s and vulvovag initis Active 2010 Vaginiti s and vulvovag initis, unspecif ied;Prac arabella ID: 0001 Not Available [facility] 0 18:41:51 Cyst of ovary Completed 201712/25/2020 Unspecif ied ovarian cyst, unspecif ied side;Rec orded Elsewher e: No [facility] EHR Foster Care Case Manager matheus: N Practi ce ID: 0001 Alvino lable Time: 11:37:49 AM Nataliya liao [facility] [address] 16:29:[address] Concept Active 2017 Encntr for general adult medical exam w/o abnormal findings ;Recorde d Elsewher e: No Locat ion: [facility] S ource: EHR Foster Care Case Manager matheus: N Practi ce ID: 0001 Alvino lable Time: 10:00:00 AM Not Available [facility] 0 18:41:54 Constipa tion 10361637 Completed 201211/20/2020 Constipa tion, unspecif ied;Jori rded Elsewher e: No Locat ion: [facility] S ource: EHR Foster Care Case Manager matheus: Y Practi ce ID: 0001 Alvino lable Time: 04:30:00 PM Ovidio Rutledge MD [address], [place], [address], [place] [facility] 1 15:50:23 Imaging of abdomen abnormal 033097419 Active 2018 Abn findings on dx imaging of abd regions, inc retroper iton;Rec orded Elsewher e: No Locat ion: [facility] S ource: EHR Foster Care Case Manager matheus: N Practi ce ID: 0001 Alvino lable Time: 11:50:28 AM Not Available [facility] 0 18:41:55 Clinical finding Completed 201811/20/2020 Sexual dysfunct ion;Jori rded Elsewher e: No Locat ion: [facility] S ource: EHR Foster Care Case Manager matheus: N Practi ce ID: 0001 Alvino lable Time: 04:30:00 PM Ovidio Rutledge MD [address], [place], [address], [facility] 15:50:18 Clinical finding Completed 201811/20/2020 Dysplasi a of cervix uteri, unspecif ied;Jori rded Elsewher e: No Locat ion: [facility] S ource: EHR Foster Care Case Manager matheus: N Practi ce ID: 0001 Alvino lable Time: 09:00:00 AM Ovidio Rutledge MD [address], [place], [address], [facility] 15:50:15 Problem Notes None recorded. Procedures Surgical History Date Name Laterality Status Provider Name and Address Organization Details Recorded Time 12/31/19 21 HYSTEROSCOPY, WITH ENDOMETRIAL ABLATION (SURG) completed Brittani Allison [facility] 12/31/2020 10:39:50 03/20/20 20 Date of Last Pap Smear completed [facility] 10/30/2020 16:43:58 04/16/20 19 Cholecystectomy completed [facility] 03/20/2020 16:50:54 mammoplasty completed [facility] 03/20/2020 16:28:22 Laparoscopy completed [facility] 03/20/2020 16:30:23 Cholecystectomy completed [facility] 10/30/2020 16:38:25 Imaging Results Imaging Date Name Status LastModified by Organization Details LastModified Time 12/02/2020 US, transvaginal completed [email or web address], [place], [address], 12/02/2020 11:31:21 11/20/2020 US, transvaginal completed danyelle [address] [facility], [place], [address], 11/23/2020 11:35:20 Procedure Notes None recorded. Medical Equipment None Reported. Allergies No known drug allergies Medications Name Sig Start Date Stop Date Status Note LastModified by Organization Details LastModified Time amoxicill in 500 mg capsule 03/20 completed Not Available Not Available Not Available Mirena 21 mcg/24 hr (up to 8 years) 52 mg intrauter ine device Take by intraute rine route. active Not Available Not Available No t Available triamcino lone acetonide 0.5 % topical cream APPLY CREAM TOPICALL Y TWICE DAILY TO RASH ON BOTH ARMS AND CHEST active Not Available Not Available No t Available azithromy sabine 250 mg tablet take 2 tablet (500MG) by oral route every day for 1 day then 1 tablet (250 mg) by oral route once daily for 4 days 03/20 completed Not Available Not Available Not Available ibuprofen 800 mg tablet 03/20 completed Not Available Not Available Not Available methylphe nidate 10 mg tablet TAKE 1 TABLET BY MOUTH TWICE DAILY active Not Available Not Available No t Available ranitidin e 300 mg tablet 03/20 completed Not Available Not Available Not Available hydrocodo ne 5 mg-acetam inophen 325 mg tablet 2 tabs po 1 hour before the procedur e 03/20 completed Not Available Not Available Not Available sucralfat e 1 gram tablet TAKE 2 TABLETS BY MOUTH TWICE DAILY active Not Available Not Available No t Available sumatript an 25 mg tablet 03/20 completed Not Available Not Available Not Available ondansetr on HCl 4 mg tablet 03/20 completed Not Available Not Available Not Available prednison e 20 mg tablet TAKE 1 TABLET BY MOUTH ONCE DAILY FOR 7 DAYS active Not Available Not Available No t Available Elmiron 100 mg capsule take 1 capsule by oral route 3 times every day with water, 1 hour before or 2 hours after a meal 02/20 completed Prescrib ed Elsewher e: No Locat ion: Zoila tabor [facility] odify By: yoni campo DateTime : 02/28/20 18 01:45:00 PM Not Available Not Available Not Available topiramat e 25 mg tablet 03/20 completed Not Available Not Available Not Available acetamino phen 300 mg-codein e 30 mg tablet 03/20 completed Not Available Not Available Not Available ciproflox acin 500 mg tablet TAKE 1 TABLET BY MOUTH EVERY 12 HOURS 10/30 completed Not Available Not Available Not Available triamcino lone acetonide 0.1 % topical cream APPLY CREAM EXTERNAL LY TWICE DAILY active Not Available Not Available No t Available Macrobid 100 mg capsule take 1 capsule by oral route every 12 hours with food 02/27 completed Prescrib ed Elsewher e: No Locat ion: [facility]ify By: lulu sol DateTime : 08/08/19 11:15:00 AM Not Available Not Available Not Available Celebrex 200 mg capsule po the night before and 400mg po morning of the procedur e 12/27 completed Prescrib ed Elsewher e: No Locat ion: [facility] odify By: lulu sol DateTime : 06/03/20 02:50:34 PM Not Available Not Available Not Available oxycodone -acetamin ophen 5 mg-325 mg tablet 03/20 completed Not Available Not Available Not Available amoxicill in 875 mg tablet 03/20 completed Not Available Not Available Not Available famotidin e 20 mg tablet 03/20 completed Not Available Not Available Not Available DOK 100 mg capsule 03/20 completed Not Available Not Available Not Available Zoloft 50 mg tablet take 1 tablet by oral route every day 07/22 completed Prescrib ed Elsewher e: Yes Loca tion: [facility]ify By: mayra campo DateTime : 04/12/20 12 03:30:00 PM Not Available Not Available Not Available Synthroid 25 mcg tablet take 1 tablet by oral route every day active Prescrib ed Elsewher e: Yes Loca tion: [facility] odify By: yoni campo DateTime : 02/21/20 19 04:30:00 PM Not Available Not Available Not Available gabapenti n 300 mg capsule TAKE 1 CAPSULE BY MOUTH TWICE DAILY active Not Available Not Available No t Available gabapenti n 100 mg capsule take 3 capsule by oral route every day at bedtime active Prescrib ed Elsewher e: Yes Loca tion: Zoila tabor [facility]ify By: yoni campo DateTime : 02/21/20 19 04:30:00 PM Not Available Not Available Not Available diazepam 10 mg tablet op 1 hour before the procedur e 12/27 completed Prescrib ed Elsewher e: No Locat ion: Brice leander [facility]ify By: lulu coxunter DateTime : 06/03/20 15 02:50:34 PM Not Available Not Available Not Available topiramat e 15 mg sprinkle capsule take 1 capsule by oral route 2 times every day in the morning and evening active Prescrib ed Elsewher e: Yes Loca tion: Zoila tabor [facility] odify By: yoni Mccullough ter DateTime : 02/21/20 19 04:30:00 PM Not Available Not Available Not Available methylpre dnisolone 4 mg tablets in a dose pack 03/20 completed Not Available Not Available Not Available levothyro xine 112 mcg tablet TAKE 1 TABLET BY MOUTH ONCE DAILY active Not Available Not Available No t Available duloxetin e 30 mg capsule,d elayed release TAKE 1 CAPSULE BY MOUTH ONCE DAILY AN ADDITION TO THE CYMBALTA 60MG active Not Available Not Available No t Available duloxetin e 60 mg capsule,d elayed release TAKE 1 CAPSULE BY MOUTH ONCE DAILY active Not Available Not Available No t Available Calcio Little 500 mg tablet 07/22 completed Prescrib ed Elsewher e: Yes Loca tion: Zoila tabor [facility]ify By: mayra campo DateTime : 03/06/20 12 10:30:00 AM Not Available Not Available Not Available Synthroid 10/30 completed Not Available Not Available Not Available hydrocodo ne 5 mg-acetam inophen 300 mg tablet take 1 tablet by oral route every 4 - 6 hours as needed for pain 02/20 completed Prescrib ed Elsewher e: Yes Loca tion: [facility]ify By: yoni campo DateTime : 12/28/19 17 02:00:00 PM Not Available Not Available Not Available Acid Relief (cimetidi ne) 200 mg tablet take 1 tablet by oral route 2 times every day 30 minutes before meals 07/22 completed Prescrib ed Elsewher e: Yes Loca tion: [facility]ify By: mayra campo DateTime : 04/12/20 12 03:30:00 PM Not Available Not Available Not Available Linzess 290 mcg capsule active Not Available Not Available Not Available Vitals Date Recorded Body height Body mass index (BMI) Body weight Systolic blood pressure Diastolic blood pressure Provider Name and Address Organization Details Last Updated DateTime 10/30/2020 154.94 cm 25.1 kg/m2 93214.79 g 130 mm[Hg] 86 mm[Hg] [facility] 16:38:14 Date Recorded Body height Body mass index (BMI) Body weight Systolic blood pressure Diastolic blood pressure Provider Name and Address Organization Details Last Updated DateTime 11/20/2020 154.94 cm 24 kg/m2 97219.23 g 119 mm[Hg] 80 mm[Hg] [facility] 15:43:52 Date Recorded Body height Body mass index (BMI) Body weight Systolic blood pressure Diastolic blood pressure Provider Name and Address Organization Details Last Updated DateTime 12/25/2020 154.94 cm 23.8 kg/m2 94428.64 g 117 mm[Hg] 75 mm[Hg] [facility] 16:28:54 Social History Question Answer Notes LastModified by Organizat ion Details LastModified Time Tobacco Smoking Status Never [facility]oker [facility] 11/20/2020 14:58:15 Do You Have An Advance Directive? No Information not available 10/30/2020 What Is Your Level Of Alcohol Consumption? Moderate Information not available 10/30/2020 How Many Years Have You Consumed Alcohol? 12 Information not available 10/30/2020 Are You Blind Or Do You Have Difficulty Seeing? No Information not available 10/30/2020 What Is Your Level Of Caffeine Consumption? Moderate Information not available 10/30/2020 How Much Tobacco Do You Chew? None Information not available 10/30/2020 In The 14 Days Before Symptom Onset, Have You Had Close Contact With A Laboratory-confir med COVID-19 While That Case Was Ill? No Information not available 10/30/2020 In The 14 Days Before Symptom Onset, Have You Had Close Contact With A Person Who Is Under Investigation For COVID-19 While That Person Was Ill? No Information not available 10/30/2020 Have You Been To An Area Known To Be High Risk For COVID-19? No Information not available 10/30/2020 Are You Deaf Or Do You Have Serious Difficulty Hearing? No Information not available 10/30/2020 What Type Of Diet Are You Following? REGULAR Information not available 10/30/2020 What Is The Highest Grade Or Level Of School You Have Completed Or The Highest Degree You Have Received? 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 Yes Information not available 10/30/2020 Do You Use Protection During Sex? Always Information not available 10/30/2020 Do You Use Your Seat Belt Or Car Seat Routinely? Yes Information not available 10/30/2020 Do You Have Smoke And Carbon Monoxide Detectors In Your Home? Yes Information not available 10/30/2020 How Much Tobacco Do You Smoke? No Information not available 10/30/2020 Do You Feel Stressed (tense, Restless, Nervous, Or Anxious, Or Unable To Sleep At Night)? [id number] Information not available 10/30/2020 Do You Use Any Illicit Or Recreational Drugs? No Information not available 10/30/2020 Do You Use Sunscreen Routinely? Yes Information not available 10/30/2020 Have You Used IV Drugs? No Information not available 10/30/2020 Sex: Unknown Functional Status Question Answer Note LastModified by Organization D etails LastModified Time Are you able to walk? YESWOREST Information not available 10/30/2020 What is your exercise level? Heavy Information not available 10/30/2020 Mental Status None recorded. Family History Relationship Description Onset Age of this Age Resolved Age Notes LastModified by Organization Details LastModified Time Father Hypertensive disorder Not available 2019 16:26:48 Father Carcinoma in situ of esophagus [id number] Not available 2020 14:58:14 Maternal Uncle Diabetes mellitus Not available 2019 16:26:59 Medical History Condition Response Other Y Anemia Y Gynecological History Statement/Question Response Date of Last Pap Smear 03/20/2020 Current Control Method IUD Obstetrics History GPAL:G 0 P 0 0 0 0 Past Encounters Encounter ID Performer Location Encounter Start Date Encounter Closed Date Diagnosis/Indication Diagnosis SNOMED-CT Code Diagnosis ICD10 Code Diagnosis Note [id number] Ovidio Rutledge MD [facility] [address],[facility] [place] [address] 03/20/2020 16:07:20 03/20/2020 18:21:51 Gynecologic examination 47368626 Z01.419 This patient is here for her annual exam. A thorough history was taken. A physical exam was performed. Age appropriat e routine health screening was ordered, performed, and discussed. Recommende d testing was ordered. She was asked to follow up in one year. She will be informed of any test results. patient reports some urinary urgency. To check her urine, to culture her urine. Trace blood in urine dip, to send antibiotic s Urinary tr act infectious disease [id number] N39.0 [id number] Ovidio Rutledge MD [facility] [address] [address] 10/30/2020 16:22:22 10/30/2020 17:05:12 Pain in pelvis [id number] R10.2 This patient is a 35-year-ol d female with pelvic pain and severe menorrhagi a. We discussed endometria l ablation today. She has a fibroid uterus. This was seen on a CT scan of the abdomen pelvis. We will obtain a pelvic ultrasound and discuss treatment options for pain and menorrhagi a. [id number] Jennifer Garduno [facility] [address] [address] 11/20/2020 14:57:29 11/20/2020 15:32:25 Pain in pelvis [id number] R10.2 N92.4 This patient is a 35-year-ol d female with pelvic pain and severe menorrhagi a. We discussed endometria l ablation today. She has a fibroid uterus. This was seen on a CT scan of the abdomen pelvis. We will obtain a pelvic ultrasound and discuss treatment options for pain and menorrhagi a. [id number] Ovidio Rutledge MD [facility] [address] [address] 11/20/2020 14:58:11 11/20/2020 16:08:37 Menorrhagia [id number] N92.0 this patient is a 35-year-ol d female presents for follow-up on severe menorrhagi a. She had a pelvic ultrasound . We reviewed those ultrasound images together. It is essentiall y normal with a very small calcified fibroid. We had previously discussed endometria l ablation. Her partner/Benny barbosa has a vasectomy. we agreed to proceed with endometria l ablation. We discussed failure and recurrence . We discussed some risk. She will return for the informed consent process. [id number] Ovidio Rutledge MD [facility] [address] [address] 12/25/2020 16:14:08 12/26/2020 16:08:08 Menorrhagia [id number] N92.0 this patient is a 35-year-ol d female presents for preoperati ve care. She has severe menorrhagi a and we have agreed to perform endometria l ablation with hysterosco py. She understand s the risks, benefits, and alternativ es. She has completed the informed consent process and is ready to proceed. [id number] Ovidio Rutledge MD [facility] [address] [address] 12/31/2020 09:34:38 12/31/2020 09:35:34 Health Concerns Section Related Observation LastModified by Organization Detai ls LastModified Time None Recorded Concern Status LastModified by Organization Details LastModified Time None Recorded Advance Directives Directive N: Payers Encounter Date Sequence Insurance Name Policy Number Policy White Covered Member ID White Member ID Guarantor Name 10/30/2020 1 [facility] PRIOR TO 2021 (MEDICAID REPLACEMENT - HMO) Nicho Deleon [id number] Nicho Deleon 11/20/2020 1 [facility] PRIOR TO 2021 (MEDICAID REPLACEMENT - HMO) Nicho Deleon [id number] Nicho Deleon 11/20/2020 1 [facility] PRIOR TO 2021 (MEDICAID REPLACEMENT - HMO) Nicho Deleon [id number] Nicho Deleon 12/25/2020 1 [facility] PRIOR TO 2021 (MEDICAID REPLACEMENT - HMO) Nicho Deleon [id number] Nicho Deleon 12/30/2020 1 [facility] PRIOR TO 2021 (MEDICAID REPLACEMENT - HMO) Nicho Deleon [id number] Nicho Deleon Notes Date Note Type Note Provider Name and Address Organization Details Recorded Time 10/30/2020 text/html This patient is a 35-year-old female with severe dysmenorrhea and pelvic pain. She is known to have severe menorrhagia. Her Mirena IUD has , however, she has very heavy periods. She is known to have accidents, getting blood in her bedding and clothing. It affects her quality of life and activities of daily living. Ovidio Rutledge MD [address], [place], [address], [facility] 10/30/2020 18:17:15 11/20/2020 text/html this patient is a 35-year-old female presents for follow-up on severe menorrhagia. She had a pelvic ultrasound. We reviewed those ultrasound images together. It is essentially normal with a very small calcified fibroid. We had previously discussed endometrial ablation. Her partner/ has a vasectomy. we agreed to proceed with endometrial ablation. We discussed failure and recurrence. We discussed some risk. She will return for the informed consent process. Ovidio Rutledge MD [address], [place], [address], [facility] 11/20/2020 16:06:14 12/25/2020 text/html this patient is 35-year-old female who presents for preoperative care. She has severe menorrhagia. We have agreed to perform endometrial ablation with hysteroscopy. The patient understands the procedure. The procedure was described to the patient in great detail. the patient also understands the risks. The risks were also explained in detail. She understands that injuries May occur during surgery. She understands these injuries can result in hospitalization, more surgery, and severe illness. She understands there is risk of hemorrhage and infection. Ovidio Rutledge MD [address], [place], [address], [facility] 12/25/2020 17:07:11 OBGyn Episode Ob Episode Information Episode Created Date Number of Fetuses Patient Bloodtype Patient rh Status Prepregnancy Weight lbs Domestic Partner Domestic Partner Phone Father Name Associate Juvenile Court Judge Status 03/20/20 20 1 CLOSED Fetus Data First Name Last Name Admitted to NICU Weight (g) Sex Living Outcome Pediatric Complications Fetus ID Race Codes Race Delivery Type M [id number] Vaginal Delivery Yaakov Calculation Initial Yaakov Date Initial Exam Date Initial Exam Provider Initial Ultrasound Date Last Menstrual Period Date Ultra Sound Weeks Gestation 0 Eighteen To Twenty Week Yaakov Update Ultra Sound Date Fundal Height At Umbil Quickening Date Ultra Sound Latest Weeks Gestation Final Yaakov Confirmed By Final Yaakov Confirmed Date Final Yaakov Date Ultra Sound Latest Days Gestation 0 0 Menstrual History Last Menstrual Date Menses Monthly On Bcp Conception Prior Menses Frequency Hcg Plus Date Menarche Onset Age Delivery Information Delivery Date Delivery Type Labor Anesthesia Weeks Gestation Incision Type Labor Labor Length Hrs Delivered By Post Complications Tubal Sterilization Discharge Date Comments 9 Discharge Information Feeding Method Contraceptive Method Maternal HG B and HCT Levels Ob Episode Information Episode Created Date Number of Fetuses Patient Bloodtype Patient rh Status Prepregnancy Weight lbs Domestic Partner Domestic Partner Phone Father Name Associate Juvenile Court Judge Status 03/20/20 20 1 CLOSED Fetus Data First Name Last Name Admitted to NICU Weight (g) Sex Living Outcome Pediatric Complications Fetus ID Race Codes Race Delivery Type M [id number] Vaginal Delivery Yaakov Calculation Initial Yaakov Date Initial Exam Date Initial Exam Provider Initial Ultrasound Date Last Menstrual Period Date Ultra Sound Weeks Gestation 0 Eighteen To Twenty Week Yaakov Update Ultra Sound Date Fundal Height At Umbil Quickening Date Ultra Sound Latest Weeks Gestation Final Yaakov Confirmed By Final Yaakov Confirmed Date Final Yaakov Date Ultra Sound Latest Days Gestation 0 0 Menstrual History Last Menstrual Date Menses Monthly On Bcp Conception Prior Menses Frequency Hcg Plus Date Menarche Onset Age Delivery Information Delivery Date Delivery Type Labor Anesthesia Weeks Gestation Incision Type Labor Labor Length Hrs Delivered By Post Complications Tubal Sterilization Discharge Date Comments 7 Discharge Information Feeding Method Contraceptive Method Maternal HG B and HCT Levels
--- OUTSIDE RECORDS SUMMARY | 2024-09-11 10:00 | XMS_ITS | Clinical Summary ---
Author Organization [facility] Money Address [address] [place] [address] Care Team Providers Care Sprayer Leather Name Role Phone Claudia Rutledge MD Primary Care Provider [phone] Source Comments [facility],non-owned Affiliates and Associated Physician Practices is amultiple site organization consisting of ambulatory clinics and hospital sitesin [place], [place], [place] and [place]. This disclosure is being madepursuant to the Care Everywhere program and may not contain all information available regarding this patient. Last updated 18.[facility] Allergies Active Allergy Reactions Criticality Noted Date Comments Doxycycline Urticaria Medium 01/05/2024 Medications * Be aware that medications may not be up to date on this document. Alwaysverify current medications with the patient. Medication Sig Dispensed Refills Start Date End Date Status gabapentin (NEURONTIN) 300 MG capsule Take 1 (one) capsule by mouth 2 times daily Active topiramate (TOPAMAX) 25 MG tablet Take 1 (one) tablet by mouth once daily Active linaCLOtide (LINZESS) 290 MCG capsule Take 290 mcg by mouth daily before breakfast Take on an empty stomach at least 30 minutes prior to first meal of the day. Active fluticasone propionate (Flonase) 50 MCG/ACT nasal spray 03/17/2023 Active meloxicam (Mobic) 15 MG tablet Take 1 (one) tablet by mouth once daily 07/28/2023 Active methylphenidate (Ritalin) 10 MG tablet 08/08/2023 Active methylphenidate (Ritalin) 5 MG tablet 08/08/2023 Active potassium chloride ER 10 MEQ tablet 08/08/2023 Active rosuvastatin (Crestor) 10 MG tablet Take 1 (one) tablet by mouth once daily 08/15/2023 Active SUMAtriptan (Imitrex) 100 MG tablet TAKE 1 TABLET BY MOUTH NEEDED FOR HEADACHE 08/15/2023 Active triamcinolone acetonide (Kenalog) 0.1 % cream APPLY CREAM EXTERNALLY TWICE DAILY Active triamterene-hydroCHL OROthiazide (Maxzide-25) 37.5-25 MG tablet TAKE 1/2 (ONE-HALF) TABLET BY MOUTH IN THE MORNING NEEDED FOR EDEMA 08/11/2023 Active amLODIPine (Norvasc) 2.5 MG tablet 12/08/2023 Active levothyroxine (Synthroid) 100 MCG tablet 11/28/2023 Active Active Problems Problem Noted Date Diagnosed Date Precordial pain 01/07/2024 OLIVO (dyspnea on exertion) 09/10/2023 Tachycardia 09/10/2023 Palpitations 09/10/2023 SVT (supraventricular tachycardia) 03/29/2019 Social History Tobacco Use Types Packs/Day Years Used Date Smoking Tobacco: Former Cigarettes Smokeless Tobacco: Never Sex and Gender Information Value Date Recorded Sex Assigned at Not on file Gender Identity Not on file Sexual Orientation Not on file Last Filed Vital Signs Vital Sign Reading Time Taken Comments Blood Pressure 121/83 01/05/2024 1:53 PM CDT Pulse 103 01/05/2024 1:53 PM CDT Temperature 36.7 C (98.1 F) 03/31/2019 12:50 PM CDT Respiratory Rate 18 03/31/2019 12:50 PM CDT Oxygen Saturation 99% 09/08/2023 9:09 AM 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 Inhaled Oxygen Concentration - - Weight 52.6 kg (116 lb) 01/05/2024 1:53 PM CDT Height 157.5 cm (5' 2 ) 01/05/2024 1:53 PM CDT Body Mass Index 21.22 01/05/2024 1:53 PM CDT Plan of Treatment Upcoming Encounters Date Type Department Care Team (Late st Contact Info) Description 11/22/2024 11:30 AM CDT Office Visit [facility] [address] [address] [place] [id number] [facility] [address] [place] [phone] Health Maintenance Due Date Last Done Comments MAMMOGRAM 1983 PAP SMEAR 1983 HIV SCREENING 1998 HEPATITIS C SCREENING 01/09/2001 DTAP/TDAP/TD VACCINES (1 - Tdap) 2002 HEPATITIS B VACCINE (1 of 3 - 19+ 3-dose series) 2002 COVID-19 VACCINE ( - 2023-2 5 season) 2024 INFLUENZA VACCINE (#1) 2024 7, 03/17/2016 DEPRESSION SCREENING 07/17/2024 ZOSTER VACCINE (1 of 2) 2033 HIB VACCINE Aged Out No longer eligi ble based on patient's age to complete this topic HPV VACCINE Aged Out No longer eligi ble based on patient's age to complete this topic MENINGOCOCCAL (Group B) VACCINE Aged Out No longer eligible b ased on patient's age to complete this topic MENINGOCOCCAL VACCINE Aged Out No makayla eron eligible based on patient's age to complete this topic PNEUMOCOCCAL VACCINE Aged Out No long er eligible based on patient's age to complete this topic Advance Directives * Full Code (Latest Code Status on File) Date Activated Date Inactivated Comments 03/29/2019 5:52 PM 03/31/2019 4:28 PM Care Teams Sprayer Leather Relationship Specialty Start Date End Date Claudia Rutledge MD [address] [place] [address] PCP - General 04/15/19
--- OUTSIDE RECORDS SUMMARY | 2024-09-11 10:00 | XMS_ITS | Patient Health Summary ---
Author Organization [facility] Address [address] [place] [address] Care Team Providers Care Air Defence Officer Name Role Phone Claudia Rutledge MD Primary Care Provider [phone] Note from [facility],non-owned Affiliates and Associated Physician Practices is amultiple site organization consisting of ambulatory clinics and hospital sitesin [place], [place], [place] and [place]. This disclosure is being madepursuant to the Care Everywhere program and may not contain all information available regarding this patient. Last updated 18.[facility] Allergies * Doxycycline(Urticaria) -Medium Criticality Medications * Be aware that medications may not be up to date on this document. Alwaysverify current medications with the patient. * gabapentin (NEURONTIN) 300 MG capsule Take 1 (one) capsule by mouth 2 times daily * topiramate (TOPAMAX) 25 MG tablet Take 1 (one) tablet by mouth once daily * linaCLOtide (LINZESS) 290 MCG capsule Take 290 mcg by mouth daily before breakfast Take on an empty stomach at least 30 minutes prior to first meal of the day. * fluticasone propionate (Flonase) 50 MCG/ACT nasal spray(Started 03/17/2023) * meloxicam (Mobic) 15 MG tablet(Started 07/28/2023) Take 1 (one) tablet by mouth once daily * methylphenidate (Ritalin) 10 MG tablet(Started 08/08/2023) * methylphenidate (Ritalin) 5 MG tablet(Started 08/08/2023) * potassium chloride ER 10 MEQ tablet(Started 08/08/2023) * rosuvastatin (Crestor) 10 MG tablet(Started 08/15/2023) Take 1 (one) tablet by mouth once daily * SUMAtriptan (Imitrex) 100 MG tablet(Started 08/15/2023) TAKE 1 TABLET BY MOUTH NEEDED FOR HEADACHE * triamcinolone acetonide (Kenalog) 0.1 % cream APPLY CREAM EXTERNALLY TWICE DAILY * triamterene-hydroCHLOROthiazide (Maxzide-25) 37.5-25 MG tablet(Started 08/11/2023) TAKE 1/2 (ONE-HALF) TABLET BY MOUTH IN THE MORNING NEEDED FOR EDEMA * amLODIPine (Norvasc) 2.5 MG tablet(Started 12/08/2023) * levothyroxine (Synthroid) 100 MCG tablet(Started 11/28/2023) Active Problems Problem Noted Date Diagnosed Date Precordial pain 01/07/2024 OLIOV (dyspnea on exertion) 09/10/2023 Tachycardia 09/10/2023 Palpitations [...] CDT Oxygen Saturation 99% 09/08/2023 9:09 AM 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 Inhaled Oxygen Concentration - - Weight 52.6 kg (116 lb) 01/05/2024 1:53 PM CDT Height 157.5 cm (5' 2 ) 01/05/2024 1:53 PM CDT Body Mass Index 21.22 01/05/2024 1:53 PM CDT Procedures * IN REMOTE 30 DAY ECG REV/REPORT(Performed 11/22/2023) Performed for Tachycardia, Palpitations * EVENT MONITOR(Performed 11/22/2023) Performed for Palpitations, Tachycardia * CARDIAC ECHOCARDIOGRAM COMPLETE ORDER(Performed 09/22/2023) * CARDIAC HOLTER MONITOR ORDER(Performed 05/31/2023) * CARDIAC RHYTHM STRIP ORDER(Performed 04/09/2019) * CARDIAC PROCEDURE ORDER(Performed 04/01/2019) * EP LAB ORDER FOR DICTATION(Performed 03/31/2019) * EKG 12-LEAD(Performed 03/31/2019) Performed for SVT (supraventricular tachycardia) * COMPREHENSIVE METABOLIC PANEL(Performed 03/31/2019) Performed for Biliary colic symptom * CBC W AUTO DIFFERENTIAL(Performed 03/31/2019) Performed for Biliary colic symptom * BASIC METABOLIC PANEL (CALCIUM TOTAL)(Performed 03/30/2019) Performed for Palpitations, SVT (supraventricular tachycardia) * CBC W AUTO DIFFERENTIAL(Performed 03/30/2019) Performed for Palpitations, SVT (supraventricular tachycardia) * CT ABDOMEN PELVIS WO CONTRAST(Performed 03/30/2019) Performed for Acute right-sided low back pain without sciatica * BLOOD TYPE VERIFICATION(Performed 03/29/2019) * PT-INR(Performed 03/29/2019) Performed for Palpitations * GLUCOSE - POINT OF CARE(Performed 03/29/2019) * ECHOCARDIOGRAM 2D WITH DOPPLER(Performed 03/29/2019) Performed for SVT (supraventricular tachycardia) * URINALYSIS - POCT (IP) NOTIFICATION(Performed 03/29/2019) Performed for SVT (supraventricular tachycardia) * URINALYSIS REFLEX TO MICROSCOPIC NO CULTURE(Performed 03/29/2019) Performed for SVT (supraventricular tachycardia) * TYPE + SCREEN PANEL(Performed 03/29/2019) * LACTIC ACID BLOOD(Performed 03/29/2019) Performed for SVT (supraventricular tachycardia) * TROPONIN I(Performed 03/29/2019) Performed for SVT (supraventricular tachycardia) * COMPREHENSIVE METABOLIC PANEL(Performed 03/29/2019) Performed for SVT (supraventricular tachycardia) * CBC W AUTO DIFFERENTIAL(Performed 03/29/2019) Performed for SVT (supraventricular tachycardia) * EKG 12-LEAD(Performed 03/29/2019) Performed for SVT (supraventricular tachycardia) * ACT - POINT OF CARE(Performed 03/29/2019) Performed for SVT (supraventricular tachycardia) * ACT - POINT OF CARE(Performed 03/29/2019) Performed for SVT (supraventricular tachycardia) * ACT - POINT OF CARE(Performed 03/29/2019) Performed for SVT (supraventricular tachycardia) * ACT - POINT OF CARE(Performed 03/29/2019) Performed for SVT (supraventricular tachycardia) * HCG URINE QUALITATIVE(Performed 03/29/2019) Performed for Palpitations Results * IN REMOTE 30 DAY ECG REV/REPORT (11/22/2023) ImpressionDemario Baker MD - 11/22/2023 - Nicho Bustos wore a nurse monitoring from 09/08/23 to 10/07/23. - Her maximum heart rate was 151 bpm. Ms. Bustos was in sinus tachycardia at the time of her maximum heart rate. - Her average heart rate was 88 bpm. - Her minimum heart rate was 51 bpm. - There were 20 symptomatic patient triggered events. The patient triggered events demonstrate sinus rhythm/sinus tachycardia and were associated with heart rates of 75 to 117 bpm. - Her PAC and PVC burdens were < 1% and 1% respectively. Demario Doherty MD IN - PROFESSIONAL SERVICES * EVENT MONITOR (11/22/2023) Impressions Demario Doherty MD - 11/22/2023 - Nicho Bustos wore a nurse monitoring from 09/08/23 to 10/07/23. - Her maximum heart rate was 151 bpm. Ms. Bustos was in sinus tachycardia at the time of her maximum heart rate. - Her average heart rate was 88 bpm. - Her minimum heart rate was 51 bpm. - There were 20 symptomatic patient triggered events. The patient triggered events demonstrate sinus rhythm/sinus tachycardia and were associated with heart rates of 75 to 117 bpm. - Her PAC and PVC burdens were < 1% and 1% respectively. Demario Doherty MD CARDIAC SERVICES ORDERABLES * CARDIAC ECHOCARDIOGRAM COMPLETE ORDER (09/22/2023) 09/22/2023 Narrative 09/22/2023 Ordered by an unspecified provider. Scanned Document ECHO ORDERABLES * CARDIAC HOLTER MONITOR ORDER (05/31/2023) 05/31/2023 Narrative 05/31/2023 Ordered by an unspecified provider. Scanned Document CARDIAC SERVICES ORD ERABLES * CARDIAC RHYTHM STRIP ORDER (04/09/2019 9:28 PM CDT) Narrative 04/09/2019 9:28 PM CDT Ordered by an unspecified provider. Scanned Document CARDIAC SERVICES ORD ERABLES * CARDIAC PROCEDURE ORDER (04/01/2019 6:48 PM CDT) Narrative 04/01/2019 6:48 PM CDT Ordered by an unspecified provider. Scanned Document CARDIAC SERVICES ORD ERABLES * EP LAB ORDER FOR DICTATION (03/31/2019 3:22 PM CDT) Narrative Procedure Note Cam Brown DO - 03/31/2019 3:22 PM CDT [facility] CARDIAC CATHETERIZATION LABORATORY PATIENT NAME: NICHO BUSTOS MR#: [id number] ROOM#: [id number] CSN: [id number] PHYSICIAN: Cam Brown D.O., Nadia SEX: F PHYS: Cam Brown D.O., Nadia : 1985 AGE: 34 DATE: CASE #: CARDIAC CATHETERIZATION REPORT PROCEDURE: Electrophysiology study with coronary sinus and leftventricular catheters, stimulation following drug, intracardiac echo, transseptal puncture, 3-dimensional non-fluoroscopic mapping, and radiofrequencyablation of supraventricular tachycardia. INDICATION: Recurrent supraventricular tachycardia. DESCRIPTION OF PROCEDURE: After informed consent, the patient was broughtto the electrophysiology laboratory. She was prepped and draped in theusual sterile fashion. After local anesthesia with 1% Xylocaine, the rightfemoral vein and left femoral vein were entered percutaneously at multiple sitesand introducer sheaths were inserted over guidewires. Intracardiac catheterswere advanced under fluoroscopic guidance and positioned within the coronarysinus, the high right atrium, the right ventricular septum, and the bundle ofHis region. Baseline intervals were obtained, and program stimulationperformed. The patient had normal baseline intervals. She had normal sinus node,AV node, and His-Purkinje conduction. She had very difficult to induce and sustained atrial tachycardia. This was inducible only with isoproterenol.It would always terminate spontaneously within a few seconds and on higherdoses of Isuprel would last up to 1-2 minutes in duration but always againterminate spontaneously. It was difficult to map due to the fact that it wasfrequently terminating but ultimately 3 dimensional non-fluoroscopic mapping couldbe performed. Early activation was identify on the anteroseptal region ofthe right atrium below the base of the right atrial appendage. Ablation inthis area resulted in acceleration and termination of tachycardia, but it was always reproducible despite ablation in this area. This area was noted ernestina very close in proximity to the noncoronary cusp of the aortic valve, sothe decision was made to proceed with mapping in the aortic valve root. Theright femoral artery was entered percutaneously and an 8-Tunisian sheath wasinserted over guidewire. The patient was systemically anticoagulated with heparinto maintain an ACT between 300 and 350 seconds. A 1-ibdeeouxxjezvc-veodbhfxxgmh mapping within the aortic root and sinus of Valsalva were performed withearly activation noted again in the noncoronary cusp of the aortic valve acrossfrom the area of early activation in the right atrium. However,radiofrequency energy delivered into this region did not have any impact on tachycardia.We therefore decided to proceed with intracardiac echo and transseptalpuncture for mapping in the left atrium. Intracardiac echo was performed with identification of the fossa ovalis. Transseptal puncture was achievedwith a Preface sheath and a Brockenbrough needle. Ehskz-zmaroxcnkamfhn-mropcvyfcjrl mapping within the left atrium was performed and there again was early activation in the left atrium on the anterior mitral valve anulus just anterior to the early activation in the aortic root and right atrium. Radiofrequency energy delivered into this region resulted in accelerationand termination of tachycardia, and thereafter, there was no inducible SVTdespite isoproterenol. She tolerated the procedure well. FINDINGS: 1. Basic cycle length 639 msec. IN interval 155 msec. QRS duration 85 msec. QT interval 310 msec. AH interval 65 msec. HV interval 238msec. 2. Antegrade AV node conduction 1:1 to 410 msec. AV node ERP 600/300msec. AERP 180 msec. 3. Retrograde VA conduction 1:1 to 410. VAERP 600/less than or equal to230 msec. VERP 230 msec. Retrograde VA conduction was midline and decremental. There was no dual AV deidre pathways. 4. Arrhythmias induced: Supraventricular tachycardia cycle length 315msec. This was very difficult to induce and was inducible reliably only on isoproterenol. It was frequently self-terminating as noted above.It was found to be a focal atrial tachycardia with 3 potentially early activation sites. 5. Three-dimensional non-fluoroscopic mapping performed as noted above. 6. Intracardiac echo performed as noted above. 7. Transseptal puncture performed as noted above. 8. Radiofrequency energy delivered both in the right atrium on the anteroseptal region below the base of the right atrial appendage, alsoon the noncoronary cusp of the aortic valve, and also on the anteriormitral valve anulus in the left atrium. Tachycardia terminated withsignificant acceleration both in the right atrium and left atrium in these early sites and thereafter was noninducible despite isoproterenol. DNG/MODL #:[id number] Cam Brown DO ELECTROPHYSIOLOG Y ORDERABLES [facility] * EKG 12-LEAD (03/31/2019 5:45 AM CDT) Only the most recent of2 resultswithin the time period is included. Ventricular Rate 75 BPM [facility] Atrial Rate 75 BPM [facility] P-R Interval 134 ms [facility] QRS Duration ms 74 ms [facility] Q-T Interval ms 404 ms [facility] QTC Calculation (Bezet) 451 ms [facility] Calculated P [place] 57 degrees [facility] Calculated R [place] 90 degrees [facility] Calculated T [place] 38 degrees [facility] Interpretation EKG Normal sinus rhythm Rightward axis Low voltage QRS Borderline ECG No previous ECGs available Confirmed by ALEAH BROWN MD ([id number]) on 04/03/2019 3:41:13 PM [facility] 03/31/2019 5:45 AM CDT 04/03/2019 3:41 PM CDT Cam Dumas Kevin DO ECG ORDERABLES [facility] * (ABNORMAL) CBC W AUTO DIFFERENTIAL (03/31/2019 5:26 AM CDT) Only the most recent of3 resultswithin the time period is included. WBC 11.6(H) 4.4 - 10.7 x10E9/L 03/31/2019 5:35 AM CDT [facility] WBC Corrected 03/31/2019 5:35 AM CDT [facility] RBC 3.30(L) 3.80 - 5.20 x10E12/L 03/31/2019 5:35 AM CDT [facility] Hemoglobin 10.5(L) 12.0 - 15.6 gm/dL 03/31/2019 5:35 AM CDT [facility] Hematocrit 31.5(L) 35.9 - 45.5 % 03/31/2019 5:35 AM CDT [facility] MCV 95.5 80.7 - 98.3 fl 03/31/2019 5:35 AM CDT [facility] MCH 31.8 26.7 - 34.0 pg 03/31/2019 5:35 AM CDT [facility] MCHC 33.3 30.8 - 35.9 gm/dL 03/31/2019 5:35 AM CDT [facility] Platelet Count 165 153 - 416 x10E9/L 03/31/2019 5:35 AM CDT [facility] RDW-CV 12.8 12.1 - 14.9 % 03/31/2019 5:35 AM CDT [facility] MPV 9.8 9.4 - 12.9 fl 03/31/2019 5:35 AM CDT [facility] Neutrophils % 66.5 44.0 - 73.0 % 03/31/2019 5:35 AM CDT [facility] Lymphocytes % 25.5 20.0 - 43.0 % 03/31/2019 5:35 AM CDT [facility] Monocytes % 6.0 5.0 - 13.0 % 03/31/2019 5:35 AM CDT [facility] Eosinophils % 1.1 0.0 - 6.0 % 03/31/2019 5:35 AM CDT [facility] Basophils % 0.6 0.0 - 2.0 % 03/31/2019 5:35 AM CDT [facility] Immature Granulocytes 0.3 0 - 1 % 03/31/2019 5:35 AM CDT [facility] Neutrophil Absolute 7.71(H) 2.01 - 7.14 x10E9/L 03/31/2019 5:35 AM CDT [facility] Lymphocytes Absolute 2.95 1.07 - 3.94 x10E9/L 03/31/2019 5:35 AM CDT [facility] Monocytes Absolute 0.69 0.26 - 1.07 x10E9/L 03/31/2019 5:35 AM CDT [facility] Eosinophils Absolute 0.13 0 - 0.47 x10E9/L 03/31/2019 5:35 AM CDT [facility] Basophils Absolute 0.07 0 - 0.08 x10E9/L 03/31/2019 5:35 AM CDT [facility] Immature Granulocytes Absolute 0.04 0.00 - 0.06 x10E9/L 03/31/2019 5:35 AM [facility] nRBC Auto 0 /100 WBC 03/31/2019 5:35 AM [facility] Blood BLOOD SPECIMEN / Unknown Lab Venipuncture / Unknown 03/31/2019 5:26 AM CDT 03/31/2019 5:33 AM CDT Cam Brown DO LAB - HEMATOLOGY ORDERABLES [facility] [address] [place] [address] * (ABNORMAL) COMPREHENSIVE METABOLIC PANEL (03/31/2019 5:26 AM CDT) Only the most recent of2 resultswithin the time period is included. [facility] Glucose 99 74 - 106 mg/dL 03/31/2019 5:54 AM CDT [facility] Sodium 140 136 - 145 mmol/L 03/31/2019 5:54 [facility] Potassium 3.4(L) 3.5 - 5.1 mmol/L 03/31/2019 5:54 AM [facility] Chloride 113(H) 98 - 107 mmol/L 03/31/2019 5:54 AM [facility] CO2 20(L) 23 - 31 mmol/L 03/31/2019 5:54 [facility] Calcium 8.5 8.4 - 10.2 mg/dL 03/31/2019 5:54 AM [facility] Anion Gap 7(L) 8 - 16 mmol/L 03/31/2019 5:54 AM [facility] BUN 10 7 - 18.7 mg/dL 03/31/2019 5:54 AM [facility] Creatinine 0.80 0.55 - 1.02 mg/dL 03/31/2019 5:54 AM [facility] Alkaline Phosphatase 40 40 - 150 U/L 03/31/2019 5:54 AM [facility] ALT 14 13 - 61 U/L 03/31/2019 5:54 AM [facility] AST 18 5 - 34 U/L 03/31/2019 5:54 AM [facility] Protein Total 5.1(L) 6.4 - 8.3 gm/dL 03/31/2019 5:54 AM [facility] Albumin 3.4(L) 3.5 - 5.2 gm/dL 03/31/2019 5:54 AM [facility] Bilirubin Total 0.3 0.2 - 1.0 mg/dL 03/31/2019 5:54 AM [facility] eGFR by MDRD >60 >60 mL/min/1.7 3m2 03/31/2019 5:54 AM [facility] eGFR by MDRD >60 >60 mL/min/1.7 3m2 03/31/2019 5:54 AM [facility] Blood BLOOD SPECIMEN / Unknown Lab Venipuncture / Unknown 03/31/2019 5:26 AM CDT 03/31/2019 5:33 AM CDT Cam Brown DO LAB - CHEMISTRY ORDERABLES [facility] [address] [place] [address] * (ABNORMAL) BASIC METABOLIC PANEL (CALCIUM TOTAL) (03/30/2019 4:17 AM CDT) Glucose 121(H) 74 - 106 mg/dL 03/30/2019 4:49 AM CDT [facility] Sodium 139 136 - 145 mmol/L 03/30/2019 4:49 AM CDT [facility] Potassium 3.9 3.5 - 5.1 mmol/L 03/30/2019 4:49 AM CDT [facility] Chloride 116(H) 98 - 107 mmol/L 03/30/2019 4:49 AM CDT [facility] CO2 18(L) 23 - 31 mmol/L 03/30/2019 4:49 AM T [facility] Calcium 7.8(L) 8.4 - 10.2 mg/dL 03/30/2019 4:49 AM T [facility] Anion Gap 5(L) 8 - 16 mmol/L 03/30/2019 4:49 AM CDT [facility] BUN 13 7 - 18.7 mg/dL 03/30/2019 4:49 AM T [facility] Creatinine 0.85 0.55 - 1.02 mg/dL 03/30/2019 4:49 AM T [facility] eGFR by MDRD >60 >60 mL/min/1.7 3m2 03/30/2019 4:49 AM T [facility] eGFR by MDRD >60 >60 mL/min/1.7 3m2 03/30/2019 4:49 AM T [facility] Blood BLOOD SPECIMEN / Unknown Lab Venipuncture / Unknown 03/30/2019 4:17 AM CDT 03/30/2019 4:29 AM CDT Cam Brown DO LAB - CHEMISTRY ORDERABLES [facility] [address] [place] [address] * CT ABDOMEN PELVIS WO CONTRAST (03/30/2019 12:18 AM CDT) Anatomical Region Laterality Modality Abdomen, Pelvis Computed Tomogra phy 03/30/2019 9:41 AM CDT Impressions 03/30/2019 9:51 AM CDT Small, relatively localized retroperitoneal hematoma in the right lower quadrant, isolated predominantly between the inguinal ligament and the common iliac bifurcation/confluence. Ill-defined soft tissue stranding in the central perihepatic region, indeterminant; given possible gall sludge, incidental biliary disease could be considered. Correlate with clinical presentation and consider right upper quadrant ultrasound if felt relevant. Patchy ill-defined dependent lower lobe opacities; could reflect moderate subsegmental atelectasis. Developing acute pneumonitis or potential sequelae of aspiration could also be considered. Follow-up chest radiographs, as clinically warranted. Reading Radiologist: Shant Sanchez MD on 03/30/2019 at 9:51 AM Narrative 03/30/2019 9:51 AM CDT Procedure Title: CT ABDOMEN PELVIS WO CONTRAST*[id number] HISTORY: Low back pain COMPARISON: No relevant. TECHNIQUE: Helical CT acquisition without intravenous contrast of the abdomen and pelvis. FINDINGS: Examination is limited by lack of IV contrast administration, per protocol for evaluation of retroperitoneal hematoma. Dependent patchy basilar opacities; may represent subsegmental atelectasis. Consider chest radiographs, if clinically warranted. There is a small amount of strandy soft tissue density along the right lower quadrant, tracking along the deep right retroperitoneum (inferior lateral conal fascia) as well as the external iliac artery and vein. This is most consistent with retroperitoneal hematoma; quantification is small. There is no significant hematoma superior to the level of the common iliac bifurcation. Layering relative hyperdensity within the gallbladder, possibly sludge. There is ill-defined soft tissue stranding in the central perihepatic region, including the periportal fat. This would not be a common location for catheterization associated hematoma; may represent an underlying incidental hepatobiliary process. Noncontrast enhanced appearance of the solid abdominal viscera is unremarkable. Bowel unremarkable. Pelvic viscera within normal limits allowing for small locule of air in the bladder, likely related to recent catheterization, as well as presence of an IUD which is appropriately positioned. No free intraperitoneal air or evident adenopathy. No acute osseous abnormality. Procedure Note Shant Sanchez MD - 03/30/2019 Procedure Title: CT ABDOMEN PELVIS WO CONTRAST*[id number] HISTORY: Low back pain COMPARISON: No relevant. TECHNIQUE: Helical CT acquisition without intravenous contrast of the abdomen and pelvis. FINDINGS: Examination is limited by lack of IV contrast administration, per protocol for evaluation of retroperitoneal hematoma. Dependent patchy basilar opacities; may represent subsegmental atelectasis. Consider chest radiographs, if clinically warranted. There is a small amount of strandy soft tissue density along the right lower quadrant, tracking along the deep right retroperitoneum (inferior lateral conal fascia) as well as the external iliac artery and vein. This is most consistent with retroperitoneal hematoma; quantification is small. There is no significant hematoma superior to the level of the common iliac bifurcation. Layering relative hyperdensity within the gallbladder, possibly sludge. There is ill-defined soft tissue stranding in the central perihepatic region, including the periportal fat. This would not be a common location for catheterization associated hematoma; may represent an underlying incidental hepatobiliary process. Noncontrast enhanced appearance of the solid abdominal viscera is unremarkable. Bowel unremarkable. Pelvic viscera within normal limits allowing for small locule of air in the bladder, likely related to recent catheterization, as well as presence of an IUD which is appropriately positioned. No free intraperitoneal air or evident adenopathy. No acute osseous abnormality. IMPRESSION Small, relatively localized retroperitoneal hematoma in the right lower quadrant, isolated predominantly between the inguinal ligament and the common iliac bifurcation/confluence. Ill-defined soft tissue stranding in the central perihepatic region, indeterminant; given possible gall sludge, incidental biliary disease could be considered. Correlate with clinical presentation and consider right upper quadrant ultrasound if felt relevant. Patchy ill-defined dependent lower lobe opacities; could reflect moderate subsegmental atelectasis. Developing acute pneumonitis or potential sequelae of aspiration could also be considered. Follow-up chest radiographs, as clinically warranted. Reading Radiologist: Shant Sanchez MD on 03/30/2019 at 9:51 AM Cam Brown DO CT ORDERABLES * BLOOD TYPE VERIFICATION (03/29/2019 11:30 PM CDT) ABO A 03/29/2019 11:45 PM CDT [facility] Rh Type Negative 03/29/2019 11:45 PM CDT [facility] Blood Bank BLOOD SPECIMEN / Unknown Venipuncture / Unknown 03/29/2019 11:30 PM CDT 03/29/2019 11:34 PM CDT Cam Brown DO LAB - BLOOD BANK ORDERABLES Performing Organization Address City/[facility]/ZIP Co de Phone Number [facility] [address] [place], [place] [id number] [place] [address] * (ABNORMAL) PT-INR (03/29/2019 11:30 PM CDT) Pathologist [facility] [place] PT 11.7(H) 9.5 - 11.6 sec 03/29/2019 11:44 PM CDT [facility] INR 1.1 0.9 - 1.1 03/29/2019 11:44 PM CDT [facility] Blood BLOOD SPECIMEN / Unknown Venipuncture / Unknown 03/29/2019 11:30 PM CDT 03/29/2019 11:34 PM CDT Narrative [facility] - 03/29/2019 11:44 PM CDT Conventional Warfarin Anticoagulant Therapy: INR Reference Range: 2.0-3.0 Intensive Warfarin Anticoagulant Therapy: INR Reference Range: 2.5-3.5 Cam Brown DO LAB - COAGULATIO N ORDERABLES Performing Organization Address [facility]/ZIP Co de Phone Number [facility] [address] [place] [address] * GLUCOSE - POINT OF CARE (03/29/2019 11:26 PM CDT) [facility] Glucose WB/POC 104 70 - 106 mg/dL 03/30/2019 12:31 AM CDT [facility] Specimen Type Venous 03/30/2019 12:31 AM CDT [facility] Blood BLOOD SPECIMEN / Unknown 03/29/2019 11:26 PM CDT 03/30/2019 12:31 AM CDT Cam Brown DO LAB - POINT OF C ARE ORDERABLES Performing Organization Address [facility]/ZIP Co de Phone Number [facility] [address] [place] [address] * URINALYSIS - POCT (IP) NOTIFICATION (03/29/2019 10:30 PM CDT) [facility] Comment Notification Label Only - See Separate Report 03/29/2019 10:30 PM CDT [facility] Urine URINE / Unknown 9 9:27 PM CDT Kristina Fraire MD LAB - URINALYSIS ORD ERABLES [facility] [address] [place] [address] * URINALYSIS REFLEX TO MICROSCOPIC NO CULTURE (03/29/2019 9:50 PM CDT) Color UA Straw Straw, Yellow 03/29/2019 10:07 PM CDT [facility] Clarity UA Clear Clear 03/29/2019 10:07 PM CDT [facility] Glucose UA Negative Negative 03/29/2019 10:07 PM CDT [facility] Bilirubin UA Negative Negative 03/29/2019 10:07 PM CDT [facility] Ketone UA Negative Negative 03/29/2019 10:07 PM CDT [facility] Specific [place] UA 1.006 1.005 - 1.030 03/29/2019 10:07 PM CDT [facility] Blood UA Negative Negative 03/29/2019 10:07 PM CDT [facility] pH UA 7.0 5.0 - 8.0 pH 03/29/2019 10:07 PM CDT [facility] Protein UA Negative Negative 03/29/2019 10:07 PM CDT [facility] Urobilinogen UA Negative Negative mg/dL 03/29/2019 10:07 PM CDT [facility] Nitrite UA Negative Negative 03/29/2019 10:07 PM CDT [facility] Leukocyte UA Negative Negative 03/29/2019 10:07 PM CDT [facility] Urine Microscopy Urine microscopy not indicated 03/29/2019 10:07 PM T [facility] Urine URINE SPECIMEN OBTAINED BY SINGLE CATHETERIZATION OF URINARY BLADDER / Unknown Collection / Unknown 03/29/2019 9:50 PM CDT 03/29/2019 10:02 PM CDT Narrative [facility] - 03/29/2019 10:07 PM CDT Kristina Fraire MD LAB - URINALYSIS ORD ERABLES [facility] [address] [place] [address] * (ABNORMAL) TROPONIN I (03/29/2019 9:27 PM CDT) [facility] Troponin I 1.301(HH) <0.038 ng/mL 03/29/2019 10:03 PM CDT [facility] Blood BLOOD SPECIMEN / Unknown Venipuncture / Unknown 03/29/2019 9:27 PM CDT 03/29/2019 9:34 PM CDT Kristina Fraire MD LAB - CHEMISTRY BRENDEN ORDAZ [facility] [address] [place] [address] * TYPE + SCREEN PANEL (03/29/2019 9:27 PM CDT) [facility] ABO A 03/29/2019 10:19 PM CDT [facility] Rh Type Negative 03/29/2019 10:19 PM CDT [facility] Comment:History checked. Col lect retype. Antibody Screen Negative 03/29/2019 10:19 PM CDT [facility] Blood Bank BLOOD SPECIMEN / Unknown 03/29/2019 9:27 PM CDT 03/29/2019 9:34 PM CDT Dolores Aiken MD LAB - BLOOD BANK ORD ERABLES Performing Organization Address City/[facility]/ZIP Co de Phone Number [facility] [address] [place], [place] [id number] [place] [address] * LACTIC ACID BLOOD (03/29/2019 9:27 PM CDT) [facility] Lactic Acid 1.3 0.5 - 2.2 mmol/L 03/29/2019 9:48 PM CDT [facility] Blood BLOOD SPECIMEN / Unknown Venipuncture / Unknown 03/29/2019 9:27 PM CDT 03/29/2019 9:34 PM CDT Kristina Fraire MD LAB - CHEMISTRY ORDE RABLES [facility] [address] [place] [address] * (ABNORMAL) ACT - POINT OF CARE (03/29/2019 5:20 PM CDT) Only the most recent of4 resultswithin the time period is included. ACT POCT 123(A) 125 - 187 Seconds [facility] POCT TESTING QC Verified Yes Yes [facility] POC T TESTING Blood BLOOD SPECIMEN / Unknown 03/29/2019 5:20 PM CDT Cam Brown DO LAB - POINT OF C ARE ORDERABLES Performing Organization Address [facility] [[email or web address]] Co de Phone Number [facility] POCT TEST[facility] [address] [place] [address], [facility] [phone] * HCG URINE QUALITATIVE (03/29/2019 12:01 PM CDT) hCG Qualitative Urine Negative Negative 03/29/2019 12:15 PM CDT [facility] Urine URINE / Unknown Collection / Unknown 03/29/2019 12:01 PM CDT 03/29/2019 12:07 PM CDT Cam Brown DO LAB - URINALYSIS ORDERABLES Performing Organization Address [facility] [[email or web address]] Co de Phone Number [facility] [address] [place] [address] Care Teams Air Defence Officer Relationship Specialty Start Date End Date Claudia Rutledge MD [address] [place] [id number] PCP - General 04/15/19
--- OUTSIDE RECORDS SUMMARY | 2024-09-11 10:00 | XMS_ITS | Referral Summary ---
Author Organization [facility] Address [address] [facility] [place] [address] Care Team Providers Care Trust Administrator Name Role Phone Claudia Rutledge MD Primary Care Provider [phone] Source Comments [facility],non-[facility] Affiliates and Associated Physician Practices is amultiple site organization consisting of ambulatory clinics and hospital sitesin [place], [place], [place] and [place]. This disclosure is being madepursuant to the Care Everywhere program and may not contain all information available regarding this patient. 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 Inhaled Oxygen Concentration - - Weight 52.6 kg (116 lb) 01/05/2024 1:53 PM CDT Height 157.5 cm (5' 2 ) 01/05/2024 1:53 PM CDT Body Mass Index 21.22 01/05/2024 1:53 PM CDT Plan of Treatment Upcoming Encounters Date Type Department Care Team (Late st Contact Info) Description 11/22/2024 11:30 AM CDT Office Visit [facility] [address] [address] [place] [address] [facility] [address] [place] [address] Advance Directives * Full Code (Latest Code Status on File) Date Activated Date Inactivated Comments 03/29/2019 5:52 PM 03/31/2019 4:28 PM Care Teams Trust Administrator Relationship Specialty Start Date End Date Claudia Rutledge MD [address] [place] [id number] PCP - General 04/15/19
--- OUTSIDE RECORDS SUMMARY | 2024-09-11 10:00 | XMS_ITS | Clinical Summary ---
Author Organization [facility] Address [address] [place] [id number] Care Team Providers Care Rn Security Name Role Phone Unavailable Primary Care Provider Unavailabl e Social History Tobacco Use Types Packs/Day Years Used Date Smoking Tobacco: Never Assessed Comments Unknown Sex and Gender Information Value Date Recorded Sex Assigned at Not on file Legal Sex Female 5:16 PM CDT Gender Identity Not on file Sexual Orientation Not on file Plan of Treatment Health Maintenance Due Date Last Done Comments Cervical Cancer Screening Pa p Smear (Age 30 to 64) Every 3 Years 1983 Annual Physical 1986 Hepatitis C 2001 DTaP, Tdap and Td Vaccines ( 1 - Tdap) 2002 Hepatitis B Vaccines (1 of 3 - 19+ 3-dose series) 2002 Cervical Cancer Screening Pa p with HPV Testing (Age 30 to 64) Every 5 Years 2013 Cervical Cancer Screening with HPV 2013 Mammogram Screening 2023 COVID-19 Vaccine (2023-2 5 season) 2024 Influenza Adult (#1) 2024 HPV Vaccines Aged Out No longer eligi ble based on patient's age to complete this topic Meningococcal B Vaccine Aged Out No l onger eligible based on patient's age to complete this topic Meningococcal Vaccine Aged Out No makayla eron eligible based on patient's age to complete this topic Pneumococcal Vaccine: Pediat rics (0 to 5 Years) and At-Risk Patients (6 to 64 Years) Aged Out No longer eligible b ased on patient's age to complete this topic RSV Immunizations Under 20 Months Aged Out No longer eligible based on patient's age to complete this topic
--- OUTSIDE RECORDS SUMMARY | 2024-09-11 10:00 | XMS_ITS | Referral Summary ---
Author Organization [facility] [address] Address [address] [place] [address] Phone Care Team Providers Care Outsole Beveler Name Role Phone Valerie Maher MD Unavailable [phone] Vitaly Roberts MD Unavailable [phone] Ángel Albarran MD Unavailable [phone] Ovidio Rutledge MD Unavailable [phone] [facility] BoulevardNeil feliz MD Unavailable Cam Brown DO Unavailable [phone] Octaviano Belle DO Unavailable [phone] Angel Arora MD Primary Care Provider [phone] Allergies No known active allergies Medications levonorgestrel (MIRENA) 20 mcg/24 hr (5 years) IUD insert 1 not specified by vaginal route every day every 5 years 0 0 0 Active raNITIdine (ZANTAC) 300 mg tablet Take 300 mg by mouth 2 (two) times a day. Active polyethylene glycol (MIRALAX) 17 gram/dose powderIndications :Irritable bowel syndrome with constipation Take 34 g by mouth daily. 595 g [address] (CYMBALTA) 20 mg capsuleIndication s:Anxiety and depression,Chroni c pain disorder,Chronic daily headache Take 3 capsules (60 mg total) by mouth daily. 1 in the morning and 2 at night 90 capsule 6 9 Active buPROPion XL (WELLBUTRIN XL) 150 mg 24 hr tabletIndications :Chronic pain disorder,Anxiety and depression Take 1 tablet (150 mg total) by mouth every morning. 90 tablet 2 9 Active albuterol HFA (PROVENTIL HFA,VENTOLIN HFA,PROAIR HFA) 90 mcg/actuation inhalerIndication s:Viral illness Inhale 2 puffs every 6 (six) hours as needed for wheezing or shortness of breath 1 Inhaler 0 Active Active Problems Problem Noted Date Diagnosed Date Paroxysmal atrial tachycardia 02/02/2019 Overview (06/03/2019): Documented on Holter monitor 11/04/2018. KOJO Del Cid evaluated and stated she had a trial fibrillation but she does not have that according to conversation with Dr. Brown 04/01/2019 and KOJO Del Cid Could produce no EKG or rhythm strip to confirm atrial fibrillation EVALUATED BY DR. BROWN November 2018, March 2019 received ablation complicated by small retroperitoneal bleed referred to [facility] for surgery. 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 Consultation with Dr. Albarran October 2017 Chronic daily headache 12/03/2017 Chronic constipation 08/06/2017 Overview (09/06/2017): The CT scan abdomen pelvis (-) June 2017 FINDINGS: Limited images of the lung bases do not demonstrate any focal consolidation or pleural effusion. The liver, gallbladder, spleen pancreas, and adrenal glands are normal on this noncontrast examination. There are no renal or ureteral stones. There is no hydronephrosis or hydroureter. The bladder is normal. There is an intrauterine device in place in a normal appearing uterus. Both ovaries are normal. The stomach, small bowel, and large bowel are normal in caliber with no evidence of obstruction or inflammation. There is no CT evidence of acute appendicitis. There is no abdominal or pelvic lymphadenopathy or free fluid. There is no free intraperitoneal air. The abdominal aorta is normal in caliber. Bone windows do not demonstrate any abnormal osseous lytic or blastic lesions. Colonoscopy Dr. Warren christy found. Excessive gassiness on lactulose 3 times daily. Initiating trial of Linzess August 2017 Guaiac positive stools 08/06/2017 Chronic pain disorder 05/09/2017 Gastritis due to nonsteroidal anti-inflammatory drug 05/09/2017 Tiredness 05/09/2017 Anxiety and depression 05/09/2017 Chronic GERD 11/30/2013 Overview (09/06/2017): August [address] Kelley 1 cm esophageal ulcer Planning November 2017 follow-up re-evaluation of the ulcer Taking ranitidine 300mg twice daily Omeprazole [address] scan abdomen pelvis June 2017 FINDINGS: Limited images of the lung bases do not demonstrate any focal consolidation or pleural effusion. The liver, gallbladder, spleen pancreas, and adrenal glands are normal on this noncontrast examination. There are no renal or ureteral stones. There is no hydronephrosis or hydroureter. The bladder is normal. There is an intrauterine device in place in a normal appearing uterus. Both ovaries are normal. The stomach, small bowel, and large bowel are normal in caliber with no evidence of obstruction or inflammation. There is no CT evidence of acute appendicitis. There is no abdominal or pelvic lymphadenopathy or free fluid. There is no free intraperitoneal air. The abdominal aorta is normal in caliber. Bone windows do not demonstrate any abnormal osseous lytic or blastic lesions. THIS IS AN ELECTRONICALLY VERIFIED REPORT 06/24/2017 10:15 AM: Jose Yung M.D. Multiple-type hyperlipidemia 11/30/2013 Overview (10/21/2016): Combined hyperlipidemia Dyspnea on exertion 11/30/2013 Overview (10/21/2016): OLIVO (dyspnea on exertion) Irritable bowel syndrome with constipation 11/30 Overview (06/27/2017): Colonoscopy Dr. Kelley June 2017 alexa christy Recommended probiotic, MiraLax 4 times daily, Linzess 240 mg daily. 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 Gender Identity Not on file Sexual Orientation Not on file 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 Not on file Not on file Last Filed Vital Signs Vital Sign Reading Time Taken Comments Blood Pressure 124/68 07/01/2020 5:22 PM AUTO TRAVEL COUNSELOR Pulse 104 07/01/2020 5:24 PM AUTO TRAVEL COUNSELOR Temperature 37.2 C (98.9 F) 07/01/2020 5:22 PM AUTO TRAVEL COUNSELOR Respiratory Rate 14 07/01/2020 5:22 PM AUTO TRAVEL COUNSELOR Oxygen Saturation 97% 07/01/2020 5:24 PM AUTO TRAVEL COUNSELOR Inhaled Oxygen Concentration - - Weight 56.7 kg (125 lb) 07/01/2020 5:22 PM AUTO TRAVEL COUNSELOR Height 157.5 cm (5' 2 ) 07/01/2020 5:22 PM AUTO TRAVEL COUNSELOR Body Mass Index 22.86 07/01/2020 5:22 PM AUTO TRAVEL COUNSELOR Plan of Treatment Not on [place] [address] [facility] [address] [place] [id number] Member Subscriber Plan / Payer (Ef fective 2017-Present) Name:Nicho Deleon Relation to Subscriber:Self Name:Nicho Deleon Payer ID:[id number] (NAIC) Group ID:Not on file Type:MEDICAID RISK OTHER Address: [address] [place] [address] [place] [address] [id number] [facility] Care Teams Outsole Beveler Relationship Specialty Start Date End Date Kopjas, Angel C., MD [address] [place] [address] PCP - General Internal Medicine 12/16/22 Valerie Maher MD Consulting Physician Gastroenterology 06/13/17 Vitaly Roberts MD [address] [facility] [address] [place] [address] Referring Physician Neurology 01/30/18 Ángel Albarran MD [address] [facility] [address] [place] [address] Consulting Physician Rheumatology 01/30/18 Ovidio Rutledge MD [address] [place] [address] Referring Physician Obstetrics and Gynecology 08/07/18 Neil Webb MD [address] [facility] [place] [address] Referring Physician Plastic Surgery 08/07/18 Cam Brown DO [address] [place] [address] Consulting Physician Cardiology 02/02/19 Octaviano Belle DO [address] [place] [address] Referring Physician Surgery 05/12/19
--- OUTSIDE RECORDS SUMMARY | 2024-09-11 10:01 | XMS_ITS | CONTINUITY OF CARE DOCUMENT ---
Author Name ceenell ceenell Address Unknown Organization [facility] Address [address] [place] [address] Phone [phone] Care Team Providers Care Rubber Engraver Name Role Phone Sotero BENJAMIN, Saulius Unavailable NICOLE BENJAMIN, TANIYA Unavailable [phone] NICOLE BENJAMIN, TANIYA Unavailable PROBLEMS Condition Status Date Provider Notes Palpitations active Cam Brown DO Endometriosis active Cammariella Santock DO Constipation active Cammariella Santock DO Headaches active Cam Brown DO Family History of Sudden Cardiac active Cam Brown DO Shortness of breath active Cam Brown DO Edema active Cam Brown DO SVT active Cam Brown DO ENCOUNTERS Date Type Provider Location Encounter Diag nosis 11/26 - 11/28 In-person encounter Office Visit Cam Brown DO [facility] 05/29 - 05/29 In-person encounter Office Visit Cam Brown DO [facility] Office SVT 02/27 - 02/27 In-person encounter Office Visit Cam Blankenshipvey Office 12/04 - 12/05 In-person encounter Office Visit Cam Brown DO [facility] Office PalpitationsEndometriosisConstipationHea dachesFamily History of Sudden Cardiac DeathShortness of breathEdema VITAL SIGNS Date Observation Value Provider Body Mass Index (Ratio) 23.04 kg/m2 Km nick Lambros blood pressure, diastolic 80 mm[Hg] Basilio recio [place] blood pressure, systolic 110 mm[Hg] Ynes edward [place] oxygen saturation, oximetry 98 % Stacia [place] respiratory rate E&M 16 /min Stacia [place] pulse rate 71 /min [facility] [place] weight E&M 126 [lb_av] Stacia [place] height E&M 62 [in_i] Stacia [place] Body Mass Index (Ratio) 22.68 kg/m2 Km Zaldivar oxygen saturation, oximetry 98 % [facility] blood pressure, diastolic 78 mm[Hg] Ch astity Jez blood pressure, systolic 110 mm[Hg] Arminda stity Jez pulse rate 85 /min Chastity Jez weight E&M 124 [lb_av] Chastity Jez respiratory rate E&M 18 /min Chastit y Jez height E&M 62 [in_i] Chastity Jez Body Mass Index (Ratio) 22.86 kg/m2 Robincristina hortencia Brown DO blood pressure, diastolic 69 mm[Hg] Rh onavinash Frausto blood pressure, systolic 100 mm[Hg] Rho dallas Frausto oxygen saturation, oximetry 99 % Emily Frausto respiratory rate E&M 16 /min Emily Frausto pulse rate 82 /min Emily Frausto weight E&M 125 [lb_av] Emily Frausto height E&M 62 [in_i] Emily Frausto Body Mass Index (Ratio) 22.49 kg/m2 Ty Mcclure blood pressure, diastolic 60 mm[Hg] Rh onda Lisbet blood pressure, systolic 120 mm[Hg] Rho nda Lisbet blood pressure, cuff size regular Rh onda Lisbet oxygen saturation, oximetry 98 % Emily Frausto respiratory rate E&M 16 /min Emily Frausto pulse rate 78 /min Emily Frausto blood pressure, resting No Barbara Blankenship weight E&M 123 [lb_av] Emily Frausto height E&M 62 [in_i] Emily Frausto ALLERGIES No Known Drug Allergies RESULTS Date Observation Value Provider Reference Range Interpretation Location 2 LDL cholesterol, serum 119 mg/dL Melquiades Boboberg HISTORY OF MEDICATION USE Medication Status Instructions Dates Provider Indications Com ments SYNTHROID 112 MCG ORAL TABLET active ONE TAB. DAILY Stacia Silvana'[place] LINZESS 290 MCG ORAL CAPSULE active 1 cap once daily Emily Frausto QUDEXY XR 25 MG ORAL CAPSULE ER 24 HOUR SPRINKLE active 1 cap daily Emily Farusto SOCIAL HISTORY Date Observation Value Provider smoking status Never smoker Cam Leupp ck social history E&M S moking History: Nadege silva has never smoked. Cam Arecibo social history reviewed E&M revi ewed - no changes required Cam Brown smoking status Never smoker Cam Gal ck social history E&M S moking History: Nadege silva has never smoked. Cam Brown social history reviewed E&M revi ewed - no changes required Cam Brown smoking status Never smoker Cam Gal ck social history E&M S moking History: Nadege silva has never smoked. Cam Brown social history reviewed E&M revi ewed - no changes required Cam Brown number of grandchildren Cam Brown D O Cam Brown drug use no Cam Brown DO alcohol use, average drinks per day 1-2 Cam Brown DO alcohol use yes Cam Brown DO social history reviewed E&M revi ewed - no changes required Cam Brown DO social history E&M Smoking Histo ry: Nadege silva has never smoked. Cam Brown DO smoking status Never smoker Emily Frausto FAMILY HISTORY Family Member Condition Mother Family History of Hy pertension: Mother Family History of Di abetes: Mother Family History of CV A or Stroke: INSURANCE PROVIDERS Payer name Policy type / Coverage type [employer] party ID [id number] MEDICAID (2) Medicaid [id number] ADVANCE DIRECTIVES Name Date DISCUSSED - NO DECISION MADE TREATMENT PLAN Date Name Performer Cardiology:s/p SVT a blation 03/2019, no recurrences W as found to have focal atrial tachycardia arrising from the anterior mitral valve annulus and was successfully ablated. Had brief hypotension following the procedure, felt due to RPH which responded to IV fluids. Also found to have evidence of cholecystisis and has subsequently undergoing cholecysectomy. N o clinical recurrences of sustained palps or tachycardia. S he has had negative stress test and echo in 2016 and apparently also a negative echo in 09/2018 at [facility]. She is scheduled for breast surgery on Monday of this week. She has had no CP or SOB and has no other cardiac disease. H er EKG is normal today. She is acceptable risk for anesthesia and surgery. Cam Arecibo Electrophysiology:s/ p SVT ablation 03/2019, no recurrences W as found to have focal atrial tachycardia arrising from the anterior mitral valve annulus and was successfully ablated. Had brief hypotension following the procedure, felt due to RPH which responded to IV fluids. Also found to have evidence of cholecystisis and has subsequently undergoing cholecysectomy. N o clinical recurrences of palps or tachycardia. S he has had negative stress test and echo in 2016 and apparently also a negative echo in 09/2018 at [facility]. Cam Lambcock Electrophysiology:Sy mptoms started 2-3 years ago. She has abrupt onset of heart racing, lasting a few minutes in duration, 3-4 times per month. N ot associated with any particular activity. They terminate spontaneously without intervention. Occasional lightheadedness and dizziness but no syncope. Also with some chest pain and SOB with these episodes. I n addition, has palpitations and gets SOB easily with exertion. R ecent 30 day event monitor showed apparent 8 beat NSVT but strip is not available for my review. She had no symptoms associated with this. I do have a two page strip that shows an 8 beat run of SVT. S he has had negative stress test and echo in 2017 and apparently also a negative echo in 09/2018 at [facility]. Discussed SVT ablation in depth with patient. Discussed procedure risks, benefits and alternatives. The patient agrees to proceed. Cam Bronw DO Electrophysiology:Sy mptoms started 2-3 years ago. She has abrupt onset of heart racing, lasting a few minutes in duration, 3-4 times per month. N ot associated with any particular activity. They terminate spontaneously without intervention. Occasional lightheadedness and dizziness but no syncope. Also with some chest pain and SOB with these episodes. I n addition, has palpitations and gets SOB easily with exertion. R ecent 30 day event monitor showed apparent 8 beat NSVT but strip is not available for my review. She had no symptoms associated with this. S he has had negative stress test and echo in 2017 and apparently also a negative echo in 09/2018 at [facility]. Will await review of monitor strips and also review of workup at [facility]. I think it is unlikely that she has anything significant pathologically and she can probably have surgery without problem, but we will await review of records. Cam Brown DO HISTORY OF PROCEDURES Procedure Date Procedure Name Provider Procedure Notes S tatus EKG Cam Brown DO comple melissa EKG Cam Santock DO comple melissa EKG Cam aSntock DO comple melissa EKG Cam Santock DO comple melissa
--- OUTSIDE RECORDS SUMMARY | 2024-09-11 10:01 | XMS_ITS | Encounter Summary ---
Author Organization [facility] Address [address] [place] [address] Phone Care Team Providers Care Electric Track Switch Maintainer Name Role Phone Gely Alexander MD Primary Care Provider [phone] Valerie Maher MD Unavailable [phone] Vitaly Roberts MD Unavailable Ángel Albarran MD Unavailable [phone] Tabitha Barth MD Unavailable [phone] Ovidio Rutledge MD Unavailable [phone] Neil Webb MD Unavailable [phone] Cam Brown DO Unavailable [phone] Octaviano Belle DO Unavailable [phone] Angel Arora MD Primary Care Provider [phone] Encounter Details Date Type Department Care Team (Late st Contact Info) Description 06/26/[address] [facility] [address] [place] [address] Gely Alexander MD [address] [place] [address] Social History Tobacco Use Types Packs/Day Years Used Date Smoking Tobacco: Never Smokeless Tobacco: Never Alcohol Use Standard Drinks/Week Comments Yes 0 (1 standard drink = 0.6 oz pur e alcohol) Comments No Sex and Gender Information Value Date Recorded Sex Assigned at Not on file Legal Sex Female 1:47 AM RUBBER CURER Gender Identity Not on file Sexual Orientation Not on file documented as of this encounter Plan of Treatment Not on file documented as of this encounter Procedures Procedure Name Priority Date/Time Associated Diagnosis Comments SCAN - RADIOLOGY/IMAGING 06/26/2017 1:43 PM RUBBER CURER documented in this encounter Results * SCAN - RADIOLOGY/IMAGING (06/26/2017 1:43 PM RUBBER CURER) Anatomical Region Laterality Modality Other us Gely Alexander MD Final Resu lt documented in this encounter Visit Diagnoses Not on filedocumented in this encounter Additional Health Concerns Infection Onset Date Last Indicated Resolved Time COVID: Suspected 07/01/2020 07/01/2020 07/02/2020 5:12 AM RUBBER CURER COVID19 07/01/2020 07/01/2020 07/15/2020 3:07 AM RUBBER CURER documented as of this encounter Care Teams Electric Track Switch Maintainer Relationship Specialty Start Date End Date Gely Alexander MD PCP - General 03/01/12 10/17/22 Angel Arora MD [address] [facility] [address] [facility] [address] [place] [address] PCP - General Internal Medicine 12/16/22 Valerie Maher MD Consulting Physician Gastroenterology 06/13/17 Vitaly Roberts MD [address] [address] Referring Physician Neurology 01/30/18 Ángel Albarran MD [address] [address] Consulting Physician Rheumatology 01/30/18 Tabitha Barth MD [address] [place] [address] Referring Physician Family Medicine 01/30/18 08/06/18 Ovidio Rutledge MD [address] [place] [address] Referring Physician Obstetrics and Gynecology 08/07/18 Neil Webb MD [address] [place] [address] Referring Physician Plastic Surgery 08/07/18 Cam Brown DO [address] [place] [address] Consulting Physician Cardiology 02/02/19 Octaviano Belle DO [address] [place] [address] Referring Physician Surgery 05/12/19 documented as of this encounter
--- OUTSIDE RECORDS SUMMARY | 2024-09-11 10:01 | XMS_ITS | Clinical Summary ---
Author Organization [facility] [address] Address [address] [place] [address] Phone Care Team Providers Care Hand Gluer And Slicer Name Role Phone Valerie Maher MD Unavailable [phone] Vitaly Roberts MD Unavailable [phone] Ángel Albarran MD Unavailable [phone] Ovidio Rutledge MD Unavailable [phone] [facility] fel[facility] MD Unavailable Cam Brown DO Unavailable Octaviano Belle DO Unavailable [phone] Angel Arora MD Primary Care Provider [phone] Allergies No known active allergies Medications levonorgestrel [...] Split, Intramuscular Influenza, Unspecified 04/24/2017 Tdap 10/09/2008 Surgical History Surgery Date Site/Laterality Comments AUGMENTATION MAMMOPLASTY 07/17/2008 - 07/16/2009 augmentation mammoplasty COMBINED AUGMENTATION MAMMAPLASTY AND ABDOMINOPLASTY breast augmentation ESOPHAGOSCOPY / EGD 08/18/2017 Dr. Kelley (+) 1cm esophageal ulcer LAPAROSCOPIC CHOLECYSTECTOMY 05/08/2019 OCTAVIANO Maldonado Acalculous cholecystitis CARDIAC ELECTROPHYSIOLOGY MAPPING AND ABLATION 03/17/2019 - 04/15/2019 Dr. Brown ablation of atrial tachycardia complicated by a small retroperitoneal bleed Medical History Medical History Date Comments Constipation GERD (gastroesophageal reflux disease) + hpylori Anxiety 2 para 2 Family History Medical History Relation Name Comments Rice's esophagus Father Esophageal cancer Father Relation Name Status Comments Father Social History Tobacco Use Types Packs/Day Years Used Date Smoking Tobacco: Never Smokeless Tobacco: Never Alcohol Use Standard Drinks/Week Comments Yes 0 (1 standard drink = 0.6 oz pur e alcohol) Comments No Sex and Gender Information Value Date Recorded Sex Assigned at Not on file Legal Sex Female 1:47 AM WEAVING INSTRUCTOR Gender Identity Not on file Sexual Orientation Not on file 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 Not on file Not on file Obstetrics History Last Filed Vital Signs Vital Sign Reading Time Taken Comments Blood Pressure 124/68 07/01/2020 5:22 PM WEAVING INSTRUCTOR Pulse 104 07/01/2020 5:24 PM WEAVING INSTRUCTOR Temperature 37.2 C (98.9 F) 07/01/2020 5:22 PM WEAVING INSTRUCTOR Respiratory Rate 14 07/01/2020 5:22 PM WEAVING INSTRUCTOR Oxygen Saturation 97% 07/01/2020 5:24 PM WEAVING INSTRUCTOR Inhaled Oxygen Concentration - - Weight 56.7 kg (125 lb) 07/01/2020 5:22 PM WEAVING INSTRUCTOR Height 157.5 cm (5' 2 ) 07/01/2020 5:22 PM WEAVING INSTRUCTOR Body Mass Index 22.86 07/01/2020 5:22 PM WEAVING INSTRUCTOR Plan of Treatment Not on file Insurance [facility] Member Subscriber Plan / Payer (Ef fective 2017-Present) Name:Nicho Deleon Relation to Subscriber:Self Name:Nicho Deleon Payer ID:[id number] (NAIC) Group ID:Not on file Type:MEDICAID RISK OTHER Address: [address] [place] [address] [place] [address] [facility] Care Teams Hand Gluer And Slicer Relationship Specialty Start Date End Date Angel Arora MD [address] [facility] [address] [facility] [address] [place] [address] PCP - General Internal Medicine 12/16/22 Valerie Maher MD Consulting Physician Gastroenterology 06/13/17 Vitaly Roberts MD 1 [facility] [address] [place] [address] Referring Physician Neurology 01/30/18 Ángel Albarran MD [address] [place] [address] [address] [place] [address] Consulting Physician Rheumatology 01/30/18 Ovidio Rutledge MD [address] [place] [address] Referring Physician Obstetrics and Gynecology 08/07/18 Neil Webb MD [address] [place] [address] Referring Physician Plastic Surgery 08/07/18 Cam Brown DO [address] [place] [address] [address] Consulting Physician Cardiology 02/02/19 Octaviano Belle DO [address] [place] [address] [address] Referring Physician Surgery 05/12/19
== END 2024-09-11 09:14 | disposition home or self-care (01) ==
LOC: ANHIMG 09:17
PROVIDERS: PCP Internal Medicine; Visit Provider Internal Medicine
DX: R10.9 Unspecified abdominal pain (principal); R19.8 Other specified symptoms and signs involving the digestive system and abdomen
CPT/HCPCS: 74177; Q9967

== ENCOUNTER 2024-11-01 00:05 | Day surgery (SDC) | payer OTHER, SELFPAY ==
[2024-10-24 12:15] VITALS: BMI 20.7
--- OUTSIDE RECORDS SUMMARY | 2024-11-01 00:08 | XMS_ITS | Clinical Summary ---
Author Organization [facility] [employer] Address [address] [facility] [place] [address] Care Team Providers Care Operation Manager Name Role Phone Claudia Rutledge MD Primary Care Provider [phone] [facility],non-owned Affiliates and Associated Physician Practices is amultiple site organization consisting of ambulatory clinics and hospital sitesin [place], [place], [place] and [place]. This disclosure is being madepursuant to the Care Everywhere program and may not contain all information available regarding this patient. Last updated 18.[facility] [employer] Allergies Active Allergy Reactions Criticality Noted Date Comments Doxycycline Urticaria Medium 01/05/2024 Medications * Be aware that medications may not be up to date on this document. Alwaysverify current medications with the patient. gabapentin (NEURONTIN) 300 MG capsule Take 1 [...] fluticasone propionate (Flonase) 50 MCG/ACT nasal spray 3 Active meloxicam (Mobic) 15 MG tablet Take 1 (one) tablet by mouth once daily 4 Active methylphenidate (Ritalin) 10 MG tablet 4 Active methylphenidate (Ritalin) 5 MG tablet 4 Active potassium chloride ER 10 MEQ tablet 4 Active rosuvastatin (Crestor) 10 MG tablet Take 1 (one) tablet by mouth once daily 4 Active SUMAtriptan (Imitrex) 100 MG tablet TAKE 1 TABLET BY MOUTH NEEDED FOR HEADACHE 4 Active triamcinolone acetonide (Kenalog) 0.1 % cream APPLY CREAM EXTERNALLY TWICE DAILY Active triamterene-hyd roCHLOROthiazid e (Maxzide-25) 37.5-25 MG tablet TAKE 1/2 (ONE-HALF) TABLET BY MOUTH IN THE MORNING NEEDED FOR EDEMA 4 Active amLODIPine (Norvasc) 2.5 MG tablet 4 Active levothyroxine (Synthroid) 100 MCG tablet 4 Active Active Problems Problem Noted Date Diagnosed Date Precordial pain 01/07/2024 OLIVO (dyspnea on exertion) 09/10/2023 Tachycardia 09/10/2023 Palpitations 09/10/2023 SVT (supraventricular tachycardia) 03/29/2019 Social History Tobacco Use Types Packs/Day Years Used Date Smoking Tobacco: Former Cigarettes Smokeless Tobacco: Never Comments Unknown Sex and Gender Information Value Date Recorded Sex Assigned at Not on file Legal Sex Female 2:56 PM CDT Gender Identity Not on file Sexual Orientation Not on file Last Filed Vital Signs Vital Sign Reading Time Taken Comments Blood Pressure 121/83 01/05/2024 1:53 PM CDT Pulse 103 01/05/2024 1:53 PM CDT Temperature 36.7 C (98.1 F) 03/31/2019 12:50 PM CDT Respiratory Rate 18 03/31/2019 12:50 PM CDT Oxygen Saturation 99% 09/08/2023 9:09 AM TAX AUDITOR Inhaled Oxygen Concentration - - Weight 52.6 kg (116 lb) 01/05/2024 1:53 PM CDT Height 157.5 cm (5' 2 ) 01/05/2024 1:53 PM CDT Body Mass Index 21.22 01/05/2024 1:53 PM CDT Plan of Treatment Upcoming Encounters Date Type Department Care Team (Late st Contact Info) Description 11/22/2024 11:30 AM CDT Office Visit [facility] [address] [facility] [place] [address] [place] [address] [facility] [address] [place] [address] Health Maintenance Due Date Last Done Comments MAMMOGRAM 1983 PAP SMEAR 1983 HIV SCREENING 1998 HEPATITIS C SCREENING 01/09/2001 DTAP/TDAP/TD VACCINES (1 - Tdap) 2002 HEPATITIS B VACCINE (1 of 3 - 19+ 3-dose series) 2002 COVID-19 VACCINE (1 - 2023-2 5 season) 2024 DEPRESSION SCREENING 07/17/2024 INFLUENZA VACCINE (Season Ended) 2025 04/24/2017, 03/17/2016 ZOSTER VACCINE (1 of 2) 2033 HIB VACCINE Aged Out No longer eligi ble based on patient's age to complete this topic HPV VACCINE Aged Out No longer eligi ble based on patient's age to complete this topic MENINGOCOCCAL (Group B) VACCINE SHARED DECISION-MAKING Aged Out No longer eligible based on patient's age to complete this topic MENINGOCOCCAL GROUPS A/C/Y/W VACCINE Aged Out No longer eligible b ased on patient's age to complete this topic PNEUMOCOCCAL VACCINE Aged Out No long er eligible based on patient's age to complete this [place] [address] [facility] SELF PAY NO INSURANCE Member Subscriber Plan / Payer (Ef fective for All Dates) Name:Nicho Bustos Member ID:Not on file Relation to Subscriber:Not on file Name:NICHO BUSTOS Subscriber ID:Not on file (Home) Address: [address] [place] [address] Payer ID:Not on file Group ID:Not on file Type:Self Pay Address: [place], [place] Advance Directives * Full Code (Latest Code Status on File) Date Activated Date Inactivated Comments 03/29/2019 5:52 PM 03/31/2019 4:28 PM Care Teams Operation Manager Relationship Specialty Start Date End Date Claudia Rutledge MD [address] [place] [address] PCP - General 04/15/19
--- OUTSIDE RECORDS SUMMARY | 2024-11-01 00:08 | XMS_ITS | Encounter Summary ---
Author Organization [address] [facility] Address [address] [place] [address] Phone Care Team Providers Care Head Athletic Trainer Name Role Phone Gely Alexander MD Primary Care Provider + [phone] Valerie Maher MD Unavailable [phone] Vitaly Roberts MD Unavailable Ángel Albarran MD Unavailable [phone] Tabitha Barth MD Unavailable [phone] Ovidio Rutledge MD Unavailable [phone] Neil Webb MD Unavailable [phone] Cam Brown DO Unavailable [phone] Octaviano Belle DO Unavailable [phone] Angel Arora MD Primary Care Provider [phone] Encounter Details Date Type Department Care Team (Late st Contact Info) Description 06/26/[address] [facility] [address] [place] [address] Gely Alexander MD [address] [place] [address] Social History Tobacco Use Types Packs/Day Years Used Date Smoking Tobacco: Never Smokeless Tobacco: Never Alcohol Use Standard Drinks/Week Comments Yes 0 (1 standard drink = 0.6 oz pur e alcohol) Comments No Sex and Gender Information Value Date Recorded Sex Assigned at Not on file Legal Sex Female 1:47 AM CROSSING GATEMAN Gender Identity Not on file Sexual Orientation Not on file documented as of this encounter Plan of Treatment Not on file documented as of this encounter Procedures Procedure Name Priority Date/Time Associated Diagnosis Comments SCAN - RADIOLOGY/IMAGING 06/26/2017 1:43 PM CROSSING GATEMAN documented in this encounter Results * SCAN - RADIOLOGY/IMAGING (06/26/2017 1:43 PM CROSSING GATEMAN) Anatomical Region Laterality Modality Other us Gely Alexander MD Final Resu lt documented in this encounter Visit Diagnoses Not on filedocumented in this encounter Additional Health Concerns Infection Onset Date Last Indicated Resolved Time COVID: Suspected 07/01/2020 07/01/2020 07/02/2020 5:12 AM CROSSING GATEMAN COVID19 07/01/2020 07/01/2020 07/15/2020 3:07 AM CROSSING GATEMAN documented as of this encounter Care Teams Head Athletic Trainer Relationship Specialty Start Date End Date Gely Alexander MD PCP - General 03/01/12 10/17/22 Angel Arora MD [address] [facility] [address] [facility] [address] [place] [address] PCP - General Internal Medicine 12/16/22 Valerie Maher MD Consulting Physician Gastroenterology 06/13/17 Vitaly Roberts MD [address] [address] Referring Physician Neurology 01/30/18 Ángel Albarran MD [address] [address] Consulting Physician Rheumatology 01/30/18 Tabitha Barth MD [address] [place] [address] Referring Physician Family Medicine 01/30/18 08/06/18 Ovidio Rutledge MD [address] [place] [address] Referring Physician Obstetrics and Gynecology 08/07/18 Neil Webb MD [address] [place] [address] Referring Physician Plastic Surgery 08/07/18 Cam Brown DO [address] [place] [address] Consulting Physician Cardiology 02/02/19 Octaviano Belle DO [address] [place] [address] Referring Physician Surgery 05/12/19 documented as of this encounter
--- OUTSIDE RECORDS SUMMARY | 2024-11-01 00:08 | XMS_ITS | Referral Summary ---
Author Organization [facility] [address] Address [address] [place] [address] Phone Care Team Providers Care Waiter/Waitress Cocktail Lounge Name Role Phone Valerie Maher MD Unavailable [phone] Vitaly Roberts MD Unavailable [phone] Ángel Albarran MD Unavailable [phone] Ovidio Rutledge MD Unavailable [phone] [facility] Unavailable Cam Brown DO Unavailable [phone] Octaviano Belle DO Unavailable [phone] Angel Arora MD Primary Care Provider [phone] Allergies No known active allergies Medications levonorgestrel [...] on file Legal Sex Female 1:47 AM COLOR BUFFER Gender Identity Not on file Sexual Orientation Not on file 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 Not on file Not on file Last Filed Vital Signs Vital Sign Reading Time Taken Comments Blood Pressure 124/68 07/01/2020 5:22 PM COLOR BUFFER Pulse 104 07/01/2020 5:24 PM COLOR BUFFER Temperature 37.2 C (98.9 F) 07/01/2020 5:22 PM COLOR BUFFER Respiratory Rate 14 07/01/2020 5:22 PM COLOR BUFFER Oxygen Saturation 97% 07/01/2020 5:24 PM COLOR BUFFER Inhaled Oxygen Concentration - - Weight 56.7 kg (125 lb) 07/01/2020 5:22 PM COLOR BUFFER Height 157.5 cm (5' 2 ) 07/01/2020 5:22 PM COLOR BUFFER Body Mass Index 22.86 07/01/2020 5:22 PM COLOR BUFFER Plan of Treatment Not [place] [address] [facility] [id number] [place] [address] Member Subscriber Plan / Payer (Ef fective 2017-Present) Name:Nicho Deleon Relation to Subscriber:Self Name:Nicho Deleon Payer ID:[id number] (NAIC) Group ID:Not on file Type:MEDICAID RISK OTHER Address: [address] [place] [address] [place] [address] [id number] [facility] Care Teams Waiter/Waitress Cocktail Lounge Relationship Specialty Start Date End Date Kopjas, Angel C., MD [address] [place] [address] PCP - General Internal Medicine 12/16/22 Valerie Maher MD Consulting Physician Gastroenterology 06/13/17 Vitaly Roberts MD [address] [facility] [address] [place] [address] Referring Physician Neurology 01/30/18 Ángel Albarran MD [address] [facility] [address] [place] [address] Consulting Physician Rheumatology 01/30/18 Ovidio Rutledge MD [address] [place] [address] Referring Physician Obstetrics and Gynecology 08/07/18 Neil Webb MD [address] [facility] [place] [place] [address] Referring Physician Plastic Surgery 08/07/18 Cam Brown DO [address] [place] [address] Consulting Physician Cardiology 02/02/19 Octaviano Belle DO [address] [place] [address] Referring Physician Surgery 05/12/19
--- OUTSIDE RECORDS SUMMARY | 2024-11-01 00:08 | XMS_ITS | Data Portability ---
Author Organization 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 Plan of Treatment Reminders Order Date Submit Date Provider Last Modified By Organization Details Last Modified Time Details Appointments None recorded. Lab None recorded. Referral None recorded. Procedures None recorded. Surgeries hysteroscop y, with endometrial ablation (SURG) 2020 021 [facility], [address], [place], [address], 10:39:49 Imaging US, transvagina l 2020 021 [email or web address] [place], [address], [address], [place], [address], 19:45:50 US, pelvis, complete 2020 021 [email or web address] Ovidio Rutledge MD, [address], [place], [address], 11:15:21 Medication Orders None recorded. Patient TargetsNo [...] or kits canno t be used inter [facility] . Femal e Estra diol Range s: Folli cular phase 12.4- 233 pg/mL Ovula tion phase 41.0- 398 pg/mL Lutea l phase 22.3- 341 pg/mL Postm enopa usal< 5-138 pg/mL Healt hy Pregn ant Women 1st Trime ster1 54-32 43 pg/mL 2nd Trime ster1 561-2 1280 pg/mL 3rd Trime ster8 525-> 54270 pg/mL Not Available [facility] (Lab) [address] [place], [address], 11/27/2020 03:46:53 11/27/19 21 11/26/2020 hormo ne panel , serum or plasm a FSH 3.7 mIU/m L This assay was perfo rmed using [employer] n reage nts and test kits. Value s obtai nya with other assay metho ds or kits canno t be used inter [facility] . Femal es Folli cular : 3.5-1 2.5 mIU/m L Ovula tion: 4.7-2 1.5 mIU/m L Lutea l: 1.7-7 .7 mIU/m L Postm enopa use: 25.8- 134.8 mIU/m L Not Available [facility] (Lab) [address] [place], [address], 11/27/2020 03:46:53 11/27/19 21 11/26/2020 hormo ne panel , serum or plasm a luteinizing hormone 8.9 mIU/m L This assay was perfo rmed using [employer] reage nts and test kits. Value s obtai nya with other assay metho ds or kits canno t be used inter [facility] . Femal es Mid-F ollic ular: 2.4-1 2.6 mIU/m L Mid-C ycle: 14.0- 95.6 mIU/m L Mid-L uteal : 1.0-1 1.4 mIU/m L Postm enopa use: 7.7-5 8.5 mIU/m L Not Available [facility] (Lab) [address], [place], [address], 11/27/2020 03:46:53 11/27/19 21 11/26/2020 TSH, serum or plasm a TSH 0.10 uIU/m L 0.30-5 .00 low Not Available [facility] (Lab) [address] [place], [address], 11/27/2020 03:46:54 11/27/19 21 11/26/2020 T4, free, serum T4, free 1.07 NG/dL 0.80-1 .80 Not Available [facility] (Lab) [address] [place], [address], 11/27/2020 14:48:44 12/05/19 21 12/04/2020 free T3, quant itati ve, dialy sis serum or plasm a T3, free 3.1 pg/mL 2.5-3. 9 Not Available [facility] (Lab) [address] [place], [address], 12/05/2020 02:36:59 12/05/19 21 12/04/2020 TSH, serum or plasm a TSH 0.17 uIU/m L 0.30-5 .33 low Not Available [facility] (Lab) [address] [place], [address], 12/05/2020 02:37:00 12/05/19 21 12/04/2020 T4, free, serum T4, free 0.84 NG/dL 0.60-1 .40 Not Available [facility] (Lab) [address] [place], [address], 12/05/2020 02:37:01 12/05/19 21 12/04/2020 thyro globu timothy Ab, serum thyroglobuli n antibody <1.0 IU/mL 0.0-4. 0 Not Available [facility] (Lab) [address], [place], [address], 12/05/2020 02:37:01 12/05/19 21 12/04/2020 thyro globu timothy Ab, serum thyroperoxid ase antibodies <0.3 IU/mL 0.0-9. 0 Not Available [facility] (Lab) [address], [place], [address], 12/05/2020 02:37:01 11/21/19 21 12/02/2020 US, trans vagin al No observ ation record ed. [email or web address] [place] [address], [place], [address], 12/02/2020 11:31:21 11/21/19 21 11/20/2020 US, trans vagin al No observ ation record ed. danyelle Ge [address], [place], [address], 11/23/2020 11:35:20 Result Notes None recorded. Problems Name Problem SNOMED Code Status Onset Date Resolution Date Notes Provider Name and Address Organization Details Recorded Time Hypertro phy of vulva 44678804 Active 2011 Hypertro phy of labia;Pr actice ID: 0001 Not Available [facility] 0 18:41:47 Dyspareu quirino 21065374 Completed 201112/25/2020 Dyspareu quirino;Prac arabella ID: 0001 Nataliya liao [facility] 16:29:10 Female genital organ symptoms 752225984 Completed 201112/25/2020 Unspecif ied symptom associat ed with female genital organs;P ractice ID: 0001 Nataliya Jayla liao [facility] 16:29:12 Psychose xual dysfunct ion 076219994 Active 2011 Hypoacti ve sexual desire disorder ;Practic e ID: 0001 Not Available [facility] 0 18:41:47 Pre-surg yuriy evaluati on Active 2011 Pre-oper ative examinat ion, unspecif ied;Prac arabella ID: 0001 Not Available [facility] 0 18:41:47 Screenin g for malignan t neoplasm of cervix Active 2012 Pap Smear;Pr actice ID: 0001 Not Available [facility] 0 18:41:48 Postcoit al bleeding 48423355 Active 2012 Postcoit al bleeding ;Practic e ID: 0001 Not Available [facility] 0 18:41:48 Speciali zed medical examinat ion Active 2012 Routine gynecolo gical examinat ion;Prac arabella ID: 0001 Not Available [facility] 0 18:41:48 Urinary tract infectio us disease 61278433 Active 2014 Urinary tract infectio n, site not specifie d;Practi ce ID: 0001 Not Available [facility] 0 18:41:48 Adult health examinat ion Completed 201412/25/2020 Routine general medical examinat ion at a health care facility ;Practic e ID: 0001 Nataliya liao, [facility] 1 16:29:02 Pregnanc y test negative 922261514 Active 2014 Negative Pregnanc y Test;Pra ctice ID: 0001 Not Available [facility] 0 18:41:48 Clinical finding Completed 201511/20/2020 Presence of (intraut erine) contrace ptive device;P ractice ID: 0001 Ovidio Rutledge MD [address], [place], [address], [facility] 1 15:50:21 Human papillom avirus deoxyrib onucleic acid detected , high risk on cervical specimen 405932672 Active 2014 Cervical high risk HPV DNA test positive ;Practic e ID: 0001 Not Available [facility] 0 18:41:48 Removal of intraute rine device Active 2014 Encounte r for removal of intraute rine contrace ptive device;P ractice ID: 0001 Not Available [facility] 0 18:41:48 Foreign body in genitour inary tract Active 2014 Foreign body in uterus, sequela; Practice ID: 0001 Not Available [facility] 0 18:41:48 Sour Bleaching Pleater al complica tion of intraute rine contrace ptive device Active 2014 Displace ment of intraute rine contrace ptive device, init;Pra ctice ID: 0001 Not Available [facility] 0 18:41:49 Finding of pattern of menstrua l cycle 843256035 Active 2014 Excessiv e and frequent menstrua tion with irregula r cycle;Pr actice ID: 0001 Not Available [facility] 0 18:41:49 Insertio n of intraute rine contrace ptive device Active 2014 Encounte r for insertio n of intraute rine contrace ptive device;P ractice ID: 0001 Not Available [facility] 0 18:41:49 Contrace ptive sheath status 122827809 Completed 201511/20/2020 Encounte r for routine checking of intraute rine contrace p dev;Prac arabella ID: 0001 Ovidio Rutledge MD [address], [place], [address], [facility] [address] 15:50:[address] Concept Active 2015 Encntr for gas check pad maker exam (general ) (routine ) w/o abn findings ;Practic e ID: 0001 Not Available [facility] 0 18:41:49 Pelvic and perineal pain 119116093 Active 2016 Pelvic and perineal pain;Pra ctice ID: 0001 Not Available [facility] 0 18:41:49 Atypical squamous cells of undeterm ined signific ance on cervical Papanico laou smear 236173649 Active 2016 Atyp squam cell of undet signfc cyto smr crvx (ASC-US) ;Practic e ID: 0001 Not Available [facility] 0 18:41:49 Blood leukocyt e number above referenc e range 379550084 Active 2017 Elevated white blood cell count, unspecif ied;Prac arabella ID: 0001 Not Available [facility] 0 18:41:50 Finding of general energy 959352483 Active 2017 Other fatigue; Practice ID: 0001 Not Available [facility] 0 18:41:50 Postcoit al finding 987590185 Active 2017 Postcoit al and contact bleeding ;Practic e ID: 0001 Not Available [facility] 0 18:41:50 Sexual function painful Active 2017 Unspecif ied dyspareu quirino;Prac arabella ID: 0001 Not Available [facility] 0 18:41:50 Lesion of ovary Completed 201712/25/2020 Other ovarian cyst, right side;Pra ctice ID: 0001 [address] [place] [facility] 16:29:07 Finding of desire for urinatio n 493666818 Completed 201712/25/2020 Urgency of urinatio n;Practi ce ID: 0001 Nataliya [facility] 16:29:16 Bleeding 046464642 Completed 201712/25/2020 Abnormal uterine and vaginal bleeding , unspecif ied;Prac arabella ID: [address] [place] [facility] 16:29:14 Right lower quadrant pain 808535178 Active 2017 Right lower quadrant pain;Pra ctice ID: 0001 Not Available [facility] 0 18:41:51 Abdomina l pain 78863346 Completed 201712/25/2020 Abdomina l pain;Rec orded Elsewher e: No Locat ion: [facility] S ource: EHR Attendant Child Activity matheus: N Practi ce ID: 0001 Alvino lable Time: 10:30:00 AM Nataliya liao [facility] 1 16:29:00 Vaginiti s and vulvovag initis Active 2010 Vaginiti s and vulvovag initis, unspecif ied;Prac arabella ID: 0001 Not Available [facility] 0 18:41:51 Cyst of ovary Completed 201712/25/2020 Unspecif ied ovarian cyst, unspecif ied side;Rec orded Elsewher e: No [facility] Att[facility] Child Activity matheus: N Practi ce ID: 0001 Alvino lable Time: 11:37:49 AM Nataliya liao [facility] [address] 16:29:[address] Concept Active 2017 Encntr for general adult medical exam w/o abnormal findings ;Recorde d Elsewher e: No Locat ion: [facility] S ource: EHR Attendant Child Activity matheus: N Practi ce ID: 0001 Alvino lable Time: 10:00:00 AM Not Available [facility] 0 18:41:54 Constipa tion 93408062 Completed 201211/20/2020 Constipa tion, unspecif ied;Jori rded Elsewher e: No Locat ion: [facility] S ource: EHR Attendant Child Activity matheus: Y Practi ce ID: 0001 Alvino lable Time: 04:30:00 PM Ovidio Rutledge MD [address], [place], [address], [place] [facility] 1 15:50:23 Imaging of abdomen abnormal 741514532 Active 2018 Abn findings on dx imaging of abd regions, inc retroper iton;Rec orded Elsewher e: No Locat ion: [facility] S ource: EHR Attendant Child Activity matheus: N Practi ce ID: 0001 Alvino lable Time: 11:50:28 AM Not Available [facility] 0 18:41:55 Clinical finding Completed 201811/20/2020 Sexual dysfunct ion;Jori rded Elsewher e: No Locat ion: [facility] S ource: EHR Attendant Child Activity matheus: N Practi ce ID: 0001 Alvino lable Time: 04:30:00 PM Ovidio Rutledge MD [address], [place], [address], [facility] 15:50:18 Clinical finding Completed 201811/20/2020 Dysplasi a of cervix uteri, unspecif ied;Jori rded Elsewher e: No Locat ion: [facility] S ource: EHR Attendant Child Activity matheus: N Practi ce ID: 0001 Alvino lable Time: 09:00:00 AM Ovidio Rutledge MD [address], [place], [address], [facility] 15:50:15 Problem Notes None recorded. Procedures Surgical History Date Name Laterality Status Provider Name and Address Organization Details Recorded Time 12/31/19 21 HYSTEROSCOPY, WITH ENDOMETRIAL ABLATION (SURG) completed Brittani Allison [facility] 12/31/2020 10:39:50 03/20/20 20 Date of Last Pap Smear completed [facility] 10/30/2020 16:43:58 04/16/20 19 Cholecystectomy completed [facility] 03/20/2020 16:50:54 mammoplasty completed [facility] 03/20/2020 16:28:22 Laparoscopy completed [facility] 03/20/2020 16:30:23 Cholecystectomy completed [facility] 10/30/2020 16:38:25 Imaging Results Imaging Date Name Status LastModified by Organization Details LastModified Time 12/02/2020 US, transvaginal completed [email or web address], [place], [address], 12/02/2020 11:31:21 11/20/2020 US, transvaginal completed danyelle Ge [address] [facility], [place], [address], 11/23/2020 11:35:20 Procedure Notes None recorded. Medical [...] Elsewher e: No Locat ion: [facility] odify By: yoni campo DateTime : 02/28/20 [...] Prescrib ed Elsewher e: No Locat ion: [facility] odify By: lulu sol DateTime : 08/08/19 11:15:00 AM Not Available Not Available Not Available Celebrex 200 mg capsule po the night before and 400mg po morning of the procedur e 12/27 completed Prescrib ed Elsewher e: No Locat ion: [facility] odify By: lulu sol DateTime : 06/03/20 [...] Prescrib ed Elsewher e: Yes Loca tion: [facility] odify By: mayra campo DateTime : 04/12/20 12 03:30:00 PM Not Available Not Available Not Available Synthroid 25 mcg tablet take 1 tablet by oral route every day active Prescrib ed Elsewher e: Yes Loca tion: [facility] odify By: yoni campo DateTime : 02/21/20 19 04:30:00 PM Not Available Not Available Not Available gabapenti n 300 mg capsule TAKE 1 CAPSULE BY MOUTH TWICE DAILY active Not Available Not Available No t Available gabapenti n 100 mg capsule take 3 capsule by oral route every day at bedtime active Prescrib ed Elsewher e: Yes Loca tion: [facility] odify By: yoni campo DateTime : 02/21/20 19 04:30:00 PM Not Available Not Available Not Available diazepam 10 mg tablet op 1 hour before the procedur e 12/27 completed Prescrib ed Elsewher e: No Locat ion: Brice leander [facility] odify By: lulu coxunter DateTime : 06/03/20 15 02:50:34 PM Not Available Not Available Not Available topiramat e 15 mg sprinkle capsule take 1 capsule by oral route 2 times every day in the morning and evening active Prescrib ed Elsewher e: Yes Loca tion: [facility] odify By: yoni Mccullough ter DateTime : [...] Elsewher e: Yes Loca tion: [facility] odify By: mayra campo DateTime : 03/06/20 12 10:30:00 AM Not Available Not Available Not Available Synthroid 10/30 completed Not Available Not Available Not Available hydrocodo ne 5 mg-acetam inophen 300 mg tablet take 1 tablet by oral route every 4 - 6 hours as needed for pain 02/20 completed Prescrib ed Elsewher e: Yes Loca tion: [facility] odify By: yoni camop DateTime : 12/28/19 17 02:00:00 PM Not Available Not Available Not Available Acid Relief (cimetidi ne) 200 mg tablet take 1 tablet by oral route 2 times every day 30 minutes before meals 07/22 completed Prescrib ed Elsewher e: Yes Loca tion: [facility] odify By: mayra campo DateTime : 04/12/20 12 03:30:00 PM Not Available Not Available Not Available Linzess 290 mcg capsule active Not Available Not Available Not Available Vitals Date Recorded Body height Body mass index (BMI) Body weight Systolic blood pressure Diastolic blood pressure Provider Name and Address Organization Details Last Updated DateTime 10/30/2020 154.94 cm 25.1 kg/m2 11059.79 g 130 mm[Hg] 86 mm[Hg] [facility] 16:38:14 Date Recorded Body height Body mass index (BMI) Body weight Systolic blood pressure Diastolic blood pressure Provider Name and Address Organization Details Last Updated DateTime 11/20/2020 154.94 cm 24 kg/m2 38193.23 g 119 mm[Hg] 80 mm[Hg] [facility] 15:43:52 Date Recorded Body height Body mass index (BMI) Body weight Systolic blood pressure Diastolic blood pressure Provider Name and Address Organization Details Last Updated DateTime 12/25/2020 154.94 cm 23.8 kg/m2 49614.64 g 117 mm[Hg] 75 mm[Hg] [facility] 16:28:54 Social History Question Answer Notes LastModified by Organizat ion Details LastModified Time Tobacco Smoking Status [facility] 11/20/2020 14:58:15 Do You Have An [...] Or The Highest Degree You Have Received? 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 [id number] Information not available 10/30/2020 Do You Use [...] 16:26:48 Father Carcinoma in situ of esophagus [email or web address] Not available 2020 14:58:14 Maternal Uncle Diabetes [...] SNOMED-CT Code Diagnosis ICD10 Code Diagnosis Note [id number] Ovidio Rutledge MD [place] [address],[facility] [place] [address] 03/20/2020 16:07:20 03/20/2020 18:21:51 Gynecologic examination 93866743 Z01.419 This patient is here for her [...] antibiotic s Urinary tr act infectious disease 86528282 N39.0 [id number] Ovidio Rutledge MD [place] [address] [address] 10/30/2020 16:22:22 10/30/2020 17:05:12 Pain in pelvis 95733836 R10.2 This patient is a 35-year-ol d female with pelvic pain and severe menorrhagi a. We discussed endometria l ablation today. She has a fibroid uterus. This was seen on a CT scan of the abdomen pelvis. We will obtain a pelvic ultrasound and discuss treatment options for pain and menorrhagi a. [id number] Jennifer Garduno [place] [address] [address] 11/20/2020 14:57:29 11/20/2020 15:32:25 Pain in pelvis 71220825 R10.2 N92.4 This patient is a 35-year-ol d female with pelvic pain and severe menorrhagi a. We discussed endometria l ablation today. She has a fibroid uterus. This was seen on a CT scan of the abdomen pelvis. We will obtain a pelvic ultrasound and discuss treatment options for pain and menorrhagi a. [id number] Ovidio Rutledge MD [place] [address] [address] 11/20/2020 14:58:11 11/20/2020 16:08:37 Menorrhagia 200583041 N92.0 this patient is a 35-year-ol d [...] will return for the informed consent process. [id number] Ovidio Rutledge MD [place] [address] [address] 12/25/2020 16:14:08 12/26/2020 16:08:08 Menorrhagia 930588233 N92.0 this patient is a 35-year-ol d female presents for preoperati ve care. She has severe menorrhagi a and we have agreed to perform endometria l ablation with hysterosco py. She understand s the risks, benefits, and alternativ es. She has completed the informed consent process and is ready to proceed. [id number] Ovidio Rutledge MD [place] [address] [address] 12/31/2020 09:34:38 12/31/2020 09:35:34 Health Concerns Section Related Observation LastModified by Organization Detai ls LastModified Time None Recorded Concern Status LastModified by Organization Details LastModified Time None Recorded Advance Directives Directive N: Payers Encounter Date Sequence Insurance Name Policy Number Policy White Covered Member ID White Member ID Guarantor Name 10/30/2020 1 [facility] PRIOR TO 2021 (MEDICAID REPLACEMENT - HMO) Nicho Deleon [id number] Nicho Deleon 11/20/2020 1 [facility] PRIOR TO 2021 (MEDICAID REPLACEMENT - HMO) Nicho Deleon [id number] Nicho Deleon 11/20/2020 1 [facility] PRIOR TO 2021 (MEDICAID REPLACEMENT - HMO) Nicho Deleon [id number] Nicho Deleon 12/25/2020 1 [facility] PRIOR TO 2021 (MEDICAID REPLACEMENT - HMO) Nicho Deleon [id number] Nicho Deleon 12/30/2020 1 [facility] PRIOR TO 2021 (MEDICAID REPLACEMENT - HMO) Nicho Deleon [id number] Nicho Deleon Notes Date Note Type Note [...] living. Ovidio Rutledge MD [address], [place], [address], [facility] 10/30/2020 18:17:15 11/20/2020 text/html this patient [...] process. Ovidio Rutledge MD [address], [place], [address], [facility] 11/20/2020 16:06:14 12/25/2020 text/html this [...] infection. Ovidio Rutledge MD [address], [place], [address], [facility] 12/25/2020 17:07:11 OBGyn Episode Ob Episode Information Episode Created Date Number of Fetuses Patient Bloodtype Patient rh Status Prepregnancy Weight lbs Domestic Partner Domestic Partner Phone Father Name Certified Ethical Hacker Status 03/20/20 20 1 CLOSED Fetus Data [...] Domestic Partner Domestic Partner Phone Father Name Certified Ethical Hacker Status 03/20/20 20 1 CLOSED Fetus Data [...]
--- OUTSIDE RECORDS SUMMARY | 2024-11-01 00:08 | XMS_ITS | Clinical Summary ---
Author Organization [facility] Address [address] [place] [address] Phone Care Team Providers Care Test Pilot Name Role Phone Gely Alexander MD Primary Care Provider Allergies No known active allergies Medications Levonorgestrel (MIRENA, 52 MG,) 20 MCG/24HR IUD by Intrauterine route. Active buPROPion (WELLBUTRIN XL) 300 MG TABLET SR 24 HR XL tablet Take 300 mg by mouth every morning. Active DULoxetine (CYMBALTA) [address] Particles Take 60 mg by mouth daily. Active Multiple Vitamin (MULTI-VITAMIN PO) Take 1 Tab by mouth daily. Active calcium carbonate (TUMS EX) 750 MG Chewable Tablet Take 750 mg by mouth daily. Active Probiotic Product (PROBIOTIC DAILY PO) Take 1 Cap by mouth daily. Active polyethylene glycol (MIRALAX) PowderIndicatio ns:Constipation ,2-3 scoops Take 34 g by mouth daily. 17 g = 1 scoop. Dissolve in 4 -8 oz of water or other liquid. Active gabapentin (NEURONTIN) 300 MG Capsule Take 1 cap by mouth twice daily. 60 Cap 3 8 Active raNITIdine (ZANTAC) 300 MG Tablet Take 1 Tab by mouth daily. 90 Tab 3 8 Active Additional Information Patient not taking.Reported on 11/07/2018 LINZESS 290 MCG Capsule Take 290 mcg by mouth every morning (before breakfast). 8 Active ondansetron (ZOFRAN) 4 MG Tablet Take 1 Tab by mouth every 8 hours as needed for Nausea - 1st line. 15 Tab 1 9 Active Additional Information Patient not taking.Reported on 11/07/2018 ondansetron (ZOFRAN-ODT) 4 MG TABLET DISPERSIBLE Take 1 Tab by mouth every 6 hours as needed for Nausea - 1st line. 10 Tab 9 Active Additional Information Patient not taking.Reported on 11/07/2018 Naratriptan HCl 1 MG Tablet Take 1 tablet at the onset of migraine, repeat dose as needed 4 hours later. 10 Tab 3 9 Active Additional Information Patient not taking.Reported on 02/06/2019 topiramate (TOPAMAX) 25 MG Tablet Take 25 mg by mouth 2 times daily. Active levothyroxine (SYNTHROID) 112 MCG Tablet Take 112 mcg by mouth daily. Active Erenumab-aooe (AIMOVIG) 70 MG/ML Solution Auto-injector 70 mg by Subcutaneous route every 30 days. 70 mL 6 9 Active Active Problems Problem Noted Date Diagnosed Date Chronic bilateral low back pain without sciatica 05/16/2019 Ventricular tachycardia seen on cardiac exercise specialist 10/17/2018 Palpitations 10/17/2018 Depression 10/17/2018 Pain and swelling of lower extremity 09/12/2018 Lumbar radiculopathy 09/10/2018 Chest pain 09/10/2018 Muscle pain, cervical 07/24/2018 Fibromyalgia 04/17/2018 Numbness and tingling 12/19/2017 Intractable migraine without aura and without status migrainosus 12/19/2017 MANDIE (obstructive sleep apnea) 11/01/2016 Anxiety 11/01/2016 SOB (shortness of breath) 11/01/2016 Gastroesophageal reflux disease with esophagitis 11/01/2016 Family History Medical History Relation Name Comments Cancer Father esophageal High Cholesterol Father Heart Attack Maternal Aunt 1 Heart Attack Maternal Aunt 2 High Cholesterol Mother Hypertension Mother Stroke Mother Hypertension Sister Relation Name Status Comments Father Alive Maternal Aunt 1 Maternal Aunt 2 Mother Alive Sister Social History Tobacco Use Types Packs/Day Years Used Date Smoking Tobacco: Never Smokeless Tobacco: Never Tobacco Cessation:Counseling Given: No Alcohol Use Standard Drinks/Week Comments Yes 7 (1 standard drink = 0.6 oz pure alcohol) occasional glass of wine at dinner Sexually Active Control Partners Comments Yes None Male Comments No Sex and Gender Information Value Date Recorded Sex Assigned at Not on file 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 Gender Identity Not on file Sexual Orientation Not on file 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 Not on file Not on file Not on file Last Filed Vital Signs Vital Sign Reading Time Taken Comments Blood Pressure 114/70 05/10/2019 10:00 AM CDT Pulse 75 05/10/2019 10:00 AM CDT Temperature 36.4 C (97.6 F) 05/10/2019 10:00 AM CDT Respiratory Rate 16 05/10/2019 10:00 AM CDT Oxygen Saturation 100% 05/10/2019 10:00 AM CDT Inhaled Oxygen Concentration - - Weight 56 kg (123 lb 6.4 oz) 05/10/2019 10:00 AM CDT Height 157.5 cm (5' 2 ) 05/10/2019 10:00 AM CDT Body Mass Index 22.57 05/10/2019 10:00 AM CDT Plan of Treatment Health Maintenance Due Date Last Done Comments Hepatitis C Virus (HCV) Screening 1983 TdaP Immunization 1983 Hepatitis B Immunization (1 of 3 - 19+ 3-dose series) 2002 Influenza Immunization (#1) 2024 03/17/2016 SARS-COV-2 Immunization ( - 2023-25 season) 2024 Respiratory Syncytial Virus (RSV) Immunization (Adult) (1 - 1-dose 75+ series) 2058 Meningococcal Immunization (ACWY) Aged Out No longer eligible based on patient's age to complete this topic Pneumococcal Immunization Combined Aged Out No longer eligible based on patient's age to complete this topic Rotavirus Immunization Aged Out No lo nger eligible based on patient's age to complete this topic Insurance MEDICAID [employer] Advance Directives * Full Code (Latest Code Status on File) Date Activated Date Inactivated Comments 10/17/2018 7:09 PM 10/18/2018 4:17 PM CPR-Full Treat ment: FULL ARREST: Attempt Resuscitation/CPR wit intubation and mechanical ventilation. PRE-ARREST: Use entire range of life support measures to stabilize the patient. Care Teams Test Pilot Relationship Specialty Start Date End Date Gely Alexander MD [address] [place] [address] PCP - General Internal Medicine 08/12/16
--- OUTSIDE RECORDS SUMMARY | 2024-11-01 00:08 | XMS_ITS | CONTINUITY OF CARE DOCUMENT ---
Author Name ceenell ceenell Address Unknown Organization [facility] Address [address] [address] [facility] [address] [place] [address] Phone [phone] Care Team Providers Care Event Staff Member Name Role Phone Sotero BENJAMIN, Saulius Unavailable [phone] NICOLE BENJAMIN, TANIYA Unavailable NICOLE BENJAMIN, TANIYA Unavailable PROBLEMS Condition Status [...] In-person encounter Office Visit Cam Brown DO [facility] Office SVT 02/27 - 02/27 In-person encounter Office Visit Cam Blankenshipvey Office 12/04 - 12/05 In-person encounter Office Visit Cam Brown DO [facility] Office PalpitationsEndometriosisConstipationHea dachesFamily History of Sudden Cardiac DeathShortness of breathEdema VITAL SIGNS Date Observation Value Provider Body Mass Index (Ratio) 23.04 kg/m2 Km nick Lambros blood pressure, diastolic 80 mm[Hg] Basilio recio [place] blood pressure, systolic 110 mm[Hg] Ynes edward [place] oxygen saturation, oximetry 98 % Stacia [place] respiratory rate E&M 16 /min Stacia [place] pulse rate 71 /min [facility] [place] weight E&M 126 [lb_av] Stacia [place] height E&M 62 [in_i] Stacia [place] Body Mass Index (Ratio) 22.68 kg/m2 Km Zaldivar oxygen saturation, oximetry 98 % [facility], diastolic 78 mm[Hg] Ch [...] Location 2 LDL cholesterol, serum 119 mg/dL eMlquiades Boboberg HISTORY OF MEDICATION USE Medication Status Instructions Dates Provider Indications Com ments SYNTHROID 112 MCG ORAL TABLET active ONE TAB. DAILY Stacia Silvana'Jersey LINZESS 290 MCG ORAL CAPSULE active 1 cap once daily Emily Frausto QUDEXY XR 25 MG ORAL CAPSULE ER 24 HOUR SPRINKLE active 1 cap daily Emily Frausto SOCIAL HISTORY Date Observation Value Provider smoking status Never smoker Cam [place] ck social history E&M S moking History: Nadege silva has never smoked. Cam Cabell social history reviewed E&M revi ewed - no changes required Cam Brown smoking status Never smoker Cam Gal ck social history E&M S moking History: Nadege silva has never smoked. Cam Brown social history reviewed E&M revi ewed - no changes required Cam Brown smoking status Never smoker Cam [place] ck social history E&M S moking History: [...] Policy type / Coverage type [place] red libertarian [place] MEDICAID (2) Medicaid [id number] ADVANCE DIRECTIVES Name Date DISCUSSED - NO [...] negative echo in 09/2018 at [facility]. She is scheduled for breast surgery on Monday of this week. She has had no CP or SOB and has no other cardiac disease. H er EKG is normal today. She is acceptable risk for anesthesia and surgery. Cma Cabell Electrophysiology:s/ p SVT ablation 03/2019, no recurrences [...] negative echo in 09/2018 at [facility]. Cam Lambcock Electrophysiology:Sy mptoms started 2-3 [...] negative echo in 09/2018 at [facility]. Discussed SVT ablation in depth with patient. Discussed procedure risks, benefits and alternatives. The patient agrees to proceed. Cam Brown DO Electrophysiology:Sy mptoms started 2-3 years ago. [...] negative echo in 09/2018 at [facility]. Will await review of monitor strips and also review of workup at [facility]. I think it is unlikely that she has anything significant pathologically and she can probably have surgery without problem, but we will await review of records. Cam Brown DO HISTORY OF PROCEDURES Procedure Date Procedure Name Provider Procedure Notes S tatus EKG Cam Brown DO comple melissa EKG Cam Santock DO comple melissa EKG Cam Santock DO comple melissa EKG Cam Santock DO comple melissa
--- OUTSIDE RECORDS SUMMARY | 2024-11-01 00:08 | XMS_ITS | Clinical Summary ---
Author Organization [facility] Address [address] [place] [id number] Care Team Providers Care Scale Shooter Name Role Phone Unavailable Primary Care Provider [...] 2023 COVID-19 Vaccine (2023-2 5 season) 2024 HPV Vaccines Aged Out No longer eligi ble based on patient's age to complete this topic Meningococcal B Vaccine Aged Out No l onger eligible based on patient's age to complete this topic Meningococcal Vaccine Aged Out No makayla eron eligible based on patient's age to complete this topic Pneumococcal Vaccine: Pediat rics (0 to 5 Years) and At-Risk Patients (6 to 49 Years) Aged Out No longer eligible b ased on patient's age to complete this topic RSV Immunizations Under 20 Months Aged Out No longer eligible based on patient's age to complete this topic
--- OUTSIDE RECORDS SUMMARY | 2024-11-01 00:08 | XMS_ITS | Clinical Summary ---
Author Organization [facility] [address] Address [address] [place] [address] Phone Care Team Providers Care Banking Services Advisor Name Role Phone Valerie Maher MD Unavailable [phone] Vitaly Roberts MD Unavailable [phone] Ángel Albarran MD Unavailable [phone] Ovidio Rutledge MD Unavailable [phone] [facility] HospitalNeil feliz MD Unavailable Cam Brown DO Unavailable [phone] Octaviano Belle DO Unavailable [phone] Angel Arora MD Primary Care Provider [phone] Allergies No known active allergies Medications levonorgestrel [...] on file 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 Gender Identity Not on file Sexual Orientation Not on file 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 on file Not on file Not on file Obstetrics History Last Filed Vital Signs Vital Sign Reading Time Taken Comments Blood Pressure 124/68 07/01/2020 5:22 PM SALES TRAINER Pulse 104 07/01/2020 5:24 PM SALES TRAINER Temperature 37.2 C (98.9 F) 07/01/2020 5:22 PM SALES TRAINER Respiratory Rate 14 07/01/2020 5:22 PM SALES TRAINER Oxygen Saturation 97% 07/01/2020 5:24 PM SALES TRAINER Inhaled Oxygen Concentration - - Weight 56.7 kg (125 lb) 07/01/2020 5:22 PM SALES TRAINER Height 157.5 cm (5' 2 ) 07/01/2020 5:22 PM SALES TRAINER Body Mass Index 22.86 07/01/2020 5:22 PM SALES TRAINER Plan of Treatment Not on file Insurance [facility] Member Subscriber Plan / Payer (Ef fective 2017-Present) Name:Nicho Deleon Relation to Subscriber:Self Name:Nicho Deleno Payer ID:[id number] (NAIC) Group ID:Not on file Type:MEDICAID RISK OTHER Address: [address] [place] [address] [place] [address] [facility] Care Teams Banking Services Advisor Relationship Specialty Start Date End Date Angel Arora MD [address] [facility] [address] [facility] [address] [place] [address] PCP - General Internal Medicine 12/16/22 Valerie Maher MD Consulting Physician Gastroenterology 06/13/17 Vitaly Roberts MD [address] [facility] [address] [place] [address] Referring Physician Neurology 01/30/18 Ángel Albarran MD [address] [place] [address] [address] [place] [address] Consulting Physician Rheumatology 01/30/18 Ovidio Rutledge MD [address] [place] [address] Referring Physician Obstetrics and Gynecology 08/07/18 Neil Webb MD [address] [place] [address] Referring Physician Plastic Surgery 08/07/18 Cam Brown DO [address] [place] [address] Consulting Physician Cardiology 02/02/19 Octaviano Belle DO [address] [place] [address] [address] Referring Physician Surgery 05/12/19
--- NOTE | 2024-11-01 06:48 | WPDANESEPPF ---
Anes - Initial Pre Proc Eval Procedure: Operation Date: 11/01/24 08:00 Proposed Procedures p Colonoscopy - Daniel Kirby MD Date/Time: 11/01/24 06:48 Surgeon: Daniel Kirby MD Pre Op Diagnosis: abd pain,fecal abnormalities,abd distension Patient Data Age: 39 Gender: F Height: 1.57 m Weight: 51.3 kg Allergies Allergy/AdvReac Type Severity Reaction Status Date / Time doxycycline Allergy Intermediate Rash Verified 10/24/24 12:10 Home Medications ?Medication ?Instructions ?Recorded ?Confirmed ?Type multivit with minerals-iron 18 1 tablet PO DAILY 11/25/19 10/24/24 History mg-folic ac 400 mcg-vit K 25 mcg tablet (Adults Multivitamin) calcium polycarbophil 625 mg 1,250 mg PO DAILY 08/19/20 10/24/24 History tablet (FiberCon) cholecalciferol (vitamin D3) 25 25 mcg PO .every other day 08/24/21 10/24/24 History mcg (1,000 unit) tablet omeprazole 40 mg capsule,delayed 40 mg PO BID 04/12/22 10/24/24 History release fluticasone propionate 50 2 spray intranasal DAILY 14 days 03/17/23 10/24/24 Rx mcg/actuation nasal #15.8 mL spray,suspension (Flonase Allergy Relief) pseudoephedrine HCl 120 mg 120 mg PO Q12H PRN nasal 03/17/23 10/24/24 Rx tablet,extended release (12 Hour congestion #12 tabs Decongestant ER) lorazepam 0.5 mg tablet (Ativan) 0.5 mg PO TID PRN anxiety #30 tabs 05/19/23 10/24/24 Rx gabapentin 300 mg capsule 600 mg (2 x 300 mg) PO TID PRN 09/11/23 10/24/24 Rx pain 90 days #540 caps levothyroxine 100 mcg tablet 100 mcg PO DAILY #90 tabs 05/29/24 10/24/24 Rx triamterene 37.5 See Rx Instructions .Route 06/04/24 10/24/24 Rx mg-hydrochlorothiazide 25 mg tablet .COMPLEX #30 tabs calcium 333 mg 1 tablet PO DAILY 07/01/24 10/24/24 History (carbonate)-magnesium 133 mg-zinc 5 mg (sulfate) tablet TESTOSTERONE 0.05% CREAM See Rx Instructions .Route 07/30/24 10/24/24 Rx (P#[id number]) (GLYCERIN LIQUID, .COMPLEX #15 grams VERSABASE CREAM) escitalopram oxalate 10 mg tablet 10 mg PO DAILY #90 tabs 08/28/24 10/24/24 Rx (Lexapro) ondansetron 4 mg disintegrating 4 mg PO Q8H 08/28/24 10/24/24 History tablet simethicone 500 mg capsule 500 mg PO QID 08/28/24 10/24/24 History (Phazyme) potassium chloride 10 mEq See Rx Instructions .Route 09/09/24 10/24/24 Rx tablet,extended release .COMPLEX #90 tabs rosuvastatin 10 mg tablet See Rx Instructions .Route 09/15/24 10/24/24 Rx .COMPLEX #90 tabs meloxicam 15 mg tablet See Rx Instructions .Route 10/09/24 10/24/24 Rx .COMPLEX #90 tabs methylphenidate HCl 10 mg tablet 10 mg PO TID #90 tabs 10/16/24 10/24/24 Rx methylphenidate HCl 5 mg tablet 5 mg PO TID #90 tabs 10/16/24 10/24/24 Rx Patient hx anesthesia problems: none Family hx anesthesia problems: none Results Review: All pre-operative results and documents have been reviewed as part of the pre-operative evaluation. [facility] Past Medical History Medical History Depression Rectal bleeding Rib pain on left side Raynaud's disease Right shoulder pain Panic attacks Hypokalemia Olympia's disease Pedal edema Tachycardia Repetitive intrusions of sleep Pain, upper extremity Tingling of upper extremity Vitamin D deficiency Hypersomnolence Encounter for routine adult health examination with abnormal findings Plantar fasciitis Numbness and tingling of both upper extremities Tenosynovitis BMI 21.0-21.9, adult Drug reaction Hyperlipidemia Paronychia High vitamin D level Family history of Olympia's disease Rectal prolapse Cervicalgia BMI 22.0-22.9, adult Encounter for preventive health examination Ulnar neuropathy at elbow Paresthesia of both lower extremities Low back pain radiating down leg Low testosterone level in female ADD (attention deficit disorder) Lack of concentration Insomnia Irritable bowel syndrome CTS (carpal tunnel syndrome) Anxiety with depression Personal history of COVID-19 Encounter for routine adult health examination without abnormal findings On manager terminal drug therapy Blood in stool Irritable bowel syndrome with diarrhea Joint pain RUQ abdominal pain History of gastroesophageal reflux (GERD) History of gastric ulcer Dysphagia Abdominal pain Nausea Irritable bowel syndrome with constipation Fibromyalgia BMI 23.0-23.9, adult Follow up Fatigue Constipation Central hypothyroidism SVT (supraventricular tachycardia) RLQ abdominal pain Surgical History Surgical History Hx of breast augmentation History of cardiac radiofrequency ablation S/P cholecystectomy H/O cardiac radiofrequency ablation Status post cholecystectomy Family History Family History Father Family history of hypercholesterolemia Family history of malignant neoplasm of esophagus Mother Family history of hypercholesterolemia Hypertension Cerebrovascular accident Other Family history of malignant neoplasm Social History Social History Smoking status: Never smoker Alcohol intake: current Drinks per week: 14 Alcohol use details: social Substance use: current Substance use type: marijuana Other substance usage details: Gummies twice a week. 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 Informed Consent: The patient's anesthetic plan and its attendant risks and benefits were discussed with the patient/family/POA. Questions were solicited and answers provided to the satisfaction of the patient/family/POA.
[2024-11-01 06:58] VITALS: BP 107/57; PULSE 80; RESP 16; TEMP 36.4; O2SAT 100
[2024-11-01] MEDS: LACTATED RINGERS 1,000 ML 150 ML IV CONT (07:13)
--- NOTE | 2024-11-01 07:50 | P.HP_ITS ---
H&P: HPI History of Present Illness Date/Time: 11/01/24 07:50 Chief Complaint: Rectal bleeding Narrative: the patient has been having a myriad of GI symptoms, including intermittent rectal bleeding, increased bowel sounds, intermittent abdominal pain episodes and irregular bowel habits. She was told by her primary care provider that inflammatory bowel disease is a concern, therefore she is referred for colon oscopy. She has under gone colonoscopy before having had poor preps. Review of Systems Review of Systems: All systems reviewed & are unremarkable except as noted in HPI and below PMFSH Past Medical History Medical History Depression Rectal bleeding Rib pain on left side Raynaud's disease Right shoulder pain Panic attacks Hypokalemia Kristi's disease Pedal edema Tachycardia Repetitive intrusions of sleep Pain, upper extremity Tingling of upper extremity Vitamin D deficiency Hypersomnolence Encounter for routine adult health examination with abnormal findings Plantar fasciitis Numbness and tingling of both upper extremities Tenosynovitis BMI 21.0-21.9, adult Drug reaction Hyperlipidemia Paronychia High vitamin D level Family history of Laguna's disease Rectal prolapse Cervicalgia BMI 22.0-22.9, adult Encounter for preventive health examination Ulnar neuropathy at elbow Paresthesia of both lower extremities Low back pain radiating down leg Low testosterone level in female ADD (attention deficit disorder) Lack of concentration Insomnia Irritable bowel syndrome CTS (carpal tunnel syndrome) Anxiety with depression Personal history of COVID-19 Encounter for routine adult health examination without abnormal findings 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 Blood in stool Irritable bowel syndrome with diarrhea Joint pain RUQ abdominal pain History of gastroesophageal reflux (GERD) History of gastric ulcer Dysphagia Abdominal pain Nausea Irritable bowel syndrome with constipation Fibromyalgia BMI 23.0-23.9, adult Follow up Fatigue Constipation Central hypothyroidism SVT (supraventricular tachycardia) RLQ abdominal pain Surgical History Surgical History Hx of breast augmentation History of cardiac radiofrequency ablation S/P cholecystectomy H/O cardiac radiofrequency ablation Status post cholecystectomy Family History Family History Father Family history of hypercholesterolemia Family history of malignant neoplasm of esophagus Mother Family history of hypercholesterolemia Hypertension Cerebrovascular accident Other Family history of malignant neoplasm Social History Social History Smoking status: Never smoker Alcohol intake: current Drinks per week: 14 Alcohol use details: social Substance use: current Substance use type: marijuana Other substance usage details: Gummies twice a week. 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 Spiritual care concerns: No Meds Home Medications and Allergies Home Medications ?Medication ?Instructions ?Recorded ?Confirmed ?Type multivit with minerals-iron 18 1 tablet PO DAILY 11/25/19 11/01/24 History mg-folic ac 400 mcg-vit K 25 mcg tablet (Adults Multivitamin) calcium polycarbophil 625 mg 1,250 mg PO DAILY 08/19/20 11/01/24 History tablet (FiberCon) cholecalciferol (vitamin D3) 25 25 mcg PO .every other day 08/24/21 11/01/24 History mcg (1,000 unit) tablet omeprazole 40 mg capsule,delayed 40 mg PO BID 04/12/22 11/01/24 History release fluticasone propionate 50 2 spray intranasal DAILY 14 days 03/17/23 11/01/24 Rx mcg/actuation nasal #15.8 mL spray,suspension (Flonase Allergy Relief) pseudoephedrine HCl 120 mg 120 mg PO Q12H PRN nasal 03/17/23 11/01/24 Rx tablet,extended release (12 Hour congestion #12 tabs Decongestant ER) lorazepam 0.5 mg tablet (Ativan) 0.5 mg PO TID PRN anxiety #30 tabs 05/19/23 10/24/24 Rx gabapentin 300 mg capsule 600 mg (2 x 300 mg) PO TID PRN 09/11/23 11/01/24 Rx pain 90 days #540 caps levothyroxine 100 mcg tablet 100 mcg PO DAILY #90 tabs 05/29/24 11/01/24 Rx triamterene 37.5 See Rx Instructions .Route 06/04/24 11/01/24 Rx mg-hydrochlorothiazide 25 mg tablet .COMPLEX #30 tabs calcium 333 mg 1 tablet PO DAILY 07/01/24 11/01/24 History (carbonate)-magnesium 133 mg-zinc 5 mg (sulfate) tablet TESTOSTERONE 0.05% CREAM See Rx Instructions .Route 07/30/24 11/01/24 Rx (P#[id number]) (GLYCERIN LIQUID, .COMPLEX #15 grams VERSABASE CREAM) escitalopram oxalate 10 mg tablet 10 mg PO DAILY #90 tabs 08/28/24 11/01/24 Rx (Lexapro) ondansetron 4 mg disintegrating 4 mg PO Q8H 08/28/24 11/01/24 History tablet simethicone 500 mg capsule 500 mg PO QID 08/28/24 11/01/24 History (Phazyme) potassium chloride 10 mEq See Rx Instructions .Route 09/09/24 11/01/24 Rx tablet,extended release .COMPLEX #90 tabs rosuvastatin 10 mg tablet See Rx Instructions .Route 09/15/24 11/01/24 Rx .COMPLEX #90 tabs meloxicam 15 mg tablet See Rx Instructions .Route 10/09/24 11/01/24 Rx .COMPLEX #90 tabs methylphenidate HCl 10 mg tablet 10 mg PO TID #90 tabs 10/16/24 11/01/24 Rx methylphenidate HCl 5 mg tablet 5 mg PO TID #90 tabs 10/16/24 11/01/24 Rx Allergies Allergy/AdvReac Type Severity Reaction Status Date / Time doxycycline Allergy Intermediate Rash Verified 11/01/24 06:54 Vital Signs Vital Signs - 24 hr 11/01/24 06:58 Temperature 97.5 F L Pulse Rate 80 Respiratory Rate 16 Blood Pressure 107/57 L Pulse Oximetry 100 Oxygen Delivery Room Air Exam Const: General: cooperative and healthy appearing Resp: Effort & Inspection: normal respiratory effort and able to speak in complete sentences Auscultation: clear to auscultation bilaterally Cardio: Rate: regular rate Rhythm: regular rhythm GI: Inspection: normal to inspection GI Palp: No No hepatosplenomegaly present Auscultation: normal bowel sounds Rectal Exam: deferred Skin: General skin exam: normal color Psych: Appearance: grossly normal Mental Status: mental status grossly normal Assessment and Plan Assessment and plan (1) Blood in stool: Code(s): K92.1 - Melena Status: Acute Assessment and Plan: Suspected irritable bowel syndrome with minimal rectal bleeding probably hemorrhoidal. The patient is deemed a good candidate for the procedure. Consent signed. Will proceed.
[2024-11-01] MEDS: SIMETHICONE ORAL SUSPENSION 20 MG/0.3 ML 30 ML BOTTLE 0.6 ML IRRIGATION (08:12)
[2024-11-01 08:17] VITALS: BP 81/46; PULSE 77; RESP 16; O2SAT 100
[2024-11-01 08:27] VITALS: BP 80/45; PULSE 78; RESP 16; O2SAT 100
[2024-11-01 08:37] VITALS: BP 103/54; PULSE 75; RESP 16; O2SAT 100
== END 2024-11-01 08:52 | disposition home or self-care (01) ==
PROVIDERS: PCP Internal Medicine; Referring Provider Internal Medicine; Visit Provider Internal Medicine Gastroenterology
PROC: 0DJD8ZZ Inspection of Lower Intestinal Tract, Via Natural or Artificial Opening Endoscopic (ICD-10-PCS; CPT 45378; principal; 2024-11-01 08:00)
DX: K62.5 Hemorrhage of anus and rectum (principal); K64.4 Residual hemorrhoidal skin tags; F12.90 Cannabis use, unspecified, uncomplicated
CPT/HCPCS: 45378; J2003; J2704; J7120

== ENCOUNTER 2024-11-15 12:19 | Outpatient (CLI) | payer OTHER, SELFPAY ==
[2024-11-15 13:09] LABS: Basophils Absolute Auto 0.1 K/mm3 (0.0-0.1); Basophils Percent Auto 1.4 % (0.2-1.2); Eosinophils Absolute Auto 0.2 K/mm3 (0-0.3); Eosinophils Percent Auto 2.8 % (0-4.4); Hematocrit 39.5 % (37.0-47.0); Hemoglobin 13.4 g/dL (12.0-15.0); Immature Granulocyte Absolute 0.02 K/mm3 (0.00-0.031); Immature Granulocyte Percent A 0.3 % (0-0.5); Lymphocytes Absolute Auto 1.68 K/mm3 (0.9-3.2); Mean Corpuscular HGB Conc 33.9 g/dl (32-36); Mean Corpuscular Hemoglobin 32.2 pg (26-34); Mean Platelet Volume 8.7 fl (7.4-10.4); Monocytes Absolute Auto 0.5 K/mm3 (0.1-0.6); Monocytes Percent Auto 9.3 % (2.6-8.5); Neutrophils Absolute Auto 3.3 K/mm3 (1.3-6.7); Neutrophils Percent Auto 57.2 % (45.5-73.1); Platelet Count Result 362 k/mm3 (150-375); Red Blood Count 4.16 M/mm3 (4.2-5.4); Red Cell Distribution Width 12.3 % (11.5-14.5); White Blood Count 5.8 K/mm3 (4.5-10.0)
[2024-11-15 13:42] LABS: Iron 148 ug/dL (37-170)
[2024-11-15 13:59] LABS: Thyroid Stimulating Hormone 0.257 uIU/mL (0.465-4.680)
[2024-11-15 14:01] LABS: Percent Iron Saturation 41 % (20-50)
--- OUTSIDE RECORDS SUMMARY | 2024-11-16 13:07 | XMS_ITS | Clinical Summary ---
Author Organization [facility] [employer] Address [address] [place] [address] Care Team Providers Care Gusset Folder Name Role Phone Claudia Rutledge MD Primary Care Provider [phone] [facility],non-owned Affiliates and Associated Physician Practices is amultiple site organization consisting of ambulatory clinics and hospital sitesin [place], [place], [place] and [place]. This disclosure is being madepursuant to the Care Everywhere program and may not contain all information available regarding this patient. 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 [address] [facility] [place] [address] [place] [address] [facility] [address] [place] [address] Health Maintenance Due Date Last [...] patient's age to complete [place] [address] [facility] SELF PAY NO INSURANCE Member Subscriber Plan / Payer (Ef fective for All Dates) Name:Nicho Bustos Member ID:Not on file Relation to Subscriber:Not on file Name:NICHO BUSTOS Subscriber ID:Not on file (Home) Address: [address] [place] [address] Payer ID:Not on file Group ID:Not on file Type:Self Pay Address: [place], [place] Advance Directives * Full Code (Latest Code Status on File) Date Activated Date Inactivated Comments 03/29/2019 5:52 PM 03/31/2019 4:28 PM Care Teams Gusset Folder Relationship Specialty Start Date End Date Claudia Rutledge MD [address] [place] [address] PCP - General 04/15/19
--- OUTSIDE RECORDS SUMMARY | 2024-11-16 13:07 | XMS_ITS | Clinical Summary ---
Author Organization [facility] Address [address] [place] [address] Care Team Providers Care Engineering Technical Analyst Name Role Phone Unavailable Primary Care Provider [...]
--- OUTSIDE RECORDS SUMMARY | 2024-11-16 13:07 | XMS_ITS | Referral Summary ---
Author Organization [facility] [address] Address [address] [place] [address] Phone Care Team Providers Care Wine Cellar Stock Clerk Name Role Phone Valerie Maher MD Unavailable [phone] Vitaly Roberts MD Unavailable [phone] Ángel Albarran MD Unavailable [phone] Ovidio Rutledge MD Unavailable [phone] [facility] fel[facility] MD Unavailable Cam Brown DO Unavailable Octaviano Belle DO Unavailable [phone] Angel Arora MD Primary Care Provider [phone] Allergies No known active allergies Medications levonorgestrel [...] have that according to conversation with Dr. 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 Not on file Not on file Not on file Last Filed Vital Signs Vital Sign Reading Time Taken Comments Blood Pressure 124/68 07/01/2020 5:22 PM RELATIONSHIP ADVISOR Pulse 104 07/01/2020 5:24 PM RELATIONSHIP ADVISOR Temperature 37.2 C (98.9 F) 07/01/2020 5:22 PM RELATIONSHIP ADVISOR Respiratory Rate 14 07/01/2020 5:22 PM RELATIONSHIP ADVISOR Oxygen Saturation 97% 07/01/2020 5:24 PM RELATIONSHIP ADVISOR Inhaled Oxygen Concentration - - Weight 56.7 kg (125 lb) 07/01/2020 5:22 PM RELATIONSHIP ADVISOR Height 157.5 cm (5' 2 ) 07/01/2020 5:22 PM RELATIONSHIP ADVISOR Body Mass Index 22.86 07/01/2020 5:22 PM RELATIONSHIP ADVISOR Plan of Treatment [place] [address] [facility] [address] [place] [address] Member Subscriber Plan / Payer (Ef fective 2017-Present) Name:Nicho Deleon Relation to Subscriber:Self Name:Nicho Deleon Payer ID:[id number] (NAIC) Group ID:Not on file Type:MEDICAID RISK OTHER Address: [address] [place] [address] [place] [address] [id number] [facility] Care Teams Wine Cellar Stock Clerk Relationship Specialty Start Date End Date Kopjas, Angel C., MD [address] [place] [address] PCP - General Internal Medicine 12/16/22 Valerie Maher MD Consulting Physician Gastroenterology 06/13/17 Vitaly Roberts MD [address] [facility] 3 [place] [address] Referring Physician Neurology 01/30/18 Ángel Albarran MD [address] [facility] [address] [place] [address] Consulting Physician Rheumatology 01/30/18 Ovidio Rutledge MD [address] [place] [address] Referring Physician Obstetrics and Gynecology 08/07/18 Neil Webb MD [address] [facility] [place] [address] Referring Physician Plastic Surgery 08/07/18 Cam Brown DO [address] [place] [address] Consulting Physician Cardiology 02/02/19 Octaviano Belle DO [address] [place] [address] Referring Physician Surgery 05/12/19
--- OUTSIDE RECORDS SUMMARY | 2024-11-16 13:08 | XMS_ITS | Clinical Summary ---
Author Organization [facility] [address] Address [address] [place] [address] Phone Care Team Providers Care Data Collection Specialist Name Role Phone Valerie Maher MD Unavailable [phone] Vitaly Roberts MD Unavailable [phone] Ángel Albarran MD Unavailable [phone] Ovidio Rutledge MD Unavailable [phone] [facility] fel[facility] MD Unavailable [phone] Cam Brown DO Unavailable Octaviano Belle DO Unavailable [phone] Angel Arora MD Primary Care Provider [phone] Allergies No known active allergies Medications levonorgestrel [...] on file Legal Sex Female 1:47 AM SPRIGGER Gender Identity Not on file Sexual Orientation Not on file 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 Not on file Obstetrics History Last Filed Vital Signs Vital Sign Reading Time Taken Comments Blood Pressure 124/68 07/01/2020 5:22 PM SPRIGGER Pulse 104 07/01/2020 5:24 PM SPRIGGER Temperature 37.2 C (98.9 F) 07/01/2020 5:22 PM SPRIGGER Respiratory Rate 14 07/01/2020 5:22 PM SPRIGGER Oxygen Saturation 97% 07/01/2020 5:24 PM SPRIGGER Inhaled Oxygen Concentration - - Weight 56.7 kg (125 lb) 07/01/2020 5:22 PM SPRIGGER Height 157.5 cm (5' 2 ) 07/01/2020 5:22 PM SPRIGGER Body Mass Index 22.86 07/01/2020 5:22 PM SPRIGGER Plan of Treatment Not on file Insurance [facility] Member Subscriber Plan / Payer (Ef fective 2017-Present) Name:Nicho Deleon Relation to Subscriber:Self Name:Nicho Deleon Payer ID:[id number] (NAIC) Group ID:Not on file Type:MEDICAID RISK OTHER Address: [address] [place] [address] [place] [address] [facility] Care Teams Data Collection Specialist Relationship Specialty Start Date End Date Angel Arora MD [address] [facility] [address] [facility] [address] [place] [address] PCP - General Internal Medicine 12/16/22 Valerie Maher MD Consulting Physician Gastroenterology 06/13/17 Vitaly Roberts MD 1 [facility] 3 [place] [address] Referring Physician Neurology 01/30/18 Ángel Albarran MD [address] [place] [address] [address] [place] [address] Consulting Physician Rheumatology 01/30/18 Ovidio Rutledge MD [address] [place] [address] Referring Physician Obstetrics and Gynecology 08/07/18 Neil Webb MD [address] [place] [address] Referring Physician Plastic Surgery 08/07/18 Cam Brown DO [address] [place] [address] [address] Consulting Physician Cardiology 02/02/19 Octaviano Belle DO [address] [place] [address] [address] Referring Physician Surgery 05/12/19
--- OUTSIDE RECORDS SUMMARY | 2024-11-16 13:08 | XMS_ITS | CONTINUITY OF CARE DOCUMENT ---
Author Name ceenell ceenell Address Unknown Organization [facility] Address [address] [place] [address] Phone [phone] Care Team Providers Care Blast Furnace Helper Name Role Phone Sotero BENJAMIN, Saulius Unavailable [phone] NICOLE BENJAMIN, TANIYA Unavailable [phone] NICOLE BENJAMIN, TANIYA Unavailable [phone] PROBLEMS Condition Status Date Provider Notes Palpitations active Cam Brown DO SVT active Cam Brown DO Edema active Cam Brown DO Shortness of breath active Cam Brown DO Family History of Sudden Cardiac active Cam Santock DO Headaches active Cammariella Santock DO Constipation active Cam Brown DO Endometriosis active Cam Brown DO ENCOUNTERS Date Type Provider Location Encounter Diag nosis 11/26 - 11/28 In-person encounter Office Visit Cam Brown DO [facility] 05/29 - 05/29 In-person encounter Office Visit Cam Brown DO [facility] Office SVT 02/27 - 02/27 In-person encounter Office Visit Cam [facility] Office 12/04 - 12/05 In-person encounter Office Visit Cam Brown DO [facility] Office PalpitationsEndometriosisConstipationHea dachesFamily History of Sudden Cardiac DeathShortness of breathEdema VITAL SIGNS Date Observation Value Provider Body Mass Index (Ratio) 23.04 kg/m2 Km nick Lambros blood pressure, diastolic 80 mm[Hg] Basilio recio [place] blood pressure, systolic 110 mm[Hg] Ynes edward [place] oxygen saturation, oximetry 98 % Stacia [place] respiratory rate E&M 16 /min Stacia [place] pulse rate 71 /min [facility] [place] weight E&M 126 [lb_av] Stacia [place] height E&M 62 [in_i] Stacia [place] Body Mass Index (Ratio) 22.68 kg/m2 Km Zaldivar oxygen saturation, oximetry 98 % [facility] blood pressure, diastolic 78 mm[Hg] [...] Value Provider smoking status Never smoker Cam Gal ck social history E&M S moking History: Nadege silva has never smoked. Cam Butts social history reviewed E&M revi ewed - no changes required Cam Brown smoking status Never smoker Cam Seco ck social history E&M S moking History: Nadege silva has never smoked. Cam Brown social history reviewed E&M revi ewed - no changes required Cam Brown smoking status Never smoker Cam Seco ck social history E&M S moking History: [...] Policy type / Coverage type [place]fe[place] red democrat [place] MEDICAID (2) Medicaid [id number] ADVANCE DIRECTIVES Name Date DISCUSSED - NO [...] also a negative echo in 09/[address] [facility]. She is scheduled for breast surgery on Monday of this week. She has had no CP or SOB and has no other cardiac disease. H er EKG is normal today. She is acceptable risk for anesthesia and surgery. Cam Butts Electrophysiology:s/ p SVT ablation 03/2019, no recurrences [...] also a negative echo in 09/[address] [facility]. Cam Lambcock Electrophysiology:Sy mptoms started 2-3 [...] also a negative echo in 09/[address] [facility]. Discussed SVT ablation in depth with [...] also a negative echo in 09/[address] [facility]. Will await review of monitor strips and also review of workup at [facility]. I think it is unlikely that she [...]
--- OUTSIDE RECORDS SUMMARY | 2024-11-16 13:08 | XMS_ITS | Encounter Summary ---
Author Organization [facility] Address [address] [place] [address] Phone Care Team Providers Care Lithoduplicator Operator Name Role Phone Gely Alexander MD Primary Care Provider [phone] Valerie Maher MD Unavailable [phone] Vitaly Roberts MD Unavailable [phone] Ángel Albarran MD Unavailable [phone] Tabitha Barth MD Unavailable [phone] Ovidio Rutledge MD Unavailable [phone] Neil Webb MD Unavailable [phone] Cam Brown DO Unavailable [phone] Octaviano Belle DO Unavailable [phone] Angel Arora MD Primary Care Provider [phone] Encounter Details Date Type Department Care Team (Late st Contact Info) Description 06/26/[address] [facility] [address] [place] [address] Gely Alexander MD [address] [place] [address] Social History Tobacco Use Types Packs/Day Years Used Date Smoking Tobacco: Never Smokeless Tobacco: Never Alcohol Use Standard Drinks/Week Comments Yes 0 (1 standard drink = 0.6 oz pur e alcohol) Comments No Sex and Gender Information Value Date Recorded Sex Assigned at Not on file Legal Sex Female 1:47 AM RN TELEPHONIC Gender Identity Not on file Sexual Orientation Not on file documented as of this encounter Plan of Treatment Not on file documented as of this encounter Procedures Procedure Name Priority Date/Time Associated Diagnosis Comments SCAN - RADIOLOGY/IMAGING 06/26/2017 1:43 PM RN TELEPHONIC documented in this encounter Results * SCAN - RADIOLOGY/IMAGING (06/26/2017 1:43 PM RN TELEPHONIC) Anatomical Region Laterality Modality Other us Gely Alexander MD Final Resu lt documented in this encounter Visit Diagnoses Not on filedocumented in this encounter Additional Health Concerns Infection Onset Date Last Indicated Resolved Time COVID: Suspected 07/01/2020 07/01/2020 07/02/2020 5:12 AM RN TELEPHONIC COVID19 07/01/2020 07/01/2020 07/15/2020 3:07 AM RN TELEPHONIC documented as of this encounter Care Teams Lithoduplicator Operator Relationship Specialty Start Date End Date Gely Alexander MD PCP - General 03/01/12 10/17/22 Angel Arora MD [address] [facility] [address] [facility] [address] [place] [address] PCP - General Internal Medicine 12/16/22 Valerie Maher MD Consulting Physician Gastroenterology 06/13/17 Vitaly Roberts MD [address] [address] Referring Physician Neurology 01/30/18 Ángel Albarran MD [address] [address] Consulting Physician Rheumatology 01/30/18 Tabitha Barth MD [address] [place] [address] Referring Physician Family Medicine 01/30/18 08/06/18 Ovidio Rutledge MD [address] [place] [address] Referring Physician Obstetrics and Gynecology 08/07/18 Neil Webb MD [address] [place] [address] Referring Physician Plastic Surgery 08/07/18 Cam Brown DO [address] [place] [address] Consulting Physician Cardiology 02/02/19 Octaviano Belle DO [address] [place] [address] Referring Physician Surgery 05/12/19 documented as of this encounter
--- OUTSIDE RECORDS SUMMARY | 2024-11-16 13:08 | XMS_ITS | Clinical Summary ---
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 Care Teams Early Head Start Teacher Relationship Specialty Start Date End Date Gely Alexander MD [address] [place] [address] PCP - General Internal Medicine 08/12/16
[2024-11-18 15:09] LABS: Immunoglobulin A 203 mg/dL (47-310); TTG IGA AB <1.0 U/mL
== END 2024-11-15 12:20 | disposition home or self-care (01) ==
PROVIDERS: PCP Internal Medicine; Visit Provider Nurse Practitioner Family
DX: E03.9 Hypothyroidism, unspecified (principal); D64.9 Anemia, unspecified; K58.0 Irritable bowel syndrome with diarrhea; R14.0 Abdominal distension (gaseous); R10.13 Epigastric pain; Z79.899 Other long term (current) drug therapy
CPT/HCPCS: 36415; 82728; 82784; 83516; 83540; 83550; 84443; 85025

== ENCOUNTER 2024-11-15 18:02 | Outpatient (CLI) | payer OTHER, SELFPAY ==
[2024-11-15 19:37] LABS: Toxigenic C. Diff NEGATIVE (NEGATIVE)
--- OUTSIDE RECORDS SUMMARY | 2024-11-16 15:05 | XMS_ITS | CONTINUITY OF CARE DOCUMENT ---
Author Name ceenell ceenell Address Unknown Organization [facility] Address [address] [facility] [address] [place] [address] Phone [phone] Care Team Providers Care Outsole Molder Name Role Phone Sotero BENJAMIN, Saulius Unavailable [phone] NICOLE BENJAMIN, TANIYA Unavailable NICOLE BENJAMIN, TANIYA Unavailable PROBLEMS Condition Status Date Provider Notes Palpitations active Cam Brown DO SVT active Cam Brown DO Edema active Cam rBown DO Shortness of breath active Cam Brown DO Family History of Sudden Cardiac active Cam Santock DO Headaches active Cammariella Santock DO Constipation active Cam Brown DO Endometriosis active Cam Brown DO ENCOUNTERS Date Type Provider Location Encounter Diag nosis 11/26 - 11/28 In-person encounter Office Visit Cam Brown DO [facility] Office 05/29 - 05/29 In-person encounter Office Visit Cam Brown DO [facility] Office SVT 02/27 - 02/27 [...] /min [place] pulse rate 71 /min [facility] [place] weight E&M 126 [lb_av] [place] height E&M 62 [in_i] [place] Body Mass Index (Ratio) 22.68 kg/m2 Km [place] oxygen saturation, oximetry 98 % [facility] pressure, diastolic 78 mm[Hg] [...] History: Nadege silva has never smoked. Cam [place] social history reviewed E&M revi ewed - no changes required Cam Brown smoking status Never smoker Cam [place] social history E&M S moking History: Nadege silva has never smoked. Cam Brown social history reviewed E&M revi ewed - no changes required Cam Brown smoking status Never smoker Cam [place] social history E&M S moking History: [...] red democrat [place] MEDICAID (2) Medicaid [id number] ADVANCE DIRECTIVES Name Date DISCUSSED - NO [...] also a negative echo in 09/2018 at [facility]. She is scheduled for breast surgery on Monday of this week. She has had no CP or SOB and has no other cardiac disease. H er EKG is normal today. She is acceptable risk for anesthesia and surgery. Cam [place] Electrophysiology:s/ p SVT ablation 03/2019, no recurrences [...] also a negative echo in 09/2018 at [facility]. Cam Lambcock Electrophysiology:Sy mptoms started 2-3 [...] also a negative echo in 09/2018 at [facility]. Discussed SVT ablation in depth with [...] also a negative echo in 09/2018 at [facility]. Will await review of monitor strips and also review of workup at [facility]. I think it is unlikely [...]
--- OUTSIDE RECORDS SUMMARY | 2024-11-16 15:05 | XMS_ITS | Clinical Summary ---
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 Care Teams Tassel Making Machine Operator Relationship Specialty Start Date End Date Gely Alexander MD [address] [place] [address] PCP - General Internal Medicine 08/12/16
--- OUTSIDE RECORDS SUMMARY | 2024-11-16 15:05 | XMS_ITS | Encounter Summary ---
Author Organization [facility] Address [address] [place] [address] Phone Care Team Providers Care World Designer Name Role Phone Gely Alexander MD Primary Care Provider + [phone] Valerie Maher MD Unavailable [phone] Vitaly Roberts MD Unavailable [phone] Ángel Albarran MD Unavailable [phone] Tabitha Barth MD Unavailable [phone] Ovidio Rutledge MD Unavailable [phone] Neil Webb MD Unavailable [phone] Cam Brown DO Unavailable [phone] Octaviano Belle DO Unavailable [phone] Angel Arora MD Primary Care Provider [phone] Encounter Details Date Type Department Care Team (Late st Contact Info) Description 06/26/[address] [facility] [address] [place] [address] Gely Alexander MD [address] [place] [address] Social History Tobacco Use Types Packs/Day Years Used Date Smoking Tobacco: Never Smokeless Tobacco: Never Alcohol Use Standard Drinks/Week Comments Yes 0 (1 standard drink = 0.6 oz pur e alcohol) Comments No Sex and Gender Information Value Date Recorded Sex Assigned at Not on file Legal Sex Female 1:47 AM HEAD LOFT WORKER Gender Identity Not on file Sexual Orientation Not on file documented as of this encounter Plan of Treatment Not on file documented as of this encounter Procedures Procedure Name Priority Date/Time Associated Diagnosis Comments SCAN - RADIOLOGY/IMAGING 06/26/2017 1:43 PM HEAD LOFT WORKER documented in this encounter Results * SCAN - RADIOLOGY/IMAGING (06/26/2017 1:43 PM HEAD LOFT WORKER) Anatomical Region Laterality Modality Other us Gely Alexander MD Final Resu lt documented in this encounter Visit Diagnoses Not on filedocumented in this encounter Additional Health Concerns Infection Onset Date Last Indicated Resolved Time COVID: Suspected 07/01/2020 07/01/2020 07/02/2020 5:12 AM HEAD LOFT WORKER COVID19 07/01/2020 07/01/2020 07/15/2020 3:07 AM HEAD LOFT WORKER documented as of this encounter Care Teams World Designer Relationship Specialty Start Date End Date Gely Alexander MD PCP - General 03/01/12 10/17/22 Angel Arora MD [address] [facility] [address] [facility] [address] [place] [address] PCP - General Internal Medicine 12/16/22 Valerie Maher MD Consulting Physician Gastroenterology 06/13/17 Vitaly Roberts MD [address] [address] Referring Physician Neurology 01/30/18 Ángel Albarran MD [address] [address] Consulting Physician Rheumatology 01/30/18 Tabitha Barth MD [address] [place] [address] Referring Physician Family Medicine 01/30/18 08/06/18 Ovidio Rutledge MD [address] [place] [address] Referring Physician Obstetrics and Gynecology 08/07/18 Neil Webb MD [address] [place] [address] Referring Physician Plastic Surgery 08/07/18 Cam Brown DO [address] [place] [address] Consulting Physician Cardiology 02/02/19 Octaviano Belle DO [address] [place] [address] Referring Physician Surgery 05/12/19 documented as of this encounter
--- OUTSIDE RECORDS SUMMARY | 2024-11-16 15:05 | XMS_ITS | Clinical Summary ---
Author Organization CC [facility] [address] Address [address] [place] [address] Phone Care Team Providers Care Spar Machine Operator Helper Name Role Phone Valerie Maher MD Unavailable [phone] Vitaly Roberts MD Unavailable [phone] Ángel Albarran MD Unavailable [phone] Ovidio Rutlegde MD Unavailable [phone] [facility] Unavailable Cam Brown DO Unavailable Octaviano Belle DO Unavailable [phone] Angel Arora MD Primary Care Provider [phone] Allergies No known active allergies Medications levonorgestrel [...] on file Legal Sex Female 1:47 AM TEST DESIGNER Gender Identity Not on file Sexual Orientation Not on file 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 Not on file Not on file Obstetrics History Last Filed Vital Signs Vital Sign Reading Time Taken Comments Blood Pressure 124/68 07/01/2020 5:22 PM TEST DESIGNER Pulse 104 07/01/2020 5:24 PM TEST DESIGNER Temperature 37.2 C (98.9 F) 07/01/2020 5:22 PM TEST DESIGNER Respiratory Rate 14 07/01/2020 5:22 PM TEST DESIGNER Oxygen Saturation 97% 07/01/2020 5:24 PM TEST DESIGNER Inhaled Oxygen Concentration - - Weight 56.7 kg (125 lb) 07/01/2020 5:22 PM TEST DESIGNER Height 157.5 cm (5' 2 ) 07/01/2020 5:22 PM TEST DESIGNER Body Mass Index 22.86 07/01/2020 5:22 PM TEST DESIGNER Plan of Treatment Not on file Insurance [facility] Member Subscriber Plan / Payer (Ef fective 2017-Present) Name:Nicho Deleon Relation to Subscriber:Self Name:Nicho Deleon Payer ID:[id number] (NAIC) Group ID:Not on file Type:MEDICAID RISK OTHER Address: [address] [place] [address] [place] [address] [facility] Care Teams Spar Machine Operator Helper Relationship Specialty Start Date End Date Angel Arora MD [address] [facility] [address] [facility] [address] [place] [address] PCP - General Internal Medicine 12/16/22 Valerie Maher MD Consulting Physician Gastroenterology 06/13/17 Vitaly Roberts MD 1 [facility] 3 [place] [address] Referring Physician Neurology 01/30/18 Ángel Albarran MD [address] [place] [address] [address] [place] [address] Consulting Physician Rheumatology 01/30/18 Ovidio Rutledge MD [address] [place] [address] Referring Physician Obstetrics and Gynecology 08/07/18 Neil Webb MD [address] [place] [address] Referring Physician Plastic Surgery 08/07/18 Cam Brown DO [address] [place] [address] Consulting Physician Cardiology 02/02/19 Octaviano Belle DO [address] [place] [address] Referring Physician Surgery 05/12/19
--- OUTSIDE RECORDS SUMMARY | 2024-11-16 15:05 | XMS_ITS | Clinical Summary ---
Author Organization [facility] Address [address] [place] [address] Care Team Providers Care International Accounting Manager Name Role Phone Unavailable Primary Care Provider [...]
--- OUTSIDE RECORDS SUMMARY | 2024-11-16 15:05 | XMS_ITS | Referral Summary ---
Author Organization [facility] [address] Address [address] [place] [address] Phone Care Team Providers Care Shipping & Receiving Lead Name Role Phone Valerie Maher MD Unavailable [phone] Vitaly Roberts MD Unavailable [phone] Ángel Albarran MD Unavailable [phone] Ovidio Rutledge MD Unavailable [phone] [facility] Unavailable Cam Brown DO Unavailable Octaviano Belle DO Unavailable [phone] Angel Arora MD Primary Care Provider [phone] Allergies No known active allergies Medications levonorgestrel [...] on file Legal Sex Female 1:47 AM HELPDESK ANALYST Gender Identity Not on file Sexual Orientation Not on file 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 Not on file Not on file Last Filed Vital Signs Vital Sign Reading Time Taken Comments Blood Pressure 124/68 07/01/2020 5:22 PM HELPDESK ANALYST Pulse 104 07/01/2020 5:24 PM HELPDESK ANALYST Temperature 37.2 C (98.9 F) 07/01/2020 5:22 PM HELPDESK ANALYST Respiratory Rate 14 07/01/2020 5:22 PM HELPDESK ANALYST Oxygen Saturation 97% 07/01/2020 5:24 PM HELPDESK ANALYST Inhaled Oxygen Concentration - - Weight 56.7 kg (125 lb) 07/01/2020 5:22 PM HELPDESK ANALYST Height 157.5 cm (5' 2 ) 07/01/2020 5:22 PM HELPDESK ANALYST Body Mass Index 22.86 07/01/2020 5:22 PM HELPDESK ANALYST Plan of Treatment Not [place] [address] [facility] [id number] [place] [address] Member Subscriber Plan / Payer (Ef fective 2017-Present) Name:Nicho Deleon Relation to Subscriber:Self Name:Nicho Deleon Payer ID:[id number] (NAIC) Group ID:Not on file Type:MEDICAID RISK OTHER Address: [address] [place] [address] [place] [address] [address] [facility] Care Teams Shipping & Receiving Lead Relationship Specialty Start Date End Date Kopjas, Angel C., MD [address] [place] [address] PCP - General Internal Medicine 12/16/22 Valerie Maher MD Consulting Physician Gastroenterology 06/13/17 Vitaly Roberts MD 1 [facility] 3 [place] [address] Referring Physician Neurology 01/30/18 Ángel Albarran MD [address] [facility] 113 [place] [address] Consulting Physician Rheumatology 01/30/18 Ovidio Rutledge MD [address] [place] [address] Referring Physician Obstetrics and Gynecology 08/07/18 Neil Webb MD [address] [facility] [address] Referring Physician Plastic Surgery 08/07/18 Cam Brown DO [address] [place] [address] Consulting Physician Cardiology 02/02/19 Octaviano Belle DO [address] [place] [address] Referring Physician Surgery 05/12/19
--- OUTSIDE RECORDS SUMMARY | 2024-11-16 15:05 | XMS_ITS | Clinical Summary ---
Author Organization [facility] Address [address] [place] [address] Care Team Providers Care Prototyper Name Role Phone Claudia Rutledge MD Primary Care Provider [phone] Source Comments [facility],non-owned Affiliates and Associated Physician Practices is amultiple site organization consisting of ambulatory clinics and hospital sitesin [place], [place], [place] and [place]. This disclosure is being madepursuant to the Care Everywhere program and may not contain all information available regarding this patient. Last updated 18.[facility] Allergies Active Allergy Reactions Criticality Noted Date [...] CDT Oxygen Saturation 99% 09/08/2023 9:09 AM COVER INSPECTOR Inhaled Oxygen Concentration - - Weight 52.6 kg (116 lb) 01/05/2024 1:53 PM CDT Height 157.5 cm (5' 2 ) 01/05/2024 1:53 PM CDT Body Mass Index 21.22 01/05/2024 1:53 PM CDT Plan of Treatment Upcoming Encounters Date Type Department Care Team (Late st Contact Info) Description 11/22/2024 11:30 AM CDT Office Visit [facility] [address] [facility] [place] [address] [place] [address] [place] [address] [facility] [address] [place] [address] Health Maintenance Due Date Last [...] patient's age to [place] [address] [facility] SELF PAY NO INSURANCE Member Subscriber Plan / Payer (Ef fective for All Dates) Name:Nicho Bustos Member ID:Not on file Relation to Subscriber:Not on file Name:NICHO BUSTOS Subscriber ID:Not on file (Home) Address: [address] [place] [address] Payer ID:Not on file Group ID:Not on file Type:Self Pay Address: [place], [place] Advance Directives * Full Code (Latest Code Status on File) Date Activated Date Inactivated Comments 03/29/2019 5:52 PM 03/31/2019 4:28 PM Care Teams Prototyper Relationship Specialty Start Date End Date Claudia Rutledge MD [address] [place] [address] PCP - General 04/15/19
[2024-11-19 11:23] LABS: Fecal Fat, Ql Normal (Normal)
== END 2024-11-15 18:03 | disposition home or self-care (01) ==
LOC: ANHLAB 18:03
PROVIDERS: PCP Internal Medicine; Visit Provider Nurse Practitioner Family
DX: K58.0 Irritable bowel syndrome with diarrhea (principal)
CPT/HCPCS: 82653; 82705; 83993; 87045; 87269; 87427; 87449; 87493

== ENCOUNTER 2024-12-17 09:55 | Outpatient (CLI) | payer OTHER, SELFPAY ==
--- NOTE | ~2024-12-17 | XR_ITS ---
EXAMINATION: XR small bowel follow through DATE: 12/17/2024 12:44 INDICATION: Unspecified abdominal pain TECHNIQUE: Hot Stick Man radiograph(s) of the abdomen was/were obtained. Oral contrast was administered, and sequential radiographs of the abdomen were obtained until oral contrast was noted to be in the proxi mal colon. Spot fluoroscopic images of the small bowel were obtained. A total of 11 fluoroscopic imag es and 7 overhead radiographs were obtained. Fluoroscopy exposure time was 0.9 minutes. Total DAP was 33.75 mGycm^2 COMPARISON: CT dated 09/11/2024 FINDINGS: Hot Stick Man radiograph demonstrates cholecystectomy clips in right upper quadrant with normal bowel gas pat tern. Transit time from the stomach to proximal colon was approximately 2 hours. There is normal julio anson and mucosal fold pattern throughout the small bowel. The terminal ileum is unable to be clearly d istinguished from multiple additional loops of small bowel and the cecum which are located relatively deep in the pelvis. No abnormal bowel loops appreciated in this region. IMPRESSION: 1. Normal small bowel follow-through. Reviewed, dictated and finalized at location A.
--- OUTSIDE RECORDS SUMMARY | 2024-12-17 10:22 | XMS_ITS | Clinical Summary ---
Author Organization [facility] [address] Address [address] [place] [address] Phone Care Team Providers Care Vp Data Name Role Phone Valerie Maher MD Unavailable [phone] Vitaly Roberts MD Unavailable [phone] Ángel Albarran MD Unavailable [phone] Ovidio Rutledge MD Unavailable [phone] [facility] Er[facility] feliz MD Unavailable Cam Brown DO Unavailable [phone] Octaviano Belle DO Unavailable [phone] Angel Arora MD Primary Care Provider [phone] Allergies No known active allergies Medications levonorgestrel [...] on file Legal Sex Female 1:47 AM INDUSTRIAL DIAMOND POLISHER Gender Identity Not on file Sexual Orientation Not on file 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 Not on file Not on file Obstetrics History Last Filed Vital Signs Vital Sign Reading Time Taken Comments Blood Pressure 124/68 07/01/2020 5:22 PM INDUSTRIAL DIAMOND POLISHER Pulse 104 07/01/2020 5:24 PM INDUSTRIAL DIAMOND POLISHER Temperature 37.2 C (98.9 F) 07/01/2020 5:22 PM INDUSTRIAL DIAMOND POLISHER Respiratory Rate 14 07/01/2020 5:22 PM INDUSTRIAL DIAMOND POLISHER Oxygen Saturation 97% 07/01/2020 5:24 PM INDUSTRIAL DIAMOND POLISHER Inhaled Oxygen Concentration - - Weight 56.7 kg (125 lb) 07/01/2020 5:22 PM INDUSTRIAL DIAMOND POLISHER Height 157.5 cm (5' 2) 07/01/2020 5:22 PM INDUSTRIAL DIAMOND POLISHER Body Mass Index 22.86 07/01/2020 5:22 PM INDUSTRIAL DIAMOND POLISHER Plan of Treatment Not on file Insurance [facility] Member Subscriber Plan / Payer (Ef fective 2017-Present) Name:Nicho Deleon Relation to Subscriber:Self Name:Nicho Deleon Payer ID:[id number] (NAIC) Group ID:Not on file Type:MEDICAID RISK OTHER Address: [address] [place] [address] [place] [address] [facility] Care Teams Vp Data Relationship Specialty Start Date End Date Angel Arora MD [address] [facility] [address] [facility] [address] [place] [address] PCP - General Internal Medicine 12/16/22 Valerie Maher MD Consulting Physician Gastroenterology 06/13/17 Vitaly Roberts MD 1 [facility] 3 [place] [address] Referring Physician Neurology 01/30/18 Ángel Albarran MD [address] [place] [address] [address] [place] [address] Consulting Physician Rheumatology 01/30/18 Ovidio Rutledge MD [address] [place] [address] Referring Physician Obstetrics and Gynecology 08/07/18 Neil Webb MD [address] [place] [address] Referring Physician Plastic Surgery 08/07/18 Cam Brown DO [address] [place] [address] [address] Consulting Physician Cardiology 02/02/19 Octaviano Belle DO [address] [place] [address] Referring Physician Surgery 05/12/19
--- OUTSIDE RECORDS SUMMARY | 2024-12-17 10:22 | XMS_ITS | Clinical Summary ---
Author Organization 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 Care Teams Dominatrix Relationship Specialty Start Date End Date Gely lAexander MD [address] [place] [address] PCP - General Internal Medicine 08/12/16
--- OUTSIDE RECORDS SUMMARY | 2024-12-17 10:22 | XMS_ITS | Clinical Summary ---
Author Organization [facility] Address [address] [place] [address] Care Team Providers Care Kitchenhand Name Role Phone Claudia Rutledge MD Primary Care Provider [phone] Source Comments [facility],non-owned Affiliates and Associated Physician Practices is amultiple site organization consisting of ambulatory clinics and hospital sitesin [place], [place], [place] and [place]. This disclosure is being madepursuant to the Care Everywhere program and may not contain all information available regarding this patient. Last updated 18.[facility] Allergies Active Allergy Reactions Criticality Noted Date [...] tablet by mouth once daily 4 Active methylphenidat e (Ritalin) 10 MG tablet 4 Active methylphenidat e (Ritalin) 5 MG tablet 4 Active potassium chloride ER 10 MEQ tablet 4 Active rosuvastatin (Crestor) 10 MG tablet Take 1 (one) tablet by mouth once daily 4 Active SUMAtriptan (Imitrex) 100 MG tablet TAKE 1 TABLET BY MOUTH NEEDED FOR HEADACHE 4 Active triamcinolone acetonide (Kenalog) 0.1 % cream APPLY CREAM EXTERNALLY TWICE DAILY Active triamterene-hy droCHLOROthiaz margaret (Maxzide-25) 37.5-25 MG tablet TAKE 1/2 (ONE-HALF) TABLET BY MOUTH IN THE MORNING NEEDED FOR EDEMA 4 Active levothyroxine (Synthroid) 100 MCG tablet 4 Active Xifaxan 550 MG tablet Take 1 (one) tablet by mouth 2 times daily 5 Active verapamil CR (Isoptin-SR) 120 MG tablet Take 1 (one) tablet by mouth once daily 90 tablet 5 5 Active amLODIPine (Norvasc) 2.5 MG tablet 4 11/23/19 25 Discontinu ed(List Clean-Up) Active Problems Problem Noted Date Diagnosed Date Precordial pain 01/07/2024 OLIVO (dyspnea on exertion) 09/10/2023 Tachycardia 09/10/2023 Palpitations 09/10/2023 SVT (supraventricular tachycardia) 03/29/2019 Encounters Date Type Department Care Team Description 11/22/2024 11:30 AM CDT Office Visit [facility] [address] [place] [address] Demario Doherty MD Palpitations (Primary Dx); Tachycardia 11/22/2024 Travel from Last 3 Months Social History Tobacco Use Types Packs/Day Years Used Date Smoking Tobacco: Former Cigarettes Smokeless Tobacco: Never Tobacco Cessation:Counseling Given: Not Answered Comments Unknown Sex and Gender Information Value Date Recorded Sex Assigned at Not on file Legal Sex Female 2:56 PM CDT Gender Identity Not on file Sexual Orientation Not on file Last Filed Vital Signs Vital Sign Reading Time Taken Comments Blood Pressure 135/94 11/22/2024 12:08 PM CDT Pulse 91 11/22/2024 12:04 PM CDT Temperature 36.7 C (98.1 F) 03/31/2019 12:50 PM CDT Respiratory Rate 18 03/31/2019 12:50 PM CDT Oxygen Saturation 99% 11/22/2024 12:04 PM CDT Inhaled Oxygen Concentration - - Weight 52.2 kg (115 lb) 11/22/2024 12:04 PM CDT Height 157.5 cm (5' 2.01) 11/22/2024 12:04 PM C DT Body Mass Index 21.03 11/22/2024 12:04 PM CDT Plan of Treatment Upcoming Encounters Date Type Department Care Team (Late st Contact Info) Description 06/06/2025 9:45 AM WAGE AND SALARY SPECIALIST Office Visit [facility] Heart & Vascular Care [address] [facility] [address] [place] [address] [place] [address] [facility] [address] [place] [address] Health Maintenance Due Date Last [...] patient's age to complete this topic Insurance [facility] SELF PAY NO INSURANCE Member Subscriber Plan / Payer (Ef fective for All Dates) Name:Nicho Bustos Member ID:Not on file Relation to Subscriber:Not on file Name:NICHO BUSTOS Subscriber ID:Not on file (Home) Address: [address] [place] [address] Payer ID:Not on file Group ID:Not on file Type:Self Pay Address: [place], [place] Advance Directives * Full Code (Latest Code Status on File) Date Activated Date Inactivated Comments 03/29/2019 5:52 PM 03/31/2019 4:28 PM Care Teams Kitchenhand Relationship Specialty Start Date End Date Claudia Rutledge MD [address] [place] [address] PCP - General 04/15/19
--- OUTSIDE RECORDS SUMMARY | 2024-12-17 10:22 | XMS_ITS | CONTINUITY OF CARE DOCUMENT ---
Author Name ceenell ceenell Address Unknown Organization [facility] Address [address] [place] [address] Phone [phone] Care Team Providers Care Lead Fire Protection Engineer Name Role Phone Sotero BENJAMIN, Saulius Unavailable [phone] NICOLE BENJAMIN, TANIYA Unavailable [phone] NICOLE BENJAMIN, TANIYA Unavailable [phone] PROBLEMS Condition Status Date Provider Notes SVT active Cam Brown DO Edema active Cammariella Brown DO Shortness of breath active Cam Brown DO Family History of Sudden Cardiac active Cam Santock DO Headaches active Cammariella Santock DO Constipation active Cammariella Lambcock DO Endometriosis active Cam Santock DO Palpitations active Cam Brown DO ENCOUNTERS Date Type Provider Location Encounter Diag nosis 11/26 - 11/28 In-person encounter Office Visit Cam Brown DO [facility] Office 05/29 - 05/29 In-person encounter Office Visit Cam Brown DO [facility] Office SVT 02/27 - 02/27 In-person encounter Office Visit Cam Brown DO [facility] Office 12/04 - 12/05 In-person encounter Office Visit Cam Brown DO [facility] Office PalpitationsEndometriosisConstipationHea dachesFamily History of Sudden Cardiac DeathShortness of breathEdema VITAL SIGNS Date Observation Value Provider Body Mass Index (Ratio) 23.04 kg/m2 Km nick Lambros blood pressure, diastolic 80 mm[Hg] Basilio recio [place] blood pressure, systolic 110 mm[Hg] Ynes edward [place] oxygen saturation, oximetry 98 % Stacia [place] respiratory rate E&M 16 /min Stacia [place] pulse rate 71 /min [facility] [place] weight E&M 126 [lb_av] Stacia [place] height E&M 62 [in_i] Stacia [place] Body Mass Index (Ratio) 22.68 kg/m2 Km Zaldivar oxygen saturation, oximetry 98 % [facility], diastolic 78 mm[Hg] [...] History: Nadege silva has never smoked. Cam [place] social history reviewed E&M revi ewed - no changes required Cam Brown smoking status Never smoker Cam [place] [facility] social history E&M S moking History: Nadege silva has never smoked. Cam Brown social history reviewed E&M revi ewed - no changes required Cam Brown smoking status Never smoker Cam [place] social history E&M S moking History: [...] red democrat [place] MEDICA[place] (2) Medicaid [id number] ADVANCE DIRECTIVES Name Date DISCUSSED - NO [...] also a negative echo in 09/2018 at [facility]. She is scheduled for breast surgery on Monday of this week. She has had no CP or SOB and has no other cardiac disease. H er EKG is normal today. She is acceptable risk for anesthesia and surgery. Cam [place] Electrophysiology:s/ p SVT ablation 03/2019, no recurrences [...] also a negative echo in 09/2018 at [facility]. Cam Lambcock Electrophysiology:Sy mptoms started 2-3 years [...] also a negative echo in 09/2018 at [facility]. Discussed SVT ablation in depth with patient. [...] also a negative echo in 09/2018 at [facility]. Will await review of monitor strips and also review of workup at [facility]. I think it is unlikely [...]
--- OUTSIDE RECORDS SUMMARY | 2024-12-17 10:22 | XMS_ITS | Referral Summary ---
Author Organization [facility] [address] Address [address] [place] [address] Phone Care Team Providers Care Toddler Lead Teacher Name Role Phone Valerie Maher MD Unavailable [phone] Vitaly Roberts MD Unavailable [phone] Ángel Albarran MD Unavailable [phone] Ovidio Rutledge MD Unavailable [phone] [facility] Hospital[facility] fel[facility] MD Unavailable Cam Brown DO Unavailable [phone] Octaviano Belle DO Unavailable [phone] Angel Arora MD Primary Care Provider Allergies No known active allergies Medications levonorgestrel [...] on file Legal Sex Female 1:47 AM CONSTRUCTION PRODUCER Gender Identity Not on file Sexual Orientation Not on file 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 Not on file Not on file Last Filed Vital Signs Vital Sign Reading Time Taken Comments Blood Pressure 124/68 07/01/2020 5:22 PM CONSTRUCTION PRODUCER Pulse 104 07/01/2020 5:24 PM CONSTRUCTION PRODUCER Temperature 37.2 C (98.9 F) 07/01/2020 5:22 PM CONSTRUCTION PRODUCER Respiratory Rate 14 07/01/2020 5:22 PM CONSTRUCTION PRODUCER Oxygen Saturation 97% 07/01/2020 5:24 PM CONSTRUCTION PRODUCER Inhaled Oxygen Concentration - - Weight 56.7 kg (125 lb) 07/01/2020 5:22 PM CONSTRUCTION PRODUCER Height 157.5 cm (5' 2) 07/01/2020 5:22 PM CONSTRUCTION PRODUCER Body Mass Index 22.86 07/01/2020 5:22 PM CONSTRUCTION PRODUCER Plan of Treatment [place] [address] [facility] [address] [place] [address] Member Subscriber Plan / Payer (Ef fective 2017-Present) Name:Nicho Deleon Relation to Subscriber:Self Name:Nicho Deleon Payer ID:[id number] (NAIC) Group ID:Not on file Type:MEDICAID RISK OTHER Address: [address] [place] [address] [place] [address] [address] [facility] Care Teams Toddler Lead Teacher Relationship Specialty Start Date End Date Kopjas, Angel C., MD [address] [place] [address] PCP - General Internal Medicine 12/16/22 Valerie Maher MD Consulting Physician Gastroenterology 06/13/17 Vitaly Roberts MD 1 [facility] [address] [place] [address] Referring Physician Neurology 01/30/18 Ángel Albarran MD [address] [facility] [address] [place] [address] Consulting Physician Rheumatology 01/30/18 Ovidio Rutledge MD [address] [place] [address] Referring Physician Obstetrics and Gynecology 08/07/18 Neil Webb MD [address] [place] [address] Referring Physician Plastic Surgery 08/07/18 Cam Brown DO [address] [place] [address] Consulting Physician Cardiology 02/02/19 Octaviano Belle DO [address] [place] [address] Referring Physician Surgery 05/12/19
--- OUTSIDE RECORDS SUMMARY | 2024-12-17 10:22 | XMS_ITS | Data Portability ---
Author Organization [facility] Address [address] [place] [address] [place] [address] Care Team Providers Care Import/Export Administrator Name Role Phone TANIYA RIVERA Primary Care Provider Assessment No assessment recorded. Plan of Treatment Reminders Order Date Submit Date Provider Last Modified By Organization Details Last Modified Time Details Appointments None recorded. Lab None recorded. Referral None recorded. Procedures None recorded. Surgeries hysteroscop y, with endometrial ablation (SURG) 2020 021 [facility] Surgery [facility], [address], [place], [address], 10:39:49 Imaging US, transvagina l 2020 021 [email or web address] Dolores, [address], [address], [place], [address], 19:45:50 US, pelvis, complete 2020 021 [email or web address] Ovidio Rutledge MD, [address], [place], [address], 11:15:21 Medication Orders None recorded. Patient TargetsNo [...] or kits canno t be used [facility] . Femal e Estra diol Range s: Folli cular phase 12.4- 233 pg/mL Ovula tion phase 41.0- 398 pg/mL Lutea l phase 22.3- 341 pg/mL Postm enopa usal< 5-138 pg/mL Healt hy Pregn ant Women 1st Trime ster1 54-32 43 pg/mL 2nd Trime ster1 561-2 1280 pg/mL 3rd Trime ster8 525-> 49777 pg/mL Not Available [facility] (Lab) [address] [place], [address], 11/27/2020 03:46:53 11/27/19 21 11/26/2020 hormo ne panel , serum or plasm a FSH 3.7 mIU/m L This assay was perfo rmed using [employer] n reage nts and test kits. Value s obtai nya with other assay metho ds or kits canno t be used [facility] . Femal es Folli cular : 3.5-1 2.5 mIU/m L Ovula tion: 4.7-2 1.5 mIU/m L Lutea l: 1.7-7 .7 mIU/m L Postm enopa use: 25.8- 134.8 mIU/m L Not Available [facility] (Lab) [address] [place], [address], 11/27/2020 03:46:53 11/27/19 21 11/26/2020 hormo ne panel , serum or plasm a luteinizing hormone 8.9 mIU/m L This assay was perfo rmed using [employer] reage nts and test kits. Value s obtai nya with other assay metho ds or kits canno t be used [facility] . Femal es Mid-F ollic ular: 2.4-1 2.6 mIU/m L Mid-C ycle: 14.0- 95.6 mIU/m L Mid-L uteal : 1.0-1 1.4 mIU/m L Postm enopa use: 7.7-5 8.5 mIU/m L Not Available [facility] (Lab) [address] [facility], [place], [address], 11/27/2020 03:46:53 11/27/19 21 11/26/2020 TSH, serum or plasm a TSH 0.10 uIU/m L 0.30-5 .00 low Not Available [facility] (Lab) [address] [place], [address], 11/27/2020 03:46:54 11/27/19 21 11/26/2020 T4, free, serum T4, free 1.07 NG/dL 0.80-1 .80 Not Available [facility] (Lab) [address] [place], [address], 11/27/2020 14:48:44 12/05/19 21 12/04/2020 free T3, quant itati ve, dialy sis serum or plasm a T3, free 3.1 pg/mL 2.5-3. 9 Not Available [facility] (Lab) [address] [place], [address], 12/05/2020 02:36:59 12/05/19 21 12/04/2020 TSH, serum or plasm a TSH 0.17 uIU/m L 0.30-5 .33 low Not Available [facility] (Lab) [address] [place], [address], 12/05/2020 02:37:00 12/05/19 21 12/04/2020 T4, free, serum T4, free 0.84 NG/dL 0.60-1 .40 Not Available [facility] (Lab) [address] [place], [address], 12/05/2020 02:37:01 12/05/19 21 12/04/2020 thyro globu timothy Ab, serum thyroglobuli n antibody <1.0 IU/mL 0.0-4. 0 Not Available [facility] (Lab) [address] [facility], [place], [address], 12/05/2020 02:37:01 12/05/19 21 12/04/2020 thyro globu timothy Ab, serum thyroperoxid ase antibodies <0.3 IU/mL 0.0-9. 0 Not Available [facility] (Lab) [address] [facility], [place], [address], 12/05/2020 02:37:01 11/21/19 21 12/02/2020 US, trans vagin al No observ ation record ed. [email or web address] [facility]ores [address], [place], [address], 12/02/2020 11:31:21 11/21/19 21 11/20/2020 US, trans vagin al No observ ation record ed. [email or web address] [address], [place], [address], 11/23/2020 11:35:20 Result Notes None recorded. Problems Name Problem SNOMED Code Status Onset Date Resolution Date Notes Provider Name and Address Organization Details Recorded Time Hypertro phy of vulva 40440906 Active 2011 Hypertro phy of labia;Pr actice ID: 0001 Not Available [facility] 0 18:41:47 Dyspareu quirino 90171602 Completed 201112/25/2020 Dyspareu quirino;Prac arabella ID: 0001 Nataliya liao [facility] 16:29:10 Female genital organ symptoms 773361099 Completed 201112/25/2020 Unspecif ied symptom associat ed with female genital organs;P ractice ID: 0001 Nataliya Jayla liao [facility] 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 ;Practic e ID: 0001 Not Available [facility] 0 18:41:47 Pre-surg yuriy evaluati on Active 2011 Pre-oper ative examinat ion, unspecif ied;Prac arabella ID: 0001 Not Available [facility] 0 18:41:47 Screenin g for malignan t neoplasm of cervix Active 2012 Pap Smear;Pr actice ID: 0001 Not Available [facility] 0 18:41:48 Postcoit al bleeding 06040859 Active 2012 Postcoit al bleeding ;Practic e ID: 0001 Not Available [facility] 0 18:41:48 Speciali zed medical examinat ion Active 2012 Routine gynecolo gical examinat ion;Prac arabella ID: 0001 Not Available [facility] 0 18:41:48 Urinary tract infectio us disease 86674120 Active 2014 Urinary tract infectio n, site not specifie d;Practi ce ID: 0001 Not Available [facility] 0 18:41:48 Adult health examinat ion Completed 201412/25/2020 Routine general medical examinat ion at a health care facility ;Practic e ID: 0001 Nataliya liao, [facility] 1 16:29:02 Pregnanc y test negative 236340255 Active 2014 Negative Pregnanc y Test;Pra ctice ID: 0001 Not Available [facility] 0 18:41:48 Clinical finding Completed 201511/20/2020 Presence of (intraut erine) contrace ptive device;P ractice ID: 0001 Ovidio Rutledge MD [address], [place], [address], [facility] 1 15:50:21 Human papillom avirus deoxyrib onucleic acid detected , high risk on cervical specimen 002093784 Active 2014 Cervical high risk HPV DNA test positive ;Practic e ID: 0001 Not Available [facility] 0 18:41:48 Removal of intraute rine device Active 2014 Encounte r for removal of intraute rine contrace ptive device;P ractice ID: 0001 Not Available [facility] 0 18:41:48 Foreign body in genitour inary tract Active 2014 Foreign body in uterus, sequela; Practice ID: 0001 Not Available [facility] 0 18:41:48 Acid Loader al complica tion of intraute rine contrace ptive device Active 2014 Displace ment of intraute rine contrace ptive device, init;Pra ctice ID: 0001 Not Available [facility] 0 18:41:49 Finding of pattern of menstrua l cycle 904660642 Active 2014 Excessiv e and frequent menstrua tion with irregula r cycle;Pr actice ID: 0001 Not Available [facility] 0 18:41:49 Insertio n of intraute rine contrace ptive device Active 2014 Encounte r for insertio n of intraute rine contrace ptive device;P ractice ID: 0001 Not Available [facility] 0 18:41:49 Contrace ptive sheath status 609312415 Completed 201511/20/2020 Encounte r for routine checking of intraute rine contrace p dev;Prac arabella ID: 0001 Ovidio Rutledge MD [address], [place], [address], [facility] [address] 15:50:[address] Concept Active 2015 Encntr for reagent tender exam (general ) (routine ) w/o abn findings ;Practic e ID: 0001 Not Available [facility] 0 18:41:49 Pelvic and perineal pain 991034445 Active 2016 Pelvic and perineal pain;Pra ctice ID: 0001 Not Available [facility] 0 18:41:49 Atypical squamous cells of undeterm ined signific ance on cervical Papanico laou smear 902525262 Active 2016 Atyp squam cell of undet signfc cyto smr crvx (ASC-US) ;Practic e ID: 0001 Not Available [facility] 0 18:41:49 Blood leukocyt e number above referenc e range 661664489 Active 2017 Elevated white blood cell count, unspecif ied;Prac arabella ID: 0001 Not Available [facility] 0 18:41:50 Finding of general energy 088410479 Active 2017 Other fatigue; Practice ID: 0001 Not Available [facility] 0 18:41:50 Postcoit al finding 565833916 Active 2017 Postcoit al and contact bleeding ;Practic e ID: 0001 Not Available [facility] 0 18:41:50 Sexual function painful Active 2017 Unspecif ied dyspareu quirino;Prac arabella ID: 0001 Not Available [facility] 0 18:41:50 Lesion of ovary Completed 201712/25/2020 Other ovarian cyst, right side;Pra ctice ID: 0001 Nataliyaradha Dickerson [facility] 16:29:07 Finding of desire for urinatio n 005023217 Completed 201712/25/2020 Urgency of urinatio n;Practi ce ID: 0001 Nataliya [facility] 16:29:16 Bleeding 457029292 Completed 201712/25/2020 Abnormal uterine and vaginal bleeding , unspecif ied;Prac arabella ID: 0001 Nataliya Dickerson [facility] 16:29:14 Right lower quadrant pain 770499854 Active 2017 Right lower quadrant pain;Pra ctice ID: 0001 Not Available [facility] 0 18:41:51 Abdomina l pain 61024201 Completed 201712/25/2020 Abdomina l pain;Rec orded Elsewher e: No Locat ion: [facility] S ource: EHR Store Clerk matheus: N Practi ce ID: 0001 Alvino lable Time: 10:30:00 AM Naatliya liao [facility] 1 16:29:00 Vaginiti s and vulvovag initis Active 2010 Vaginiti s and vulvovag initis, unspecif ied;Prac arabella ID: 0001 Not Available [facility] 0 18:41:51 Cyst of ovary Completed 201712/25/2020 Unspecif ied ovarian cyst, unspecif ied side;Rec orded Elsewher e: No [facility] Store Clerk matheus: N Practi ce ID: 0001 Alvino lable Time: 11:37:49 AM Nataliya liao [facility] [address] 16:29:[address] Concept Active 2017 Encntr for general adult medical exam w/o abnormal findings ;Recorde d Elsewher e: No Locat ion: [facility] S ource: EHR Store Clerk matheus: N Practi ce ID: 0001 Alvino lable Time: 10:00:00 AM Not Available [facility] 0 18:41:54 Constipa tion 27879400 Completed 201211/20/2020 Constipa tion, unspecif ied;Jori rded Elsewher e: No Locat ion: [facility] S ource: EHR Store Clerk matheus: Y Practi ce ID: 0001 Alvino lable Time: 04:30:00 PM Ovidio Rutledge MD [address], [place], [address], [place] [facility] 1 15:50:23 Imaging of abdomen abnormal 520893594 Active 2018 Abn findings on dx imaging of abd regions, inc retroper iton;Rec orded Elsewher e: No Locat ion: [facility] S ource: EHR Store Clerk matheus: N Practi ce ID: 0001 Alvino lable Time: 11:50:28 AM Not Available [facility] 0 18:41:55 Clinical finding Completed 201811/20/2020 Sexual dysfunct ion;Jori rded Elsewher e: No Locat ion: [facility] S ource: EHR Store Clerk matheus: N Practi ce ID: 0001 Alvino lable Time: 04:30:00 PM Ovidio Rutledge MD [address], [place], [address], [facility] 15:50:18 Clinical finding Completed 201811/20/2020 Dysplasi a of cervix uteri, unspecif ied;Jori rded Elsewher e: No Locat ion: [facility] S ource: EHR Store Clerk matheus: N Mayrati ce ID: 0001 Alvino lable Time: 09:00:00 AM Ovidio Rutledge MD [address], [place], [address], [facility] 15:50:15 Problem Notes None recorded. Procedures Surgical History Date Name Laterality Status Provider Name and Address Organization Details Recorded Time 12/31/19 21 HYSTEROSCOPY, WITH ENDOMETRIAL ABLATION (SURG) completed Brittani [facility] 12/31/2020 10:39:50 03/20/20 20 Date of Last Pap Smear completed [facility] 10/30/2020 16:43:58 04/16/20 19 Cholecystectomy completed [facility] 03/20/2020 16:50:54 mammoplasty completed [facility] 03/20/2020 16:28:22 Laparoscopy completed [facility] 03/20/2020 16:30:23 Cholecystectomy completed [facility] 10/30/2020 16:38:25 Imaging Results None recorded. Procedure Notes None recorded. Medical Equipment None [...] after a meal 02/20 completed Prescrib ed Phu e: No Locat ion: [facility] odify By: yoni campo DateTime : 02/28/20 [...] ed Elsewher e: No Locat ion: [facility] odify By: ammannie Pate ncounter DateTime : 08/08/19 18 11:15:00 AM Not Available Not Available Not Available Celebrex 200 mg capsule po the night before and 400mg po morning of the procedur e 12/27 completed Prescrib ed Elsewher e: No Locat ion: [facility] odify By: [email or web address] Pate ncounter DateTime : 06/03/20 15 02:50:34 PM Not [...] ed Elsewher e: Yes Loca tion: [facility] odify By: mayra campo DateTime : 04/12/20 12 03:30:00 PM Not Available Not Available Not Available Synthroid 25 mcg tablet take 1 tablet by oral route every day active Prescrib ed Elsewher e: Yes Loca tion: [facility] odify By: yoni campo DateTime : 02/21/20 19 04:30:00 PM Not Available Not Available Not Available gabapenti n 300 mg capsule TAKE 1 CAPSULE BY MOUTH TWICE DAILY active Not Available Not Available No t Available gabapenti n 100 mg capsule take 3 capsule by oral route every day at bedtime active Prescrib ed Elsewher e: Yes Loca tion: [facility] odify By: yoni campo DateTime : 02/21/20 19 04:30:00 PM Not Available Not Available Not Available diazepam 10 mg tablet op 1 hour before the procedur e 12/27 completed Prescrib ed Elsewher e: No Locat ion: [facility] odify By: lulu Rio sweta DateTime : 06/03/20 15 02:50:34 PM Not Available Not Available Not Available topiramat e 15 mg sprinkle capsule take 1 capsule by oral route 2 times every day in the morning and evening active Prescrib ed Elsewher e: Yes Loca tion: [facility]e [facility] odify By: yoni campo DateTime : 02/21/20 [...] ed Elsewher e: Yes Loca tion: [facility] odify By: mayra campo DateTime : 03/06/20 12 10:30:00 AM Not Available Not Available Not Available Synthroid 10/30 completed Not Available Not Available Not Available hydrocodo ne 5 mg-acetam inophen 300 mg tablet take 1 tablet by oral route every 4 - 6 hours as needed for pain 02/20 completed Prescrib ed Elsewher e: Yes Loca tion: [facility] odify By: yoni campo DateTime : 12/28/19 17 02:00:00 PM Not Available Not Available Not Available Acid Relief (cimetidi ne) 200 mg tablet take 1 tablet by oral route 2 times every day 30 minutes before meals 07/22 completed Prescrib ed Elsewher e: Yes Loca tion: [facility] odify By: mayra campo DateTime : 04/12/20 03:30:00 PM Not Available Not Available Not Available Linzess 290 mcg capsule active Not Available Not Available Not Available Vitals Date Recorded Body height Body mass index (BMI) Body weight Systolic blood pressure Diastolic blood pressure Provider Name and Address Organization Details Last Updated DateTime 10/30/2020 154.94 cm 25.1 kg/m2 11853.79 g 130 mm[Hg] 86 mm[Hg] [facility] 16:38:14 Date Recorded Body height Body mass index (BMI) Body weight Systolic blood pressure Diastolic blood pressure Provider Name and Address Organization Details Last Updated DateTime 11/20/2020 154.94 cm 24 kg/m2 98124.23 g 119 mm[Hg] 80 mm[Hg] [facility] 15:43:52 Date Recorded Body height Body mass index (BMI) Body weight Systolic blood pressure Diastolic blood pressure Provider Name and Address Organization Details Last Updated DateTime 12/25/2020 154.94 cm 23.8 kg/m2 43632.64 g 117 mm[Hg] 75 mm[Hg] [facility] 16:28:54 Social History Question Answer Notes LastModified by Organizat ion Details LastModified Time Tobacco Smoking Status Never Smoker Ken Ramirez [facility] 11/20/2020 14:58:15 Do You Have An Advance Directive? No Information n ot available 10/30/2020 How Many Years Have You Consumed Alcohol? 12 Information not available 10/30/2020 Are You Blind Or Do You Have Difficulty Seeing? No Information n ot available 10/30/2020 What Is Your Level Of Caffeine Consumption? Moderate Information not available 10/30/2020 How Much Tobacco Do You Chew? None Information not available 10/30/2020 In The 14 Days Before Symptom Onset, Have You Had Close Contact With A Laboratory-confirm ed COVID-19 While That Case Was Ill? No Information n ot available 10/30/2020 In The 14 Days Before [...] Of Diet Are You Following? REGULAR Information n ot available 10/30/2020 What Is The Highest Grade Or Level Of School You Have Completed Or The Highest Degree You Have Received? [id number] Information not available 10/30/2020 Are There Any [...] Functional Status Question Answer Note LastModified by Organizat ion Details LastModified Time Do you use any illicit or recreational drugs? No Information not available 10/30/2020 What is your level of alcohol consumption? Moderate Information not available 10/30/2020 Are you able to walk? 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 Heavy Information not available 10/30/2020 Mental Status Question Answer Note LastModified by Organization D etails LastModified Time Do you feel stressed (tense, restless, nervous, or anxious, or unable to sleep at night)? [id number] Information not available 10/30/2020 Family History Relationship Description Onset Age of this Age Resolved Age Notes LastModified by Organization Details LastModified Time Father Hypertensive disorder [email or web address] Not available 2019 16:26:48 Father Carcinoma in situ of esophagus [email or web address] Not available 2020 14:58:14 Maternal Uncle Diabetes mellitus [email or web address] Not available 2019 16:26:59 Medical History Condition Response Other Y Anemia Y Gynecological History Statement/Question Response Date of Last Pap Smear 03/20/2020 Current Control Method IUD Obstetrics History GPAL:G 0 P 0 0 0 0 Past Encounters Encounter ID Performer Location Encounter Start Date Encounter Closed Date Diagnosis/Indication Diagnosis SNOMED-CT Code Diagnosis ICD10 Code Diagnosis Note [id number] MD Corey Partida [address],[facility] [place] [address] 03/20/2020 16:07:20 03/20/2020 18:21:51 Gynecologic examination 00042390 Z01.419 This patient is here for her [...] antibiotic s Urinary tr act infectious disease 07563422 N39.0 [id number] Ovidio Rutledge MD [facility] [address] [address] 10/30/2020 16:22:22 10/30/2020 17:05:12 Pain in pelvis 25561902 R10.2 This patient is a 35-year-ol d female with pelvic pain and severe menorrhagi a. We discussed endometria l ablation today. She has a fibroid uterus. This was seen on a CT scan of the abdomen pelvis. We will obtain a pelvic ultrasound and discuss treatment options for pain and menorrhagi a. [id number] Ovidio Rutledge MD [facility] [address],[facility] [place] [address] 11/20/2020 14:57:29 11/20/2020 15:32:25 Pain in pelvis 45943153 R10.2 N92.4 This patient is a 35-year-ol d female with pelvic pain and severe menorrhagi a. We discussed endometria l ablation today. She has a fibroid uterus. This was seen on a CT scan of the abdomen pelvis. We will obtain a pelvic ultrasound and discuss treatment options for pain and menorrhagi a. [id number] Ovidio Rutledge MD [facility] [address] [address] 11/20/2020 14:58:11 11/20/2020 16:08:37 Menorrhagia 342071709 N92.0 this patient is a 35-year-ol d female presents for follow-up on severe menorrhagi a. She had a pelvic ultrasound . We reviewed those ultrasound images together. It is essentiall y normal with a very small calcified fibroid. We had previously discussed endometria l ablation. Her partner/ jenniferand has a vasectomy. we agreed to proceed with endometria l ablation. We discussed failure and recurrence . We discussed some risk. She will return for the informed consent process. [id number] Ovidio Rutledge MD [facility] [address] [address] 12/25/2020 16:14:08 12/26/2020 16:08:08 Menorrhagia 620913262 N92.0 this patient is a 35-year-ol d female presents for preoperati ve care. She has severe menorrhagi a and we have agreed to perform endometria l ablation with hysterosco py. She understand s the risks, benefits, and alternativ es. She has completed the informed consent process and is ready to proceed. [id number] Ovidio Rutledge MD [facility] [address] [address] 12/31/2020 09:34:38 12/31/2020 09:35:34 Health Concerns Section Related Observation LastModified by Organization Detai ls LastModified Time None Recorded Concern Status LastModified by Organization Details LastModified Time None Recorded Advance Directives Directive N: Payers Encounter Date Sequence Insurance Name Policy Number Policy White Covered Member ID White Member ID Guarantor Name 10/30/2020 1 [facility] PRIOR TO 2021 (MEDICAID REPLACEMENT - HMO) Nicho Deleon [id number] Nicho R Pancho 11/20/2020 1 [facility] PRIOR TO 2021 (MEDICAID REPLACEMENT - HMO) Nicho Deleon [id number] Nicho Deleon 11/20/2020 1 [facility] PRIOR TO 2021 (MEDICAID REPLACEMENT - HMO) Nicho Deleon [id number] Nicho Deleon 12/25/2020 1 [facility] PRIOR TO 2021 (MEDICAID REPLACEMENT - HMO) Nicho Deleon [id number] Nicho Deleon 12/30/2020 1 [facility] PRIOR TO 2021 (MEDICAID REPLACEMENT - HMO) Nicho Deleon [id number] Nicho Deleon Notes Date Note Type Note [...] living. Ovidio Rutledge MD [address], [place], [address], [facility] 10/30/2020 18:17:15 11/20/2020 text/html this patient [...] process. Ovidio Rutledge MD [address], [place], [address], [facility] 11/20/2020 16:06:14 12/25/2020 text/html [...] infection. Ovidio Rutledge MD [address], [place], [address], [facility] 12/25/2020 17:07:11 OBGyn Episode Ob Episode Information Episode Created Date Number of Fetuses Patient Bloodtype Patient rh Status Prepregnancy Weight lbs Domestic Partner Domestic Partner Phone Father Name Tape Rules Printing Machine Operator Status 03/20/20 20 1 CLOSED Fetus Data [...] Domestic Partner Domestic Partner Phone Father Name Tape Rules Printing Machine Operator Status 03/20/20 20 1 CLOSED Fetus Data [...]
--- OUTSIDE RECORDS SUMMARY | 2024-12-17 10:22 | XMS_ITS | Encounter Summary ---
Author Organization [facility] Address [address] [place] [address] Phone Care Team Providers Care Investigator Name Role Phone Gely Alexander MD Primary Care Provider + [phone] Valerie Maher MD Unavailable [phone] Vitaly Roberts MD Unavailable [phone] Ángel Albarran MD Unavailable [phone] Tabitha Barth MD Unavailable [phone] Ovidio Rutledge MD Unavailable [phone] Neil Webb MD Unavailable [phone] Cam Brown DO Unavailable [phone] Octaviano Belle DO Unavailable [phone] Angel Arora MD Primary Care Provider [phone] Encounter Details Date Type Department Care Team (Late st Contact Info) Description 06/26/[address] [facility] [address] [place] [address] Gely Alexander MD [address] [place] [address] Social History Tobacco Use Types Packs/Day Years Used Date Smoking Tobacco: Never Smokeless Tobacco: Never Alcohol Use Standard Drinks/Week Comments Yes 0 (1 standard drink = 0.6 oz pur e alcohol) Comments No Sex and Gender Information Value Date Recorded Sex Assigned at Not on file Legal Sex Female 1:47 AM CUSTOMER SERVICE PROFESSIONAL Gender Identity Not on file Sexual Orientation Not on file documented as of this encounter Plan of Treatment Not on file documented as of this encounter Procedures Procedure Name Priority Date/Time Associated Diagnosis Comments SCAN - RADIOLOGY/IMAGING 06/26/2017 1:43 PM CUSTOMER SERVICE PROFESSIONAL documented in this encounter Results * SCAN - RADIOLOGY/IMAGING (06/26/2017 1:43 PM CUSTOMER SERVICE PROFESSIONAL) Anatomical Region Laterality Modality Other us Gely Alexander MD Final Resu lt documented in this encounter Visit Diagnoses Not on filedocumented in this encounter Additional Health Concerns Infection Onset Date Last Indicated Resolved Time COVID: Suspected 07/01/2020 07/01/2020 07/02/2020 5:12 AM CUSTOMER SERVICE PROFESSIONAL COVID19 07/01/2020 07/01/2020 07/15/2020 3:07 AM CUSTOMER SERVICE PROFESSIONAL documented as of this encounter Care Teams Investigator Relationship Specialty Start Date End Date Gely Alexander MD PCP - General 03/01/12 10/17/22 Angel Arora MD [address] [facility] [address] [facility] [address] [place] [address] PCP - General Internal Medicine 12/16/22 Valerie Maher MD Consulting Physician Gastroenterology 06/13/17 Vitaly Roberts MD [address] [address] Referring Physician Neurology 01/30/18 Ángel Albarran MD [address] [address] Consulting Physician Rheumatology 01/30/18 Tabitha Barth MD [address] [place] [address] Referring Physician Family Medicine 01/30/18 08/06/18 Ovidio Rutledge MD [address] [place] [address] Referring Physician Obstetrics and Gynecology 08/07/18 Neil Webb MD [address] [place] [address] Referring Physician Plastic Surgery 08/07/18 Cam Brown DO [address] [place] [address] Consulting Physician Cardiology 02/02/19 Octaviano Belle DO [address] [place] [address] Referring Physician Surgery 05/12/19 documented as of this encounter
== END 2024-12-17 09:56 | disposition home or self-care (01) ==
PROVIDERS: PCP Internal Medicine; Visit Provider Internal Medicine
DX: R10.9 Unspecified abdominal pain (principal); R14.0 Abdominal distension (gaseous); R11.0 Nausea; K92.1 Melena
CPT/HCPCS: 74250

== ENCOUNTER 2025-01-03 12:51 | Outpatient (CLI) | payer OTHER, SELFPAY ==
[2025-01-03 13:29] LABS: Alanine Aminotransferase 44 U/L (6-35); Albumin Level 4.7 g/dL (3.5-5.1); Alkaline Phosphatase 51 U/L (38-126); Anion Gap 7 mmol/L (4-12); Aspartate Amino Transferase 51 U/L (14-36); Bilirubin,Total 0.3 mg/dL (0.2-1.3); Blood Urea Nitrogen 8 mg/dL (7-17); Calcium 8.8 mg/dL (8.4-10.2); Carbon Dioxide 26 mmol/L (22-30); Chloride 95 mmol/L (98-107); Cholesterol 185 mg/dL (0-200); Estimated Glomerular Filt Rate > 60; Glucose 86 mg/dL (65-110); Potassium 4.3 mmol/L (3.4-5.0); Sodium 128 mmol/L (137-145); Total Protein 7.1 g/dL (6.3-8.2); Triglycerides 108 mg/dL (<150)
[2025-01-03 13:35] LABS: Hemoglobin A1C 5.1 % (<5.7)
[2025-01-03 13:36] LABS: HDL Direct 105 mg/dL
[2025-01-03 13:40] LABS: LDL Cholesterol Direct 61 mg/dL
[2025-01-03 13:54] LABS: Free T4 Free Thyroxine 1.09 ng/dL (0.78-2.19)
[2025-01-06 08:44] LABS: Thyroid Stimulating Hormone 0.091 uIU/mL (0.465-4.680)
== END 2025-01-03 12:52 | disposition home or self-care (01) ==
LOC: ANHLAB 12:53
PROVIDERS: PCP Internal Medicine; Visit Provider Internal Medicine
DX: E03.8 Other specified hypothyroidism (principal); Z79.899 Other long term (current) drug therapy; Z13.1 Encounter for screening for diabetes mellitus; E34.9 Endocrine disorder, unspecified; E78.5 Hyperlipidemia, unspecified
CPT/HCPCS: 36415; 80053; 80061; 83036; 84403; 84439; 84443

== ENCOUNTER 2025-01-09 17:15 | Outpatient (CLI) | payer OTHER, SELFPAY ==
[2025-01-13 12:04] LABS: Osmolality, Urine. 330 mOsm/kg (50-1200)
== END 2025-01-09 17:16 | disposition home or self-care (01) ==
LOC: ANHLAB 17:16
PROVIDERS: PCP Internal Medicine; Visit Provider Internal Medicine
DX: E87.1 Hypo-osmolality and hyponatremia (principal)
CPT/HCPCS: 36415; 83930; 83935

== ENCOUNTER 2025-01-24 17:26 | Outpatient (CLI) | payer OTHER, SELFPAY ==
--- OUTSIDE RECORDS SUMMARY | 2025-01-24 17:29 | XMS_ITS ---
Author Organization Unknown Plan of Treatment Description Planned Activity Planned Timing [facility] is a provider organization who partners directly with Health Plans and provides integrated primary care, behavioral health, and manager social work for an attributed population Letter encounter to patientTelephone encounter Jan 09, 2025Jul 2024 Patient Care team information Name Category Status Period Participants - - Proposed period not known -
--- OUTSIDE RECORDS SUMMARY | 2025-01-24 17:29 | XMS_ITS | Clinical Summary ---
Author Organization [facility] Address [address] [place] [address] Care Team Providers Care Mash Processing Operator Name Role Phone Unavailable Primary Care Provider [...]
--- OUTSIDE RECORDS SUMMARY | 2025-01-24 17:29 | XMS_ITS | Clinical Summary ---
Author Organization [facility] Address [address] [facility] [place] [address] Care Team Providers Care Jewel Setter Name Role Phone Claudia Rutledge MD Primary Care Provider [phone] Source Comments [facility],non-owned Affiliates and Associated Physician Practices is amultiple site organization consisting of ambulatory clinics and hospital sitesin [place], [place], [place] and [place]. This disclosure is being madepursuant to the Care Everywhere program and may not contain all information available regarding this patient. Last updated 18.[facility] Allergies Active Allergy Reactions Criticality Noted Date [...] once daily 90 tablet 5 5 Active Active Problems Problem Noted Date Diagnosed Date Precordial pain 01/07/2024 OLIVO (dyspnea on exertion) 09/10/2023 Tachycardia 09/10/2023 Palpitations 09/10/2023 SVT (supraventricular tachycardia) 03/29/2019 Encounters Date Type Department Care Team Description 11/22/2024 11:30 AM CDT Office Visit [facility] [address] [place] [phone] Demario Doherty MD Palpitations (Primary Dx); Tachycardia [...] st Contact Info) Description 06/06/2025 9:45 AM TOBACCO SHAKER Office Visit [facility] Health Heart & Vascular Care [address] [facility], [facility] [address] [place] [address] [place] [address] [facility] [address] [place] [address] Health Maintenance Due Date Last Done Comments MAMMOGRAM 1983 HIV SCREENING 1998 HEPATITIS C SCREENING 01/09/2001 DTAP/TDAP/TD VACCINES (1 - Tdap) 2002 HEPATITIS B VACCINE (1 of 3 - 19+ 3-dose series) 2002 PAP SMEAR 01/15/2004 COVID-19 VACCINE ( - 2023-2 5 season) 2024 DEPRESSION SCREENING [...] patient's age to complete this topic Insurance [facility] SELF PAY NO INSURANCE Member Subscriber Plan / Payer (Ef fective for All Dates) Name:ChelsiNicho villatoro Member ID:Not on file Relation to Subscriber:Not on file Name:PANCHONICHO Subscriber ID:Not on file (Home) Address: [address] [place] [place] [address] Payer ID:Not on file Group ID:Not on file Type:Self Pay Address: [place], [place] Advance Directives * Full Code (Latest Code Status on File) Date Activated Date Inactivated Comments 03/29/2019 5:52 PM 03/31/2019 4:28 PM Care Teams Jewel Setter Relationship Specialty Start Date End Date Claudia Rutledge MD [address] [place] [address] PCP - General 04/15/19
--- OUTSIDE RECORDS SUMMARY | 2025-01-24 17:29 | XMS_ITS | Referral Summary ---
Author Organization [facility] [address] Address [address] [place] [address] Phone Care Team Providers Care Cat Scanner Operator Name Role Phone Valerie Maher MD Unavailable [phone] Vitaly Roberts MD Unavailable [phone] Ángel Albarran MD Unavailable [phone] Ovidio Rutledge MD Unavailable [phone] [facility] Unavailable Cam Brown DO Unavailable Octaviano Belle DO Unavailable [phone] Angel Arora MD Primary Care Provider [phone] Allergies No known active allergies Medications levonorgestrel [...] on file Legal Sex Female 1:47 AM MOTOR BUILDER WINDER Gender Identity Not on file Sexual Orientation Not on file 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 on file Not on file Not on file Last Filed Vital Signs Vital Sign Reading Time Taken Comments Blood Pressure 124/68 07/01/2020 5:22 PM MOTOR BUILDER WINDER Pulse 104 07/01/2020 5:24 PM MOTOR BUILDER WINDER Temperature 37.2 C (98.9 F) 07/01/2020 5:22 PM MOTOR BUILDER WINDER Respiratory Rate 14 07/01/2020 5:22 PM MOTOR BUILDER WINDER Oxygen Saturation 97% 07/01/2020 5:24 PM MOTOR BUILDER WINDER Inhaled Oxygen Concentration - - Weight 56.7 kg (125 lb) 07/01/2020 5:22 PM MOTOR BUILDER WINDER Height 157.5 cm (5' 2) 07/01/2020 5:22 PM MOTOR BUILDER WINDER Body Mass Index 22.86 07/01/2020 5:22 PM MOTOR BUILDER WINDER Plan of Treatment Not [place] [address] [facility] [address] [place] [address] Member Subscriber Plan / Payer (Ef fective 2017-Present) Name:Nicho Deleon Relation to Subscriber:Self Name:Nicho Deleon Payer ID:[id number] (NAIC) Group ID:Not on file Type:MEDICAID RISK OTHER Address: [address] [place] [address] [place] [address] [address] [facility] Care Teams Cat Scanner Operator Relationship Specialty Start Date End Date Kopjas, Angel C., MD [address] [place] [address] PCP - General Internal Medicine 12/16/22 Valerie Maher MD Consulting Physician Gastroenterology 06/13/17 Vitaly Roberts MD [address] [facility] 3 [place] [address] Referring Physician Neurology 01/30/18 Ángel Albarran MD [address] [facility] [address] [place] [address] Consulting Physician Rheumatology 01/30/18 Ovidio Rutledge MD [address] [place] [address] Referring Physician Obstetrics and Gynecology 08/07/18 Neil Webb MD [address] [facility] [place] [address] Referring Physician Plastic Surgery 08/07/18 Cam Brown DO [address] [place] [address] Consulting Physician Cardiology 02/02/19 Octaviano Belle DO [address] [place] [address] Referring Physician Surgery 05/12/19
--- OUTSIDE RECORDS SUMMARY | 2025-01-24 17:29 | XMS_ITS | Clinical Summary ---
Author Organization [facility] [address] Address [address] [place] [address] Phone Care Team Providers Care Trommel Tender Name Role Phone Valerie Maher MD Unavailable [phone] Vitaly Roberts MD Unavailable [phone] Ángel Albarran MD Unavailable [phone] Ovidio Rutledge MD Unavailable [phone] [facility] MD Unavailable Cam Brown DO Unavailable Octaviano Belle DO Unavailable [phone] Angel Arora MD Primary Care Provider [phone] Allergies No known active allergies Medications levonorgestrel [...] on file Legal Sex Female 1:47 AM DIRECTOR OF NURSING Gender Identity Not on file Sexual Orientation Not on file 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 Not on file Not on file Obstetrics History Last Filed Vital Signs Vital Sign Reading Time Taken Comments Blood Pressure 124/68 07/01/2020 5:22 PM DIRECTOR OF NURSING Pulse 104 07/01/2020 5:24 PM DIRECTOR OF NURSING Temperature 37.2 C (98.9 F) 07/01/2020 5:22 PM DIRECTOR OF NURSING Respiratory Rate 14 07/01/2020 5:22 PM DIRECTOR OF NURSING Oxygen Saturation 97% 07/01/2020 5:24 PM DIRECTOR OF NURSING Inhaled Oxygen Concentration - - Weight 56.7 kg (125 lb) 07/01/2020 5:22 PM DIRECTOR OF NURSING Height 157.5 cm (5' 2) 07/01/2020 5:22 PM DIRECTOR OF NURSING Body Mass Index 22.86 07/01/2020 5:22 PM DIRECTOR OF NURSING Plan of Treatment Not on file Insurance [facility] Member Subscriber Plan / Payer (Ef fective 2017-Present) Name:Nicho Deleon Relation to Subscriber:Self Name:Nicho Deleon Payer ID:[id number] (NAIC) Group ID:Not on file Type:MEDICAID RISK OTHER Address: [address] [place] [address] [place] [address] [facility] Care Teams Trommel Tender Relationship Specialty Start Date End Date Angel Arora MD [address] [facility] [address] [facility] [address] [place] [address] PCP - General Internal Medicine 12/16/22 Valerie Maher MD Consulting Physician Gastroenterology 06/13/17 Vitaly Roberts MD 1 [facility] 3 [place] [address] Referring Physician Neurology 01/30/18 Ángel Albarran MD [address] [place] [address] [address] [place] [address] Consulting Physician Rheumatology 01/30/18 Ovidio Rutledge MD [address] [place] [address] Referring Physician Obstetrics and Gynecology 08/07/18 Neil Webb MD [address] [place] [address] Referring Physician Plastic Surgery 08/07/18 Cam Brown DO [address] [place] [address] Consulting Physician Cardiology 02/02/19 Octaviano Belle DO [address] [place] [address] Referring Physician Surgery 05/12/19
--- OUTSIDE RECORDS SUMMARY | 2025-01-24 17:29 | XMS_ITS | Data Portability ---
Author Organization [facility] Address [address] [place] [address] [place] [address] [address] Care Lane Attendant Name Role Phone TANIYA RIVERA Primary Care Provider Assessment No assessment recorded. Plan of Treatment Reminders Order Date Submit Date Provider Last Modified By Organization Details Last Modified Time Details Appointments None recorded. Lab None recorded. Referral None recorded. Procedures None recorded. Surgeries hysteroscop y, with endometrial ablation (SURG) 2020 021 [facility], [address], [place], [address], 10:39:49 Imaging US, transvagina l 2020 021 [email or web address] [facility], [address], [address], [place], [address], 19:45:50 US, pelvis, complete 2020 021 [email or web address] Ovidio Rutledge MD, [address], [place], [address], 11:15:21 Medication Orders None recorded. Patient TargetsNo [...] or kits canno t be used inter [facility] . Femal e Estra diol Range s: Folli cular phase 12.4- 233 pg/mL Ovula tion phase 41.0- 398 pg/mL Lutea l phase 22.3- 341 pg/mL Postm enopa usal< 5-138 pg/mL Healt hy Pregn ant Women 1st Trime ster1 54-32 43 pg/mL 2nd Trime ster1 561-2 1280 pg/mL 3rd Trime ster8 525-> 67025 pg/mL Not Available [facility] (Lab) [address] [place], [address], 11/27/2020 03:46:53 11/27/19 21 11/26/2020 hormo ne panel , serum or plasm a FSH 3.7 mIU/m L This assay was perfo rmed using [employer] n reage nts and test kits. Value s obtai nya with other assay metho ds or kits canno t be used inter [facility] . Femal es Folli cular : 3.5-1 2.5 mIU/m L Ovula tion: 4.7-2 1.5 mIU/m L Lutea l: 1.7-7 .7 mIU/m L Postm enopa use: 25.8- 134.8 mIU/m L Not Available [facility] (Lab) [address] [place], [address], 11/27/2020 03:46:53 11/27/19 21 11/26/2020 hormo ne panel , serum or plasm a luteinizing hormone 8.9 mIU/m L This assay was perfo rmed using [employer] reage nts and test kits. Value s obtai nya with other assay metho ds or kits canno t be used inter [facility] . Femal es Mid-F ollic ular: 2.4-1 2.6 mIU/m L Mid-C ycle: 14.0- 95.6 mIU/m L Mid-L uteal : 1.0-1 1.4 mIU/m L Postm enopa use: 7.7-5 8.5 mIU/m L Not Available [facility] (Lab) [address] [place], [address], 11/27/2020 03:46:53 11/27/19 21 11/26/2020 TSH, serum or plasm a TSH 0.10 uIU/m L 0.30-5 .00 low Not Available [facility] (Lab) [address] [place], [address], 11/27/2020 03:46:54 11/27/19 21 11/26/2020 T4, free, serum T4, free 1.07 NG/dL 0.80-1 .80 Not Available [facility] (Lab) [address] [place], [address], 11/27/2020 14:48:44 12/05/19 21 12/04/2020 free T3, quant itati ve, dialy sis serum or plasm a T3, free 3.1 pg/mL 2.5-3. 9 Not Available [facility] (Lab) [address] [place], [address], 12/05/2020 02:36:59 12/05/19 21 12/04/2020 TSH, serum or plasm a TSH 0.17 uIU/m L 0.30-5 .33 low Not Available [facility] (Lab) [address] [place], [address], 12/05/2020 02:37:00 12/05/19 21 12/04/2020 T4, free, serum T4, free 0.84 NG/dL 0.60-1 .40 Not Available [facility] (Lab) [address] [place], [address], 12/05/2020 02:37:01 12/05/19 12/04/2020 thyro globu timothy Ab, serum thyroglobuli n antibody <1.0 IU/mL 0.0-4. 0 Not Available [facility] (Lab) [address] [facility], [place], [address], 12/05/2020 02:37:01 12/05/19 21 12/04/2020 thyro globu timothy Ab, serum thyroperoxid ase antibodies <0.3 IU/mL 0.0-9. 0 Not Available [facility] (Lab) [address] [facility], [place], [address], 12/05/2020 02:37:01 11/21/1912/02/2020 US, trans vagin al No observ ation record ed. [email or web address] [facility] [address], [place], [address], 12/02/2020 11:31:21 11/21/1911/20/2020 US, trans vagin al No observ ation record ed. [email or web address] Sibleye [address], [place], [address], 11/23/2020 11:35:20 Result Notes None recorded. Problems Name Problem SNOMED Code Status Onset Date Resolution Date Notes Provider Name and Address Organization Details Recorded Time Hypertro phy of vulva 13649483 Active 2011 Hypertro phy of labia;Pr actice ID: 0001 Not Available [facility] 0 18:41:47 Dyspareu quirino 85975126 Completed 201112/25/2020 Dyspareu quirino;Prac arabella ID: 0001 Nataliya liao [facility] 16:29:10 Female genital organ symptoms 324075080 Completed 201112/25/2020 Unspecif ied symptom associat ed with female genital organs;P ractice ID: 0001 Nataliya liao [facility] 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 Active 2011 Hypoacti ve sexual desire disorder ;Practic e ID: 0001 Not Available [facility] 0 18:41:47 Pre-surg yuriy evaluati on Active 2011 Pre-oper ative examinat ion, unspecif ied;Prac arabella ID: 0001 Not Available [facility] 0 18:41:47 Screenin g for malignan t neoplasm of cervix Active 2012 Pap Smear;Pr actice ID: 0001 Not Available [facility] 0 18:41:48 Postcoit al bleeding 71867499 Active 2012 Postcoit al bleeding ;Practic e ID: 0001 Not Available [facility] 0 18:41:48 Speciali zed medical examinat ion Active 2012 Routine gynecolo gical examinat ion;Prac arabella ID: 0001 Not Available [facility] 0 18:41:48 Urinary tract infectio us disease 18195709 Active 2014 Urinary tract infectio n, site not specifie d;Practi ce ID: 0001 Not Available [facility] 0 18:41:48 Adult health examinat ion Completed 201412/25/2020 Routine general medical examinat ion at a health care facility ;Practic e ID: 0001 Nataliya liao, [facility] 1 16:29:02 Pregnanc y test negative 753712779 Active 2014 Negative Pregnanc y Test;Pra ctice ID: 0001 Not Available [facility] 0 18:41:48 Clinical finding Completed 201511/20/2020 Presence of (intraut erine) contrace ptive device;P ractice ID: 0001 Ovidio Rutledge MD [address], [place], [address], [facility] 1 15:50:21 Human papillom avirus deoxyrib onucleic acid detected , high risk on cervical specimen 360988631 Active 2014 Cervical high risk HPV DNA test positive ;Practic e ID: 0001 Not Available [facility] 0 18:41:48 Removal of intraute rine device Active 2014 Encounte r for removal of intraute rine contrace ptive device;P ractice ID: 0001 Not Available [facility] 0 18:41:48 Foreign body in genitour inary tract Active 2014 Foreign body in uterus, sequela; Practice ID: 0001 Not Available [facility] 0 18:41:48 Clinical Research Analyst al complica tion of intraute rine contrace ptive device Active 2014 Displace ment of intraute rine contrace ptive device, init;Pra ctice ID: 0001 Not Available [facility] 0 18:41:49 Finding of pattern of menstrua l cycle 732290187 Active 2014 Excessiv e and frequent menstrua tion with irregula r cycle;Pr actice ID: 0001 Not Available [facility] 0 18:41:49 Insertio n of intraute rine contrace ptive device Active 2014 Encounte r for insertio n of intraute rine contrace ptive device;P ractice ID: 0001 Not Available [facility] 0 18:41:49 Contrace ptive sheath status 039549551 Completed 201511/20/2020 Encounte r for routine checking of intraute rine contrace p dev;Prac arabella ID: 0001 Ovidio Rutledge MD [address], [place], [address], [facility] 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 (general ) (routine ) w/o abn findings ;Practic e ID: 0001 Not Available [facility] 0 18:41:49 Pelvic and perineal pain 628977754 Active 2016 Pelvic and perineal pain;Pra ctice ID: 0001 Not Available [facility] 0 18:41:49 Atypical squamous cells of undeterm ined signific ance on cervical Papanico laou smear 862833306 Active 2016 Atyp squam cell of undet signfc cyto smr crvx (ASC-US) ;Practic e ID: 0001 Not Available [facility] 0 18:41:49 Blood leukocyt e number above referenc e range 015763313 Active 2017 Elevated white blood cell count, unspecif ied;Prac arabella ID: 0001 Not Available [facility] 0 18:41:50 Finding of general energy 192688176 Active 2017 Other fatigue; Practice ID: 0001 Not Available [facility] 0 18:41:50 Postcoit al finding 809136987 Active 2017 Postcoit al and contact bleeding ;Practic e ID: 0001 Not Available [facility] 0 18:41:50 Sexual function painful Active 2017 Unspecif ied dyspareu quirino;Prac arabella ID: 0001 Not Available [facility] 0 18:41:50 Lesion of ovary Completed 201712/25/2020 Other ovarian cyst, right side;Pra ctice ID: 0001 Nataliya [facility] 16:29:07 Finding of desire for urinatio n 061323325 Completed 201712/25/2020 Urgency of urinatio n;Practi ce ID: 0001 Nataliya [facility] 16:29:16 Bleeding 532281244 Completed 201712/25/2020 Abnormal uterine and vaginal bleeding , unspecif ied;Prac arabella ID: 0001 Nataliya [facility] 16:29:14 Right lower quadrant pain 333618447 Active 2017 Right lower quadrant pain;Pra ctice ID: 0001 Not Available [facility] 0 18:41:51 Abdomina l pain 29758120 Completed 201712/25/2020 Abdomina l pain;Rec orded Elsewher e: No Locat ion: Zoila tabor [facility] S ource: EHR Spring Encaser matheus: N Practi ce ID: 0001 Alvino lable Time: 10:30:00 AM Nataliya liao [facility] 1 16:29:00 Vaginiti s and vulvovag initis Active 2010 Vaginiti s and vulvovag initis, unspecif ied;Prac arabella ID: 0001 Not Available [facility] 0 18:41:51 Cyst of ovary Completed 201712/25/2020 Unspecif ied ovarian cyst, unspecif ied side;Rec orded Elsewher e: No Locat ion: [facility] S ource: EHR Spring Encaser matheus: N Practi ce ID: 0001 Alvino lable Time: 11:37:49 AM Nataliya liao [facility] [address] 16:29:[address] Concept Active 2017 Encntr for general adult medical exam w/o abnormal findings ;Recorde d Elsewher e: No Locat ion: [facility] S ource: EHR Spring Encaser matheus: N Practi ce ID: 0001 Alvino lable Time: 10:00:00 AM Not Available [facility] 0 18:41:54 Constipa tion 94566463 Completed 201211/20/2020 Constipa tion, unspecif ied;Jori rded Elsewher e: No Locat ion: [facility] S ource: EHR Spring Encaser matheus: Y Practi ce ID: 0001 Alvino lable Time: 04:30:00 PM Ovidio Rutledge MD [address], [place], [address], [place] [facility] 1 15:50:23 Imaging of abdomen abnormal 594909202 Active 2018 Abn findings on dx imaging of abd regions, inc retroper iton;Rec orded Elsewher e: No Locat ion: [facility] S ource: EHR Spring Encaser matheus: N Practi ce ID: 0001 Alvino lable Time: 11:50:28 AM Not Available [facility] 0 18:41:55 Clinical finding Completed 201811/20/2020 Sexual dysfunct ion;Jori rded Elsewher e: No Locat ion: [facility] S ource: EHR Spring Encaser matheus: N Sam ce ID: 0001 Alvino lable Time: 04:30:00 PM Ovidio Rutledge MD [address], [place], [address], [facility] 1 15:50:18 Clinical finding Completed 201811/20/2020 Dysplasi a of cervix uteri, unspecif ied;Jori rded Elsewher e: No Locat ion: [facility] S ource: EHR Spring Encaser matheus: N Sam ce ID: 0001 Alvino lable Time: 09:00:00 AM Ovidio Rutledge MD [address], [place], [address], [facility] 1 15:50:15 Problem Notes None recorded. Procedures Surgical History Date Name Laterality Status Provider Name and Address Organization Details Recorded Time 12/31/19 21 HYSTEROSCOPY, WITH ENDOMETRIAL ABLATION (SURG) completed Brittani Allison [facility] 12/31/2020 10:39:50 03/20/20 20 Date of [...] Elsewher e: No Locat ion: [facility] M odify By: yoni campo DateTime : 02/28/20 [...] Elsewher e: No Locat ion: Zoila tabor [facility] odify By: lulu sol DateTime : 08/08/19 18 11:15:00 AM Not Available Not Available Not Available Celebrex 200 mg capsule po the night before and 400mg po morning of the procedur e 12/27 completed Prescrib ed Elsewher e: No [facility] odify By: lulu coxuntsue DateTime : 06/03/20 02:50:34 PM Not Available [...] Elsewher e: Yes Loca tion: [facility]ila tabor [facility] odify By: mayra campo DateTime : 04/12/20 12 03:30:00 PM Not Available Not Available Not Available Synthroid 25 mcg tablet take 1 tablet by oral route every day active Prescrib ed Elsewher e: Yes Loca tion: [place] [facility] [facility] odify By: yoni campo DateTime : 02/21/20 19 04:30:00 PM Not Available Not Available Not Available gabapenti n 300 mg capsule TAKE 1 CAPSULE BY MOUTH TWICE DAILY active Not Available Not Available No t Available gabapenti n 100 mg capsule take 3 capsule by oral route every day at bedtime active Prescrib ed Elsewher e: Yes Loca tion: [place] [facility] [facility] odify By: yoni campo DateTime : 02/21/20 19 04:30:00 PM Not Available Not Available Not Available diazepam 10 mg tablet op 1 hour before the procedur e 12/27 completed Prescrib ed Elsewher e: No Locat ion: [place] [facility] [facility] odify By: amknieves Tabor brookeuntsue DateTime : 06/03/20 15 02:50:34 PM Not Available Not Available Not Available topiramat e 15 mg sprinkle capsule take 1 capsule by oral route 2 times every day in the morning and evening active Prescrib ed Elsewher e: Yes Loca tion: [place] [facility] [facility] odify By: yoni campo DateTime : 02/21/20 [...] Elsewher e: Yes Loca tion: [place] [facility] [facility] odify By: mayra campo DateTime : 03/06/20 12 10:30:00 AM Not Available Not Available Not Available Synthroid 10/30 completed Not Available Not Available Not Available hydrocodo ne 5 mg-acetam inophen 300 mg tablet take 1 tablet by oral route every 4 - 6 hours as needed for pain 02/20 completed Prescrib ed Elsewher e: Yes Loca tion: [place] [facility] [facility] odify By: yoni campo DateTime : 12/28/19 17 02:00:00 PM Not Available Not Available Not Available Acid Relief (cimetidi ne) 200 mg tablet take 1 tablet by oral route 2 times every day 30 minutes before meals 07/22 completed Prescrib ed Elsewher e: Yes Loca tion: [place] [facility] [facility] odify By: mayra campo DateTime : 04/12/20 12 03:30:00 PM Not Available Not Available Not Available Linzess 290 mcg capsule active Not Available Not Available Not Available Vitals Date Recorded Body height Body mass index (BMI) Body weight Systolic And Diastolic Provider Name and Address Organization Details Last Updated DateTime 10/30/2020 154.94 cm 25.1 kg/m2 73882.79 g 130/86 mm[Hg] [facility] 10/30/2020 16:38:14 Date Recorded Body height Body mass index (BMI) Body weight Systolic And Diastolic Provider Name and Address Organization Details Last Updated DateTime 11/20/2020 154.94 cm 24 kg/m2 53574.23 g 119/80 mm[Hg] [facility] 11/20/2020 15:43:52 Date Recorded Body height Body mass index (BMI) Body weight Systolic And Diastolic Provider Name and Address Organization Details Last Updated DateTime 12/25/2020 154.94 cm 23.8 kg/m2 66956.64 g 117/75 mm[Hg] [facility] 12/25/2020 16:28:54 Social History Question Answer Notes LastModified by Organizat ion Details LastModified Time Tobacco Smoking Status Never Smoker [facility] 11/20/2020 14:58:15 Do You Have [...] Or The Highest Degree You Have Received? 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 Heavy Information not available 10/30/2020 Mental Status Question Answer Note LastModified by Organization D etails LastModified Time Do you feel stressed (tense, restless, nervous, or anxious, or unable to sleep at night)? [id number] Information not available 10/30/2020 Family History Relationship Description Onset Age of this Age Resolved Age Notes LastModified by Organization Details LastModified Time Father Hypertensive disorder [email or web address] Not available 2019 16:26:48 Father Carcinoma in situ of esophagus [email or web address] Not available 2020 14:58:14 Maternal Uncle Diabetes [...] SNOMED-CT Code Diagnosis ICD10 Code Diagnosis Note [id number] Ovidio Rutledge MD [facility] [address] [address] 03/20/2020 16:07:20 03/20/2020 18:21:51 Gynecologic examination 62107711 Z01.419 This patient is here for her [...] antibiotic s Urinary tr act infectious disease 98592238 N39.0 [id number] Ovidio Rutledge MD [facility] [address] [address] 10/30/2020 16:22:22 10/30/2020 17:05:12 Pain in pelvis 19006509 R10.2 This patient is a 35-year-ol d female with pelvic pain and severe menorrhagi a. We discussed endometria l ablation today. She has a fibroid uterus. This was seen on a CT scan of the abdomen pelvis. We will obtain a pelvic ultrasound and discuss treatment options for pain and menorrhagi a. [id number] MD Corey Partida [address] [address] 11/20/2020 14:57:29 11/20/2020 15:32:25 Pain in pelvis 37135821 R10.2 N92.4 This patient is a 35-year-ol d female with pelvic pain and severe menorrhagi a. We discussed endometria l ablation today. She has a fibroid uterus. This was seen on a CT scan of the abdomen pelvis. We will obtain a pelvic ultrasound and discuss treatment options for pain and menorrhagi a. [id number] Ovidio Rutledge MD [facility] [address] [address] 11/20/2020 14:58:11 11/20/2020 16:08:37 Menorrhagia 231522338 N92.0 this patient is a 35-year-ol d female presents for follow-up on severe menorrhagi a. She had a pelvic ultrasound . We reviewed those ultrasound images together. It is essentiall y normal with a very small calcified fibroid. We had previously discussed endometria l ablation. Her partner/Benny rodriguezand has a vasectomy. we agreed to proceed with endometria l ablation. We discussed failure and recurrence . We discussed some risk. She will return for the informed consent process. [id number] MD Corey Partida [address] [address] 12/25/2020 16:14:08 12/26/2020 16:08:08 Menorrhagia 281505454 N92.0 this patient is a 35-year-ol d female presents for preoperati ve care. She has severe menorrhagi a and we have agreed to perform endometria l ablation with hysterosco py. She understand s the risks, benefits, and alternativ es. She has completed the informed consent process and is ready to proceed. [id number] MD Corey Partida [address] [address] 12/31/2020 09:34:38 12/31/2020 09:35:34 Health Concerns Section Related Observation LastModified by Organization Detai ls LastModified Time None Recorded Concern Status LastModified by Organization Details LastModified Time None Recorded Advance Directives Directive N: Payers Insurance Date Sequence Insurance Name Policy Number Policy White Covered Member ID White Member ID Guarantor Name 01/03/2021 1 [facility] - DOS PRIOR TO 2021 (MEDICAID REPLACEMENT - HMO) Nicho Deleon [id number] Nicho Deleon Notes Date Note Type Note [...] living. Ovidio Rutledge MD [address], [place], [address], [facility] 10/30/2020 18:17:15 11/20/2020 text/html this patient [...] process. Ovidio Rutledge MD [address], [place], [address], [facility] 11/20/2020 16:06:14 12/25/2020 text/html this patient [...] infection. Ovidio Rutledge MD [address], [place], [address], [facility] 12/25/2020 17:07:11 OBGyn Episode Ob Episode Information Episode Created Date Number of Fetuses Patient Bloodtype Patient rh Status Prepregnancy Weight lbs Domestic Partner Domestic Partner Phone Father Name Director Retail Brand Development Status 03/20/20 20 1 CLOSED Fetus Data [...] Domestic Partner Domestic Partner Phone Father Name Director Retail Brand Development Status 03/20/20 20 1 CLOSED Fetus Data [...]
--- OUTSIDE RECORDS SUMMARY | 2025-01-24 17:30 | XMS_ITS | Encounter Summary ---
Author Organization [facility] Address [address] [place] [address] Phone Care Team Providers Care Food Service Attendant Name Role Phone Gely Alexander MD Primary Care Provider + [phone] Valerie Maher MD Unavailable [phone] Vitaly Roberts MD Unavailable Ángel Albarran MD Unavailable [phone] Tabitha Barth MD Unavailable [phone] Ovidio Rutledge MD Unavailable [phone] Neil Webb MD Unavailable [phone] Cam Brown DO Unavailable [phone] Octaviano Belle DO Unavailable [phone] Angel Arora MD Primary Care Provider [phone] Encounter Details Date Type Department Care Team (Late st Contact Info) Description 06/26/[address] [facility] [address] [place] [address] Gely Alexander MD [address] [place] [address] Social History Tobacco Use Types Packs/Day Years Used Date Smoking Tobacco: Never Smokeless Tobacco: Never Alcohol Use Standard Drinks/Week Comments Yes 0 (1 standard drink = 0.6 oz pur e alcohol) Comments No Sex and Gender Information Value Date Recorded Sex Assigned at Not on file Legal Sex Female 1:47 AM SENIOR MANAGER QUALITY ASSURANCE Gender Identity Not on file Sexual Orientation Not on file documented as of this encounter Plan of Treatment Not on file documented as of this encounter Procedures Procedure Name Priority Date/Time Associated Diagnosis Comments SCAN - RADIOLOGY/IMAGING 06/26/2017 1:43 PM SENIOR MANAGER QUALITY ASSURANCE documented in this encounter Results * SCAN - RADIOLOGY/IMAGING (06/26/2017 1:43 PM SENIOR MANAGER QUALITY ASSURANCE) Anatomical Region Laterality Modality Other us Gely Alexander MD Final Resu lt documented in this encounter Visit Diagnoses Not on filedocumented in this encounter Additional Health Concerns Infection Onset Date Last Indicated Resolved Time COVID: Suspected 07/01/2020 07/01/2020 07/02/2020 5:12 AM SENIOR MANAGER QUALITY ASSURANCE COVID19 07/01/2020 07/01/2020 07/15/2020 3:07 AM SENIOR MANAGER QUALITY ASSURANCE documented as of this encounter Care Teams Food Service Attendant Relationship Specialty Start Date End Date Gely Alexander MD PCP - General 03/01/12 10/17/22 Angel Arora MD [address] [facility] [address] [facility] [address] [place] [address] PCP - General Internal Medicine 12/16/22 Valerie Maher MD Consulting Physician Gastroenterology 06/13/17 Vitaly Roberts MD [address] [address] Referring Physician Neurology 01/30/18 Ángel Albarran MD [address] [address] Consulting Physician Rheumatology 01/30/18 Tabitha Barth MD [address] [place] [address] Referring Physician Family Medicine 01/30/18 08/06/18 Ovidio Rutledge MD [address] [place] [address] Referring Physician Obstetrics and Gynecology 08/07/18 Neil Webb MD [address] [place] [address] Referring Physician Plastic Surgery 08/07/18 Cam rBown DO [address] [place] [address] Consulting Physician Cardiology 02/02/19 Octaviano Belle DO [address] [place] [address] Referring Physician Surgery 05/12/19 documented as of this encounter
--- OUTSIDE RECORDS SUMMARY | 2025-01-24 17:30 | XMS_ITS | Clinical Summary ---
Author Organization 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 Not on file [...] Virus (HCV) Screening 1983 TdaP Immunization 1983 Human Papillomavirus (HPV) Immunization (1 - 3-dose series) 1998 Hepatitis B Immunization (1 of 3 - 19+ 3-dose series) 2002 Pap Smear 01/15/2004 Cervical Cancer Screening (CCS) 2013 HPV/Cotest 2013 SARS-COV-2 Immunization ( season) 2024 Influenza Immunization (#1) 2025 03/17/2016 Respiratory Syncytial Virus (RSV) Immunization (Adult) (1 - 1-dose 75+ series) 2058 Meningococcal Immunization (ACWY) Aged Out No longer eligible based on patient's age to complete this topic Pneumococcal Immunization Combined Aged Out No longer eligible based on patient's age to complete this topic Rotavirus Immunization Aged Out No lo nger eligible based on patient's age to complete this topic Insurance MEDICAID [facility] Advance Directives * Full Code (Latest Code Status on File) Date Activated Date Inactivated Comments 10/17/2018 7:09 PM 10/18/2018 4:17 PM CPR-Full Treat ment: FULL ARREST: Attempt Resuscitation/CPR wit intubation and mechanical ventilation. PRE-ARREST: Use entire range of life support measures to stabilize the patient. Care Teams Print Production Coordinator Relationship Specialty Start Date End Date Gely Alxeander MD [address] [facility] [employer] [place] [id number] PCP - General Internal Medicine 08/12/16
[2025-01-24 18:08] LABS: Anion Gap 6 mmol/L (4-12); Blood Urea Nitrogen 9 mg/dL (7-17); Calcium 9.3 mg/dL (8.4-10.2); Carbon Dioxide 26 mmol/L (22-30); Chloride 100 mmol/L (98-107); Estimated Glomerular Filt Rate > 60; Glucose 100 mg/dL (65-110); Potassium 4.1 mmol/L (3.4-5.0); Sodium 132 mmol/L (137-145)
== END 2025-01-24 17:27 | disposition home or self-care (01) ==
LOC: ANHLAB 17:27
PROVIDERS: PCP Internal Medicine; Visit Provider Internal Medicine
DX: E87.1 Hypo-osmolality and hyponatremia (principal)
CPT/HCPCS: 36415; 80048

== ENCOUNTER 2025-06-20 13:15 | Outpatient (CLI) | payer OTHER, SELFPAY ==
[2025-06-20 13:34] LABS: Hematocrit 40.6 % (37.0-47.0); Hemoglobin 14.2 g/dL (12.0-15.0); Immature Granulocyte Percent A 0.5 % (0-0.5); Lymphocytes Absolute Auto 2.83 K/mm3 (0.9-3.2); Mean Corpuscular HGB Conc 35.0 g/dl (32-36); Mean Corpuscular Hemoglobin 32.9 pg (26-34); Mean Corpuscular Volume 94.2 fl (80-100); Nucleated Red Blood Cells Absolute Auto 0.000 K/mm3 (0.0-0.012); Nucleated Red Blood Cells Perc 0.0 % (0.0-0.2); Platelet Count Result 313 k/mm3 (150-375); Red Blood Count 4.31 M/mm3 (4.2-5.4); White Blood Count 8.4 K/mm3 (4.5-10.0)
[2025-06-20 14:12] LABS: Alanine Aminotransferase 52 U/L (6-35); Albumin Level 5.1 g/dL (3.5-5.1); Alkaline Phosphatase 58 U/L (38-126); Anion Gap 9 mmol/L (4-12); Aspartate Amino Transferase 49 U/L (14-36); Bilirubin,Total 0.5 mg/dL (0.2-1.3); Blood Urea Nitrogen 7 mg/dL (7-17); Calcium 9.1 mg/dL (8.4-10.2); Carbon Dioxide 24 mmol/L (22-30); Chloride 101 mmol/L (98-107); Cholesterol 199 mg/dL (0-200); Estimated Glomerular Filt Rate > 60; Glucose 77 mg/dL (65-110); HDL Direct 109 mg/dL; Potassium 4.5 mmol/L (3.4-5.0); Sodium 134 mmol/L (137-145); Total Protein 8.2 g/dL (6.3-8.2); Triglycerides 150 mg/dL (<150)
[2025-06-20 14:19] LABS: Free T4 Free Thyroxine 0.84 ng/dL (0.78-2.19)
[2025-06-20 14:43] LABS: Thyroid Stimulating Hormone 0.637 uIU/mL (0.465-4.680)
[2025-06-24 13:09] LABS: Free Testosterone (Direct) 1.4 pg/mL (0.0-4.2)
== END 2025-06-20 13:16 | disposition home or self-care (01) ==
LOC: ANHLAB 13:16
PROVIDERS: PCP Internal Medicine; Visit Provider Internal Medicine
DX: R74.01 Elevation of levels of liver transaminase levels (principal); E03.8 Other specified hypothyroidism; E78.5 Hyperlipidemia, unspecified; E55.9 Vitamin D deficiency, unspecified; Z79.899 Other long term (current) drug therapy
CPT/HCPCS: 36415; 80053; 80061; 82306; 84402; 84403; 84439; 84443; 85025